=== PATIENT | male | born 1980 | race Caucasian/White ===

== ENCOUNTER 2017-11-15 19:35 | Emergency (ER) | END 2017-11-15 21:59 | disposition home or self-care (01) ==

== ENCOUNTER 2018-01-23 22:26 | Emergency (ER) | END 2018-01-24 04:08 | disposition home or self-care (01) ==

== ENCOUNTER 2018-03-25 21:45 | Emergency (ER) | END 2018-03-25 23:22 | disposition home or self-care (01) ==

== ENCOUNTER 2018-07-13 08:41 | Emergency (ER) | END 2018-07-13 16:09 ==

== ENCOUNTER 2018-10-24 18:15 | Emergency (ER) | payer OTHER ==
[~2018-10-24] VITALS: Ht 167.6 cm; Wt 70.9 kg
[~2018-10-24 18:15] MED LIST: CITA40TA6 PO; CLON-412 PO; FER325 PO; GABA400C14 PO; OMEP20CA16 PO; QUET100T32 PO
[2018-10-24 18:18] VITALS: Ht 167.6 cm; Wt 70.9 kg
[2018-10-24] MEDS ORDERED: IBUPROFEN 600 MG TAB PO ONE (20:00)
[2018-10-24] MEDS ORDERED: HYDROCODONE/APAP (5/325) TAB PO ONE (20:00)
[2018-10-24] MEDS ORDERED: AZIT500T3 PO (20:23)
[2018-10-24] MEDS ORDERED: BISM262O23 PO (20:23)
[2018-10-24] MEDS ORDERED: HYDR-4011 PO (20:23)
[2018-10-24] MEDS ORDERED: IBUP-1542 PO (20:24)
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
[2018-10-24 21:29] VITALS: BP 129/72; PULSE 101; RESP 20
== END 2018-10-24 21:31 | disposition home or self-care (01) ==
LOC: FTE 18:15
DX: S42.102A Fracture of unspecified part of scapula, left shoulder, initial encounter for closed fracture (principal); F17.210 Nicotine dependence, cigarettes, uncomplicated; Y09 Assault by unspecified means
CPT/HCPCS: Z7502; Z7610; 99283

== ENCOUNTER 2018-11-11 22:36 | Inpatient (IN) | payer OTHER ==
[~2018-11-11] VITALS: Ht 182.9 cm; Wt 78.0 kg
[~2018-11-11 22:36] MED LIST changes: +AZIT500T3 PO; +BISM262O23 PO; +HYDR-4011 PO; +IBUP-1542 PO
[2018-11-11 22:38] VITALS: Ht 182.9 cm; Wt 78.0 kg
[2018-11-11] MEDS ORDERED: ONDANSETRON 4 MG INJ IV STA (23:23)
[2018-11-11] MEDS ORDERED: morphine 4 MG/ML VIAL IV STA (23:23)
[2018-11-11] MEDS ORDERED: SOD CHLORIDE 0.9% 1,000 ML IV STA (23:23)
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
[2018-11-12] MEDS ORDERED: DICYCLOMINE 20 MG INJ IM ONE
[2018-11-12] MEDS ORDERED: IOHEXOL 300MG/ML 150 ML BTL ONE (00:30)
[2018-11-12] MEDS ORDERED: SOD CHLORIDE 0.9% 100 ML ONE (00:30)
[2018-11-12] MEDS ORDERED: ONDANSETRON 4 MG INJ IV PRN ×2 (02:00→02:30)
[2018-11-12] MEDS ORDERED: OLANZAPINE (ODT) 5 MG TAB ODT ONE (02:00)
[2018-11-12] MEDS ORDERED: morphine 4 MG/ML VIAL IV STA (02:14)
[2018-11-12] MEDS ORDERED: NACL 0.9% 3 ML SYG IV SCH (02:30)
[2018-11-12] MEDS ORDERED: morphine 2 MG INJ IV PRN (02:30)
--- NOTE | 2018-11-12 02:41 | HP ---
Date/Time of Note Date/Time of Note DATE: 11/12/18 TIME: 02:40 Assessment/Plan VTE Prophylaxis SCD applied (from Nsg): Yes Pharmacological prophylaxis: NA/contraindicated Pharm contraindication: low risk/ambulating Lines/Catheters IV Catheter Type (from Nrsg): Saline Lock Assessment/Plan Hospital Course This is a 38-year-old male being admitted to the [facility] floor for: #1 Small bowel obstruction: CT scan also shows possible inflammatory process. Patient at the current time refusing NG tube. We will keep the patient n.p.o. except meds, normal saline hydration. Pain management. General surgery has been consulted by the ER, Dr. De León. #2 rectal bleed: Patient does report that he has noticed bleeding at times over the last month. Hemoglobin at the current time is 8. Will check CBC every 6 hours. Will consult GI . #3 acute on chronic microcytic anemia: Patient has a hemoglobin of 8 with a MCV of 66. Will check stool occult blood, check iron stores. Consult GI. #4 Behavioral disorder: Patient has a history of bipolar and anxiety, will resume home medications #5 DVT GI prophylaxis: SCDs, Protonix IV Further treatment strategy will be implemented as per the clinical course. Result Diagram: 11/11/18 2335 11/11/18 2335 Results 24hrs Laboratory Tests Test 11/11/18 23:35 11/12/18 01:36 White Blood Count 10.5 # Red Blood Count 3.98 L Hemoglobin 8.0 L Hematocrit 26.4 L Mean Corpuscular Volume 66.3 L Mean Corpuscular Hemoglobin 20.1 L Mean Corpuscular Hemoglobin Concent 30.3 L Red Cell Distribution Width 17.0 H Platelet Count 604 H Mean Platelet Volume 8.8 Immature Granulocytes % 0.300 Neutrophils % 70.3 Lymphocytes % 17.7 Monocytes % 9.0 Eosinophils % 2.3 Basophils % 0.4 Nucleated Red Blood Cells % 0.0 Immature Granulocytes # 0.030 Neutrophils # 7.4 Lymphocytes # 1.9 Monocytes # 1.0 H Eosinophils # 0.2 Basophils # 0.0 Nucleated Red Blood Cells # 0.0 Sodium Level 140 Potassium Level 3.8 Chloride Level 103 Carbon Dioxide Level 21 Anion Gap 16 H Blood Urea Nitrogen 11 Creatinine 0.93 Est Glomerular Filtrat Rate mL/min > 60 Glucose Level 102 Calcium Level 9.7 Total Bilirubin 0.2 Direct Bilirubin 0.00 Indirect Bilirubin 0.2 Aspartate Amino Transf (AST/SGOT) 24 Alanine Aminotransferase (ALT/SGPT) 25 Alkaline Phosphatase 105 Total Protein 7.4 Albumin 4.3 Globulin 3.10 Albumin/Globulin Ratio 1.38 Lipase 28 Urine Color STRAW Urine Clarity CLEAR Urine pH 8.0 Urine Specific [place] 1.013 Urine Ketones NEGATIVE Urine Nitrite NEGATIVE Urine Bilirubin NEGATIVE Urine Urobilinogen NEGATIVE Urine Leukocyte Esterase NEGATIVE Urine Hemoglobin NEGATIVE Urine Glucose NEGATIVE Urine Total Protein NEGATIVE HPI/ROS Admit Date/Time Admit Date/Time Hx of Present Illness Chief complaint: Abdominal pain This is a 38-year-old male with a past medical history of IV drug use as well as alcohol use who presented to the ED via ambulance complaining of abdominal pain. He reports that his abdominal pain has been going on and off for the past 1 month. He describes it as being intermittent and it is waxing and waning. He reports that he was drinking and he started developing epigastric pain and right-sided abdominal pain. He has noticed some blood in the stools over the last month as well. He denies any constipation or diarrhea. Denies any fevers. He does report a history of meth as well as heroin with the most recent meth use being yesterday. He is currently homeless Allergies: NKDA Medications: Lexapro, Klonopin, gabapentin, Seroquel ROS Const: As per HPI Eyes : No pain discharge or redness or change in visual acuity ENT: No pain, sore throat, congestion, congestion, dysphagia or discharge Respiratory: No shortness of breath, cough, sputum, wheezing, or pleuritic pain Cardiovascular: No chest pain, palpitation, PND, or edema GI : As per HPI Genitourinary: No dysuria, hematuria, flank pain , discharge or CVA tenderness Musculoskeletal: No joint pain, back pain, neck pain, restricted range of motion in neck or joints Skin: No rash, bruising or hives Neuro: No headache, dizziness, syncope, seizure, focal weakness Endocrine: No polyuria, polydipsia, temperature intolerance Psych: No hallucination, depression, anxiety or suicidal ideation PMH/Family/Social Past Medical History Anemia, bipolar disorder, anxiety Medications Current Medications Ondansetron HCl (Zofran Inj) 4 mg BRIDGE ORDER PRN IV NAUSEA/VOMITING; Start 11/12/18 at 02:00; Stop 11/13/18 at 01:59 Acetaminophen (Tylenol Tab) 650 mg ER BRIDGE PRN PO .MILD PAIN 1-3 OR TEMP; Start 11/12/18 at 02:00; Stop 11/13/18 at 01:59 Sodium Chloride 1,000 ml @ 100 mls/hr Q10H IV ; Start 11/12/18 at 02:17 IV Flush (NS 3 ml) 3 ml PER PROTOCOL IV ; Start 11/12/18 at 02:30 Ondansetron HCl (Zofran Inj) 4 mg Q6H PRN IV NAUSEA/VOMITING; Start 11/12/18 at 02:30 Acetaminophen (Tylenol Tab) 650 mg Q6H PRN PO .PAIN 1-3 OR TEMP; Start 11/12/18 at 02:30 Morphine Sulfate (morphine) 2 mg Q4H PRN IV .SEVERE PAIN 7-10; Start 11/12/18 at 02:30 Coded Allergies: No Known Allergy (Unverified , 10/24/18) Past Surgical History Past Surgical Hx: no surgical history Social History Alcohol Use: occasionally Smoking Status: Current every day smoker Drug Use: heroin, other (Methamphetamine) Exam/Review of Systems Vital Signs Vitals Vital Signs Date Temp Pulse Resp B/P (MAP) Pulse Ox O2 O2 Flow FiO2 Time Delivery Rate 11/12/18 98.0 75 16 137/62 100 Room Air 00:40 (87) Exam Exam General: Patient is currently lying in bed sleeping when he was aroused he does report mild abdominal pain, he is disheveled appearing HEENT: Atraumatic, normocephalic. The pupils are equal, round and reactive. E xtraocular motor are intact Neck: Supple with full range of motion. No rigidity or meningismus Chest: Nontender Lungs: Clear to auscultation bilaterally no crackles rales or wheezing Heart: Normal S1-S2, Regular rhythm and rate. Abdomen: Tenderness palpation diffusely across the abdomen, hypoactive bowel sounds, guarding but no rebound. No CVA tenderness palpation bilaterally Extremities: Normal to inspection, no edema no cyanosis Neurologic: Normal mental status, speech normal, cranial nerves II through XII are intact, motor and sensory are intact Additional Comments PROCEDURE: One view chest radiograph. CLINICAL INDICATION: Chest pain. TECHNIQUE: An AP view of the chest was obtained. COMPARISON: None. FINDINGS: Mediastinum: Unremarkable. Heart size: Normal. Pulmonary vasculature: No visible engorgement. Lungs: Clear. Costophrenic sulci: Clear. Bony structures: Grossly unremarkable for age. IMPRESSION: 1. Unremarkable single view chest. RPTAT:AAJJ Physician Flaco Date Time Electronically viewed and signed by Physician Flaco on 11/12/2018 00:29 GW/ CC: WILMER FELIX MD [id number] PROCEDURE: CT Abdomen and Pelvis with IV contrast. CLINICAL INDICATION: Pain. TECHNIQUE: CT scan of the abdomen and pelvis was performed on a multidetector slice CT scanner. 100 cc of Omnipaque 300 intravenous contrast material was utilized. Sagittal and coronal reformatted images were obtained from the axial source images. Images were reviewed on a high-resolution PACS workstation. Exam CTDlvol = 8 mGy and DLP = 505 Gy-cm. One of the following 3 dose reduction techniques were used: Automated exposure control; adjustment of the mA and/or kV according to patient size; or use of iterative reconstruction technique. DICOM images are available. COMPARISON: 10/19/2018. FINDINGS: There is increased distension of multiple loops of small bowel in the abdomen with air-fluid levels. There is redemonstrated right colon wall thickening. There is abundant stool throughout the right and transverse colon. The left and sigmoid colon are normal caliber with moderate stool. There is a small amount of free fluid. The appendix is not distinctly visualized.. There is no evidence for diverticulitis. The liver is enlarged measuring 20 cm length.. Liver is mildly hypodense/fatty infiltration. No intrahepatic lesions are identified. The gallbladder is normal in appearance. There is no definite biliary ductal dilation. Pancreas is normal in appearance. The spleen is unremarkable.. There are no adrenal masses. The aorta is normal caliber. Kidneys are normal in appearance without hydronephrosis, mass or calculus. There is no perinephric collection. Ureters are of normal caliber and without evidence for an obstructing calculus The urinary bladder well distended with mild diffuse wall thickening.. Prostate gland is unremarkable. Limited evaluation lung bases is unremarkable. The bones are unremarkable. IMPRESSION: 1. Dilated small bowel with air-fluid levels. Abundant stool within the cecum. Right colon wall thickening. Findings are compatible with a bowel obstruction, possibly related to the right colon inflammatory process, decreased as compared to prior study. 2. Mild free fluid. 3. Appendix not distinctly visualized. 4. Enlarged fatty liver. 5. Redemonstrated distended urinary bladder with diffuse wall thickening. RPTAT: HMVK .Leo Staton MD, MD Date Time Electronically viewed and signed by .Leo Staton MD, on 11/12/2018 01:13 .K/ CC: WILMER FELIX MD [id number] MARIA GUADALUPE MA Nov 12, 2018 02:41
[2018-11-12] MEDS: HYDROmorphONE 0.5 MG/0.5 ML SYG IV PRN ×3 (04:21→17:57)
[2018-11-12] MEDS: SOD CHLORIDE 0.9% 1,000 ML IV SCH ×3 (04:57→22:17)
[2018-11-12] MEDS ORDERED: PANTOPRAZOLE 40 MG INJ IV ONE (05:00)
[2018-11-12] MEDS: PANTOPRAZOLE (EC) 40 MG TAB PO SCH (06:36)
[2018-11-12] MEDS ORDERED: NON-FORMULARY/PATIENT OWN MED (Omeprazole* 20 MG) PO SCH (07:00)
[2018-11-12] MEDS: ACETAMINOPHEN 325 MG TAB PO PRN ×3 (07:10→09:01)
[2018-11-12 08:15] VITALS: BP 124/71; PULSE 84; RESP 16
[2018-11-12] MEDS: CITALOPRAM 20 MG TAB PO SCH (09:38)
[2018-11-12] MEDS: GABAPENTIN 400 MG CAP PO SCH ×3 (09:38→21:08)
[2018-11-12 12:49] VITALS: BP 141/87; PULSE 68; RESP 16
[2018-11-12] MEDS ORDERED: SOD FERRIC GLUC COMPLX 125 MG in SOD CHLORIDE 0.9% 100 ML IVPB SCH (13:00)
--- NOTE | 2018-11-12 14:41 | QN ---
Documentation Comment 38-year-old homeless male with heroine abuse/meth abuse/admitted with small bowel obstruction. Surgery consult has been called. Patient also had reported rectal bleed for which a GI consultation has been also called. Labs reviewed and patient with severe iron deficiency for which recommend IV Ferrlecit x3 doses. Patient to be seen by health care social worker for his drug abuse history. CT reviewed and will treat constipation as well. Case d/w JOYCE Villarreal V. MAMMAL CONTROL AGENT Nov 12, 2018 14:41
[2018-11-12] MEDS ORDERED: BISACODYL 10 MG SUPP PR ONE (15:00)
--- NOTE | 2018-11-12 15:06 | CONS ---
Assessment/Plan Assessment/Plan Assessment/Plan (Daily) Clinically this patient does not have a small bowel obstruction, however because of the CT reading I have ordered a small bowel follow-through. Further recommendations will be forthcoming based on the patient's further workup and clinical course. Consultation Date/Type/Reason Admit Date/Time Date of Consultation: Nov 12, 2018 Type of Consult General surgery Reason for Consultation Possible small bowel obstruction Date/Time of Note DATE: 11/12/18 TIME: 15:03 Hx of Present Illness The patient is a 38-year-old male with no previous abdominal surgeries. He is homeless. Yesterday after drinking he developed abdominal pain. A CT scan suggested possible small bowel obstruction. He is admitted and surgical consultation is requested in that regard. Constitutional: no complaints Eyes: no complaints ENT: no complaints Respiratory: no complaints Cardiovascular: no complaints Gastrointestinal: pain Genitourinary: no complaints Musculoskeletal: no complaints Skin: no complaints Neurologic: no complaints Endocrine: no complaints Lymphatic: no complaints Past Medical History Home Meds Active Scripts Ibuprofen* (Motrin*) 600 Mg Tab, 600 MG PO Q6, #15 TAB Prov:CHIQUIS MAN MD 10/24/18 Hydrocodone/Acetaminophen ([place] 5-325 Tablet) 1 Each Tablet, 1 TAB PO Q6H PRN for PAIN, #10 TAB Prov:CHIQUIS MAN MD 10/24/18 Bismuth Subsalicylate* (Pepto-Bismol*) 262 Mg/15 Ml Oral.susp, 15 ML PO Q3H PRN for DIARRHEA for 5 Days, ML Prov:CHIQUIS MAN MD 10/24/18 Reported Medications Clonazepam* (Klonopin*) 1 Mg Tablet, 1 MG PO BID PRN for ANXIETY, TAB 09/24/18 Citalopram Hydrobromide* (Citalopram Hydrobromide*) 40 Mg Tablet, 40 MG PO DAILY, #30 TAB 08/10/18 Quetiapine Fumarate* (Quetiapine Fumarate*) 100 Mg Tablet, 100 MG PO HS, TAB 08/10/18 Ferrous Sulfate* (Ferrous Sulfate*) 325 Mg Tabec, 325 MG PO DAILY, TAB 08/10/18 Omeprazole* (Omeprazole*) 20 Mg Capsule.dr, 20 MG PO AC BREAKFAST, #30 CAP 08/10/18 Gabapentin* (Gabapentin*) 400 Mg Capsule, 400 MG PO TID, #90 CAP 08/10/18 Discontinued Scripts Azithromycin* (Zithromax*) 500 Mg Tablet, 500 MG PO DAILY for 3 Days, TAB Prov:CHIQUIS MAN MD 10/24/18 Medications Current Medications Ondansetron HCl (Zofran Inj) 4 mg BRIDGE ORDER PRN IV NAUSEA/VOMITING; Start 11/12/18 at 02:00; Stop 11/13/18 at 01:59 Acetaminophen (Tylenol Tab) 650 mg ER BRIDGE PRN PO .MILD PAIN 1-3 OR TEMP Last administered on 11/12/18at 09:01; Admin Dose 650 MG; Start 11/12/18 at 02:00; Stop 11/13/18 at 01:59 Sodium Chloride 1,000 ml @ 100 mls/hr Q10H IV Last administered on 11/12/18at 04:57; Admin Dose 100 MLS/HR; Start 11/12/18 at 02:17 IV Flush (NS 3 ml) 3 ml PER PROTOCOL IV ; Start 11/12/18 at 02:30 Ondansetron HCl (Zofran Inj) 4 mg Q6H PRN IV NAUSEA/VOMITING; Start 11/12/18 at 02:30 Acetaminophen (Tylenol Tab) 650 mg Q6H PRN PO .PAIN 1-3 OR TEMP; Start 11/12/18 at 02:30 Hydromorphone HCl (Dilaudid) 0.5 mg Q4H PRN IV SEVERE PAIN Last administered on 11/12/18at 09:44; Admin Dose 0.5 MG; Start 11/12/18 at 04:00 Lorazepam (Ativan) 1 mg Q4H PRN IV AGITATION/ANXIETY; Start 11/12/18 at 04:30 Citalopram Hydrobromide (Celexa) 40 mg DAILY PO Last administered on 11/12/18at 09:38; Admin Dose 40 MG; Start 11/12/18 at 09:00 Clonazepam (Klonopin) 1 mg BID PRN PO ANXIETY; Start 11/12/18 at 05:00 Gabapentin (Neurontin) 400 mg TID PO Last administered on 11/12/18at 09:38; Admin Dose 400 MG; Start 11/12/18 at 09:00 Quetiapine Fumarate (Seroquel) 100 mg HS PO ; Start 11/12/18 at 21:00 Pantoprazole (Protonix Tab) 40 mg AC BREAKFAST PO ; Start 11/12/18 at 07:00 Ferric Sodium Gluconate Complex 125 mg/Sodium Chloride 100 ml @ 100 mls/hr DAILY@1300 IVPB ; Start 11/12/18 at 15:30; Stop 11/14/18 at 13:59 Allergies: Coded Allergies: No Known Allergy (Unverified , 10/24/18) Past Surgical History Past Surgical Hx: no surgical history Family History Significant Family History: no pertinent family hx Social History Alcohol Use: occasionally Smoking Status: Current every day smoker Drug Use: heroin, other Exam/Review of Systems Exam Vitals Vital Signs Date Temp Pulse Resp B/P (MAP) Pulse Ox O2 O2 Flow FiO2 Time Delivery Rate 11/12/18 97.6 68 16 141/87 99 Room Air 12:49 (105) Intake and Output 11/11/18 11/11/18 11/12/18 1414:59 22:59 06:59 IntakeIntake Total 1000 ml BalanceBalance 1000 ml Constitutional: alert, oriented Psych: no complaints Head: normocephalic Eyes: nl conjunctiva Neck: supple Respiratory: clear to auscultation Cardiovascular: regular rate and rhythm Gastrointestinal: soft Musculoskeletal: nl extremities to inspection Extremities: normal pulses 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: DENTAL [employer]ORATORY SUPERVISOR II-XII intact Results Result Diagram: 11/12/18 1121 11/11/18 2335 Results 24hrs Laboratory Tests Test 11/11/18 23:35 11/12/18 00:30 11/12/18 01:36 11/12/18 02:53 White Blood Count 10.5 # Red Blood Count 3.98 L Hemoglobin 8.0 L Hematocrit 26.4 L Mean Corpuscular 66.3 L Volume Mean Corpuscular 20.1 L Hemoglobin Mean Corpuscular 30.3 L Hemoglobin Concent Red Cell 17.0 H Distribution Width Platelet Count 604 H Mean Platelet Volume 8.8 Immature 0.300 Granulocytes % Neutrophils % 70.3 Lymphocytes % 17.7 Monocytes % 9.0 Eosinophils % 2.3 Basophils % 0.4 Nucleated Red Blood 0.0 Cells % Immature 0.030 Granulocytes # Neutrophils # 7.4 Lymphocytes # 1.9 Monocytes # 1.0 H Eosinophils # 0.2 Basophils # 0.0 Nucleated Red Blood 0.0 Cells # Sodium Level 140 Potassium Level 3.8 Chloride Level 103 Carbon Dioxide Level 21 Anion Gap 16 H Blood Urea Nitrogen 11 Creatinine 0.93 Est Glomerular > 60 Filtrat Rate mL/min Glucose Level 102 Calcium Level 9.7 Iron Level 17 L Total Iron Binding 535 H Capacity Percent Iron 3 L Saturation Ferritin 4.8 L Total Bilirubin 0.2 Direct Bilirubin 0.00 Indirect Bilirubin 0.2 Aspartate Amino 24 Transf (AST/SGOT) Alanine 25 Aminotransferase (AL T/SGPT) Alkaline Phosphatase 105 Total Protein 7.4 Albumin 4.3 Globulin 3.10 Albumin/Globulin 1.38 Ratio Lipase 28 Ethyl Alcohol Level < 10.0 H Urine Opiates Screen Positive Urine Barbiturates Negative Urine Amphetamines POSITIVE Screen Urine Negative Benzodiazepines Screen Urine Cocaine Screen Negative Urine Cannabinoids Negative Urine Color STRAW Urine Clarity CLEAR Urine pH 8.0 Urine Specific 1.013 [place] Urine Ketones NEGATIVE Urine Nitrite NEGATIVE Urine Bilirubin NEGATIVE Urine Urobilinogen NEGATIVE Urine Leukocyte NEGATIVE Esterase Urine Hemoglobin NEGATIVE Urine Glucose NEGATIVE Urine Total Protein NEGATIVE Erythrocyte 16 H Sedimentation Rate Test 11/12/18 11:21 White Blood Count 9.4 Red Blood Count 4.16 L Hemoglobin 8.4 L Hematocrit 28.5 L Mean Corpuscular 68.5 L Volume Mean Corpuscular 20.2 L Hemoglobin Mean Corpuscular 29.5 L Hemoglobin Concent Red Cell 17.2 H Distribution Width Platelet Count 579 H Mean Platelet Volume 9.0 Immature 0.400 Granulocytes % Neutrophils % 77.3 H Lymphocytes % 12.2 L Monocytes % 7.0 Eosinophils % 2.8 Basophils % 0.3 Nucleated Red Blood 0.0 Cells % Immature 0.040 H Granulocytes # Neutrophils # 7.3 Lymphocytes # 1.2 Monocytes # 0.7 Eosinophils # 0.3 Basophils # 0.0 Nucleated Red Blood 0.0 Cells # Medications Medication Current Medications Ondansetron HCl (Zofran Inj) 4 mg BRIDGE ORDER PRN IV NAUSEA/VOMITING; Start 11/12/18 at 02:00; Stop 11/13/18 at 01:59 Acetaminophen (Tylenol Tab) 650 mg ER BRIDGE PRN PO .MILD PAIN 1-3 OR TEMP Last administered on 11/12/18at 09:01; Admin Dose 650 MG; Start 11/12/18 at 02:00; Stop 11/13/18 at 01:59 Sodium Chloride 1,000 ml @ 100 mls/hr Q10H IV Last administered on 11/12/18at 04:57; Admin Dose 100 MLS/HR; Start 11/12/18 at 02:17 IV Flush (NS 3 ml) 3 ml PER PROTOCOL IV ; Start 11/12/18 at 02:30 Ondansetron HCl (Zofran Inj) 4 mg Q6H PRN IV NAUSEA/VOMITING; Start 11/12/18 at 02:30 Acetaminophen (Tylenol Tab) 650 mg Q6H PRN PO .PAIN 1-3 OR TEMP; Start 11/12/18 at 02:30 Hydromorphone HCl (Dilaudid) 0.5 mg Q4H PRN IV SEVERE PAIN Last administered on 11/12/18at 09:44; Admin Dose 0.5 MG; Start 11/12/18 at 04:00 Lorazepam (Ativan) 1 mg Q4H PRN IV AGITATION/ANXIETY; Start 11/12/18 at 04:30 Citalopram Hydrobromide (Celexa) 40 mg DAILY PO Last administered on 11/12/18at 09:38; Admin Dose 40 MG; Start 11/12/18 at 09:00 Clonazepam (Klonopin) 1 mg BID PRN PO ANXIETY; Start 11/12/18 at 05:00 Gabapentin (Neurontin) 400 mg TID PO Last administered on 11/12/18at 09:38; Admin Dose 400 MG; Start 11/12/18 at 09:00 Quetiapine Fumarate (Seroquel) 100 mg HS PO ; Start 11/12/18 at 21:00 Pantoprazole (Protonix Tab) 40 mg AC BREAKFAST PO ; Start 11/12/18 at 07:00 Ferric Sodium Gluconate Complex 125 mg/Sodium Chloride 100 ml @ 100 mls/hr DAILY@1300 IVPB ; Start 11/12/18 at 15:30; Stop 11/14/18 at 13:59 ADAM CARDOZA MD Nov 12, 2018 15:06
--- NOTE | 2018-11-12 15:38 | NUR ---
Pt off floor to radiology for small bowel follow through via wheelchair.
[2018-11-12] MEDS ORDERED: DIATR MEGLU/DIATRIZOATE SODIUM 120 ML BTL ONE (15:40)
--- NOTE | 2018-11-12 16:00 | NUR ---
Pt has hx of bipolar and depression. Spoke to Starla SPRUE KNOCKER regarding psych consult with Saloni MEYER. Per Starla, pt currently does not show any signs of behavioral issues, pt resting calmly in bed, no signs of hallucinations, pt also on appropriate med regimen. Will hold off on psych consult. However, inform Starla SPRUE KNOCKER if pt behavior changes.
--- NOTE | 2018-11-12 16:53 | QN ---
Documentation Comment Patient is off the floor for an X-ray. Will see tomorrow for consultation. MIC MEDINA NP Nov 12, 2018 16:53
[2018-11-12] MEDS: SOD FERRIC GLUC COMPLX 125 MG in SOD CHLORIDE 0.9% 100 ML IVPB SCH (17:58)
--- NOTE | 2018-11-12 18:19 | NUR ---
END OF SHIFT NOTES: PT STABLE, ALERT & ORIENTED X4. S/P SMALL BOWEL XR. PT MOSTLY SLEEPING IN BED, FOLLOWS COMMANDS, NO BEHAVIOR ISSUES, PAIN MED ADMINISTERED PER ORDER, PT REFUSED NGT, MD AWARE. NO DISTRESS NOTED. INSTRUCTED PT TO CALL FOR ASSISTANCE. VS WNL.HOURLY ROUNDING. CALL LIGHT WITHIN REACH.ALL NEEDS MET. NO NEW COMPLAINTS.
[2018-11-12 20:15] VITALS: BP 124/71; PULSE 84; RESP 16
[2018-11-12] MEDS: LORAZEPAM 2 MG INJ IV PRN (20:57)
[2018-11-12] MEDS: QUETIAPINE 100 MG TAB PO SCH ×2 (21:00→23:43)
[2018-11-13 02:08] VITALS: BP 139/84; PULSE 74; RESP 18
[2018-11-13] MEDS: SOD CHLORIDE 0.9% 1,000 ML IV SCH ×2 (04:32→17:35)
[2018-11-13] MEDS: PANTOPRAZOLE (EC) 40 MG TAB PO SCH ×2 (05:53→09:39)
--- NOTE | 2018-11-13 06:17 | NUR ---
PATIENT HAD AN EPISODE OF INCONTINENCE, BOTH BLADDER AND BOWEL. NO RECTAL BLEED NOTED. REMAINED NPO EXCEPT FOR MEDS. NOTED REDNESS TO PERIAREA, PROVIDED CALAZIME. REINFORCEMENT AND REORIENTATION PROVIDED NEEDED. NO PAIN AT THIS TIME. CONTINUE POC.
--- NOTE | 2018-11-13 06:32 | QN ---
Documentation Comment Abdominal examination is benign Small bowel follow-through does not show obstruction Plan: Start clear liquids and advance diet as tolerated ADAM CARDOZA MD Nov 13, 2018 06:32
[2018-11-13 07:36] VITALS: BP 124/75; PULSE 88; RESP 18
[2018-11-13] MEDS: CITALOPRAM 20 MG TAB PO SCH (09:38)
[2018-11-13] MEDS: LORAZEPAM 2 MG INJ IV PRN (09:39)
[2018-11-13] MEDS: GABAPENTIN 400 MG CAP PO SCH ×3 (09:39→20:33)
--- NOTE | 2018-11-13 09:43 | PSY ---
Date/Time of Note Date/Time of Note DATE: 11/13/18 TIME: 09:42 Psychiatric Subjective Eval Consent Pt consented to telemedicine: No Subjective Evaluation Patient location: inpatient Chief Complaint: BIBA 89 for AP all day, marcell tazter drinking alcohol History of present illness Patient is a 38 year old male with underlying medical history of IV drug use, Alcohol abuse, who presented to the hospital complaining of abdominal pain. He reports that he has a history of heroin and methamphetamine dependence. He also has a history of schizoaffective disorder associated with feelings of helplessness, hopelessness, and auditory hallucination, with active suicidal thoughts with no specific plan. Past psychiatric history Long history of mental illness with several hospitalization Hospitalization: Suicidal Attempt(s) Family History Unknown Medical history Problems Medical Problems: (1) Abdominal pain Status: Acute (2) Abdominal pain Status: Acute (3) Acute bronchitis Status: Acute (4) Anemia Status: Acute (5) Bronchitis Status: Acute (6) Colitis Status: Acute (7) Dehydration Status: Acute (8) Diarrhea Status: Acute (9) Fracture, scapula closed Status: Acute (10) Methamphetamine abuse Status: Acute (11) Olfactory hallucination Status: Acute (12) Paranoid behavior Status: Acute (13) Psychological disorder Status: Acute (14) Shoulder pain Status: Acute (15) Small bowel obstruction Status: Acute (16) Substance abuse Status: Acute (17) Suicidal ideation Status: Acute (18) Suicidal ideation Status: Acute (19) Suicidal ideation Status: Acute (20) Tachycardia Status: Acute (21) Thrombocytosis Status: Acute Allergies: Coded Allergies: No Known Allergy (Unverified , 10/24/18) Substance Abuse Substance abuse history: Yes Prior substance abuse treatmen: Yes Social History Marital status: single DPA/Conservatorship: No Psychiatric Objective Eval Review of Systems: Review of Systems: Not Applicable Physical Examination: Physical Examination: Not Applicable Appetite: Decreased Energy: Decreased Interest: Decreased Mental Status Examination: Appearance: Poor Hygiene Eye Contact: Good Psychomotor Activity: Slow Behavior: Cooperative Speech: Clear AFFECT: Flat Mood: Depressed Though Process: Linear Thought Content: Hallucinations Suicidal: Yes Orientation: x4 Insight: Intact Judgement: Intact Attention Span: Distractible Laboratory Results Laboratory Tests Test 11/11/18 23:35 11/12/18 00:30 11/12/18 01:36 11/12/18 02:53 White Blood 10.5 10^3/ul Count Red Blood Count 3.98 10^6/ul Hemoglobin 8.0 g/dl Hematocrit 26.4 % Mean 66.3 fl Corpuscular Volume Mean 20.1 pg Corpuscular Hemoglobin Mean 30.3 g/dl Corpuscular Hemoglobin Conc ent Red Cell 17.0 % Distribution Width Platelet Count 604 10^3/UL Mean Platelet 8.8 fl Volume Immature 0.300 % Granulocytes % Neutrophils % 70.3 % Lymphocytes % 17.7 % Monocytes % 9.0 % Eosinophils % 2.3 % Basophils % 0.4 % Nucleated Red 0.0 /100WBC Blood Cells % Immature 0.030 10^3/ul Granulocytes # Neutrophils # 7.4 10^3/ul Lymphocytes # 1.9 10^3/ul Monocytes # 1.0 10^3/ul Eosinophils # 0.2 10^3/ul Basophils # 0.0 10^3/ul Nucleated Red 0.0 10^3/ul Blood Cells # Sodium Level 140 mmol/L Potassium Level 3.8 mmol/L Chloride Level 103 mmol/L Carbon Dioxide 21 mmol/L Level Anion Gap 16 Blood Urea 11 mg/dl Nitrogen Creatinine 0.93 mg/dl Est Glomerular > 60 mL/min Filtrat Rate mL/min Glucose Level 102 mg/dl Calcium Level 9.7 mg/dl Iron Level 17 ug/dl Total Iron 535 ug/dl Binding Capacity Percent Iron 3 % SAT Saturation Ferritin 4.8 ng/ml Total Bilirubin 0.2 mg/dl Direct 0.00 mg/dl Bilirubin Indirect 0.2 mg/dl Bilirubin Aspartate Amino 24 IU/L Transf (AST/SGO T) Alanine 25 IU/L Aminotransferas e (ALT/SGPT) Alkaline 105 IU/L Phosphatase Total Protein 7.4 g/dl Albumin 4.3 g/dl Globulin 3.10 g/dl Albumin/Globuli 1.38 n Ratio Lipase 28 U/L Ethyl Alcohol < 10.0 mg/dl Level Urine Opiates Positive Screen Urine Negative Barbiturates Urine POSITIVE Amphetamines Screen Urine Negative Benzodiazepines Screen Urine Cocaine Negative Screen Urine Negative Cannabinoids Urine Color STRAW Urine Clarity CLEAR Urine pH 8.0 Urine Specific 1.013 [place] Urine Ketones NEGATIVE mg/dL Urine Nitrite NEGATIVE mg/dL Urine Bilirubin NEGATIVE mg/dL Urine NEGATIVE mg/dL Urobilinogen Urine Leukocyte NEGATIVE Kalina/ul Esterase Urine NEGATIVE mg/dL Hemoglobin Urine Glucose NEGATIVE mg/dL Urine Total NEGATIVE mg/dl Protein Erythrocyte 16 mm/Hr Sedimentation Rate Test 11/12/18 11:21 11/12/18 17:52 11/12/18 22:47 11/13/18 05:01 White Blood 9.4 10^3/ul 8.1 10^3/ul 8.4 10^3/ul 6.1 10^3/ul Count Red Blood Count 4.16 10^6/ul 4.43 10^6/ul 4.16 10^6/ul 3.77 10^6/ul Hemoglobin 8.4 g/dl 9.0 g/dl 8.4 g/dl 7.5 g/dl Hematocrit 28.5 % 30.2 % 28.7 % 25.4 % Mean 68.5 fl 68.2 fl 69.0 fl 67.4 fl Corpuscular Volume Mean 20.2 pg 20.3 pg 20.2 pg 19.9 pg Corpuscular Hemoglobin Mean 29.5 g/dl 29.8 g/dl 29.3 g/dl 29.5 g/dl Corpuscular Hemoglobin Conc ent Red Cell 17.2 % 17.4 % 17.5 % 17.3 % Distribution Width Platelet Count 579 10^3/UL 615 10^3/UL 552 10^3/UL 489 10^3/UL Mean Platelet 9.0 fl 8.9 fl 8.8 fl 9.3 fl Volume Immature 0.400 % 0.500 % 0.400 % 0.300 % Granulocytes % Neutrophils % 77.3 % 75.2 % 78.1 % 62.8 % Lymphocytes % 12.2 % 14.0 % 12.2 % 24.1 % Monocytes % 7.0 % 7.6 % 7.2 % 9.1 % Eosinophils % 2.8 % 2.6 % 1.9 % 3.4 % Basophils % 0.3 % 0.1 % 0.2 % 0.3 % Nucleated Red 0.0 /100WBC 0.0 /100WBC 0.0 /100WBC 0.0 /100WBC Blood Cells % Immature 0.040 10^3/ul 0.040 10^3/ul 0.030 10^3/ul 0.020 10^3/ul Granulocytes # Neutrophils # 7.3 10^3/ul 6.1 10^3/ul 6.5 10^3/ul 3.8 10^3/ul Lymphocytes # 1.2 10^3/ul 1.1 10^3/ul 1.0 10^3/ul 1.5 10^3/ul Monocytes # 0.7 10^3/ul 0.6 10^3/ul 0.6 10^3/ul 0.6 10^3/ul Eosinophils # 0.3 10^3/ul 0.2 10^3/ul 0.2 10^3/ul 0.2 10^3/ul Basophils # 0.0 10^3/ul 0.0 10^3/ul 0.0 10^3/ul 0.0 10^3/ul Nucleated Red 0.0 10^3/ul 0.0 10^3/ul 0.0 10^3/ul 0.0 10^3/ul Blood Cells # Sodium Level 140 mmol/L Potassium Level 3.8 mmol/L Chloride Level 104 mmol/L Carbon Dioxide 22 mmol/L Level Anion Gap 14 Blood Urea 9 mg/dl Nitrogen Creatinine 0.74 mg/dl Est Glomerular > 60 mL/min Filtrat Rate mL/min Glucose Level 77 mg/dl Hemoglobin A1c 5.8 % Calcium Level 8.4 mg/dl Magnesium Level 1.9 mg/dl Total Bilirubin 0.1 mg/dl Direct 0.00 mg/dl Bilirubin Indirect 0.1 mg/dl Bilirubin Aspartate Amino 27 IU/L Transf (AST/SGO T) Alanine 22 IU/L Aminotransferas e (ALT/SGPT) Alkaline 82 IU/L Phosphatase Total Protein 5.9 g/dl Albumin 3.2 g/dl Globulin 2.70 g/dl Albumin/Globuli 1.18 n Ratio Thyroid 1.240 MIU/L Stimulating Hormone (TSH) Assessment and Plan Assessment/Diagnosis Diagnosis Schizoaffective disorder bipolar type Recommendation/Plan Medication Management Seroquel 200 mg at bedtime, Lexapro 10 mg daily, gabapentin 300 mg 3 times a day and Klonopin 0.5 mg 3 times daily Psychotherapy Supportive therapy Discharge Disposition: Other Legal Status: Voluntary (Patient is willing to go to acute psych facility voluntarily he does not need 5150 hold . Will benefit from inpatient psychiatric treatment) SAMANTHA AGUSTIN NP Nov 13, 2018 09:43
--- NOTE | 2018-11-13 10:47 | NUR ---
Suicidal 1:1 sitter: After being seen by Saloni SCIENTIFIC ASSOCIATE, Saloni informed nursing staff about patient being suicidal. Plan discussed, 1:1 sitter placed, environmental check done on room. Phone removed and call light cord kept away from patient. Mehreen ANGELES was assigned as 1:1 sitter and report to her given about reason for sitter. Patient was sleeping at the time of rounding. Nursing dimension warehouse supervisor Jen and community arts officer Adrien made aware of situation and plan.
--- NOTE | 2018-11-13 10:57 | NUR ---
During assessment patient denied any suicidal thoughts , still c/o depression . Patient been seen by BETSY Guallpa , who is seeing patient on outpatient basis.Saloni stated that patient has Hx of schizoaffective disorder associated with feelings of helplessness, hopelessness, and auditory hallucination, with active suicidal thoughts with no specific plan.Patient will be placed on 1: 1 with sitter. Will continue to monitor.
[2018-11-13] MEDS ORDERED: SOD CHLORIDE 0.9% 250 ML IV* ONE (11:47)
--- NOTE | 2018-11-13 12:04 | PN ---
Date/Time of Note Date/Time of Note DATE: 11/13/18 TIME: 12:02 Assessment/Plan VTE Prophylaxis Risk score (from Ns)>0 risk: 1 SCD applied (from Nsg): Yes Pharmacological prophylaxis: NA/contraindicated Pharm contraindication: low risk/ambulating Lines/Catheters IV [facility]from [facility] Peripheral IV Assessment/Plan Hospital Course SUBJECTIVE: Currently sedated. With sitter. Patient has been hallucinating with feeling of helplessness/suicidal thoughts with no plans. OBJECTIVE: Vital signs-see below PHYSICAL EXAM: Constitutional: Well-developed, adequately built, lying in bed comfortably. Psych: Depressed/hopeless head: atraumatic, normocephalic Eyes: nl conjunctiva, nl sclera ENMT: mucosa pink and moist, nl external ears & nose Neck: non-tender, supple Respiratory: clear to auscultation, normal air movement Cardiovascular: nl pulses, regular rate and rhythm Gastrointestinal: non-tender, soft, bowel sounds active in all 4 quadrants. Musculoskeletal/extremities: nl extremities to inspection, motor strength equal bilaterally, no focal deficit. Normal pulses,no cyanosis, no edema. 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: Alert oriented 3,nl speech, nl strength Skin: nl turgor ASSESSMENT/PLAN:38-year-old homeless male with heroine abuse/meth abuse/admitted with abdominal pain concerning for SBO. 1. Abdominal pain, with possible SBO -Surgery following and started on clear diet. -Follow-up surgery recommendations. 2. Reported rectal bleed -Pending stool OB. H&H dropped to 7.5/25.4 today. -Empiric Protonix -GI consult 3. Iron deficient anemia -Cont. Iron Supplementation. Today H&H dropped and patient with reported history of rectal bleed, I recommend transfusing 1 unit of PRBC. 4. Schizoaffective disorder/bipolar type -Appreciate psych eval and recommended Seroquel/Lexapro/gabapentin/Klonopin -Supportive care -Patient is willing to go to acute psych facility voluntarily once he is medically cleared. DVT prophylaxis: Not indicated PUD prophylaxis: Protonix Disposition: Continue current medical management. Follow-up surgery and GI recommendations. Transfer patient to inpatient psych unit with eventual plan for sending patient to acute psych facility voluntarily. Patient was seen in collaboration with Result Diagram: 11/13/18 0501 11/13/18 0501 Results 24hrs Laboratory Tests Test 11/12/18 17:52 11/12/18 22:47 11/13/18 05:01 White Blood Count 8.1 8.4 6.1 # Red Blood Count 4.43 L 4.16 L 3.77 L Hemoglobin 9.0 L 8.4 L 7.5 L Hematocrit 30.2 L 28.7 L 25.4 L Mean Corpuscular Volume 68.2 L 69.0 L 67.4 L Mean Corpuscular Hemoglobin 20.3 L 20.2 L 19.9 L Mean Corpuscular Hemoglobin Concent 29.8 L 29.3 L 29.5 L Red Cell Distribution Width 17.4 H 17.5 H 17.3 H Platelet Count 615 H 552 H 489 H Mean Platelet Volume 8.9 8.8 9.3 Immature Granulocytes % 0.500 H 0.400 0.300 Neutrophils % 75.2 78.1 H 62.8 Lymphocytes % 14.0 L 12.2 L 24.1 Monocytes % 7.6 7.2 9.1 Eosinophils % 2.6 1.9 3.4 Basophils % 0.1 0.2 0.3 Nucleated Red Blood Cells % 0.0 0.0 0.0 Immature Granulocytes # 0.040 H 0.030 0.020 Neutrophils # 6.1 6.5 3.8 Lymphocytes # 1.1 1.0 1.5 Monocytes # 0.6 0.6 0.6 Eosinophils # 0.2 0.2 0.2 Basophils # 0.0 0.0 0.0 Nucleated Red Blood Cells # 0.0 0.0 0.0 Sodium Level 140 Potassium Level 3.8 Chloride Level 104 Carbon Dioxide Level 22 Anion Gap 14 H Blood Urea Nitrogen 9 Creatinine 0.74 Est Glomerular Filtrat Rate mL/min > 60 Glucose Level 77 Hemoglobin A1c 5.8 Calcium Level 8.4 Magnesium Level 1.9 Total Bilirubin 0.1 L Direct Bilirubin 0.00 Indirect Bilirubin 0.1 Aspartate Amino Transf (AST/SGOT) 27 Alanine Aminotransferase (ALT/SGPT) 22 Alkaline Phosphatase 82 Total Protein 5.9 #L Albumin 3.2 #L Globulin 2.70 Albumin/Globulin Ratio 1.18 Thyroid Stimulating Hormone (TSH) 1.240 Exam/Review of Systems Exam Vitals Vital Signs Date Temp Pulse Resp B/P (MAP) Pulse Ox O2 O2 Flow FiO2 Time Delivery Rate 11/13/18 97.9 88 18 124/75 97 Room Air 07:36 (91) Intake and Output 11/12/18 11/12/18 11/13/18 1515:00 23:00 07:00 IntakeIntake Total 100 ml 1050 ml BalanceBalance 100 ml 1050 ml Results Results 24hrs Laboratory Tests Test 11/12/18 17:52 11/12/18 22:47 11/13/18 05:01 White Blood Count 8.1 8.4 6.1 # Red Blood Count 4.43 L 4.16 L 3.77 L Hemoglobin 9.0 L 8.4 L 7.5 L Hematocrit 30.2 L 28.7 L 25.4 L Mean Corpuscular Volume 68.2 L 69.0 L 67.4 L Mean Corpuscular Hemoglobin 20.3 L 20.2 L 19.9 L Mean Corpuscular Hemoglobin Concent 29.8 L 29.3 L 29.5 L Red Cell Distribution Width 17.4 H 17.5 H 17.3 H Platelet Count 615 H 552 H 489 H Mean Platelet Volume 8.9 8.8 9.3 Immature Granulocytes % 0.500 H 0.400 0.300 Neutrophils % 75.2 78.1 H 62.8 Lymphocytes % 14.0 L 12.2 L 24.1 Monocytes % 7.6 7.2 9.1 Eosinophils % 2.6 1.9 3.4 Basophils % 0.1 0.2 0.3 Nucleated Red Blood Cells % 0.0 0.0 0.0 Immature Granulocytes # 0.040 H 0.030 0.020 Neutrophils # 6.1 6.5 3.8 Lymphocytes # 1.1 1.0 1.5 Monocytes # 0.6 0.6 0.6 Eosinophils # 0.2 0.2 0.2 Basophils # 0.0 0.0 0.0 Nucleated Red Blood Cells # 0.0 0.0 0.0 Sodium Level 140 Potassium Level 3.8 Chloride Level 104 Carbon Dioxide Level 22 Anion Gap 14 H Blood Urea Nitrogen 9 Creatinine 0.74 Est Glomerular Filtrat Rate mL/min > 60 Glucose Level 77 Hemoglobin A1c 5.8 Calcium Level 8.4 Magnesium Level 1.9 Total Bilirubin 0.1 L Direct Bilirubin 0.00 Indirect Bilirubin 0.1 Aspartate Amino Transf (AST/SGOT) 27 Alanine Aminotransferase (ALT/SGPT) 22 Alkaline Phosphatase 82 Total Protein 5.9 #L Albumin 3.2 #L Globulin 2.70 Albumin/Globulin Ratio 1.18 Thyroid Stimulating Hormone (TSH) 1.240 Medications Medication Current Medications Sodium Chloride 1,000 ml @ 100 mls/hr Q10H IV Last administered on 11/13/18 04:32; Admin Dose 100 MLS/HR; Start 11/12/18 at 02:17 IV Flush (NS 3 ml) 3 ml PER PROTOCOL IV ; Start 11/12/18 at 02:30 Ondansetron HCl (Zofran Inj) 4 mg Q6H PRN IV NAUSEA/VOMITING; Start 11/12/18 at 02:30 Acetaminophen (Tylenol Tab) 650 mg Q6H PRN PO .PAIN 1-3 OR TEMP; Start 11/12/18 at 02:30 Hydromorphone HCl (Dilaudid) 0.5 mg Q4H PRN IV SEVERE PAIN Last administered on 11/12/18at 17:57; Admin Dose 0.5 MG; Start 11/12/18 at 04:00 Lorazepam (Ativan) 1 mg Q4H PRN IV AGITATION/ANXIETY Last administered on 11/13/18at 09:39; Admin Dose 1 MG; Start 11/12/18 at 04:30 Citalopram Hydrobromide (Celexa) 40 mg DAILY PO Last administered on 11/13/18at 09:38; Admin Dose 40 MG; Start 11/12/18 at 09:00 Clonazepam (Klonopin) 1 mg BID PRN PO ANXIETY; Start 11/12/18 at 05:00 Gabapentin (Neurontin) 400 mg TID PO Last administered on 11/13/18at 09:39; Admin Dose 400 MG; Start 11/12/18 at 09:00 Pantoprazole (Protonix Tab) 40 mg AC BREAKFAST PO Last administered on 11/13/18at 09:39; Admin Dose 40 MG; Start 11/12/18 at 07:00 Ferric Sodium Gluconate Complex 125 mg/Sodium Chloride 100 ml @ 100 mls/hr DAILY@1300 IVPB Last administered on 11/12/18at 17:58; Admin Dose 100 MLS/HR; Start 11/12/18 at 15:30; Stop 11/14/18 at 13:59 Quetiapine Fumarate (Seroquel) 200 mg HS PO ; Start 11/13/18 at 21:00 JOYCE PARKS NP Nov 13, 2018 12:04
[2018-11-13] MEDS: SOD FERRIC GLUC COMPLX 125 MG in SOD CHLORIDE 0.9% 100 ML IVPB SCH (12:49)
[2018-11-13] MEDS: ACETAMINOPHEN 325 MG TAB PO PRN (12:50)
--- NOTE | 2018-11-13 12:50 | NUR ---
SS Note: Consult Pt is a 38YO male admitted to [facility] on 11/12/18 for abdominal pain. Pt has medical hx of small bowel obstruction, rectal bleed, anemia, bipolar, anxiety, DVT. Pt is currently homeless. MOLECULAR BIOLOGY PROFESSOR consulted today to address homeless concerns as well as IV drug abuse, meth use concerns. Today, pt is A&O x 4, calm and cooperative. Pt appears lethargic with slowed/slurred speech but able to participate fully in interview. Pt describes being from [place], having moved to 20 years ago. Pt states he has a sister in the [facility] but she wants "nothing to do with him." Pt can not provide any other contact or support person. Pt states he has been homeless and living on the streets for the past year after being kicked out of his sober living facility for smoking meth. Pt endorses strong desire to find permanent housing. Pt states he is a longtime drug user, primarily smokes meth but also does IV heroine, drinks alcohol; his longest period of sobriety was when he was 13YO for 3 months. Pt states he has had a very "shitty" life and describes hx of depression, anxiety and bipolar disorder. Pt currently takes Lexipro, klonopin and gabapentin mostly prescribed from frequent hospitalizations. Pt states he always has suicidal thoughts, most recent attempt was approximately a year ago. Pt does have auditory hallucinations, but they are not command. Pt has been hospitalized at [facility] for psychiatric purposes in the past. Pt does not currently endorse any plan to hurt himself, pt does not have access to any firearms. Pt receives only [employer] and [employer] as income. MOLECULAR BIOLOGY PROFESSOR reviewed medical record, met with pt at bedside, introduced self, role, limits to confidentiality. MOLECULAR BIOLOGY PROFESSOR completed PSA, provided emotional support, discussed [facility] and [facility] programs - pt states he was at [facility] and got kicked out. Pt was evaluated by diploma pharmacy technician Saloni, who does not recommend an involuntary 5150 hold at this time. Sitter remains at bedside. MOLECULAR BIOLOGY PROFESSOR provided pt with [facility] info, winter correction, outpatient counseling and psychiatric treatment programs. MOLECULAR BIOLOGY PROFESSOR encouraged pt to call [facility] number to begin assessment. Pt in agreement. MOLECULAR BIOLOGY PROFESSOR to endorse to weekday SW for f/u homeless discharge planning when medically cleared.
[2018-11-13] MEDS: clonAZEPAM 0.5 MG TAB PO PRN ×2 (13:03→20:33)
--- NOTE | 2018-11-13 14:54 | CONS ---
Assessment/Plan Assessment/Plan Assessment/Plan (Daily) Assessment: Partial small bowel obstruction Anemia Hematochezia Right colon wall thickening on CT Fatty liver Polysubstance abuse Suicidal ideation Plan: EGD/colonoscopy on Thursday -if able to consent the patient Continue Protonix Hepatitis serology Monitor H&H Transfuse for hemoglobin less than 7.5 She is seen in collaboration with Consultation Date/Type/Reason Admit Date/Time Date of Consultation: Nov 13, 2018 Type of Consult GI Reason for Consultation Hematochezia/Anemia Date/Time of Note DATE: 11/13/18 TIME: 14:36 Hx of Present Illness This is a 38-year-old male who was admitted for abdominal pain after drinking alcohol. Patient states his pain started with epigastric and right-sided abdominal pain radiating to the back with nausea. Patient had several episodes of hematochezia with low hemoglobin requiring blood transfusion. Patient reports having blood in the stool for the past 6 months on and off. Patient has some psych history with polysubstance abuse and suicidal ideations. Small bowel follow-through showed partial obstruction. Currently there is no symptoms of nausea, vomiting, abdominal pain, diarrhea or constipation. The plan is to do an EGD/colonoscopy if the patient consents. Patient is not cooperating at this time. Will reassess tomorrow. Gastrointestinal: no complaints (See HPI) Past Medical History Polysubstance abuse Home Meds Active Scripts Ibuprofen* (Motrin*) 600 Mg Tab, 600 MG PO Q6, #15 TAB Prov:CHIQUIS MAN MD 10/24/18 Hydrocodone/Acetaminophen ([place] 5-325 Tablet) 1 Each Tablet, 1 TAB PO Q6H PRN for PAIN, #10 TAB Prov:CHIQUIS MAN MD 10/24/18 Bismuth Subsalicylate* (Pepto-Bismol*) 262 Mg/15 Ml Oral.susp, 15 ML PO Q3H PRN for DIARRHEA for 5 Days, ML Prov:CHIQUIS MAN MD 10/24/18 Reported Medications Clonazepam* (Klonopin*) 1 Mg Tablet, 1 MG PO BID PRN for ANXIETY, TAB 09/24/18 Citalopram Hydrobromide* (Citalopram Hydrobromide*) 40 Mg Tablet, 40 MG PO DAILY, #30 TAB 08/10/18 Quetiapine Fumarate* (Quetiapine Fumarate*) 100 Mg Tablet, 100 MG PO HS, TAB 08/10/18 Ferrous Sulfate* (Ferrous Sulfate*) 325 Mg Tabec, 325 MG PO DAILY, TAB 08/10/18 Omeprazole* (Omeprazole*) 20 Mg Capsule.dr, 20 MG PO AC BREAKFAST, #30 CAP 08/10/18 Gabapentin* (Gabapentin*) 400 Mg Capsule, 400 MG PO TID, #90 CAP 08/10/18 Discontinued Scripts Azithromycin* (Zithromax*) 500 Mg Tablet, 500 MG PO DAILY for 3 Days, TAB Prov:CHIQUIS MAN MD 10/24/18 Medications Current Medications Sodium Chloride 1,000 ml @ 100 mls/hr Q10H IV Last administered on 11/13/18at 04:32; Admin Dose 100 MLS/HR; Start 11/12/18 at 02:17 IV Flush (NS 3 ml) 3 ml PER PROTOCOL IV ; Start 11/12/18 at 02:30 Ondansetron HCl (Zofran Inj) 4 mg Q6H PRN IV NAUSEA/VOMITING; Start 11/12/18 at 02:30 Acetaminophen (Tylenol Tab) 650 mg Q6H PRN PO .PAIN 1-3 OR TEMP Last administered on 11/13/18at 12:50; Admin Dose 650 MG; Start 11/12/18 at 02:30 Lorazepam (Ativan) 1 mg Q4H PRN IV AGITATION/ANXIETY Last administered on at 09:39; Admin Dose 1 MG; Start 11/12/18 at 04:30 Citalopram Hydrobromide (Celexa) 40 mg DAILY PO Last administered on 11/13/18at 09:38; Admin Dose 40 MG; Start 11/12/18 at 09:00 Clonazepam (Klonopin) 1 mg BID PRN PO ANXIETY Last administered on 11/13/18at 13:03; Admin Dose 1 MG; Start 11/12/18 at 05:00 Gabapentin (Neurontin) 400 mg TID PO Last administered on 11/13/18at 12:50; Admin Dose 400 MG; Start 11/12/18 at 09:00 Ferric Sodium Gluconate Complex 125 mg/Sodium Chloride 100 ml @ 100 mls/hr DAILY@1300 IVPB Last administered on 11/13/18at 12:49; Admin Dose 100 MLS/HR; Start 11/12/18 at 15:30; Stop 11/14/18 at 13:59 Quetiapine Fumarate (Seroquel) 200 mg HS PO ; Start 11/13/18 at 21:00 Pantoprazole (Protonix Iv) 40 mg BID@06,18 IV ; Start 11/13/18 at 18:00 Allergies: Coded Allergies: No Known Allergy (Unverified , 10/24/18) Past Surgical History Past Surgical Hx: no surgical history Social History Alcohol Use: occasionally Smoking Status: Smoker,current status unk Drug Use: heroin, other Exam/Review of Systems Exam Vitals Vital Signs Date Temp Pulse Resp B/P (MAP) Pulse Ox O2 O2 Flow FiO2 Time Delivery Rate 11/13/18 97.9 88 18 124/75 97 Room Air 07:36 (91) Intake and Output 11/12/18 11/12/18 11/13/18 1515:00 23:00 07:00 IntakeIntake Total 100 ml 1050 ml BalanceBalance 100 ml 1050 ml Exam PHYSICAL EXAMINATION: GENERAL: Well developed, well nourished, sedated, lethargic, in no acute distress SKIN: No lesions, no stigmata chronic liver disease, no evidence of bleeding diathesis LYMPHATIC: No palpable lymphadenopathy. HEAD: Normocephalic, atraumatic, no tenderness. EYES: Pupils equal reactive to light and accommodation, full extraocular movements, sclera clear, non-icteric, no discharge. EARS/NOSE AND THROAT: Ears normal, nose normal, oropharynx normal, oral membranes well hydrated without lesions. NECK: Supple, no masses, thyroid normal, JVP within normal limits, carotids normal without bruits. CHEST: Inspection within normal limits. CARDIOVASCULAR: Heart: Regular rate and rhythm, no murmurs, gallops or rubs. Peripheral pulses present within normal limits, no cyanosis, clubbing or edemas. No pulsatile abdominal mass RESPIRATORY: Lungs clear to auscultation and percussion, no wheezing, no rubs GASTROINTESTINAL AND LIVER: Abdomen: Soft, non tenderness, non-distended, no hernias, no masses, no organomegaly, no ascites, no guarding, no rebound tenderness, normoactive bowel sounds. Rectal: Deferred. GENITOURINARY: Male genitalia within normal limits. EXTREMITIES: No cyanosis, clubbing or edema. Results Result Diagram: 11/13/18 0501 11/13/18 0501 Results 24hrs Laboratory Tests Test 11/12/18 17:52 11/12/18 22:47 11/13/18 05:01 White Blood Count 8.1 8.4 6.1 # Red Blood Count 4.43 L 4.16 L 3.77 L Hemoglobin 9.0 L 8.4 L 7.5 L Hematocrit 30.2 L 28.7 L 25.4 L Mean Corpuscular Volume 68.2 L 69.0 L 67.4 L Mean Corpuscular Hemoglobin 20.3 L 20.2 L 19.9 L Mean Corpuscular Hemoglobin Concent 29.8 L 29.3 L 29.5 L Red Cell Distribution Width 17.4 H 17.5 H 17.3 H Platelet Count 615 H 552 H 489 H Mean Platelet Volume 8.9 8.8 9.3 Immature Granulocytes % 0.500 H 0.400 0.300 Neutrophils % 75.2 78.1 H 62.8 Lymphocytes % 14.0 L 12.2 L 24.1 Monocytes % 7.6 7.2 9.1 Eosinophils % 2.6 1.9 3.4 Basophils % 0.1 0.2 0.3 Nucleated Red Blood Cells % 0.0 0.0 0.0 Immature Granulocytes # 0.040 H 0.030 0.020 Neutrophils # 6.1 6.5 3.8 Lymphocytes # 1.1 1.0 1.5 Monocytes # 0.6 0.6 0.6 Eosinophils # 0.2 0.2 0.2 Basophils # 0.0 0.0 0.0 Nucleated Red Blood Cells # 0.0 0.0 0.0 Sodium Level 140 Potassium Level 3.8 Chloride Level 104 Carbon Dioxide Level 22 Anion Gap 14 H Blood Urea Nitrogen 9 Creatinine 0.74 Est Glomerular Filtrat Rate mL/min > 60 Glucose Level 77 Hemoglobin A1c 5.8 Calcium Level 8.4 Magnesium Level 1.9 Total Bilirubin 0.1 L Direct Bilirubin 0.00 Indirect Bilirubin 0.1 Aspartate Amino Transf (AST/SGOT) 27 Alanine Aminotransferase (ALT/SGPT) 22 Alkaline Phosphatase 82 Total Protein 5.9 #L Albumin 3.2 #L Globulin 2.70 Albumin/Globulin Ratio 1.18 Thyroid Stimulating Hormone (TSH) 1.240 Medications Medication Current Medications Sodium Chloride 1,000 ml @ 100 mls/hr Q10H IV Last administered on 11/13/18 04:32; Admin Dose 100 MLS/HR; Start 11/12/18 at 02:17 IV Flush (NS 3 ml) 3 ml PER PROTOCOL IV ; Start 11/12/18 at 02:30 Ondansetron HCl (Zofran Inj) 4 mg Q6H PRN IV NAUSEA/VOMITING; Start 11/12/18 at 02:30 Acetaminophen (Tylenol Tab) 650 mg Q6H PRN PO .PAIN 1-3 OR TEMP Last administered on 11/13/18 12:50; Admin Dose 650 MG; Start 11/12/18 at 02:30 Lorazepam (Ativan) 1 mg Q4H PRN IV AGITATION/ANXIETY Last administered on 11/13/18 09:39; Admin Dose 1 MG; Start 11/12/18 at 04:30 Citalopram Hydrobromide (Celexa) 40 mg DAILY PO Last administered on 11/13/18 09:38; Admin Dose 40 MG; Start 11/12/18 at 09:00 Clonazepam (Klonopin) 1 mg BID PRN PO ANXIETY Last administered on 11/13/18 13:03; Admin Dose 1 MG; Start 11/12/18 at 05:00 Gabapentin (Neurontin) 400 mg TID PO Last administered on 11/13/18 12:50; Admin Dose 400 MG; Start 11/12/18 at 09:00 Ferric Sodium Gluconate Complex 125 mg/Sodium Chloride 100 ml @ 100 mls/hr DAILY@1300 IVPB Last administered on 11/13/18at 12:49; Admin Dose 100 MLS/HR; Start 11/12/18 at 15:30; Stop 11/14/18 at 13:59 Quetiapine Fumarate (Seroquel) 200 mg HS PO ; Start 11/13/18 at 21:00 Pantoprazole (Protonix Iv) 40 mg BID@06,18 IV ; Start 11/13/18 at 18:00 MIC MEDINA NP Nov 13, 2018 14:47
--- NOTE | 2018-11-13 15:58 | NUR ---
VS within normal range. Patient was cooperative during the day. Ferrlicet given. Type and cross done, ! unit of PRBS is ready st blood bank. Report given to PAULO Nevarez. Patient will be transferred to room 5539 by the bed.
--- NOTE | 2018-11-13 16:00 | NUR ---
Rec'd pt from [facility]NE, VSS, pt admits to Frequent S/I with plans, did not won't to discuss, states feels "safe" at hospital, sitter at bedside, pt appears tired, resting with eyes closed, started first unit PRBC's.
[2018-11-13 16:15] VITALS: BP 128/80; PULSE 78; RESP 16
[2018-11-13 16:53] VITALS: BP 120/72; PULSE 79; RESP 16
[2018-11-13] MEDS: PANTOPRAZOLE 40 MG INJ IV SCH (17:29)
[2018-11-13 20:00] VITALS: BP 121/72; PULSE 84; RESP 18
[2018-11-13] MEDS: QUETIAPINE 100 MG TAB PO SCH (20:33)
--- NOTE | 2018-11-13 21:30 | NUR ---
SECOND UNIT OF BLOOD FOR TRANSFUSION STARTED.NO S/S BLOOD TRANSFUSION REACTION NOTED.
[2018-11-14] MEDS: SOD CHLORIDE 0.9% 1,000 ML IV SCH ×3 (00:12→14:17)
--- NOTE | 2018-11-14 01:00 | NUR ---
SECOND UNIT OF BLOOD TRANSFUSED,NO TRANSFUSION REACTION NOTED.PATIENT TOLERATED WELL.
[2018-11-14 02:00] VITALS: BP 114/65; PULSE 93; RESP 18
--- NOTE | 2018-11-14 05:28 | NUR ---
SHIFT NOTES: PATIENT REMAINS WITH 1TO1 SITTER.RECEIVED 2 UNITS OF BLOOD.MEDICATED FOR ANXIETY WITH KLONOPIN. V/S STABLE. NO OTHER COMPLAINTS DURING THE NIGHT.
[2018-11-14] MEDS: PANTOPRAZOLE 40 MG INJ IV SCH ×2 (05:57→17:26)
--- NOTE | 2018-11-14 07:38 | QN ---
Documentation Comment Transfused 2 units of packed cells Has full p.o. tolerance No evidence of obstruction As there are no further surgical recommendations, will sign off and see again prn your request ADAM CARDOZA MD Nov 14, 2018 07:38
[2018-11-14 08:00] VITALS: BP 131/67; PULSE 74; RESP 16
[2018-11-14] MEDS: CITALOPRAM 20 MG TAB PO SCH (08:16)
[2018-11-14] MEDS: GABAPENTIN 400 MG CAP PO SCH ×3 (08:17→21:06)
[2018-11-14] MEDS: clonAZEPAM 0.5 MG TAB PO PRN ×2 (08:22→18:30)
--- NOTE | 2018-11-14 11:00 | NUR ---
Pt status: Patient is refusing to take any medication at the moment due to not having narcotics available for his pain, offered Tylenol as that is the only medication available, he stated " leave me alone just want to watch T.V.". Will inform the physician and reassess his pain at a later time, sitter is in the room with the patient. Will continue to monitor.
--- NOTE | 2018-11-14 11:29 | PN ---
Date/Time of Note Date/Time of Note DATE: 11/14/18 TIME: 11: Assessment/Plan VTE Prophylaxis Risk score (from Ns)>0 risk: 1 SCD applied (from Nsg): Yes Pharmacological prophylaxis: NA/contraindicated Pharm contraindication: low risk/ambulating Lines/Catheters IV Catheter Type (from Nrs): Saline Lock Urinary Cath still in place: No Assessment/Plan Hospital Course SUBJECTIVE: No acute overnight episodes OBJECTIVE: Vital signs-see below PHYSICAL EXAM: Constitutional: Well-developed, adequately built, lying in bed comfortably. Psych: Depressed/hopeless head: atraumatic, normocephalic Eyes: nl conjunctiva, nl sclera ENMT: mucosa pink and moist, nl external ears & nose Neck: non-tender, supple Respiratory: clear to auscultation, normal air movement Cardiovascular: nl pulses, regular rate and rhythm Gastrointestinal: non-tender, soft, bowel sounds active in all 4 quadrants. Musculoskeletal/extremities: nl extremities to inspection, motor strength equal bilaterally, no focal deficit. Normal pulses,no cyanosis, no edema. 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: Alert oriented 3,nl speech, nl strength Skin: nl turgor ASSESSMENT/PLAN:38-year-old homeless male with heroine abuse/meth abuse/admitted with abdominal pain concerning for SBO. 1. Abdominal pain, with possible SBO -Resolved 2. Reported rectal bleed -Pending stool OB. -Plan is EGD in a.m. -Empiric Protonix -Follow-up GI recommendations 3. Iron deficient anemia requiring multiple blood transfusion. -Stable H&H now -Cont. Iron Supplementation. 4. Schizoaffective disorder/bipolar type -Appreciate psych eval and recommended Seroquel/Lexapro/gabapentin/Klonopin -Supportive care -Patient is willing to go to acute psych facility voluntarily once he is medically cleared. 5.Meth abuse/IV drug abuse -Start methadone low dose for opiate withdrawal symptoms which patient now in. -pain management consult -sw DVT prophylaxis: Not indicated PUD prophylaxis: Protonix Disposition: Plan is EGD in a.m.. Eventual plan for sending patient to acute psych facility voluntarily. Patient was seen in collaboration with Result Diagram: 11/14/18 0624 11/14/18 0624 Results 24hrs Laboratory Tests Test 11/14/18 01:53 11/14/18 06:19 11/14/18 06:24 Hemoglobin 9.1 #L 9.0 L Hematocrit 29.5 L 29.2 L Lab Scanned Report BLOOD TRANSFUSION White Blood Count 6.8 Red Blood Count 4.09 L Mean Corpuscular Volume 71.4 L Mean Corpuscular Hemoglobin 22.0 L Mean Corpuscular 30.8 L Hemoglobin Concent Red Cell Distribution Width 19.9 H Platelet Count 454 H Mean Platelet Volume 9.1 Immature Granulocytes % 0.600 H Neutrophils % 65.1 Lymphocytes % 19.9 Monocytes % 10.4 Eosinophils % 3.7 Basophils % 0.3 Nucleated Red Blood Cells % 0.0 Immature Granulocytes # 0.040 H Neutrophils # 4.4 Lymphocytes # 1.4 Monocytes # 0.7 Eosinophils # 0.3 Basophils # 0.0 Nucleated Red Blood Cells # 0.0 Sodium Level 143 Potassium Level 4.2 Chloride Level 104 Carbon Dioxide Level 29 Anion Gap 10 Blood Urea Nitrogen 3 L Creatinine 0.80 Est Glomerular Filtrat > 60 Rate mL/min Glucose Level 90 Calcium Level 8.6 Hepatitis B Surface Antigen NEGATIVE Hepatitis C Antibody NEGATIVE Exam/Review of Systems Exam Vitals Vital Signs Date Temp Pulse Resp B/P (MAP) Pulse Ox O2 O2 Flow FiO2 Time Delivery Rate 11/14/18 98.0 93 18 114/65 98 02:00 (81) 11/13/18 Room Air 16:53 Intake and Output 11/13/18 11/13/18 11/14/18 1515:00 23:00 07:00 IntakeIntake Total 3280 ml 2150 ml 1050 ml BalanceBalance 3280 ml 2150 ml 1050 ml Results Results 24hrs Laboratory Tests Test 11/14/18 01:53 11/14/18 06:19 11/14/18 06:24 Hemoglobin 9.1 #L 9.0 L Hematocrit 29.5 L 29.2 L Lab Scanned Report BLOOD TRANSFUSION White Blood Count 6.8 Red Blood Count 4.09 L Mean Corpuscular Volume 71.4 L Mean Corpuscular Hemoglobin 22.0 L Mean Corpuscular 30.8 L Hemoglobin Concent Red Cell Distribution Width 19.9 H Platelet Count 454 H Mean Platelet Volume 9.1 Immature Granulocytes % 0.600 H Neutrophils % 65.1 Lymphocytes % 19.9 Monocytes % 10.4 Eosinophils % 3.7 Basophils % 0.3 Nucleated Red Blood Cells % 0.0 Immature Granulocytes # 0.040 H Neutrophils # 4.4 Lymphocytes # 1.4 Monocytes # 0.7 Eosinophils # 0.3 Basophils # 0.0 Nucleated Red Blood Cells # 0.0 Sodium Level 143 Potassium Level 4.2 Chloride Level 104 Carbon Dioxide Level 29 Anion Gap 10 Blood Urea Nitrogen 3 L Creatinine 0.80 Est Glomerular Filtrat > 60 Rate mL/min Glucose Level 90 Calcium Level 8.6 Hepatitis B Surface Antigen NEGATIVE Hepatitis C Antibody NEGATIVE Medications Medication Current Medications Sodium Chloride 1,000 ml @ 100 mls/hr Q10H IV Last administered on 11/14/18at 00:12; Admin Dose 100 MLS/HR; Start 11/12/18 at 02:17 IV Flush (NS 3 ml) 3 ml PER PROTOCOL IV ; Start 11/12/18 at 02:30 Ondansetron HCl (Zofran Inj) 4 mg Q6H PRN IV NAUSEA/VOMITING; Start 11/12/18 at 02:30 Acetaminophen (Tylenol Tab) 650 mg Q6H PRN PO .PAIN 1-3 OR TEMP Last administered on 11/13/18at 12:50; Admin Dose 650 MG; Start 11/12/18 at 02:30 Lorazepam (Ativan) 1 mg Q4H PRN IV AGITATION/ANXIETY Last administered on 11/13/18 09:39; Admin Dose 1 MG; Start 11/12/18 at 04:30 Citalopram Hydrobromide (Celexa) 40 mg DAILY PO Last administered on 11/14/18 08:16; Admin Dose 40 MG; Start 11/12/18 at 09:00 Clonazepam (Klonopin) 1 mg BID PRN PO ANXIETY Last administered on 11/14/18 08 :22; Admin Dose 1 MG; Start 11/12/18 at 05:00 Gabapentin (Neurontin) 400 mg TID PO Last administered on 11/14/18 08:17; Admin Dose 400 MG; Start 11/12/18 at 09:00 Ferric Sodium Gluconate Complex 125 mg/Sodium Chloride 100 ml @ 100 mls/hr DAILY@1300 IVPB Last administered on 11/13/18 12:49; Admin Dose 100 MLS/HR; Start 11/12/18 at 15:30; Stop 11/14/18 at 13:59 Quetiapine Fumarate (Seroquel) 200 mg HS PO Last administered on 11/13/18at 20:33; Admin Dose 200 MG; Start 11/13/18 at 21:00 Pantoprazole (Protonix Iv) 40 mg BID@06,18 IV Last administered on 11/14/18at 05:57; Admin Dose 40 MG; Start 11/13/18 at 18:00 JOYCE PARKS NP Nov 14, 2018 11:28
--- NOTE | 2018-11-14 11:46 | PN ---
Date/Time of Note Date/Time of Note DATE: 11/14/18 TIME: 11:35 Assessment/Plan VTE Prophylaxis Risk score (from Ns)>0 risk: 1 SCD applied (from Ns): Yes Pharmacological prophylaxis: NA/contraindicated Pharm contraindication: bleeding Lines/Catheters IV Catheter Type (from Nrs): Saline Lock Urinary Cath still in place: No Assessment/Plan Assessment/Plan Assessment: Partial small bowel obstruction - resolved Anemia Hematochezia Right colon wall thickening on CT Fatty liver Polysubstance abuse Suicidal ideation Plan: EGD/colonoscopy on Thursday Continue Protonix Hepatitis serology - negative Monitor H&H Transfuse for hemoglobin less than 7.5 She is seen in collaboration with Subjective: Patient is awake and alert. Complaining of right lower quadrant pain and hematochezia. Discussed results of CT and labs with recommendations for EGD and colonoscopy. Risks and benefits of the procedure have been discussed. Patient is agreeable to the procedure. We will start clear liquid diet and bowel prep today. Continue monitoring PHYSICAL EXAMINATION: GENERAL: Well developed, well nourished, alert & oriented x 3, in no acute distress SKIN: No lesions, no stigmata chronic liver disease, no evidence of bleeding diathesis LYMPHATIC: No palpable lymphadenopathy. HEAD: Normocephalic, atraumatic, no tenderness. EYES: Pupils equal reactive to light and accommodation, full extraocular movements, sclera clear, non-icteric, no discharge. EARS/NOSE AND THROAT: Ears normal, nose normal, oropharynx normal, oral membranes well hydrated without lesions. NECK: Supple, no masses, thyroid normal, JVP within normal limits, carotids normal without bruits. CHEST: Inspection within normal limits. CARDIOVASCULAR: Heart: Regular rate and rhythm, no murmurs, gallops or rubs. Peripheral pulses present within normal limits, no cyanosis, clubbing or edemas. No pulsatile abdominal mass RESPIRATORY: Lungs clear to auscultation and percussion, no wheezing, no rubs GASTROINTESTINAL AND LIVER: Abdomen: Soft, right lower quadrant tenderness, non- distended, no hernias, no masses, no organomegaly, no ascites, no guarding, no rebound tenderness, normoactive bowel sounds. Rectal: Deferred. GENITOURINARY: Male genitalia within normal limits. EXTREMITIES: No cyanosis, clubbing or edema. Result Diagram: 11/14/18 0624 11/14/18 0624 Results 24hrs Laboratory Tests Test 11/14/18 01:53 11/14/18 06:19 11/14/18 06:24 Hemoglobin 9.1 #L 9.0 L Hematocrit 29.5 L 29.2 L Lab Scanned Report BLOOD TRANSFUSION White Blood Count 6.8 Red Blood Count 4.09 L Mean Corpuscular Volume 71.4 L Mean Corpuscular Hemoglobin 22.0 L Mean Corpuscular 30.8 L Hemoglobin Concent Red Cell Distribution Width 19.9 H Platelet Count 454 H Mean Platelet Volume 9.1 Immature Granulocytes % 0.600 H Neutrophils % 65.1 Lymphocytes % 19.9 Monocytes % 10.4 Eosinophils % 3.7 Basophils % 0.3 Nucleated Red Blood Cells % 0.0 Immature Granulocytes # 0.040 H Neutrophils # 4.4 Lymphocytes # 1.4 Monocytes # 0.7 Eosinophils # 0.3 Basophils # 0.0 Nucleated Red Blood Cells # 0.0 Sodium Level 143 Potassium Level 4.2 Chloride Level 104 Carbon Dioxide Level 29 Anion Gap 10 Blood Urea Nitrogen 3 L Creatinine 0.80 Est Glomerular Filtrat > 60 Rate mL/min Glucose Level 90 Calcium Level 8.6 Hepatitis B Surface Antigen NEGATIVE Hepatitis C Antibody NEGATIVE CC: LATA TREVINO MD ; Exam/Review of Systems Exam Vitals Vital Signs Date Temp Pulse Resp B/P (MAP) Pulse Ox O2 O2 Flow FiO2 Time Delivery Rate 11/14/18 98.0 93 18 114/65 98 02:00 (81) 11/13/18 Room Air 16:53 Intake and Output 11/13/18 11/13/18 11/14/18 1414:59 22:59 06:59 IntakeIntake Total 3280 ml 2150 ml 1050 ml BalanceBalance 3280 ml 2150 ml 1050 ml Results Results 24hrs Laboratory Tests Test 11/14/18 01:53 11/14/18 06:19 11/14/18 06:24 Hemoglobin 9.1 #L 9.0 L Hematocrit 29.5 L 29.2 L Lab Scanned Report BLOOD TRANSFUSION White Blood Count 6.8 Red Blood Count 4.09 L Mean Corpuscular Volume 71.4 L Mean Corpuscular Hemoglobin 22.0 L Mean Corpuscular 30.8 L Hemoglobin Concent Red Cell Distribution Width 19.9 H Platelet Count 454 H Mean Platelet Volume 9.1 Immature Granulocytes % 0.600 H Neutrophils % 65.1 Lymphocytes % 19.9 Monocytes % 10.4 Eosinophils % 3.7 Basophils % 0.3 Nucleated Red Blood Cells % 0.0 Immature Granulocytes # 0.040 H Neutrophils # 4.4 Lymphocytes # 1.4 Monocytes # 0.7 Eosinophils # 0.3 Basophils # 0.0 Nucleated Red Blood Cells # 0.0 Sodium Level 143 Potassium Level 4.2 Chloride Level 104 Carbon Dioxide Level 29 Anion Gap 10 Blood Urea Nitrogen 3 L Creatinine 0.80 Est Glomerular Filtrat > 60 Rate mL/min Glucose Level 90 Calcium Level 8.6 Hepatitis B Surface Antigen NEGATIVE Hepatitis C Antibody NEGATIVE Medications Medication Current Medications Sodium Chloride 1,000 ml @ 100 mls/hr Q10H IV Last administered on 11/14/18 00:12; Admin Dose 100 MLS/HR; Start 11/12/18 at 02:17 IV Flush (NS 3 ml) 3 ml PER PROTOCOL IV ; Start 11/12/18 at 02:30 Ondansetron HCl (Zofran Inj) 4 mg Q6H PRN IV NAUSEA/VOMITING; Start 11/12/18 at 02:30 Acetaminophen (Tylenol Tab) 650 mg Q6H PRN PO .PAIN 1-3 OR TEMP Last administered on 11/13/18 12:50; Admin Dose 650 MG; Start 11/12/18 at 02:30 Lorazepam (Ativan) 1 mg Q4H PRN IV AGITATION/ANXIETY Last administered on 11/13/18 09:39; Admin Dose 1 MG; Start 11/12/18 at 04:30 Citalopram Hydrobromide (Celexa) 40 mg DAILY PO Last administered on 11/14/18 08:16; Admin Dose 40 MG; Start 11/12/18 at 09:00 Clonazepam (Klonopin) 1 mg BID PRN PO ANXIETY Last administered on 11/14/18 08:22; Admin Dose 1 MG; Start 11/12/18 at 05:00 Gabapentin (Neurontin) 400 mg TID PO Last administered on 11/14/18 08:17; Admin Dose 400 MG; Start 11/12/18 at 09:00 Ferric Sodium Gluconate Complex 125 mg/Sodium Chloride 100 ml @ 100 mls/hr DAILY@1300 IVPB Last administered on 1/26/19at 12:49; Admin Dose 100 MLS/HR; Start 11/12/18 at 15:30; Stop 11/14/18 at 13:59 Quetiapine Fumarate (Seroquel) 200 mg HS PO Last administered on 11/13/18at 20:33; Admin Dose 200 MG; Start 11/13/18 at 21:00 Pantoprazole (Protonix Iv) 40 mg BID@06,18 IV Last administered on 11/14/18at 05:57; Admin Dose 40 MG; Start 11/13/18 at 18:00 MIC MEDINA NP Nov 14, 2018 11:45
[2018-11-14] MEDS ORDERED: MAGNESIUM CITRATE 300 ML BTL PO ONE (12:00)
[2018-11-14] MEDS ORDERED: BISACODYL (EC) 5 MG TAB PO ONE ×2 (12:00→18:00)
[2018-11-14] MEDS: METHADONE 10 MG TAB PO SCH ×2 (13:09→21:06)
[2018-11-14] MEDS: SOD FERRIC GLUC COMPLX 125 MG in SOD CHLORIDE 0.9% 100 ML IVPB SCH (13:20)
[2018-11-14 14:00] VITALS: BP 122/78; PULSE 87; RESP 18
[2018-11-14] MEDS ORDERED: POLYETHYLENE GLYCOL 3350 119 GM POWDER PO ONE ×2 (14:00→18:00)
--- NOTE | 2018-11-14 15:00 | NUR ---
Pt status: Patient is being noncompliant with taking his medication for the preparation of the colonoscopy scheduled for tomorrow. Explained to the patient the importance of getting the bowels clear for the procedure and he stated "I don't care", I asked him if he his refusing the procedure or he longer wants to get it done, and stated " I didn't say that". Again explain the need for the preparation and the need to take the laxatives, he only took Dulcolax P.O. for the moment.
[2018-11-14] MEDS: HYOSCYAMINE 0.125 MG SUBL TAB SL SCH ×2 (16:30→21:06)
--- NOTE | 2018-11-14 18:32 | NUR ---
Eoss: Patient is resting in bed, with 1:1 sitter. Pt had a shower and clear liquid diet for dinner, tolerated well. New IV inserted to left FA #22. PT has IVF going, c/o anxiety, Klonopin given. Call light within reach, side rails up x2. Patient took all of the laxatives. Patient consented to EGD/colonoscopy. Will endorse to next shift.
[2018-11-14 19:18] VITALS: BP 138/82; PULSE 88; RESP 20
[2018-11-14] MEDS: QUETIAPINE 100 MG TAB PO SCH (21:06)
[2018-11-15] VITALS (11 sets, daily range): BP systolic 110–148; BP diastolic 52–82; PULSE 69–87; RESP 10–20
[2018-11-15] MEDS: SOD CHLORIDE 0.9% 1,000 ML IV SCH ×3 (00:56→20:17)
--- NOTE | 2018-11-15 05:04 | NUR ---
SHIFT NOTES: PT CALM AND COOPERATIVE OF THIS TIME OF REPORT. DUE MEDS GIVEN AND TOLERATED WELL. NO COMPLAINTS OF PAIN. NO SIGN OF DISTRESS. SEEN SLEEPING DURING ROUNDS. 1:1 SITTER MAINTAINED. NEEDS ATTENDED. CALL LIGHT PLACED WITHIN REACH. WILL CONTINUE TO MONITOR.
[2018-11-15] MEDS: HYOSCYAMINE 0.125 MG SUBL TAB SL SCH ×3 (06:13→21:21)
[2018-11-15] MEDS: METHADONE 10 MG TAB PO SCH ×3 (06:13→21:21)
[2018-11-15] MEDS: PANTOPRAZOLE 40 MG INJ IV SCH ×2 (06:13→18:06)
[2018-11-15] MEDS: GABAPENTIN 400 MG CAP PO SCH ×3 (08:01→21:21)
[2018-11-15] MEDS: CITALOPRAM 20 MG TAB PO SCH (08:01)
[2018-11-15] MEDS: clonAZEPAM 0.5 MG TAB PO PRN (08:09)
--- NOTE | 2018-11-15 12:45 | PN ---
Date/Time of Note Date/Time of Note DATE: 11/15/18 TIME: 12:43 Assessment/Plan VTE Prophylaxis Risk score (from Nsg)>0 risk: 1 SCD applied (from Nsg): Yes Pharmacological prophylaxis: NA/contraindicated Pharm contraindication: low risk/ambulating Lines/Catheters IV Catheter Type (from Nrsg): Peripheral IV Urinary Cath still in place: No Assessment/Plan Hospital Course SUBJECTIVE: No acute overnight episodes. For EGD today . OBJECTIVE: Vital signs-see below PHYSICAL EXAM: Constitutional: Well-developed, adequately built, lying in bed comfortably. Psych: Depressed/hopeless head: atraumatic, normocephalic Eyes: nl conjunctiva, nl sclera ENMT: mucosa pink and moist, nl external ears & nose Neck: non-tender, supple Respiratory: clear to auscultation, normal air movement Cardiovascular: nl pulses, regular rate and rhythm Gastrointestinal: non-tender, soft, bowel sounds active in all 4 quadrants. Musculoskeletal/extremities: nl extremities to inspection, motor strength equal bilaterally, no focal deficit. Normal pulses,no cyanosis, no edema. 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: Alert oriented 3,nl speech, nl strength Skin: nl turgor ASSESSMENT/PLAN:38-year-old homeless male with heroine abuse/meth abuse/admitted with abdominal pain concerning for SBO. 1. Abdominal pain, with possible SBO -Resolved 2. Reported rectal bleed -Pending stool OB. -Plan is EGD today. -Empiric Protonix -Follow-up GI recommendations 3. Iron deficient anemia requiring multiple blood transfusion. -Stable H&H now -Cont. Iron Supplementationx2 more bags,then transition to oral. 4. Schizoaffective disorder/bipolar type -Appreciate psych eval and recommended Seroquel/Lexapro/gabapentin/Klonopin -Supportive care -Patient is willing to go to acute psych facility voluntarily once he is medically cleared. 5.Meth abuse/IV drug abuse -Stable on current dose of methadone. -sw DVT prophylaxis: Not indicated PUD prophylaxis: Protonix Disposition: Follow-up EGD findings. Most likely DC planning in a.m to acute psych facility voluntarily. Patient was seen in collaboration with Result Diagram: 11/15/18 0600 11/14/18 0624 Results 24hrs Laboratory Tests Test 11/14/18 19:13 11/15/18 06:00 Hemoglobin 9.4 L 8.9 L Hematocrit 30.8 L 29.3 L Prothrombin Time 13.0 Prothrombin Time Ratio 1.0 INR International Normalized Ratio 0.97 Exam/Review of Systems Exam Vitals Vital Signs Date Temp Pulse Resp B/P (MAP) Pulse Ox O2 O2 Flow FiO2 Time Delivery Rate 11/15/18 98.3 77 18 116/73 96 08:05 (87) 11/13/18 Room Air 16:53 Intake and Output 11/14/18 11/14/18 11/15/18 1515:00 23:00 07:00 IntakeIntake Total 1380 ml 3910 ml 800 ml OutputOutput Total 1 ml BalanceBalance 1379 ml 3910 ml 800 ml Results Results 24hrs Laboratory Tests Test 11/14/18 19:13 11/15/18 06:00 Hemoglobin 9.4 L 8.9 L Hematocrit 30.8 L 29.3 L Prothrombin Time 13.0 Prothrombin Time Ratio 1.0 INR International Normalized Ratio 0.97 Medications Medication Current Medications Sodium Chloride 1,000 ml @ 100 mls/hr Q10H IV Last administered on 11/15/18at 10:05; Admin Dose 100 MLS/HR; Start 11/12/18 at 02:17 IV Flush (NS 3 ml) 3 ml PER PROTOCOL IV ; Start 11/12/18 at 02:30 Ondansetron HCl (Zofran Inj) 4 mg Q6H PRN IV NAUSEA/VOMITING; Start 11/12/18 at 02:30 Acetaminophen (Tylenol Tab) 650 mg Q6H PRN PO .PAIN 1-3 OR TEMP Last administered on 11/13/18at 12:50; Admin Dose 650 MG; Start 11/12/18 at 02:30 Lorazepam (Ativan) 1 mg Q4H PRN IV AGITATION/ANXIETY Last administered on 11/13/18at 09:39; Admin Dose 1 MG; Start 11/12/18 at 04:30 Citalopram Hydrobromide (Celexa) 40 mg DAILY PO Last administered on 11/15/18at 08:01; Admin Dose 40 MG; Start 11/12/18 at 09:00 Clonazepam (Klonopin) 1 mg BID PRN PO ANXIETY Last administered on 11/15/18at 08:09; Admin Dose 1 MG; Start 11/12/18 at 05:00 Gabapentin (Neurontin) 400 mg TID PO Last administered on 11/15/18 08:01; Admin Dose 400 MG; Start 11/12/18 at 09:00 Quetiapine Fumarate (Seroquel) 200 mg HS PO Last administered on 11/14/18 21:06; Admin Dose 200 MG; Start 11/13/18 at 21:00 Pantoprazole (Protonix Iv) 40 mg BID@,18 IV Last administered on 11/15/18 06:13; Admin Dose 40 MG; Start 11/13/18 at 18:00 Methadone HCl (Methadone) 10 mg Q8 PO Last administered on 11/15/18 06:13; Admin Dose 10 MG; Start 11/14/18 at 12:52 Hyoscyamine (Levsin (Sl)) 0.125 mg Q8 SL Last administered on 11/15/18 06:13; Admin Dose 0.125 MG; Start 11/14/18 at 16:30 JOYCE PARKS NP Nov 15, 2018 12:45
[2018-11-15] MEDS: SOD FERRIC GLUC COMPLX 125 MG in SOD CHLORIDE 0.9% 100 ML IVPB SCH ×2 (14:30→18:06)
--- NOTE | 2018-11-15 16:03 | PREAC ---
Date/Time of Note Date/Time of Note DATE: 11/15/18 TIME: 16:01 Anesthesia Eval and Record Evaluation Time Pre-Procedure Interview DATE: 11/15/18 TIME: 16:01 Age 38 Sex male NPO: 8 hrs Preoperative diagnosis ANEMIA, HEMATOCHEZIA Planned procedure EGD AND COLON Past Medical History Past Medical History: Includes Heme: Anemia Psych: Bipolar Recreational drugs: Other (ETOH) Surgery & Anesthesia Issues No known issue Meds Anticoagulation: No Beta Mayur within 24 hr: No Reason Beta Mayur not given: Pt. not on B-Mayur Active Scripts Ibuprofen* (Motrin*) 600 Mg Tab, 600 MG PO Q6, #15 TAB Prov:CHIQUIS MAN MD 10/24/18 Hydrocodone/Acetaminophen ([place] 5-325 Tablet) 1 Each Tablet, 1 TAB PO Q6H PRN for PAIN, #10 TAB Prov:CHIQUIS MAN MD 10/24/18 Bismuth Subsalicylate* (Pepto-Bismol*) 262 Mg/15 Ml Oral.susp, 15 ML PO Q3H PRN for DIARRHEA for 5 Days, ML Prov:CHIQUIS MAN MD 10/24/18 Reported Medications Clonazepam* (Klonopin*) 1 Mg Tablet, 1 MG PO BID PRN for ANXIETY, TAB 09/24/18 Citalopram Hydrobromide* (Citalopram Hydrobromide*) 40 Mg Tablet, 40 MG PO DAILY, #30 TAB 08/10/18 Quetiapine Fumarate* (Quetiapine Fumarate*) 100 Mg Tablet, 100 MG PO HS, TAB 08/10/18 Ferrous Sulfate* (Ferrous Sulfate*) 325 Mg Tabec, 325 MG PO DAILY, TAB 08/10/18 Omeprazole* (Omeprazole*) 20 Mg Capsule.dr, 20 MG PO AC BREAKFAST, #30 CAP 08/10/18 Gabapentin* (Gabapentin*) 400 Mg Capsule, 400 MG PO TID, #90 CAP 08/10/18 Discontinued Scripts Azithromycin* (Zithromax*) 500 Mg Tablet, 500 MG PO DAILY for 3 Days, TAB Prov:CHIQUIS MAN MD 10/24/18 Current Medications Sodium Chloride 1,000 ml @ 100 mls/hr Q10H IV Last administered on 11/15/18at 10:05; Admin Dose 100 MLS/HR; Start 11/12/18 at 02:17 IV Flush (NS 3 ml) 3 ml PER PROTOCOL IV ; Start 11/12/18 at 02:30 Ondansetron HCl (Zofran Inj) 4 mg Q6H PRN IV NAUSEA/VOMITING; Start 11/12/18 at 02:30 Acetaminophen (Tylenol Tab) 650 mg Q6H PRN PO .PAIN 1-3 OR TEMP Last administered on 11/13/18at 12:50; Admin Dose 650 MG; Start 11/12/18 at 02:30 Citalopram Hydrobromide (Celexa) 40 mg DAILY PO Last administered on 11/15/18 08:01; Admin Dose 40 MG; Start 11/12/18 at 09:00 Clonazepam (Klonopin) 1 mg BID PRN PO ANXIETY Last administered on 11/15/18 08:09; Admin Dose 1 MG; Start 11/12/18 at 05:00 Gabapentin (Neurontin) 400 mg TID PO Last administered on 11/15/18 08:01; Admin Dose 400 MG; Start 11/12/18 at 09:00 Quetiapine Fumarate (Seroquel) 200 mg HS PO Last administered on 11/14/18 21:06; Admin Dose 200 MG; Start 11/13/18 at 21:00 Pantoprazole (Protonix Iv) 40 mg BID@06,18 IV Last administered on 11/15/18 06:13; Admin Dose 40 MG; Start 11/13/18 at 18:00 Methadone HCl (Methadone) 10 mg Q8 PO Last administered on 11/15/18 06:13; Admin Dose 10 MG; Start 11/14/18 at 12:52 Hyoscyamine (Levsin (Sl)) 0.125 mg Q8 SL Last administered on 11/15/18 06:13; Admin Dose 0.125 MG; Start 11/14/18 at 16:30 Ferric Sodium Gluconate Complex 125 mg/Sodium Chloride 100 ml @ 100 mls/hr DAILY@1300 IVPB ; Start 11/15/18 at 14:30; Stop 11/16/18 at 13:59 Meds reviewed: Yes Allergies Coded Allergies: No Known Allergy (Unverified , 10/24/18) Allergies Reviewed: Yes Labs/Studies Labs Reviewed: Reviewed by anesthesiologist Result Diagram: 11/15/18 0600 11/14/18 0624 Laboratory Tests 11/15/18 06:00 test: N/A Pre-procedure Exam Last vitals Vital Signs Date Temp Pulse Resp B/P (MAP) Pulse Ox O2 O2 Flow FiO2 Time Delivery Rate 11/15/18 98.3 77 18 116/73 96 08:05 (87) 11/13/18 Room Air 16:53 Airway: Adequate mouth opening, Adequate thyromental dist Mallampati: Mallampati I Teeth: Normal Lung: Normal Heart: Normal ASA Physical Status ASA physical status: 3 Emergency: None Planned Anesthetic General/MAC: MAC Planned Pain Management Parenteral pain med Pre-operative Attestations Prior to commencing anesthesia and surgery, the patient was re-evaluated, there was verification of: *The patient's identity *The results of appropriate recent lab work and preoperative vital signs *The above evaluation not changing prior to induction *Anesthetic plan, risk benefits, alternative and complications discussed with patient/family; questions answered; patient/family understands, accepts and wishes to proceed. LISA ARREDONDO Nov 15, 2018 16:02
--- NOTE | 2018-11-15 16:11 | NUR ---
Patient out off unit for GI procedure . Accompanying by 1:1 sitter for safety.
[2018-11-15] MEDS ORDERED: LABETALOL HCL 20MG INJ IV PRN (16:30)
[2018-11-15] MEDS ORDERED: FENTAnyl 50 MCG/ML VIAL IV PRN ×2 (16:30)
[2018-11-15] MEDS ORDERED: EPHEDrine SULFATE 50 MG/5 ML SYG IV PRN (16:30)
[2018-11-15] MEDS ORDERED: ONDANSETRON 4 MG INJ IV PRN (16:30)
[2018-11-15] MEDS ORDERED: hydrALAzine 20 MG INJ IV PRN (16:30)
--- NOTE | 2018-11-15 16:38 | HPN ---
Date/Time of Note Date/Time of Note DATE: 11/15/18 TIME: 16:38 Interval H&P Admission Note Pt. seen H&P reviewed: No system changes GILES MALONE Nov 15, 2018 16:38
[2018-11-15] MEDS ORDERED: PROPOFOL 40 ML ONE (16:39)
[2018-11-15] MEDS ORDERED: LIDOCAINE 2% (SDV) 5 ML INJ ONE (16:40)
--- NOTE | 2018-11-15 17:47 | NUR ---
PACU NOTES: PATIENT ANXIOUS AWAKE AND ALERT. S/P EGD W/ BIOPSY AND COLONOSCOPY, W/ NORMAL FINDING NO BLEEDING, WILL WAIT FOR BIOPSY RESULT. COLONOSCOPY FINDINGS RECTAL BLEEDING DUE TO HEMORRHOIDS PLAN ADVANCED DIET TOLERATED. TOLERATED P.O FLUIDS WATER IN PACU, ASSISTED TO THE BATHROOM W/ 1:1 SITTER TO THE BATHROOM. REFUSED TO USE URINAL AND BEDPAN. PATIENT VERY ANXIOUS AND VERBALLY INAPPROPRIATE. REPORT GIVEN TO PAULO ENGLE. BRIDGETTE WRIGHT W/ THE PATIENT. Addendum: 11/15/18 at 1905 by TYESHA SMILEY RN ANESTHESIA IN: [id number] ANESTHESIA OUT: 171 PACU IN: 171 PACU OUT: [id number]
--- NOTE | 2018-11-15 17:55 | PAC ---
Date/Time of Note Date/Time of Note DATE: 11/15/18 TIME: 17:54 Post-Anesthesia Notes Post-Anesthesia Note Last documented vital signs Vital Signs Date Temp Pulse Resp B/P (MAP) Pulse Ox O2 O2 Flow FiO2 Time Delivery Rate 11/15/18 97.5 72 17 132/75 98 Room Air 1754 (94) Activity: WNL Respiratory function: WNL Cardiovascular function: WNL Mental status: Baseline Pain reasonably controlled: Yes Hydration appropriate: Yes Nausea/Vomiting absent: Yes LISA ARREDONDO Nov 15, 2018 17:55
--- NOTE | 2018-11-15 18:18 | NUR ---
End of shift summary: Patient s/p EGD and colonoscopy. Patient in stable coition .V.S within normal limits . Patient alert/oriented x 4. No s/s of any acute distress .Patient on advance diet ,tolerating clear liquid well .Will be started on Soft diet for breakfast . 1;1 sitter at patient's bedside for suicidal precautions .Full report will be given to next shift RN.
[2018-11-15] MEDS: QUETIAPINE 100 MG TAB PO SCH (21:21)
[2018-11-15] MEDS: ACETAMINOPHEN 325 MG TAB PO PRN (23:57)
[2018-11-16 03:07] VITALS: BP 125/65; PULSE 79; RESP 18
--- NOTE | 2018-11-16 06:01 | NUR ---
Dr Mcginnis called for pain medicine. pt is requesting something for pain in right arm where he had an IV in the past.
[2018-11-16] MEDS: PANTOPRAZOLE 40 MG INJ IV SCH ×2 (06:09→18:11)
[2018-11-16] MEDS: METHADONE 10 MG TAB PO SCH ×3 (06:10→21:42)
[2018-11-16] MEDS: HYOSCYAMINE 0.125 MG SUBL TAB SL SCH ×3 (06:10→21:43)
[2018-11-16] MEDS: SOD CHLORIDE 0.9% 1,000 ML IV SCH ×3 (06:12→20:53)
--- NOTE | 2018-11-16 06:28 | NUR ---
requesting pain medication but promptly falls asleep.
[2018-11-16] MEDS ORDERED: ACETAMINOPHEN 325 MG TAB PO ONE (06:30)
--- NOTE | 2018-11-16 06:30 | NUR ---
refuses to IVF on.
[2018-11-16 08:00] VITALS: BP 122/56; PULSE 62; RESP 18
[2018-11-16] MEDS: CITALOPRAM 20 MG TAB PO SCH (09:41)
[2018-11-16] MEDS: GABAPENTIN 400 MG CAP PO SCH ×3 (09:41→20:48)
--- NOTE | 2018-11-16 11:09 | PDOCDIS ---
Discharge Instructions CONDITION [id number] Patient Condition: [id number] Stable HOME CARE INSTRUCTIONS: [id number] Diet Instructions: [id number] Regular FOLLOW UP/APPOINTMENTS Follow-up Plan Transfer to inpatient psych center JOYCE PARKS NP Nov 16, 2018 11:09
[2018-11-16] MEDS ORDERED: FER325 PO (11:12)
[2018-11-16] MEDS ORDERED: PANT40TA3 PO (11:12)
[2018-11-16] MEDS ORDERED: QUET100T32 PO (11:12)
--- NOTE | 2018-11-16 11:18 | DS ---
Date/Time of Note Date/Time of Note DATE: 11/16/18 TIME: 11:16 Discharge Summary Admission/Discharge Info Admit Date/Time Nov 12, 2018 at 01:55 Discharge Date/Time Discharge Diagnosis Abdominal pain, with possible SBO. Resolved Iron deficient anemia requiring multiple blood transfusion. Schizoaffective disorder/bipolar type Meth abuse/IV drug abuse Patient Condition: Stable Consults Dr. Maza, surgery , gastroenterology Saloni, psychiatric nurse practitioner Procedures 11/11/2018. CT abdomen and pelvis. IMPRESSION: 1. Dilated small bowel with air-fluid levels. Abundant stool within the cecum. Right colon wall thickening. Findings are compatible with a bowel obstruction, possibly related to the right colon inflammatory process, decreased as compared to prior study. 2. Mild free fluid. 3. Appendix not distinctly visualized. 4. Enlarged fatty liver. 5. Redemonstrated distended urinary bladder with diffuse wall thickening. 11/15/2089. EGD/colonoscopy. Hospital Course 38-year-old homeless male with heroine abuse/meth abuse/admitted with abdominal pain concerning for SBO. Patient was kept on bowel rest. He had surgery evaluation. Repeat imaging did not show any evidence of small bowel obstruction. Patient has been started on a diet which he was able to tolerate. Patient had regular bowel movement and he was able to pass flatus. Patient was also noted with iron deficient anemia requiring multiple blood transfusion. He was continued on IV iron. Hemoglobin remained stable thereafter. Patient also reported rectal bleed for which he u nderwent EGD and colonoscopy exam which did not reveal any GI bleeding source. Patient was continued on Protonix per GI recommendations. Patient also had psych evaluation and was noted with schizoaffective disorders bipolar type for which he was continued on Seroquel/Lexapro/gabapentin and Klonopin. Patient was also willing to go to inpatient psych center voluntarily. As such, transfer arrangement will be made through our clinical social work therapist and psych nurse practitioner. She is also homeless. During the course of hospitalization, I repeatedly counseled the patient regarding cessation of substance abuse/IV drug abuse. Approximately 60 m spent in coordinating the discharge on this patient. Patient was seen in collaboration with [place] Meds Active Scripts Ibuprofen* (Motrin*) 600 Mg Tab, 600 MG PO Q6, #15 TAB Prov:CHIQUIS MAN MD 10/24/18 Hydrocodone/Acetaminophen ([place] 5-325 Tablet) 1 Each Tablet, 1 TAB PO Q6H PRN for PAIN, #10 TAB Prov:CHIQUIS MAN MD 10/24/18 Bismuth Subsalicylate* (Pepto-Bismol*) 262 Mg/15 Ml Oral.susp, 15 ML PO Q3H PRN for DIARRHEA for 5 Days, ML Prov:CHIQUIS MAN MD 10/24/18 Reported Medications Clonazepam* (Klonopin*) 1 Mg Tablet, 1 MG PO BID PRN for ANXIETY, TAB 09/24/18 Citalopram Hydrobromide* (Citalopram Hydrobromide*) 40 Mg Tablet, 40 MG PO DAILY, #30 TAB 08/10/18 Quetiapine Fumarate* (Quetiapine Fumarate*) 100 Mg Tablet, 100 MG PO HS, TAB 08/10/18 Ferrous Sulfate* (Ferrous Sulfate*) 325 Mg Tabec, 325 MG PO DAILY, TAB 08/10/18 Omeprazole* (Omeprazole*) 20 Mg Capsule.dr, 20 MG PO AC BREAKFAST, #30 CAP 08/10/18 Gabapentin* (Gabapentin*) 400 Mg Capsule, 400 MG PO TID, #90 CAP 08/10/18 Discontinued Scripts Azithromycin* (Zithromax*) 500 Mg Tablet, 500 MG PO DAILY for 3 Days, TAB Prov:CHIQUIS MAN MD 10/24/18 Follow-up Plan Transfer to inpatient psych center Primary Care Provider Not On Staff Doctor Pending Labs Laboratory Tests Test 11/16/18 06:54 White Blood Count 14.1 10^3/ul (4.8-10.8) Red Blood Count 4.08 10^6/ul (4.70-6.10) Hemoglobin 8.9 g/dl (14.0-18.0) Hematocrit 29.8 % (42.0-52.0) Mean Corpuscular Volume 73.0 fl (82.0-101.0) Mean Corpuscular Hemoglobin 21.8 pg (29.0-33.0) Mean Corpuscular Hemoglobin Concent 29.9 g/dl (32.0-37.0) Red Cell Distribution Width 22.2 % (11.5-14.5) Platelet Count 386 10^3/UL (140-415) Mean Platelet Volume 9.3 fl (7.4-10.4) Immature Granulocytes % 0.400 % (0.001-0.429) Neutrophils % 83.0 % (39.0-77.0) Lymphocytes % 8.2 % (15.0-51.0) Monocytes % 5.8 % (0.0-11.0) Eosinophils % 2.4 % (0.0-7.0) Basophils % 0.2 % (0.0-2.0) Nucleated Red Blood Cells % 0.0 /100WBC (0.0-0.0) Immature Granulocytes # 0.060 10^3/ul (0.0-0.031) Neutrophils # 11.7 10^3/ul (1.6-7.5) Lymphocytes # 1.2 10^3/ul (0.8-2.9) Monocytes # 0.8 10^3/ul (0.3-0.9) Eosinophils # 0.3 10^3/ul (0.0-0.5) Basophils # 0.0 10^3/ul (0.0-0.1) Nucleated Red Blood Cells # 0.0 10^3/ul (0.0-0.0) Sodium Level 139 mmol/L (135-144) Potassium Level 3.8 mmol/L (3.5-5.1) Chloride Level 94 mmol/L (97-110) Carbon Dioxide Level 30 mmol/L (21-31) Anion Gap 15 (5-13) Blood Urea Nitrogen 8 mg/dl (7-20) Creatinine 0.84 mg/dl (0.61-1.24) Est Glomerular Filtrat Rate mL/min > 60 mL/min (>60) Glucose Level 92 mg/dl (70-220) Calcium Level 8.5 mg/dl (8.4-10.2) JOYCE PARKS NP Nov 16, 2018 11:18
[2018-11-16 14:00] VITALS: BP 128/62; PULSE 70; RESP 18
[2018-11-16] MEDS: SOD FERRIC GLUC COMPLX 125 MG in SOD CHLORIDE 0.9% 100 ML IVPB SCH (16:00)
--- NOTE | 2018-11-16 16:01 | NUR ---
SS NOTE: F/U SW FACILITATED REQUIRED PT PACKET TO [facility] FOR INPATIENT VOLUNTARY ADMISSION. SW FAXED OVER ALL NEEDED DOCUMENTS TO [employer] ([phone]) (F: [phone]). [facility] AND CONSUMER EDUCATION TEACHER [employer] INFORMED THIS FLOOR WORKER WELL SERVICE THAT PT HAS ACCEPTING PHYSICIAN DR SHAFFER. SW UPDATED CHAIRMAN ROSIE AND PT'S RN TO PROVIDE REPORT TO [facility] INTAKE. 5EC CHAIRMAN ROSIE TO FACILITATE TRANSPORT TO [place] WHEN PT IS READY FOR D/C. SW REMAINS AVAILABLE FOR F/U NEEDED.
[2018-11-16] MEDS ORDERED: KETOROLAC 15 MG INJ IM STA (16:49)
--- NOTE | 2018-11-16 18:38 | NUR ---
REPORT GIVEN TO STEFANY FROM [facility]. PATIENT IN GOOD DISPOSITION WITH NO COMPLAINS OF PAIN. PATIENT WILL BE PICKED UP 8PM. HEALTH SUMMARY AND MEDICAL RECONCILIATION DONE. WILL ENDORSE TO NIGHT NURSE.
[2018-11-16 19:30] VITALS: BP 132/63; PULSE 82; RESP 18
[2018-11-16] MEDS: QUETIAPINE 100 MG TAB PO SCH (20:49)
--- NOTE | 2018-11-16 21:08 | NUR ---
[facility] called will be here in a few minutes.
[2018-11-16 21:51] VITALS: BP 138/80; PULSE 82; RESP 18
[2018-11-16] MEDS: clonAZEPAM 0.5 MG TAB PO PRN (21:53)
--- NOTE | 2018-11-16 22:01 | NUR ---
re: pt transferred pt taken by ambulance staff to be transferred to [facility]. vss. iv removed. took all belongings. report given to ambulance staff.
== END 2018-11-16 22:00 | DRG 389 ==
LOC: E/R 22:36 → 2NE 11-12 01:55 → 5EC 11-13 16:15
PROVIDERS: ADMIT Family Medicine; ATTEND Family Medicine
PROC: 30233N1 Transfusion of Nonautologous Red Blood Cells into Peripheral Vein, Percutaneous Approach (ICD-10-PCS; 2018-11-13)
PROC: 0DB68ZX Excision of Stomach, Via Natural or Artificial Opening Endoscopic, Diagnostic (ICD-10-PCS; 2018-11-15)
PROC: 0DJD8ZZ Inspection of Lower Intestinal Tract, Via Natural or Artificial Opening Endoscopic (ICD-10-PCS; principal; 2018-11-15 15:30)
PROC: 0DB98ZX Excision of Duodenum, Via Natural or Artificial Opening Endoscopic, Diagnostic (ICD-10-PCS; 2018-11-15 15:30)
DX: K56.600 Partial intestinal obstruction, unspecified as to cause (principal); K62.5 Hemorrhage of anus and rectum; R44.3 Hallucinations, unspecified; R45.851 Suicidal ideations; D50.9 Iron deficiency anemia, unspecified; F15.10 Other stimulant abuse, uncomplicated; F41.9 Anxiety disorder, unspecified; F11.10 Opioid abuse, uncomplicated; F10.10 Alcohol abuse, uncomplicated; F17.200 Nicotine dependence, unspecified, uncomplicated; F25.0 Schizoaffective disorder, bipolar type; K70.0 Alcoholic fatty liver; R10.13 Epigastric pain; Z59.0 Homelessness
CPT/HCPCS: 36415; 36430; 71045; 74177; 74250; 80048; 80053; 80307; 81003; 82728; 83036; 83540; 83690; 83735; 84443; 85014; 85018; 85025; 85610; 85651; 86021; 86803; 86850; 86900; 86901; 86920; 87340; 88305; 88312; 96361; 96372; 96374; 96375; C9113; J0500; J1170; J1885; J2060; J2270; J2405; J2916; J7030; J7040; P9016; Q9967

== ENCOUNTER 2018-12-21 08:26 | Inpatient (IN) | payer OTHER ==
[~2018-12-21] VITALS: Ht 185.4 cm; Wt 69.5 kg
[~2018-12-21 08:26] MED LIST changes: -AZIT500T3 PO; -BISM262O23 PO; -HYDR-4011 PO; -IBUP-1542 PO; -OMEP20CA16 PO; +PANT40TA3 PO
[2018-12-21] MEDS ORDERED: ONDANSETRON 4 MG INJ IV STA (08:37)
[2018-12-21] MEDS ORDERED: KETOROLAC 30 MG INJ IV STA (08:37)
[2018-12-21] MEDS ORDERED: SOD CHLORIDE 0.9% 1,000 ML IV STA (08:37)
--- NOTE | 2018-12-21 10:38 | ERD ---
ER Documentation Chief Complaint Chief Complaint for 2 days abd pain with nausea an vomiting. no diarrhea. HPI Patient is a 38-year-old male with a history of bowel obstruction and anemia who presents with abdominal pain. The patient was brought in by ambulance. He went to [place] yesterday and was told that he was blocked up and needed to take laxatives. He took magnesium citrate last night with no effect. He said that he did have a bowel movement yesterday however. Upon review of old medical records the patient has had multiple visits to the ER. Review of the emergency department information exchange system shows 30 visits to a different emergency departments. He does not currently have a primary doctor. ROS All systems reviewed and are negative except as per history of present illness. Medications Home Meds Active Scripts Pantoprazole* (Protonix*) 40 Mg Tablet.dr, 40 MG PO BID, #60 TAB Prov:JOYCE PARKS V. BROTHEL KEEPER 11/16/18 Quetiapine Fumarate* (Quetiapine Fumarate*) 100 Mg Tablet, 200 MG PO HS, #30 TAB Prov:PARKSJOYCE MCCLENDON V. BROTHEL KEEPER 11/16/18 Ferrous Sulfate* (Ferrous Sulfate*) 325 Mg Tabec, 325 MG PO TIDM A, #90 TAB Prov:PARKSMICHAELA V. BROTHEL KEEPER 11/16/18 Reported Medications Clonazepam* (Klonopin*) 1 Mg Tablet, 1 MG PO BID PRN for ANXIETY, TAB 09/24/18 Citalopram Hydrobromide* (Citalopram Hydrobromide*) 40 Mg Tablet, 40 MG PO DAILY, #30 TAB 08/10/18 Gabapentin* (Gabapentin*) 400 Mg Capsule, 400 MG PO TID, #90 CAP 08/10/18 Allergies Allergies: Coded Allergies: No Known Allergy (Unverified , 10/24/18) PMhx/Soc History of Surgery: No Anesthesia Reaction: No Hx 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 Disorder: No Hx Respiratory Disorders: No Hx Cardiac Disorders: No Hx Psychiatric Problems: Yes (BIPOLAR, DEPRESSION , anxiety, ) Hx Miscellaneous Medical Probl: Yes (anemia) Hx Alcohol Use: Yes (occasional) Hx Substance Use: Yes (crystalmeth x 2 days ago ) Hx Tobacco Use: Yes Smoking Status: Current every day smoker FmHx Family History: No diabetes Physical Exam Vitals Vital Signs Date Temp Pulse Resp B/P (MAP) Pulse Ox O2 O2 Flow FiO2 Time Delivery Rate 12/21/18 69 17 144/83 97 Room Air 10:34 (103) 12/21/18 82 21 126/66 97 Room Air 08:54 (86) 12/21/18 98.2 85 20 145/88 97 08:32 (107) Physical Exam Const: No acute distress Head: Atraumatic Eyes: Normal Conjunctiva ENT: Normal External Ears, Nose and Mouth. Neck: Full range of motion. No meningismus. Resp: Clear to auscultation bilaterally Cardio: Regular rate and rhythm, no murmurs Abd: Diffuse tenderness to palpation without rebound or guarding Skin: No petechiae or rashes Back: No midline or flank tenderness Ext: No cyanosis, or edema Neur: Awake and alert Psych: Normal Mood and Affect Result Diagram: 12/21/18 0845 12/21/18 0845 Results 24 hrs Laboratory Tests Test 12/21/18 08:45 White Blood Count 16.0 10^3/ul Red Blood Count 5.07 10^6/ul Hemoglobin 12.4 g/dl Hematocrit 38.6 % Mean Corpuscular Volume 76.1 fl Mean Corpuscular Hemoglobin 24.5 pg Mean Corpuscular Hemoglobin Concent 32.1 g/dl Red Cell Distribution Width 25.5 % Platelet Count 454 10^3/UL Mean Platelet Volume 9.5 fl Immature Granulocytes % 0.300 % Neutrophils % 88.0 % Lymphocytes % 7.3 % Monocytes % 3.9 % Eosinophils % 0.3 % Basophils % 0.2 % Nucleated Red Blood Cells % 0.0 /100WBC Immature Granulocytes # 0.050 10^3/ul Neutrophils # 14.1 10^3/ul Lymphocytes # 1.2 10^3/ul Monocytes # 0.6 10^3/ul Eosinophils # 0.1 10^3/ul Basophils # 0.0 10^3/ul Nucleated Red Blood Cells # 0.0 10^3/ul Sodium Level 139 mmol/L Potassium Level 3.9 mmol/L Chloride Level 105 mmol/L Carbon Dioxide Level 21 mmol/L Anion Gap 13 Blood Urea Nitrogen 9 mg/dl Creatinine 0.80 mg/dl Est Glomerular Filtrat Rate mL/min > 60 mL/min Glucose Level 146 mg/dl Calcium Level 10.2 mg/dl Total Bilirubin 0.5 mg/dl Direct Bilirubin 0.00 mg/dl Indirect Bilirubin 0.5 mg/dl Aspartate Amino Transf (AST/SGOT) 29 IU/L Alanine Aminotransferase (ALT/SGPT) 21 IU/L Alkaline Phosphatase 114 IU/L Total Protein 7.8 g/dl Albumin 4.6 g/dl Globulin 3.20 g/dl Albumin/Globulin Ratio 1.43 Lipase 28 U/L Current Medications Medications Dose Sig/Jamaal Start Time Status Last (Trade) Ordered Route PRN Stop Time Admin Dose Reason Admin Sodium 1,000 ml @ Q1H STAT 12/21/18 DC 12/21/18 Chloride 1,000 mls/hr IV 08:37 12/21/18 08:52 09:36 Ondansetron 4 mg ONCE STAT 12/21/18 DC 12/21/18 HCl (Zofran IV 08:37 12/21/18 08:52 Inj) 08:38 Ketorolac 30 mg ONCE STAT 12/21/18 DC 12/21/18 Tromethamine IV 08:37 12/21/18 08:52 (Toradol) 08:38 Procedures/MDM CT abdomen pelvis shows bowel obstruction with colonic mass per radiology. Smoking Cessation Therapy: Pt. was lectured for greater than 3 minutes on the health risks of continued smoking and the benefits of cessation. Patient is a 38-year-old male who presents with bowel obstruction and colonic mass. The patient will need admission to Dr. Vo as the patient has preferred [employer] insurance. I spoke with Dr. Winter the surgeon recreational vehicle resort manager who will see the p atient in consultation. He may require bowel resection to remove this mass which is likely cancer. Departure Diagnosis: Primary Impression: Abdominal pain Abdominal location: generalized Qualified Codes: R10.84 - Generalized abdominal pain Additional Impressions: Colonic mass Anemia Anemia type: unspecified type Qualified Codes: D64.9 - Anemia, unspecified Condition: AZAEL Enriquez MD Dec 21, 2018 10:38
[2018-12-21] MEDS ORDERED: ACETAMINOPHEN 325 MG TAB PO PRN ×2 (11:00→12:00)
[2018-12-21] MEDS ORDERED: ONDANSETRON 4 MG INJ IV PRN (11:00)
[2018-12-21 11:30] VITALS: Ht 185.4 cm; Wt 69.5 kg
[2018-12-21 11:59] VITALS: BP 142/79; PULSE 56; RESP 16
[2018-12-21] MEDS ORDERED: NACL 0.9% 3 ML SYG IV SCH (12:00)
[2018-12-21] MEDS ORDERED: ACETAMINOPHEN 650 MG SUPP PR PRN (12:00)
[2018-12-21] MEDS: SOD CHLORIDE 0.9% 1,000 ML IV SCH (12:35)
--- NOTE | 2018-12-21 14:41 | HP ---
Date/Time of Note Date/Time of Note DATE: 12/21/18 TIME: 14:35 Assessment/Plan VTE Prophylaxis SCD applied (from Nsg): Yes Pharmacological prophylaxis: NA/contraindicated Pharm contraindication: low risk/ambulating Lines/Catheters IV Catheter Type (from Nrsg): Peripheral IV Assessment/Plan Hospital Course SUBJECTIVE: Lying in bed, asking for diet. No acute distress. OBJECTIVE: Vital signs-see below PHYSICAL EXAM: Constitutional: Well-developed, adequately built, lying in bed comfortably. Psych: nl mood/affect, no complaints Head: atraumatic, normocephalic Eyes: nl conjunctiva, nl sclera ENMT: mucosa pink and moist, nl external ears & nose Neck: non-tender, supple Respiratory: clear to auscultation, normal air movement Cardiovascular: nl pulses, regular rate and rhythm Gastrointestinal: _+TENDER all quadrants..no rebound.. soft, bowel sounds active in all 4 quadrants. Musculoskeletal/extremities: nl extremities to inspection, motor strength equal bilaterally, no focal deficit. Normal pulses,no cyanosis, no edema. 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: Alert oriented 3,nl speech, nl strength Skin: nl turgor ASSESSMENT/PLAN: 38-year-old homeless male with a history of substance abuse, SBO, anemia, here with abdominal pain, found to have bowel obstruction 1. Bowel obstruction -Ct shows questionable colonic mass-this is a non contrast ct..We will repeat CT with contrast study. -Surgery consult with Dr. Winter has been called. -Obtain CEA level and stool OB. -N.p.o., IV fluids, as needed pain control. 2. Substance abuse/meth abuse -[employer] worker evaluation -Cessation advised 3. Schizoaffective disorder/bipolar type -Patient was seen by psych and recommended to be on Lexapro/Seroquel/gabapentin and Klonopin which we will resume. 4. Leukocytosis, likely reactive -Currently no fevers, no evidence of infection but it continue to monitor 5. Homelessness -SW to see pt DVT prophylaxis: SCDs PUD prophylaxis: Pepcid CODE STATUS: Full code Diet: N.p.o. Rest of the management depend on hospital course and input from income tax consultant. Approximately 60 minutes spent on this history and physical. Patient was seen in collaboration with Dr. Godoy. Result Diagram: 12/21/18 0845 12/21/18 0845 Results 24hrs Laboratory Tests Test 12/21/18 08:45 White Blood Count 16.0 #H Red Blood Count 5.07 Hemoglobin 12.4 #L Hematocrit 38.6 L Mean Corpuscular Volume 76.1 L Mean Corpuscular Hemoglobin 24.5 L Mean Corpuscular Hemoglobin Concent 32.1 Red Cell Distribution Width 25.5 H Platelet Count 454 H Mean Platelet Volume 9.5 Immature Granulocytes % 0.300 Neutrophils % 88.0 H Lymphocytes % 7.3 L Monocytes % 3.9 Eosinophils % 0.3 Basophils % 0.2 Nucleated Red Blood Cells % 0.0 Immature Granulocytes # 0.050 H Neutrophils # 14.1 H Lymphocytes # 1.2 Monocytes # 0.6 Eosinophils # 0.1 Basophils # 0.0 Nucleated Red Blood Cells # 0.0 Sodium Level 139 Potassium Level 3.9 Chloride Level 105 Carbon Dioxide Level 21 Anion Gap 13 Blood Urea Nitrogen 9 Creatinine 0.80 Est Glomerular Filtrat Rate mL/min > 60 Glucose Level 146 Calcium Level 10.2 Total Bilirubin 0.5 Direct Bilirubin 0.00 Indirect Bilirubin 0.5 Aspartate Amino Transf (AST/SGOT) 29 Alanine Aminotransferase (ALT/SGPT) 21 Alkaline Phosphatase 114 Total Protein 7.8 Albumin 4.6 Globulin 3.20 Albumin/Globulin Ratio 1.43 Lipase 28 HPI/ROS Admit Date/Time Admit Date/Time Dec 21, 2018 at 10:35 Hx of Present Illness This is a 38-year-old homeless male with substance/meth abuse/IVDU, history of small bowel obstruction, schizoaffective disorders, anemia, history of blood transfusions, came into the emergency room with 2-day duration of severe abdominal pain. Patient also reports blackish stool which has been going on for years. No nausea or vomiting. No diarrhea or constipation. No fevers or chills. No chest pain, palpitation, shortness of breath, numbness, tingling, speech difficulties or other acute constitutional symptoms. Apparently, patient was discharged from our facility in October 2018 where he was treated for small bowel obstruction and anemia. At that time, patient was transferred to inpatient [facility] center for voluntary admission. In the emergency room, imaging showed worsened dilated loops of fluid-filled small bowel and distention of the cecum, irregular soft tissue mass within the proximal right colon/cecum, highly concerning for colonic malignancy. There was also subsequent large bowel obstruction and collapse of the distal large bowel loop with mesenteric stranding and several lymph nodes. Labs showed white count 16,000, hemoglobin 12.4, hematocrit 38.6, platelet 454. Stable vital signs. Surgery consultation with Dr. Winter was called from the emergency room and patient was admitted. He was given Toradol in the emergency room. ROS A 12 point review of system was also signed is negative other than what is mentioned in the HPI. PMH/Family/Social Past Medical History See HPI Medications Current Medications Sodium Chloride 1,000 ml @ 75 mls/hr [id number] IV Last administered on 12/21/18at 12:35; Admin Dose 75 MLS/HR; Start 12/21/18 at 11:45 IV Flush (NS 3 ml) 3 ml PER PROTOCOL IV ; Start 12/21/18 at 12:00 Ondansetron HCl (Zofran Inj) 4 mg Q6H PRN IV NAUSEA/VOMITING; Start 12/21/18 at 12:00 Acetaminophen (Tylenol Tab) 650 mg Q6H PRN PO .PAIN 1-3 OR TEMP; Start 12/21/18 at 12:00 Acetaminophen (Tylenol Supp) 650 mg Q6H PRN [place] .PAIN 1-3 OR TEMP; Start 12/21/18 at 12:00 Morphine Sulfate (morphine) 2 mg Q4H PRN IV .SEVERE PAIN 7-10; Start 12/21/18 at 12:00 Famotidine (Pepcid Iv) 20 mg Q12 IV ; Start 12/21/18 at 21:00 Coded Allergies: No Known Allergy (Unverified , 12/21/18) Past Surgical History None Past Surgical Hx: no surgical history Family History Significant Family History: no pertinent family hx Social History Positive for meth abuse/alcohol use/marijuana use. Patient also has a history of IV drug abuse. Smoking Status: Current every day smoker Exam/Review of Systems Vital Signs Vitals Vital Signs Date Temp Pulse Resp B/P (MAP) Pulse Ox O2 O2 Flow FiO2 Time Delivery Rate 12/21/18 69 17 144/83 97 Room Air 10:34 (103) 12/21/18 98.2 08:32 JOYCE PARKS NP Dec 21, 2018 14:41
[2018-12-21] MEDS ORDERED: CITALOPRAM 20 MG TAB PO SCH (15:30)
[2018-12-21] MEDS: morphine 2 MG INJ IV PRN ×2 (16:54→21:06)
[2018-12-21] MEDS: ONDANSETRON 4 MG INJ IV PRN (16:54)
--- NOTE | 2018-12-21 17:56 | CONS ---
Date/Time of Note Date/Time of Note DATE: 12/21/18 TIME: 17:54 Consult Date/Type/Reason Admit Date Dec 21, 2018 at 10:35 Type of Consult Psych Subjective Patient reports feeling sad, states"I'm a hot mess." Objective Patient Appearance: Disheveled Mood and Affect Description: Depressed Mood or Affect: Cooperative Speech Pattern: Clear Thought Process: Intact Hallucination Type: None Delusion Description: Not Present Assessment/Plan Recommendations Continue current medications, transfer to [facility] bed is available SAMANTHA AGUSTIN NP Dec 21, 2018 17:56
[2018-12-21 19:19] VITALS: BP 134/74; PULSE 66; RESP 18
[2018-12-21] MEDS: FAMOTIDINE 20 MG INJ IV SCH (20:16)
[2018-12-21] MEDS: GABAPENTIN 400 MG CAP PO SCH (20:16)
[2018-12-21] MEDS: QUETIAPINE 100 MG TAB PO SCH (21:07)
[2018-12-22 01:53] VITALS: BP 136/75; PULSE 66; RESP 18
[2018-12-22] MEDS: SOD CHLORIDE 0.9% 1,000 ML IV SCH ×2 (01:57→07:31)
--- NOTE | 2018-12-22 02:29 | CONS ---
Assessment/Plan Assessment/Plan Assessment/Plan (Daily) Abdominal pain question of GI bleed. Noted possible mass in the cecum consistent with the colon carcinoma with proximal dilated small bowel with air- fluid levels and some dilated colon as well. Unclear why the distal colon to the mesh should be dilated but there is distal decompressed colon as well. Recommendations at this time although the patient does show signs and symptoms of a partial SBO he is showing no symptoms of nausea and therefore we will hold off from nasogastric tube. We will obtain abdominal film tomorrow. In the event that his bowel obstruction does resolve then possible elective or urgent colonoscopy. Pending findings and the progress of the acute setting will determine whether he can undergo elective repair or urgent exploration. Consultation Date/Type/Reason Admit Date/Time Dec 21, 2018 at 10:35 Date of Consultation: Dec 22, 2018 Type of Consult General surgery consult Reason for Consultation Abdominal pain partial small bowel obstruction question of mass in ascending colon versus cecum Requesting Provider: JOYCE PARKS NP Date/Time of Note DATE: 12/22/18 TIME: 02:28 Hx of Present Illness Patient presented emergency room with abdominal pain noted to have anemia and elevated white blood cell count 16,000. Patient apparently has had multiple visits to emergency room's for abdominal pain. Denies prior admissions. Patient is homeless and detailed history is somewhat difficult. On CAT scan obtained while patient was being evaluated in the emergency room multiple loops of dilated fluid-filled loops of small bowel with some nondilated large bowel with decompressed distal bowel of large intestine and question of mass in the ascending colon versus the cecum. Patient denies any past surgical history Past Medical History Home Meds Discontinued Reported Medications Clonazepam* (Klonopin*) 1 Mg Tablet, 1 MG PO BID PRN for ANXIETY, TAB 09/24/18 Citalopram Hydrobromide* (Citalopram Hydrobromide*) 40 Mg Tablet, 40 MG PO DAILY, #30 TAB 08/10/18 Gabapentin* (Gabapentin*) 400 Mg Capsule, 400 MG PO TID, #90 CAP 08/10/18 Discontinued Scripts Pantoprazole* (Protonix*) 40 Mg Tablet.dr, 40 MG PO BID, #60 TAB Prov:JOYCE PARKS NP 11/16/18 Quetiapine Fumarate* (Quetiapine Fumarate*) 100 Mg Tablet, 200 MG PO HS, #30 TAB Prov:JOYCE PARKS VDesiree PEST CONTROL PILOT 11/16/18 Ferrous Sulfate* (Ferrous Sulfate*) 325 Mg Tabec, 325 MG PO TIDM A, #90 TAB Prov:JOYCE PARKS V. [employer] PILOT 11/16/18 Medications Current Medications Sodium Chloride 1,000 ml @ 75 mls/hr [id number] IV Last administered on 12/22/18at 01:57; Admin Dose 75 MLS/HR; Start 12/21/18 at 11:45 IV Flush (NS 3 ml) 3 ml PER PROTOCOL IV ; Start 12/21/18 at 12:00 Ondansetron HCl (Zofran Inj) 4 mg Q6H PRN IV NAUSEA/VOMITING Last administered on 12/21/18at 16:54; Admin Dose 4 MG; Start 12/21/18 at 12:00 Acetaminophen (Tylenol Tab) 650 mg Q6H PRN PO .PAIN 1-3 OR TEMP; Start 12/21/18 at 12:00 Acetaminophen (Tylenol Supp) 650 mg Q6H PRN [place] .PAIN 1-3 OR TEMP; Start 12/21/18 at 12:00 Morphine Sulfate (morphine) 2 mg Q4H PRN IV .SEVERE PAIN 7-10 Last administered on 12/21/18at 21:06; Admin Dose 2 MG; Start 12/21/18 at 12:00 Famotidine (Pepcid Iv) 20 mg Q12 IV Last administered on 12/21/18at 20:16; Admin Dose 20 MG; Start 12/21/18 at 21:00 Quetiapine Fumarate (Seroquel) 200 mg HS PO Last administered on 12/21/18at 21:07; Admin Dose 200 MG; Start 12/21/18 at 21:00 Gabapentin (Neurontin) 400 mg TID PO Last administered on 12/21/18at 20:16; Admin Dose 400 MG; Start 12/21/18 at 21:00 Clonazepam (Klonopin) 1 mg BID PRN PO ANXIETY; Start 12/21/18 at 15:00 Citalopram Hydrobromide (Celexa) 20 mg DAILY PO ; Start 12/22/18 at 09:00 Allergies: Coded Allergies: No Known Allergy (Unverified , 12/21/18) Past Surgical History Past Surgical Hx: no surgical history Social History Smoking Status: Current every day smoker Exam/Review of Systems Exam Vitals Vital Signs Date Temp Pulse Resp B/P (MAP) Pulse Ox O2 O2 Flow FiO2 Time Delivery Rate 12/22/18 98.4 66 18 136/75 99 01:53 (95) 12/21/18 Room Air 10:34 Intake and Output 12/21/18 12/21/18 12/22/18 1515:00 23:00 07:00 IntakeIntake Total 800 ml 350 ml 650 ml BalanceBalance 800 ml 350 ml 650 ml Exam Somewhat lethargic this patient was sleeping. He denies any acute abdominal pain denies any nausea or vomiting. HEENT pupils are equal to light sclerae anicteric. Lungs clear to auscultation. Heart regular rate and rhythm with normal S1-S2 without gallops murmurs or rubs. Abdomen is soft nondistended with minimal tenderness Results Result Diagram: 12/21/18 0845 12/21/18 0845 Results 24hrs Laboratory Tests Test 12/21/18 08:45 White Blood Count 16.0 #H Red Blood Count 5.07 Hemoglobin 12.4 #L Hematocrit 38.6 L Mean Corpuscular Volume 76.1 L Mean Corpuscular Hemoglobin 24.5 L Mean Corpuscular Hemoglobin Concent 32.1 Red Cell Distribution Width 25.5 H Platelet Count 454 H Mean Platelet Volume 9.5 Immature Granulocytes % 0.300 Neutrophils % 88.0 H Lymphocytes % 7.3 L Monocytes % 3.9 Eosinophils % 0.3 Basophils % 0.2 Nucleated Red Blood Cells % 0.0 Immature Granulocytes # 0.050 H Neutrophils # 14.1 H Lymphocytes # 1.2 Monocytes # 0.6 Eosinophils # 0.1 Basophils # 0.0 Nucleated Red Blood Cells # 0.0 Sodium Level 139 Potassium Level 3.9 Chloride Level 105 Carbon Dioxide Level 21 Anion Gap 13 Blood Urea Nitrogen 9 Creatinine 0.80 Est Glomerular Filtrat Rate mL/min > 60 Glucose Level 146 Calcium Level 10.2 Total Bilirubin 0.5 Direct Bilirubin 0.00 Indirect Bilirubin 0.5 Aspartate Amino Transf (AST/SGOT) 29 Alanine Aminotransferase (ALT/SGPT) 21 Alkaline Phosphatase 114 Total Protein 7.8 Albumin 4.6 Globulin 3.20 Albumin/Globulin Ratio 1.43 Lipase 28 Carcinoembryonic Antigen 2.4 Medications Medication Current Medications Sodium Chloride 1,000 ml @ 75 mls/hr [id number] IV Last administered on 12/22/18 01:57; Admin Dose 75 MLS/HR; Start 12/21/18 at 11:45 IV Flush (NS 3 ml) 3 ml PER PROTOCOL IV ; Start 12/21/18 at 12:00 Ondansetron HCl (Zofran Inj) 4 mg Q6H PRN IV NAUSEA/VOMITING Last administered on 12/21/18 16:54; Admin Dose 4 MG; Start 12/21/18 at 12:00 Acetaminophen (Tylenol Tab) 650 mg Q6H PRN PO .PAIN 1-3 OR TEMP; Start 12/21/18 at 12:00 Acetaminophen (Tylenol Supp) 650 mg Q6H PRN [place] .PAIN 1-3 OR TEMP; Start 12/21/18 at 12:00 Morphine Sulfate (morphine) 2 mg Q4H PRN IV .SEVERE PAIN 7-10 Last administered on 12/21/18 21:06; Admin Dose 2 MG; Start 12/21/18 at 12:00 Famotidine (Pepcid Iv) 20 mg Q12 IV Last administered on 12/21/18 20:16; Admin Dose 20 MG; Start 12/21/18 at 21:00 Quetiapine Fumarate (Seroquel) 200 mg HS PO Last administered on 12/21/18 21:07; Admin Dose 200 MG; Start 12/21/18 at 21:00 Gabapentin (Neurontin) 400 mg TID PO Last administered on 12/21/18 20:16; Admin Dose 400 MG; Start 12/21/18 at 21:00 Clonazepam (Klonopin) 1 mg BID PRN PO ANXIETY; Start 12/21/18 at 15:00 Citalopram Hydrobromide (Celexa) 20 mg DAILY PO ; Start 12/22/18 at 09:00 BETH BERGMAN MD Dec 22, 2018 02:29
[2018-12-22 06:46] VITALS: BP 127/83; PULSE 88; RESP 20
[2018-12-22 07:54] VITALS: BP 110/61; PULSE 75; RESP 16
[2018-12-22] MEDS ORDERED: ESCITALOPRAM 10 MG TAB PO SCH (09:00)
--- NOTE | 2018-12-22 09:56 | CONS ---
Assessment/Plan Assessment/Plan Hospital Course (Demo Recall) Summary Assessment and Plan: Assessment: Bowel obstruction Cecal mass, concerning for malignancy on imaging Normocytic anemia Leukocytosis on admission, now showing leukopenia Substance abuse/meth abuse/Heroin Schizoaffective disorder/bipolar type Plan: SBFT with Gastrografin- if no obstruction noted will prep for colonoscopy in near future If positive for obstruction- will consider tap water enemas to clear colon for colonoscopy Endoscopy - risks/benefits/alternatives/indications of procedure and sedation/anesthesia discussed with patient who states understanding and gives informed consent to proceed. With hx of IV drug abuse will order Hepatitis panel and HIV Patient seen in collaboration with Dr. Sanchez CC: LATA SANCHEZ MD ; Consultation Date/Type/Reason Admit Date/Time Dec 21, 2018 at 10:35 Date of Consultation: Dec 22, 2018 Type of Consult GI Reason for Consultation Abdominal pain/Abnormal imaging- mass to proximal right colon/cecum, concerning for malignancy Date/Time of Note DATE: 12/22/18 TIME: 09:28 Hx of Present Illness This is a 38-year-old male with past medical history substance abuse, schizop hrenia, bipolar disorder, history of small bowel obstruction who presented to the hospital with complaints of abdominal pain times 2-3 days. Patient also notes rectal bleeding described as red on and off for the past few months. Imaging was obtained a CT abdomen/pelvis without contrast shows multiple dilated loops of fluid-filled small bowel and tension to the cecum. There is concern for cecal mass, highly concerning for colonic malignancy there is a subsequent large bowel obstruction and collapse of distal large bowel loops. There is adjacent mild mesenteric stranding and several lymph nodes. Really patient denies nausea/vomiting he does complain of abdominal pain, patient states his l ast bowel movement was about 2 days ago. He does admit to passing flatus. We will plan for small bowel follow-through to assess ability to prep for colonoscopy. Of note CEA level is 2.4. Review of Systems: A 12 system, review was conducted and is negative except as noted in the HPI or here. Past Medical History Home Meds Discontinued Reported Medications Clonazepam* (Klonopin*) 1 Mg Tablet, 1 MG PO BID PRN for ANXIETY, TAB 09/24/18 Citalopram Hydrobromide* (Citalopram Hydrobromide*) 40 Mg Tablet, 40 MG PO DAILY, #30 TAB 08/10/18 Gabapentin* (Gabapentin*) 400 Mg Capsule, 400 MG PO TID, #90 CAP 08/10/18 Discontinued Scripts Pantoprazole* (Protonix*) 40 Mg Tablet.dr, 40 MG PO BID, #60 TAB Prov:PARKS,JOYCE V. PHOTO SPECIALIST 11/16/18 Quetiapine Fumarate* (Quetiapine Fumarate*) 100 Mg Tablet, 200 MG PO HS, #30 TAB Prov:PARKS,JOYCE V. PHOTO SPECIALIST 11/16/18 Ferrous Sulfate* (Ferrous Sulfate*) 325 Mg Tabec, 325 MG PO TIDM A, #90 TAB Prov:PARKS,JOYCE V. PHOTO SPECIALIST 11/16/18 Medications Current Medications Sodium Chloride 1,000 ml @ 75 mls/hr [id number] IV Last administered on 12/22/18at 07:31; Admin Dose 75 MLS/HR; Start 12/21/18 at 11:45 IV Flush (NS 3 ml) 3 ml PER PROTOCOL IV ; Start 12/21/18 at 12:00 Ondansetron HCl (Zofran Inj) 4 mg Q6H PRN IV NAUSEA/VOMITING Last administered on 12/21/18at 16:54; Admin Dose 4 MG; Start 12/21/18 at 12:00 Acetaminophen (Tylenol Tab) 650 mg Q6H PRN PO .PAIN 1-3 OR TEMP; Start 12/21/18 at 12:00 Acetaminophen (Tylenol Supp) 650 mg Q6H PRN [place] .PAIN 1-3 OR TEMP; Start 12/21/18 at 12:00 Morphine Sulfate (morphine) 2 mg Q4H PRN IV .SEVERE PAIN 7-10 Last administered on 12/21/18at 21:06; Admin Dose 2 MG; Start 12/21/18 at 12:00 Famotidine (Pepcid Iv) 20 mg Q12 IV Last administered on 12/21/18at 20:16; Admin Dose 20 MG; Start 12/21/18 at 21:00 Quetiapine Fumarate (Seroquel) 200 mg HS PO Last administered on 12/21/18 21:07; Admin Dose 200 MG; Start 12/21/18 at 21:00 Gabapentin (Neurontin) 400 mg TID PO Last administered on 12/21/18at 20:16; Admin Dose 400 MG; Start 12/21/18 at 21:00 Clonazepam (Klonopin) 1 mg BID PRN PO ANXIETY; Start 12/21/18 at 15:00 Citalopram Hydrobromide (Celexa) 20 mg DAILY PO ; Start 12/22/18 at 09:00 Allergies: Coded Allergies: No Known Allergy (Unverified , 12/21/18) Past Surgical History Past Surgical Hx: no surgical history Social History Smoking Status: Current every day smoker Exam/Review of Systems Exam Vitals Vital Signs Date Temp Pulse Resp B/P (MAP) Pulse Ox O2 O2 Flow FiO2 Time Delivery Rate 12/22/18 99.0 75 16 110/61 100 Room Air 07:54 (77) Intake and Output 12/21/18 12/21/18 12/22/18 1515:00 23:00 07:00 IntakeIntake Total 800 ml 350 ml 970 ml BalanceBalance 800 ml 350 ml 970 ml Exam PHYSICAL EXAMINATION: GENERAL: Well developed, well nourished, alert & oriented x 3 SKIN: No lesions EYES: Pupils equal reactive to light, no discharge. EARS/NOSE AND THROAT: Ears normal, nose normal NECK: Supple CHEST: Inspection within normal limits. CARDIOVASCULAR: Heart: Regular rate and rhythm RESPIRATORY: Lungs clear to auscultation GASTROINTESTINAL AND LIVER: Abdomen: Soft, non tenderness, non-distended, no hernias, no masses, no organomegaly, no ascites, no guarding, no rebound tenderness, normoactive bowel sounds. Rectal: Deferred. Results Result Diagram: 12/22/18 0820 12/21/18 0845 Results 24hrs Laboratory Tests Test 12/22/18 05:20 12/22/18 08:20 Urine Color STRAW Urine Clarity CLEAR Urine pH 7.0 Urine Specific [place] 1.006 Urine Ketones NEGATIVE Urine Nitrite NEGATIVE Urine Bilirubin NEGATIVE Urine Urobilinogen NEGATIVE Urine Leukocyte Esterase NEGATIVE Urine Hemoglobin NEGATIVE Urine Glucose NEGATIVE Urine Total Protein NEGATIVE White Blood Count 2.9 #L Red Blood Count 4.59 L Hemoglobin 11.1 L Hematocrit 36.2 L Mean Corpuscular Volume 78.9 L Mean Corpuscular Hemoglobin 24.2 L Mean Corpuscular Hemoglobin Concent 30.7 L Red Cell Distribution Width Platelet Count 329 # Mean Platelet Volume 9.9 Immature Granulocytes % 0.300 Neutrophils % Lymphocytes % Monocytes % Eosinophils % Basophils % Nucleated Red Blood Cells % 0.0 Immature Granulocytes # 0.010 Neutrophils # Lymphocytes # Monocytes # Eosinophils # Basophils # Nucleated Red Blood Cells # Medications Medication Current Medications Sodium Chloride 1,000 ml @ 75 mls/hr [id number] IV Last administered on 12/22/18 07:31; Admin Dose 75 MLS/HR; Start 12/21/18 at 11:45 IV Flush (NS 3 ml) 3 ml PER PROTOCOL IV ; Start 12/21/18 at 12:00 Ondansetron HCl (Zofran Inj) 4 mg Q6H PRN IV NAUSEA/VOMITING Last administered on 12/21/18 16:54; Admin Dose 4 MG; Start 12/21/18 at 12:00 Acetaminophen (Tylenol Tab) 650 mg Q6H PRN PO .PAIN 1-3 OR TEMP; Start 12/21/18 at 12:00 Acetaminophen (Tylenol Supp) 650 mg Q6H PRN [place] .PAIN 1-3 OR TEMP; Start 12/21/18 at 12:00 Morphine Sulfate (morphine) 2 mg Q4H PRN IV .SEVERE PAIN 7-10 Last administered on 12/21/18 21:06; Admin Dose 2 MG; Start 12/21/18 at 12:00 Famotidine (Pepcid Iv) 20 mg Q12 IV Last administered on 12/21/18 20:16; Admin Dose 20 MG; Start 12/21/18 at 21:00 Quetiapine Fumarate (Seroquel) 200 mg HS PO Last administered on 12/21/18 21:07; Admin Dose 200 MG; Start 12/21/18 at 21:00 Gabapentin (Neurontin) 400 mg TID PO Last administered on 12/21/18 20:16; Admin Dose 400 MG; Start 12/21/18 at 21:00 Clonazepam (Klonopin) 1 mg BID PRN PO ANXIETY; Start 12/21/18 at 15:00 Citalopram Hydrobromide (Celexa) 20 mg DAILY PO ; Start 12/22/18 at 09:00 BRITTANIE SHOEMAKER Dec 22, 2018 09:38
[2018-12-22] MEDS: morphine 2 MG INJ IV PRN ×3 (10:00→17:07)
[2018-12-22] MEDS: FAMOTIDINE 20 MG INJ IV SCH ×2 (10:00→20:13)
[2018-12-22] MEDS: GABAPENTIN 400 MG CAP PO SCH ×3 (10:17→20:13)
[2018-12-22] MEDS: CITALOPRAM 20 MG TAB PO SCH (10:19)
--- NOTE | 2018-12-22 14:15 | PN ---
Date/Time of Note Date/Time of Note DATE: 12/22/18 TIME: 14:13 Assessment/Plan VTE Prophylaxis Risk score (from Ns)>0 risk: 1 SCD applied (from Ns): Yes Pharmacological prophylaxis: NA/contraindicated Pharm contraindication: low risk/ambulating Lines/Catheters IV [facility]ter Type (from [facility]): Peripheral IV Urinary Cath still in place: No Assessment/Plan Hospital Course SUBJECTIVE: No acute overnight episodes. OBJECTIVE: Vital signs-see below PHYSICAL EXAM: Constitutional: Well-developed, adequately built, lying in bed comfortably. Psych: nl mood/affect, no complaints Head: atraumatic, normocephalic Eyes: nl conjunctiva, nl sclera ENMT: mucosa pink and moist, nl external ears & nose Neck: non-tender, supple Respiratory: clear to auscultation, normal air movement Cardiovascular: nl pulses, regular rate and rhythm Gastrointestinal: _+TENDER all quadrants..no rebound.. soft, bowel sounds active in all 4 quadrants. Musculoskeletal/extremities: nl extremities to inspection, motor strength equal bilaterally, no focal deficit. Normal pulses,no cyanosis, no edema. 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: Alert oriented 3,nl speech, nl strength Skin: nl turgor ASSESSMENT/PLAN: 38-year-old homeless male with a history of substance abuse, SBO, anemia, here with abdominal pain, found to have bowel obstruction... 1. Bowel obstruction -Non contrast Ct w/ questionable colonic/cecal mass?? Repeat contrast CT PENDING... -Surgery and GI on board. -Pain control, bowel rest. 2. Substance abuse/meth abuse -social worker clinical evaluation -Cessation advised 3. Schizoaffective disorder/bipolar type -Continue psych meds 4. Homelessness -social worker clinical to see patient and provide resources DVT prophylaxis: SCDs PUD prophylaxis: Pepcid CODE STATUS: Full code Diet: N.p.o. Disposition: Follow-up surgery and GI recommendations. Patient was seen in collaboration with Dr. Godoy. Result Diagram: 12/22/18 0820 12/22/18 0820 Results 24hrs Laboratory Tests Test 12/22/18 05:20 12/22/18 08:19 12/22/18 08:20 Urine Color STRAW Urine Clarity CLEAR Urine pH 7.0 Urine Specific [place] 1.006 Urine Ketones NEGATIVE Urine Nitrite NEGATIVE Urine Bilirubin NEGATIVE Urine Urobilinogen NEGATIVE Urine Leukocyte Esterase NEGATIVE Urine Hemoglobin NEGATIVE Urine Glucose NEGATIVE Urine Total Protein NEGATIVE Urine Opiates Screen Positive Urine Barbiturates Negative Urine Amphetamines Screen POSITIVE Urine Benzodiazepines Screen Negative Urine Cocaine Screen Negative Urine Cannabinoids Negative Hepatitis B Surface Antigen NEGATIVE Hepatitis B Core Total Antibody NEGATIVE Hepatitis C Antibody NEGATIVE HIV (1&2) Antibody NEGATIVE White Blood Count 2.9 #L Red Blood Count 4.59 L Hemoglobin 11.1 L Hematocrit 36.2 L Mean Corpuscular Volume 78.9 L Mean Corpuscular Hemoglobin 24.2 L Mean Corpuscular Hemoglobin Concent 30.7 L Red Cell Distribution Width Platelet Count 329 # Mean Platelet Volume 9.9 Immature Granulocytes % 0.300 Neutrophils % Segmented Neutrophils % (Manual) 30 L Band Neutrophils % (Manual) 14 H Lymphocytes % Lymphocytes % (Manual) 26 Monocytes % Monocytes % (Manual) 24 H Eosinophils % Eosinophils % (Manual) 4 Basophils % Basophils % (Manual) 1 Myelocytes % (Manual) 1 H Nucleated Red Blood Cells % 0.0 Immature Granulocytes # 0.010 Neutrophils # Neutrophils # (Manual) 0.9 L Band Neutrophils # 0.4 Lymphocytes (Manual) 0.7 L Lymphocytes # Monocytes # Monocytes # (Manual) 0.6 Eosinophils # Basophils # Basophils # (Manual) 0.0 Myelocytes # 0.0 Nucleated Red Blood Cells # Platelet Estimate NORMAL Giant Platelets 8 H Hypochromasia 1+ Poikilocytosis 1+ Anisocytosis 2+ Microcytosis 1+ Ovalocytes 1+ Sodium Level 140 Potassium Level 4.1 Chloride Level 108 Carbon Dioxide Level 24 Anion Gap 8 Blood Urea Nitrogen 10 Creatinine 0.77 Est Glomerular Filtrat Rate mL/min > 60 Glucose Level 97 # Hemoglobin A1c 4.9 Calcium Level 8.8 Phosphorus Level 3.5 Magnesium Level 2.0 Total Bilirubin 0.4 Direct Bilirubin 0.00 Indirect Bilirubin 0.4 Aspartate Amino Transf (AST/SGOT) 17 Alanine Aminotransferase (ALT/SGPT) 21 Alkaline Phosphatase 83 Total Protein 5.8 #L Albumin 3.3 # Globulin 2.50 Albumin/Globulin Ratio 1.32 Triglycerides Level 94 Cholesterol Level 125 LDL Cholesterol, Calculated 54 HDL Cholesterol 52 Cholesterol/HDL Ratio 2.4 Exam/Review of Systems Exam Vitals Vital Signs Date Temp Pulse Resp B/P (MAP) Pulse Ox O2 O2 Flow FiO2 Time Delivery Rate 12/22/18 99.0 75 16 110/61 100 Room Air 07:54 (77) Intake and Output 3/5/19 3/5/19 3/6/19 1515:00 23:00 07:00 IntakeIntake Total 800 ml 350 ml 970 ml BalanceBalance 800 ml 350 ml 970 ml Results Results 24hrs Laboratory Tests Test 12/22/18 05:20 12/22/18 08:19 12/22/18 08:20 Urine Color STRAW Urine Clarity CLEAR Urine pH 7.0 Urine Specific [place] 1.006 Urine Ketones NEGATIVE Urine Nitrite NEGATIVE Urine Bilirubin NEGATIVE Urine Urobilinogen NEGATIVE Urine Leukocyte Esterase NEGATIVE Urine Hemoglobin NEGATIVE Urine Glucose NEGATIVE Urine Total Protein NEGATIVE Urine Opiates Screen Positive Urine Barbiturates Negative Urine Amphetamines Screen POSITIVE Urine Benzodiazepines Screen Negative Urine Cocaine Screen Negative Urine Cannabinoids Negative Hepatitis B Surface Antigen NEGATIVE Hepatitis B Core Total Antibody NEGATIVE Hepatitis C Antibody NEGATIVE HIV (1&2) Antibody NEGATIVE White Blood Count 2.9 #L Red Blood Count 4.59 L Hemoglobin 11.1 L Hematocrit 36.2 L Mean Corpuscular Volume 78.9 L Mean Corpuscular Hemoglobin 24.2 L Mean Corpuscular Hemoglobin Concent 30.7 L Red Cell Distribution Width Platelet Count 329 # Mean Platelet Volume 9.9 Immature Granulocytes % 0.300 Neutrophils % Segmented Neutrophils % (Manual) 30 L Band Neutrophils % (Manual) 14 H Lymphocytes % Lymphocytes % (Manual) 26 Monocytes % Monocytes % (Manual) 24 H Eosinophils % Eosinophils % (Manual) 4 Basophils % Basophils % (Manual) 1 Myelocytes % (Manual) 1 H Nucleated Red Blood Cells % 0.0 Immature Granulocytes # 0.010 Neutrophils # Neutrophils # (Manual) 0.9 L Band Neutrophils # 0.4 Lymphocytes (Manual) 0.7 L Lymphocytes # Monocytes # Monocytes # (Manual) 0.6 Eosinophils # Basophils # Basophils # (Manual) 0.0 Myelocytes # 0.0 Nucleated Red Blood Cells # Platelet Estimate NORMAL Giant Platelets 8 H Hypochromasia 1+ Poikilocytosis 1+ Anisocytosis 2+ Microcytosis 1+ Ovalocytes 1+ Sodium Level 140 Potassium Level 4.1 Chloride Level 108 Carbon Dioxide Level 24 Anion Gap 8 Blood Urea Nitrogen 10 Creatinine 0.77 Est Glomerular Filtrat Rate mL/min > 60 Glucose Level 97 # Hemoglobin A1c 4.9 Calcium Level 8.8 Phosphorus Level 3.5 Magnesium Level 2.0 Total Bilirubin 0.4 Direct Bilirubin 0.00 Indirect Bilirubin 0.4 Aspartate Amino Transf (AST/SGOT) 17 Alanine Aminotransferase (ALT/SGPT) 21 Alkaline Phosphatase 83 Total Protein 5.8 #L Albumin 3.3 # Globulin 2.50 Albumin/Globulin Ratio 1.32 Triglycerides Level 94 Cholesterol Level 125 LDL Cholesterol, Calculated 54 HDL Cholesterol 52 Cholesterol/HDL Ratio 2.4 Medications Medication Current Medications Sodium Chloride 1,000 ml @ 75 mls/hr [id number] IV Last administered on 12/22/18 07:31; Admin Dose 75 MLS/HR; Start 12/21/18 at 11:45 IV Flush (NS 3 ml) 3 ml PER PROTOCOL IV ; Start 12/21/18 at 12:00 Ondansetron HCl (Zofran Inj) 4 mg Q6H PRN IV NAUSEA/VOMITING Last administered on 12/21/18at 16:54; Admin Dose 4 MG; Start 12/21/18 at 12:00 Acetaminophen (Tylenol Tab) 650 mg Q6H PRN PO .PAIN 1-3 OR TEMP; Start 12/21/18 at 12:00 Acetaminophen (Tylenol Supp) 650 mg Q6H PRN [place] .PAIN 1-3 OR TEMP; Start 12/21/18 at 12:00 Morphine Sulfate (morphine) 2 mg Q4H PRN IV .SEVERE PAIN 7-10 Last administered on 12/22/18at 14:05; Admin Dose 2 MG; Start 12/21/18 at 12:00 Famotidine (Pepcid Iv) 20 mg Q12 IV Last administered on 12/22/18at 10:00; Admin Dose 20 MG; Start 12/21/18 at 21:00 Quetiapine Fumarate (Seroquel) 200 mg HS PO Last administered on 12/21/18at 21:07; Admin Dose 200 MG; Start 12/21/18 at 21:00 Gabapentin (Neurontin) 400 mg TID PO Last administered on 12/22/18at 13:28; Admin Dose 400 MG; Start 12/21/18 at 21:00 Clonazepam (Klonopin) 1 mg BID PRN PO ANXIETY; Start 12/21/18 at 15:00 Citalopram Hydrobromide (Celexa) 20 mg DAILY PO Last administered on 12/22/18at 10:19; Admin Dose 20 MG; Start 12/22/18 at 09:00 JOYCE PARKS NP Dec 22, 2018 14:15
[2018-12-22] MEDS ORDERED: IOHEXOL 300MG/ML 150 ML BTL ONE (14:39)
[2018-12-22] MEDS ORDERED: SOD CHLORIDE 0.9% 100 ML ONE (14:39)
[2018-12-22] MEDS ORDERED: DIATR MEGLU/DIATRIZOATE SODIUM 120 ML BTL ONE (15:02)
[2018-12-22] MEDS ORDERED: HYDROmorphONE 0.5 MG/0.5 ML SYG IV STA (15:25)
[2018-12-22] MEDS: ONDANSETRON 4 MG INJ IV PRN (16:26)
[2018-12-22] MEDS: clonAZEPAM 0.5 MG TAB PO PRN (16:28)
[2018-12-22 20:00] VITALS: BP 136/74; PULSE 71; RESP 17
[2018-12-22] MEDS: QUETIAPINE 100 MG TAB PO SCH (20:13)
[2018-12-23] MEDS: SOD CHLORIDE 0.9% 1,000 ML IV SCH ×2 (01:36→17:05)
[2018-12-23] MEDS: morphine 2 MG INJ IV PRN (07:47)
[2018-12-23 08:01] VITALS: BP 122/71; PULSE 74; RESP 18
[2018-12-23] MEDS: CITALOPRAM 20 MG TAB PO SCH (09:25)
[2018-12-23] MEDS: GABAPENTIN 400 MG CAP PO SCH ×3 (09:25→20:58)
[2018-12-23] MEDS: FAMOTIDINE 20 MG INJ IV SCH ×2 (09:25→20:58)
--- NOTE | 2018-12-23 11:22 | PN ---
Date/Time of Note Date/Time of Note DATE: 12/23/18 TIME: 11:18 Assessment/Plan VTE Prophylaxis Risk score (from Ns)>0 risk: 2 SCD applied (from Ns): Yes Pharmacological prophylaxis: other Pharm contraindication: low risk/ambulating Lines/Catheters IV Catheter Type (from Nrs): Peripheral IV Urinary Cath still in place: No Assessment/Plan Assessment/Plan 1. Partial distal small bowel obstruction, r/o IBD, colonoscopy per GI 2. Substance abuse/meth abuse, psychiatric social worker supervisor evaluation, cessation advised 3. Schizoaffective disorder/bipolar type, Continue psych meds 4. Homelessness, [place] worker to see patient and provide resources 5. Microcytic anemia, chronic, Endoscopy per GI 6. DVT prophylaxis: SCDs Result Diagram: 12/23/18 0609 12/23/18 0609 Results 24hrs Laboratory Tests Test 12/22/18 18:22 12/23/18 06:09 Stool Occult Blood POSITIVE White Blood Count 3.0 L Red Blood Count 4.16 L Hemoglobin 10.1 L Hematocrit 33.0 L Mean Corpuscular Volume 79.3 L Mean Corpuscular Hemoglobin 24.3 L Mean Corpuscular Hemoglobin Concent 30.6 L Red Cell Distribution Width 25.0 H Platelet Count 327 Mean Platelet Volume 9.6 Immature Granulocytes % 0.300 Neutrophils % 42.5 Lymphocytes % 32.6 Monocytes % 18.3 H Eosinophils % 6.0 Basophils % 0.3 Nucleated Red Blood Cells % 0.0 Immature Granulocytes # 0.010 Neutrophils # 1.3 L Lymphocytes # 1.0 Monocytes # 0.6 Eosinophils # 0.2 Basophils # 0.0 Nucleated Red Blood Cells # 0.0 Sodium Level 137 Potassium Level 3.7 Chloride Level 105 Carbon Dioxide Level 23 Anion Gap 9 Blood Urea Nitrogen 9 Creatinine 0.83 Est Glomerular Filtrat Rate mL/min > 60 Glucose Level 81 Calcium Level 8.9 Subjective 24 Hr Interval Summary Free Text/Dictation abdominal pain but no nausea or vomiting Exam/Review of Systems Exam Vitals Vital Signs Date Temp Pulse Resp B/P (MAP) Pulse Ox O2 O2 Flow FiO2 Time Delivery Rate 12/23/18 98.1 74 18 122/71 99 Room Air 08:01 (88) Intake and Output 12/22/18 12/22/18 12/23/18 1515:00 23:00 07:00 IntakeIntake Total 825 ml 512.5 ml OutputOutput Total 300 ml BalanceBalance 525 ml 512.5 ml Constitutional: alert, oriented, well developed Psych: no complaints, nl mood/affect Head: normocephalic, atraumatic Eyes: nl conjunctiva, EOMI, nl lids ENMT: nl external ears & nose, nl lips & teeth, nl nasal mucosa & septum Neck: supple, non-tender Respiratory: clear to auscultation, normal air movement; No congested cough, No crackles/rales, No diminished breath sounds, No intercostal retraction, No labored breathing, No respirations, No tactile fremitus, No wheezing, No other Cardiovascular: regular rate and rhythm, nl pulses Gastrointestinal: soft, nl liver, spleen, tender (diffuse mild tenderness) Musculoskeletal: nl extremities to inspection Extremities: normal pulses; No calf tenderness, No cyanosis, No clubbing, No edema, No pitting pedal edema, No palpable cord, No tenderness, No other 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: [employer] II-XII intact, nl mental status, nl speech, nl strength Skin: nl turgor Lymph: nl lymph nodes Results Results 24hrs Laboratory Tests Test 12/22/18 18:22 12/23/18 06:09 Stool Occult Blood POSITIVE White Blood Count 3.0 L Red Blood Count 4.16 L Hemoglobin 10.1 L Hematocrit 33.0 L Mean Corpuscular Volume 79.3 L Mean Corpuscular Hemoglobin 24.3 L Mean Corpuscular Hemoglobin Concent 30.6 L Red Cell Distribution Width 25.0 H Platelet Count 327 Mean Platelet Volume 9.6 Immature Granulocytes % 0.300 Neutrophils % 42.5 Lymphocytes % 32.6 Monocytes % 18.3 H Eosinophils % 6.0 Basophils % 0.3 Nucleated Red Blood Cells % 0.0 Immature Granulocytes # 0.010 Neutrophils # 1.3 L Lymphocytes # 1.0 Monocytes # 0.6 Eosinophils # 0.2 Basophils # 0.0 Nucleated Red Blood Cells # 0.0 Sodium Level 137 Potassium Level 3.7 Chloride Level 105 Carbon Dioxide Level 23 Anion Gap 9 Blood Urea Nitrogen 9 Creatinine 0.83 Est Glomerular Filtrat Rate mL/min > 60 Glucose Level 81 Calcium Level 8.9 Medications Medication Current Medications Sodium Chloride 1,000 ml @ 75 mls/hr [id number] IV Last administered on 12/23/18at 01:36; Admin Dose 75 MLS/HR; Start 12/21/18 at 11:45 IV Flush (NS 3 ml) 3 ml PER PROTOCOL IV ; Start 12/21/18 at 12:00 Ondansetron HCl (Zofran Inj) 4 mg Q6H PRN IV NAUSEA/VOMITING Last administered on 12/22/18 16:26; Admin Dose 4 MG; Start 12/21/18 at 12:00 Acetaminophen (Tylenol Tab) 650 mg Q6H PRN PO .PAIN 1-3 OR TEMP; Start 12/21/18 at 12:00 Acetaminophen (Tylenol Supp) 650 mg Q6H PRN [place] .PAIN 1-3 OR TEMP; Start 12/21/18 at 12:00 Morphine Sulfate (morphine) 2 mg Q4H PRN IV .SEVERE PAIN 7-10 Last administered on 12/23/18 07:47; Admin Dose 2 MG; Start 12/21/18 at 12:00 Famotidine (Pepcid Iv) 20 mg Q12 IV Last administered on 12/23/18 09:25; Admin Dose 20 MG; Start 12/21/18 at 21:00 Quetiapine Fumarate (Seroquel) 200 mg HS PO Last administered on 12/22/18 20:13; Admin Dose 200 MG; Start 12/21/18 at 21:00 Gabapentin (Neurontin) 400 mg TID PO Last administered on 12/23/18 09:25; Admin Dose 400 MG; Start 12/21/18 at 21:00 Clonazepam (Klonopin) 1 mg BID PRN PO ANXIETY Last administered on 12/22/18 16:28; Admin Dose 1 MG; Start 12/21/18 at 15:00 Citalopram Hydrobromide (Celexa) 20 mg DAILY PO Last administered on 12/23/18 09:25; Admin Dose 20 MG; Start 12/22/18 at 09:00 JACQUE JORDAN MD Dec 23, 2018 11:22
[2018-12-23] MEDS: HYDROmorphONE 0.5 MG/0.5 ML SYG IV PRN ×4 (11:45→20:58)
[2018-12-23 14:00] VITALS: BP 116/68; PULSE 83; RESP 18
[2018-12-23] MEDS ORDERED: BISACODYL (EC) 5 MG TAB PO ONE (14:00)
[2018-12-23] MEDS ORDERED: MAGNESIUM CITRATE 300 ML BTL PO ONE (17:30)
--- NOTE | 2018-12-23 17:32 | PREAC ---
Date/Time of Note Date/Time of Note DATE: 12/23/18 TIME: 17:31 Anesthesia Eval and Record Evaluation Time Pre-Procedure Interview DATE: 12/23/18 TIME: 17:31 Age 38 Sex male NPO: 8 hrs Preoperative diagnosis Abdominal pain/ Planned procedure COLONOSCOPY Past Medical History Past Medical History: Includes Psych: Anxiety, Bipolar Recreational drugs: Other (meth) Surgery & Anesthesia Issues No known issue Meds Anticoagulation: No Beta Mayur within 24 hr: No Reason Beta Mayur not given: Pt. not on B-Mayur Discontinued Reported Medications Clonazepam* (Klonopin*) 1 Mg Tablet, 1 MG PO BID PRN for ANXIETY, TAB 09/24/18 Citalopram Hydrobromide* (Citalopram Hydrobromide*) 40 Mg Tablet, 40 MG PO DAILY, #30 TAB 08/10/18 Gabapentin* (Gabapentin*) 400 Mg Capsule, 400 MG PO TID, #90 CAP 08/10/18 Discontinued Scripts Pantoprazole* (Protonix*) 40 Mg Tablet.dr, 40 MG PO BID, #60 TAB Prov:JOYCE PARKS V. STORE SPECIALIST 11/16/18 Quetiapine Fumarate* (Quetiapine Fumarate*) 100 Mg Tablet, 200 MG PO HS, #30 TAB Prov:PARKSJOYCE V. STORE SPECIALIST 11/16/18 Ferrous Sulfate* (Ferrous Sulfate*) 325 Mg Tabec, 325 MG PO TIDM A, #90 TAB Prov:PARKSMICHAELA V. STORE SPECIALIST 11/16/18 Current Medications Sodium Chloride 1,000 ml @ 75 mls/hr [id number] IV Last administered on 12/23/18at 17:05; Admin Dose 75 MLS/HR; Start 12/21/18 at 11:45 IV Flush (NS 3 ml) 3 ml PER PROTOCOL IV ; Start 12/21/18 at 12:00 Ondansetron HCl (Zofran Inj) 4 mg Q6H PRN IV NAUSEA/VOMITING Last administered on 12/22/18at 16:26; Admin Dose 4 MG; Start 12/21/18 at 12:00 Acetaminophen (Tylenol Tab) 650 mg Q6H PRN PO .PAIN 1-3 OR TEMP; Start 12/21/18 at 12:00 Acetaminophen (Tylenol Supp) 650 mg Q6H PRN [place] .PAIN 1-3 OR TEMP; Start 12/21/18 at 12:00 Morphine Sulfate (morphine) 2 mg Q4H PRN IV .SEVERE PAIN 7-10 Last administered on 12/23/18 07:47; Admin Dose 2 MG; Start 12/21/18 at 12:00 Famotidine (Pepcid Iv) 20 mg Q12 IV Last administered on 12/23/18 09:25; Admin Dose 20 MG; Start 12/21/18 at 21:00 Quetiapine Fumarate (Seroquel) 200 mg HS PO Last administered on 12/22/18 20:13; Admin Dose 200 MG; Start 12/21/18 at 21:00 Gabapentin (Neurontin) 400 mg TID PO Last administered on 12/23/18 13:14; Admin Dose 400 MG; Start 12/21/18 at 21:00 Clonazepam (Klonopin) 1 mg BID PRN PO ANXIETY Last administered on 12/22/18 16:28; Admin Dose 1 MG; Start 12/21/18 at 15:00 Citalopram Hydrobromide (Celexa) 20 mg DAILY PO Last administered on 12/23/18 09:25; Admin Dose 20 MG; Start 12/22/18 at 09:00 Hydromorphone HCl (Dilaudid) 0.5 mg Q3H PRN IV SEVERE PAIN LEVEL 7-10 Last administered on 12/23/18 14:48; Admin Dose 0.5 MG; Start 12/23/18 at 12:00 Magnesium Citrate (Citroma) 300 ml ONCE ONCE PO Last administered on 12/23/18 17:06; Admin Dose 300 ML; Start 12/23/18 at 17:30; Stop 12/23/18 at 17:31 Polyethylene Glycol (Miralax) 119 gm ONCE ONCE PO ; Start 12/23/18 at 18:30; Stop 12/23/18 at 18:31 Polyethylene Glycol (Miralax) 119 gm 2ND DOSE (GI PREP) ONCE PO ; Start 12/24/18 at 06:00; Stop 12/24/18 at 06:01 Bisacodyl (Dulcolax) 10 mg 2ND DOSE (GI PREP) ONCE PO ; Start 12/24/18 at 08:00; Stop 12/24/18 at 08:01 Meds reviewed: Yes Allergies Coded Allergies: No Known Allergy (Unverified , 12/21/18) Allergies Reviewed: Yes Labs/Studies Labs Reviewed: Reviewed by anesthesiologist Result Diagram: 12/23/18 0609 12/23/18 0609 Laboratory Tests 12/23/18 06:09 test: N/A Pre-procedure Exam Last vitals Vital Signs Date Temp Pulse Resp B/P (MAP) Pulse Ox O2 O2 Flow FiO2 Time Delivery Rate 12/23/18 98.5 83 18 116/68 98 Room Air 14:00 (84) Airway: Adequate mouth opening Mallampati: Mallampati II Teeth: Normal Lung: Normal Heart: Normal ASA Physical Status ASA physical status: 2 Emergency: None Planned Anesthetic General/MAC: MAC Pre-operative Attestations Prior to commencing anesthesia and surgery, the patient was re-evaluated, there was verification of: *The patient's identity *The results of appropriate recent lab work and preoperative vital signs *The above evaluation not changing prior to induction *Anesthetic plan, risk benefits, alternative and complications discussed with patient/family; questions answered; patient/family understands, accepts and wishes to proceed. KALYANI LESTER Dec 23, 2018 17:32
[2018-12-23] MEDS: clonAZEPAM 0.5 MG TAB PO PRN (17:49)
[2018-12-23] MEDS ORDERED: POLYETHYLENE GLYCOL 3350 119 GM POWDER PO ONE (18:30)
[2018-12-23 20:00] VITALS: BP 133/74; PULSE 89; RESP 18
--- NOTE | 2018-12-23 20:30 | PN ---
Date/Time of Note Date/Time of Note DATE: 12/23/18 TIME: 20:23 Assessment/Plan VTE Prophylaxis Risk score (from [facility] [place])>0 risk: 2 SCD applied (from Ns): Yes Pharmacological prophylaxis: other (scds) Lines/Catheters IV Catheter Type (from [facility]): Peripheral IV Urinary Cath still in place: No Assessment/Plan Hospital Course Summary Assessment and Plan: Assessment: Bowel obstruction -SBFT- Partial distal small bowel obstruction Cecal mass, concerning for malignancy on imaging -Repeat CT shows concern for IBD vs infectious process- Cecal mass not mentioned Normocytic anemia Leukocytosis on admission, now showing leukopenia Substance abuse/meth/Heroin Schizoaffective disorder/bipolar type Plan: Will attempt to prep for colonoscopy tomorrow Clear liquid diet today NPO after 0800 for colonoscopy 12/24/18 Hepatitis serology and HIV- negative Patient seen in collaboration with Dr. Sanchez/Rafael Subjective: Pt feeling better, discussed results of imaging and discussed plan for colonoscopy tomorrow. I reviewed risks/benefits of both sedation and procedure Patient verbalized understanding and is agreeable to procedure PHYSICAL EXAMINATION: GENERAL: Well developed, well nourished, alert & oriented x 3 SKIN: No lesions EYES: Pupils equal reactive to light, no discharge. EARS/NOSE AND THROAT: Ears normal, nose normal NECK: Supple CHEST: Inspection within normal limits. CARDIOVASCULAR: Heart: Regular rate and rhythm RESPIRATORY: Lungs clear to auscultation GASTROINTESTINAL AND LIVER: Abdomen: Soft, lower abd tenderness, non-distended, no hernias, no masses, no organomegaly, no ascites, normoactive bowel sounds. Rectal: Deferred. Result Diagram: 12/23/18 0609 12/23/18 0609 Results 24hrs Laboratory Tests Test 12/23/18 06:09 White Blood Count 3.0 L Red Blood Count 4.16 L Hemoglobin 10.1 L Hematocrit 33.0 L Mean Corpuscular Volume 79.3 L Mean Corpuscular Hemoglobin 24.3 L Mean Corpuscular Hemoglobin Concent 30.6 L Red Cell Distribution Width 25.0 H Platelet Count 327 Mean Platelet Volume 9.6 Immature Granulocytes % 0.300 Neutrophils % 42.5 Lymphocytes % 32.6 Monocytes % 18.3 H Eosinophils % 6.0 Basophils % 0.3 Nucleated Red Blood Cells % 0.0 Immature Granulocytes # 0.010 Neutrophils # 1.3 L Lymphocytes # 1.0 Monocytes # 0.6 Eosinophils # 0.2 Basophils # 0.0 Nucleated Red Blood Cells # 0.0 Sodium Level 137 Potassium Level 3.7 Chloride Level 105 Carbon Dioxide Level 23 Anion Gap 9 Blood Urea Nitrogen 9 Creatinine 0.83 Est Glomerular Filtrat Rate mL/min > 60 Glucose Level 81 Calcium Level 8.9 Exam/Review of Systems Exam Vitals Vital Signs Date Temp Pulse Resp B/P (MAP) Pulse Ox O2 O2 Flow FiO2 Time Delivery Rate 12/23/18 98.5 83 18 116/68 98 Room Air 14:00 (84) Intake and Output 12/22/18 12/22/18 12/23/18 1414:59 22:59 06:59 IntakeIntake Total 825 ml 512.5 ml OutputOutput Total 300 ml BalanceBalance 525 ml 512.5 ml Results Results 24hrs Laboratory Tests Test 12/23/18 06:09 White Blood Count 3.0 L Red Blood Count 4.16 L Hemoglobin 10.1 L Hematocrit 33.0 L Mean Corpuscular Volume 79.3 L Mean Corpuscular Hemoglobin 24.3 L Mean Corpuscular Hemoglobin Concent 30.6 L Red Cell Distribution Width 25.0 H Platelet Count 327 Mean Platelet Volume 9.6 Immature Granulocytes % 0.300 Neutrophils % 42.5 Lymphocytes % 32.6 Monocytes % 18.3 H Eosinophils % 6.0 Basophils % 0.3 Nucleated Red Blood Cells % 0.0 Immature Granulocytes # 0.010 Neutrophils # 1.3 L Lymphocytes # 1.0 Monocytes # 0.6 Eosinophils # 0.2 Basophils # 0.0 Nucleated Red Blood Cells # 0.0 Sodium Level 137 Potassium Level 3.7 Chloride Level 105 Carbon Dioxide Level 23 Anion Gap 9 Blood Urea Nitrogen 9 Creatinine 0.83 Est Glomerular Filtrat Rate mL/min > 60 Glucose Level 81 Calcium Level 8.9 Medications Medication Current Medications Sodium Chloride 1,000 ml @ 75 mls/hr [id number] IV Last administered on 12/23/18at 17:05; Admin Dose 75 MLS/HR; Start 12/21/18 at 11:45 IV Flush (NS 3 ml) 3 ml PER PROTOCOL IV ; Start 12/21/18 at 12:00 Ondansetron HCl (Zofran Inj) 4 mg Q6H PRN IV NAUSEA/VOMITING Last administered on 12/22/18at 16:26; Admin Dose 4 MG; Start 12/21/18 at 12:00 Acetaminophen (Tylenol Tab) 650 mg Q6H PRN PO .PAIN 1-3 OR TEMP; Start 12/21/18 at 12:00 Acetaminophen (Tylenol Supp) 650 mg Q6H PRN [place] .PAIN 1-3 OR TEMP; Start 12/21/18 at 12:00 Morphine Sulfate (morphine) 2 mg Q4H PRN IV .SEVERE PAIN 7-10 Last administered on 12/23/18 07:47; Admin Dose 2 MG; Start 12/21/18 at 12:00 Famotidine (Pepcid Iv) 20 mg Q12 IV Last administered on 12/23/18 09:25; Admin Dose 20 MG; Start 12/21/18 at 21:00 Quetiapine Fumarate (Seroquel) 200 mg HS PO Last administered on 12/22/18 20:13; Admin Dose 200 MG; Start 12/21/18 at 21:00 Gabapentin (Neurontin) 400 mg TID PO Last administered on 12/23/18 13:14; Admin Dose 400 MG; Start 12/21/18 at 21:00 Clonazepam (Klonopin) 1 mg BID PRN PO ANXIETY Last administered on 12/23/18 17:49; Admin Dose 1 MG; Start 12/21/18 at 15:00 Citalopram Hydrobromide (Celexa) 20 mg DAILY PO Last administered on 12/23/18 09:25; Admin Dose 20 MG; Start 12/22/18 at 09:00 Hydromorphone HCl (Dilaudid) 0.5 mg Q3H PRN IV SEVERE PAIN LEVEL 7-10 Last administered on 12/23/18 17:57; Admin Dose 0.5 MG; Start 12/23/18 at 12:00 Polyethylene Glycol (Miralax) 119 gm 2ND DOSE (GI PREP) ONCE PO ; Start 12/24/18 at 06:00; Stop 12/24/18 at 06:01 Bisacodyl (Dulcolax) 10 mg 2ND DOSE (GI PREP) ONCE PO ; Start 12/24/18 at 08:00; Stop 12/24/18 at 08:01 BRITTANIE SHOEMAKER Dec 23, 2018 20:30
[2018-12-23] MEDS: QUETIAPINE 100 MG TAB PO SCH (20:58)
[2018-12-24 02:00] VITALS: BP 105/58; PULSE 69; RESP 19
[2018-12-24] MEDS: HYDROmorphONE 0.5 MG/0.5 ML SYG IV PRN ×5 (05:14→20:20)
[2018-12-24] MEDS: SOD CHLORIDE 0.9% 1,000 ML IV SCH ×2 (05:22→19:45)
[2018-12-24] MEDS ORDERED: POLYETHYLENE GLYCOL 3350 119 GM POWDER PO ONE (06:00)
[2018-12-24 07:42] VITALS: BP 113/58; PULSE 75; RESP 17
[2018-12-24] MEDS ORDERED: BISACODYL (EC) 5 MG TAB PO ONE (08:00)
[2018-12-24] MEDS: CITALOPRAM 20 MG TAB PO SCH (08:28)
[2018-12-24] MEDS: FAMOTIDINE 20 MG INJ IV SCH ×2 (08:28→20:19)
[2018-12-24] MEDS: GABAPENTIN 400 MG CAP PO SCH ×3 (08:28→20:19)
[2018-12-24] MEDS: clonAZEPAM 0.5 MG TAB PO PRN (08:38)
[2018-12-24] MEDS ORDERED: LORAZEPAM 2 MG INJ IV ONE (10:30)
--- NOTE | 2018-12-24 12:01 | PN ---
Date/Time of Note Date/Time of Note DATE: 12/24/18 TIME: 11:58 Assessment/Plan VTE Prophylaxis Risk score (from Nsg)>0 risk: 1 SCD applied (from Nsg): Yes SCD contraindicated: other Pharmacological prophylaxis: other Pharm contraindication: low risk/ambulating Lines/C[facility] IV Urinary Cath still in place: No Assessment/Plan Assessment/Plan 1. Partial distal small bowel obstruction, r/o IBD, colonoscopy today 2. Substance abuse/meth abuse, psychiatric social worker evaluation, cessation advised 3. Schizoaffective disorder/bipolar type, Continue psych meds 4. Homelessness, fruit or nut farm worker to see patient and provide resources 5. Microcytic anemia, chronic, Endoscopy per GI 6. DVT prophylaxis: SCDs Result Diagram: 12/23/18 0609 12/23/18 0609 Subjective 24 Hr Interval Summary Free Text/Dictation same pain on abdomen, no nausea or vomiting Exam/Review of Systems Exam Vitals Vital Signs Date Temp Pulse Resp B/P (MAP) Pulse Ox O2 O2 Flow FiO2 Time Delivery Rate 12/24/18 97.8 75 17 113/58 100 07:42 (76) 12/23/18 Room Air 14:00 Intake and Output 12/23/18 12/23/18 12/24/18 1515:00 23:00 07:00 IntakeIntake Total 1342.5 ml 1720 ml BalanceBalance 1342.5 ml 1720 ml Constitutional: alert, oriented, well developed Psych: no complaints, nl mood/affect Head: normocephalic, atraumatic Eyes: nl conjunctiva, EOMI, nl lids, PERRL ENMT: nl external ears & nose, nl lips & teeth, nl nasal mucosa & septum Neck: supple, non-tender Respiratory: clear to auscultation, normal air movement; No congested cough, No crackles/rales, No diminished breath sounds, No intercostal retraction, No labored breathing, No respirations, No tactile fremitus, No wheezing, No other Cardiovascular: regular rate and rhythm, nl pulses; No bruits, No diastolic murmur, No edema, No gallop, No irregular rhythm, No jugular venous distention (JVD), No murmurs/extra sounds, No rub, No systolic murmur, No S3, No S4, No other Gastrointestinal: nl liver, spleen, tender (diffuse) Musculoskeletal: nl extremities to inspection Extremities: normal pulses; No calf tenderness, No cyanosis, No clubbing, No edema, No pitting pedal edema, No palpable cord, No tenderness, No other 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: 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, nl mental status, nl speech, nl strength Medications Medication Current Medications Sodium Chloride 1,000 ml @ 75 mls/hr [id number] IV Last administered on 12/24/18 05:22; Admin Dose 75 MLS/HR; Start 12/21/18 at 11:45 IV Flush (NS 3 ml) 3 ml PER PROTOCOL IV ; Start 12/21/18 at 12:00 Ondansetron HCl (Zofran Inj) 4 mg Q6H PRN IV NAUSEA/VOMITING Last administered on 12/22/18 16:26; Admin Dose 4 MG; Start 12/21/18 at 12:00 Acetaminophen (Tylenol Tab) 650 mg Q6H PRN PO .PAIN 1-3 OR TEMP; Start 12/21/18 at 12:00 Acetaminophen (Tylenol Supp) 650 mg Q6H PRN [place] .PAIN 1-3 OR TEMP; Start 12/21/18 at 12:00 Morphine Sulfate (morphine) 2 mg Q4H PRN IV .SEVERE PAIN 7-10 Last administered on 12/23/18 07:47; Admin Dose 2 MG; Start 12/21/18 at 12:00 Famotidine (Pepcid Iv) 20 mg Q12 IV Last administered on 12/24/18 08:28; Admin Dose 20 MG; Start 12/21/18 at 21:00 Quetiapine Fumarate (Seroquel) 200 mg HS PO Last administered on 12/23/18 20:58; Admin Dose 200 MG; Start 12/21/18 at 21:00 Gabapentin (Neurontin) 400 mg TID PO Last administered on 12/24/18 08:28; Admin Dose 400 MG; Start 12/21/18 at 21:00 Clonazepam (Klonopin) 1 mg BID PRN PO ANXIETY Last administered on 12/24/18 08:38; Admin Dose 1 MG; Start 12/21/18 at 15:00 Citalopram Hydrobromide (Celexa) 20 mg DAILY PO Last administered on 12/24/18 08:28; Admin Dose 20 MG; Start 12/22/18 at 09:00 Hydromorphone HCl (Dilaudid) 0.5 mg Q3H PRN IV SEVERE PAIN LEVEL 7-10 Last administered on 12/24/18 08:27; Admin Dose 0.5 MG; Start 12/23/18 at 12:00 JACQUE JORDAN MD Dec 24, 2018 12:01
[2018-12-24 14:06] VITALS: BP 110/57; PULSE 69; RESP 18
--- NOTE | 2018-12-24 14:53 | PN ---
Date/Time of Note Date/Time of Note DATE: 12/24/18 TIME: 14:44 Assessment/Plan VTE Prophylaxis Risk score (from [facility]0 risk: 1 SCD applied (from [facility]): Yes Pharmacological prophylaxis: NA/contraindicated Pharm contraindication: other (Prior to procedure) Lines/Catheters [facility] ([facility] Peripheral IV Urinary Cath still in place: No Assessment/Plan Assessment/Plan Assessment: Bowel obstruction -SBFT- Partial distal small bowel obstruction Cecal mass, concerning for malignancy on imaging -Repeat CT shows concern for IBD vs infectious process- Cecal mass not mentioned Normocytic anemia Leukocytosis on admission, now showing leukopenia Substance abuse/meth/Heroin Schizoaffective disorder/bipolar type Plan: Patient ate donuts after completing the prep Colonoscopy cancelled Start regular diet Patient is asking for inpatient colonoscopy on Thursday Hepatitis serology and HIV- negative Patient seen in collaboration with Dr. Sanchez/Rafael Subjective: Patient completed the prep and was NPO when he ate the donuts from break room. Explained that procedure has to be cancelled at this point. The patient still desires to have colonoscopy done inpatient. Forwarded the information to Dr. Arce. PHYSICAL EXAMINATION: GENERAL: Well developed, well nourished, alert & oriented x 3 SKIN: No lesions EYES: Pupils equal reactive to light, no discharge. EARS/NOSE AND THROAT: Ears normal, nose normal NECK: Supple CHEST: Inspection within normal limits. CARDIOVASCULAR: Heart: Regular rate and rhythm RESPIRATORY: Lungs clear to auscultation GASTROINTESTINAL AND LIVER: Abdomen: Soft, periumbilical abd tenderness, non- distended, no hernias, no masses, no organomegaly, no ascites, normoactive bowel sounds. Rectal: Deferred. Result Diagram: 12/23/1860812/23/18608 CC: LATA SANCHEZ MD ; Exam/Review of Systems Exam Vitals Vital Signs Date Temp Pulse Resp B/P (MAP) Pulse Ox O2 O2 Flow FiO2 Time Delivery Rate 12/24/18 97.7 69 18 110/57 100 14:06 (74) 12/23/18 Room Air 14:00 Intake and Output 12/23/18 12/23/18 12/24/18 1414:59 22:59 06:59 IntakeIntake Total 1342.5 ml 1720 ml BalanceBalance 1342.5 ml 1720 ml Medications Medication Current Medications Sodium Chloride 1,000 ml @ 75 mls/hr [id number] IV Last administered on 12/24/18 05:22; Admin Dose 75 MLS/HR; Start 12/21/18 at 11:45 IV Flush (NS 3 ml) 3 ml PER PROTOCOL IV ; Start 12/21/18 at 12:00 Ondansetron HCl (Zofran Inj) 4 mg Q6H PRN IV NAUSEA/VOMITING Last administered on 12/22/18 16:26; Admin Dose 4 MG; Start 12/21/18 at 12:00 Acetaminophen (Tylenol Tab) 650 mg Q6H PRN PO .PAIN 1-3 OR TEMP; Start 12/21/18 at 12:00 Acetaminophen (Tylenol Supp) 650 mg Q6H PRN [place] .PAIN 1-3 OR TEMP; Start 12/21/18 at 12:00 Morphine Sulfate (morphine) 2 mg Q4H PRN IV .SEVERE PAIN 7-10 Last administered on 12/23/18 07:47; Admin Dose 2 MG; Start 12/21/18 at 12:00 Famotidine (Pepcid Iv) 20 mg Q12 IV Last administered on 12/24/18 08:28; Admin Dose 20 MG; Start 12/21/18 at 21:00 Quetiapine Fumarate (Seroquel) 200 mg HS PO Last administered on 12/23/18 20:58; Admin Dose 200 MG; Start 12/21/18 at 21:00 Gabapentin (Neurontin) 400 mg TID PO Last administered on 12/24/18 12:40; Admin Dose 400 MG; Start 12/21/18 at 21:00 Clonazepam (Klonopin) 1 mg BID PRN PO ANXIETY Last administered on 12/24/18 08:38; Admin Dose 1 MG; Start 12/21/18 at 15:00 Citalopram Hydrobromide (Celexa) 20 mg DAILY PO Last administered on 12/24/18 08:28; Admin Dose 20 MG; Start 12/22/18 at 09:00 Hydromorphone HCl (Dilaudid) 0.5 mg Q3H PRN IV SEVERE PAIN LEVEL 7-10 Last administered on 12/24/18 12:42; Admin Dose 0.5 MG; Start 12/23/18 at 12:00 MIC MEDINA NP Dec 24, 2018 14:53
[2018-12-24] MEDS: QUETIAPINE 100 MG TAB PO SCH (20:19)
[2018-12-24 20:30] VITALS: BP 128/73; PULSE 88; RESP 18
[2018-12-25] MEDS: SOD CHLORIDE 0.9% 1,000 ML IV SCH ×2 (00:50→14:33)
[2018-12-25 02:00] VITALS: BP 118/62; RESP 18
[2018-12-25 02:39] VITALS: BP 115/63; PULSE 76; RESP 18
[2018-12-25 07:42] VITALS: BP 119/64; PULSE 80; RESP 16
[2018-12-25] MEDS: FAMOTIDINE 20 MG INJ IV SCH ×2 (08:26→20:06)
[2018-12-25] MEDS: CITALOPRAM 20 MG TAB PO SCH (08:26)
[2018-12-25] MEDS: GABAPENTIN 400 MG CAP PO SCH ×3 (08:26→20:06)
[2018-12-25] MEDS: HYDROmorphONE 0.5 MG/0.5 ML SYG IV PRN ×4 (09:12→20:06)
[2018-12-25] MEDS: clonAZEPAM 0.5 MG TAB PO PRN (12:07)
[2018-12-25 14:30] VITALS: BP 116/58; PULSE 75; RESP 18
--- NOTE | 2018-12-25 15:39 | PN ---
Date/Time of Note Date/Time of Note DATE: 12/25/18 TIME: 15:36 Assessment/Plan VTE Prophylaxis Risk score (from Ns)>0 risk: 0 SCD applied (from Ns): Yes Pharmacological prophylaxis: NA/contraindicated Pharm contraindication: low risk/ambulating, bleeding (GI bleeding) Lines/Catheters IV [facility]ter Type (from [facility]): Peripheral IV Urinary Cath still in place: No Assessment/Plan Problems: (1) Partial small bowel obstruction Status: Acute Comment: This appears to be clearing up nicely. When after work on why he had this which will require the colonoscopy. (2) Colonic mass Status: Acute Comment: Colonoscopy yesterday was canceled because the patient ate after he completed the prep. He apologizes for this. Colonoscopy when GI reports that he is prepared (3) Schizoaffective disorder, chronic condition Status: Chronic Comment: As listed in his diagnoses although not 100% certain about the accuracy of this diagnosis (4) Methamphetamine abuse, episodic Status: Chronic Comment: Noted. He is clean and sober here in the hospital (5) Anemia Status: Acute Comment: He needs iron supplementation Qualifiers: Anemia type: unspecified type Qualified Codes: D64.9 - Anemia, unspecified Result Diagram: 12/25/18 1401 12/25/18 1401 Results 24hrs Laboratory Tests Test 12/24/18 16:34 12/25/18 14:01 White Blood Count 3.3 L 4.5 #L Red Blood Count 3.78 L 3.66 L Hemoglobin 9.2 L 9.0 L Hematocrit 30.6 L 29.2 L Mean Corpuscular Volume 81.0 L 79.8 L Mean Corpuscular Hemoglobin 24.3 L 24.6 L Mean Corpuscular Hemoglobin Concent 30.1 L 30.8 L Red Cell Distribution Width 24.8 H Platelet Count 326 343 Mean Platelet Volume 9.5 9.6 Immature Granulocytes % 0.300 0.200 Neutrophils % 47.3 55.6 Lymphocytes % 34.1 31.6 Monocytes % 11.3 H 8.2 Eosinophils % 6.7 4.0 Basophils % 0.3 0.4 Nucleated Red Blood Cells % 0.0 0.0 Immature Granulocytes # 0.010 0.010 Neutrophils # 1.6 2.5 Lymphocytes # 1.1 1.4 Monocytes # 0.4 0.4 Eosinophils # 0.2 0.2 Basophils # 0.0 0.0 Nucleated Red Blood Cells # 0.0 0.0 Erythrocyte Sedimentation Rate 10 Sodium Level 141 143 Potassium Level 3.8 3.7 Chloride Level 104 107 Carbon Dioxide Level 29 26 Anion Gap 8 10 Blood Urea Nitrogen 5 L 8 Creatinine 0.80 0.77 Est Glomerular Filtrat Rate mL/min > 60 > 60 Glucose Level 72 105 Calcium Level 8.6 8.6 C-Reactive Protein 1.0 H Subjective 24 Hr Interval Summary Free Text/Dictation he reports he is hungry and is eating well and trying to interview Respiratory: no complaints Cardiovascular: no complaints Gastrointestinal: no complaints Exam/Review of Systems Exam Vitals Vital Signs Date Temp Pulse Resp B/P (MAP) Pulse Ox O2 O2 Flow FiO2 Time Delivery Rate 12/25/18 98.0 75 18 116/58 97 Room Air 14:30 (77) Intake and Output 12/24/18 12/24/18 12/25/18 1515:00 23:00 07:00 IntakeIntake Total 1475 ml 625 ml BalanceBalance 1475 ml 625 ml Constitutional: alert, oriented Respiratory: clear to auscultation, normal air movement Cardiovascular: regular rate and rhythm, nl pulses Gastrointestinal: soft, nl liver, spleen Results Results 24hrs Laboratory Tests Test 12/24/18 16:34 12/25/18 14:01 White Blood Count 3.3 L 4.5 #L Red Blood Count 3.78 L 3.66 L Hemoglobin 9.2 L 9.0 L Hematocrit 30.6 L 29.2 L Mean Corpuscular Volume 81.0 L 79.8 L Mean Corpuscular Hemoglobin 24.3 L 24.6 L Mean Corpuscular Hemoglobin Concent 30.1 L 30.8 L Red Cell Distribution Width 24.8 H Platelet Count 326 343 Mean Platelet Volume 9.5 9.6 Immature Granulocytes % 0.300 0.200 Neutrophils % 47.3 55.6 Lymphocytes % 34.1 31.6 Monocytes % 11.3 H 8.2 Eosinophils % 6.7 4.0 Basophils % 0.3 0.4 Nucleated Red Blood Cells % 0.0 0.0 Immature Granulocytes # 0.010 0.010 Neutrophils # 1.6 2.5 Lymphocytes # 1.1 1.4 Monocytes # 0.4 0.4 Eosinophils # 0.2 0.2 Basophils # 0.0 0.0 Nucleated Red Blood Cells # 0.0 0.0 Erythrocyte Sedimentation Rate 10 Sodium Level 141 143 Potassium Level 3.8 3.7 Chloride Level 104 107 Carbon Dioxide Level 29 26 Anion Gap 8 10 Blood Urea Nitrogen 5 L 8 Creatinine 0.80 0.77 Est Glomerular Filtrat Rate mL/min > 60 > 60 Glucose Level 72 105 Calcium Level 8.6 8.6 C-Reactive Protein 1.0 H Medications Medication Current Medications Sodium Chloride 1,000 ml @ 75 mls/hr [id number] IV Last administered on 12/25/18 14:33; Admin Dose 75 MLS/HR; Start 12/21/18 at 11:45 IV Flush (NS 3 ml) 3 ml PER PROTOCOL IV ; Start 12/21/18 at 12:00 Ondansetron HCl (Zofran Inj) 4 mg Q6H PRN IV NAUSEA/VOMITING Last administered on 12/22/18 16:26; Admin Dose 4 MG; Start 12/21/18 at 12:00 Acetaminophen (Tylenol Tab) 650 mg Q6H PRN PO .PAIN 1-3 OR TEMP; Start 12/21/18 at 12:00 Acetaminophen (Tylenol Supp) 650 mg Q6H PRN [place] .PAIN 1-3 OR TEMP; Start 12/21/18 at 12:00 Morphine Sulfate (morphine) 2 mg Q4H PRN IV .SEVERE PAIN 7-10 Last administered on 12/23/18 07:47; Admin Dose 2 MG; Start 12/21/18 at 12:00 Famotidine (Pepcid Iv) 20 mg Q12 IV Last administered on 12/25/18 08:26; Admin Dose 20 MG; Start 12/21/18 at 21:00 Quetiapine Fumarate (Seroquel) 200 mg HS PO Last administered on 12/24/18 20:19; Admin Dose 200 MG; Start 12/21/18 at 21:00 Gabapentin (Neurontin) 400 mg TID PO Last administered on 12/25/18 12:07; Admin Dose 400 MG; Start 12/21/18 at 21:00 Clonazepam (Klonopin) 1 mg BID PRN PO ANXIETY Last administered on 12/25/18 12:07; Admin Dose 1 MG; Start 12/21/18 at 15:00 Citalopram Hydrobromide (Celexa) 20 mg DAILY PO Last administered on 12/25/18at 08:26; Admin Dose 20 MG; Start 12/22/18 at 09:00 Hydromorphone HCl (Dilaudid) 0.5 mg Q3H PRN IV SEVERE PAIN LEVEL 7-10 Last administered on 12/25/18at 12:08; Admin Dose 0.5 MG; Start 12/23/18 at 12:00 URSZULA AHUJA MD Dec 25, 2018 15:39
--- NOTE | 2018-12-25 16:49 | PN ---
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 Patient seen in collaboration with Dr. Sanchez Subjective: Colonoscopy delayed to Thursday as patient completed the prep and was NPO when he ate the donuts from break room. The patient still desires to have colonoscopy done inpatient.Will plan for Thursday. He still reports moderate lower abdominal pain though improving and has watery stools. He is eating PHYSICAL EXAMINATION: GENERAL: Well developed, well nourished, alert & oriented x 3 SKIN: No lesions EYES: Pupils equal reactive to light, no discharge. EARS/NOSE AND THROAT: Ears normal, nose normal NECK: Supple CHEST: Inspection within normal limits. CARDIOVASCULAR: Heart: Regular rate and rhythm RESPIRATORY: Lungs clear to auscultation GASTROINTESTINAL AND LIVER: Abdomen: Soft, lower abdomen moderate tenderness, non-distended, no hernias, no masses, no organomegaly, no ascites, normoactive bowel sounds. Rectal: Deferred. Result Diagram: 12/25/18 1401 12/25/18 1401 Results 24hrs Laboratory Tests Test 12/25/18 14:01 White Blood Count 4.5 #L Red Blood Count 3.66 L Hemoglobin 9.0 L Hematocrit 29.2 L Mean Corpuscular Volume 79.8 L Mean Corpuscular Hemoglobin 24.6 L Mean Corpuscular Hemoglobin Concent 30.8 L Red Cell Distribution Width Platelet Count 343 Mean Platelet Volume 9.6 Immature Granulocytes % 0.200 Neutrophils % 55.6 Lymphocytes % 31.6 Monocytes % 8.2 Eosinophils % 4.0 Basophils % 0.4 Nucleated Red Blood Cells % 0.0 Immature Granulocytes # 0.010 Neutrophils # 2.5 Lymphocytes # 1.4 Monocytes # 0.4 Eosinophils # 0.2 Basophils # 0.0 Nucleated Red Blood Cells # 0.0 Sodium Level 143 Potassium Level 3.7 Chloride Level 107 Carbon Dioxide Level 26 Anion Gap 10 Blood Urea Nitrogen 8 Creatinine 0.77 Est Glomerular Filtrat Rate mL/min > 60 Glucose Level 105 Calcium Level 8.6 Iron Level 12 L Total Iron Binding Capacity 264 Percent Iron Saturation 5 L CC: LATA SANCHEZ MD ; Exam/Review of Systems Exam Vitals Vital Signs Date Temp Pulse Resp B/P (MAP) Pulse Ox O2 O2 Flow FiO2 Time Delivery Rate 12/25/18 98.0 75 18 116/58 97 Room Air 14:30 (77) Intake and Output 12/24/18 12/24/18 12/25/18 1515:00 23:00 07:00 IntakeIntake Total 1475 ml 625 ml BalanceBalance 1475 ml 625 ml Results Results 24hrs Laboratory Tests Test 12/25/18 14:01 White Blood Count 4.5 #L Red Blood Count 3.66 L Hemoglobin 9.0 L Hematocrit 29.2 L Mean Corpuscular Volume 79.8 L Mean Corpuscular Hemoglobin 24.6 L Mean Corpuscular Hemoglobin Concent 30.8 L Red Cell Distribution Width Platelet Count 343 Mean Platelet Volume 9.6 Immature Granulocytes % 0.200 Neutrophils % 55.6 Lymphocytes % 31.6 Monocytes % 8.2 Eosinophils % 4.0 Basophils % 0.4 Nucleated Red Blood Cells % 0.0 Immature Granulocytes # 0.010 Neutrophils # 2.5 Lymphocytes # 1.4 Monocytes # 0.4 Eosinophils # 0.2 Basophils # 0.0 Nucleated Red Blood Cells # 0.0 Sodium Level 143 Potassium Level 3.7 Chloride Level 107 Carbon Dioxide Level 26 Anion Gap 10 Blood Urea Nitrogen 8 Creatinine 0.77 Est Glomerular Filtrat Rate mL/min > 60 Glucose Level 105 Calcium Level 8.6 Iron Level 12 L Total Iron Binding Capacity 264 Percent Iron Saturation 5 L Medications Medication Current Medications Sodium Chloride 1,000 ml @ 75 mls/hr [id number] IV Last administered on 12/25/18at 14:33; Admin Dose 75 MLS/HR; Start 12/21/18 at 11:45 IV Flush (NS 3 ml) 3 ml PER PROTOCOL IV ; Start 12/21/18 at 12:00 Ondansetron HCl (Zofran Inj) 4 mg Q6H PRN IV NAUSEA/VOMITING Last administered on 12/22/18 16:26; Admin Dose 4 MG; Start 12/21/18 at 12:00 Acetaminophen (Tylenol Tab) 650 mg Q6H PRN PO .PAIN 1-3 OR TEMP; Start 12/21/18 at 12:00 Acetaminophen (Tylenol Supp) 650 mg Q6H PRN [place] .PAIN 1-3 OR TEMP; Start 12/21/18 at 12:00 Morphine Sulfate (morphine) 2 mg Q4H PRN IV .SEVERE PAIN 7-10 Last administered on 12/23/18 07:47; Admin Dose 2 MG; Start 12/21/18 at 12:00 Famotidine (Pepcid Iv) 20 mg Q12 IV Last administered on 12/25/18 08:26; Admin Dose 20 MG; Start 12/21/18 at 21:00 Quetiapine Fumarate (Seroquel) 200 mg HS PO Last administered on 12/24/18 20:19; Admin Dose 200 MG; Start 12/21/18 at 21:00 Gabapentin (Neurontin) 400 mg TID PO Last administered on 12/25/18 12:07; Admin Dose 400 MG; Start 12/21/18 at 21:00 Clonazepam (Klonopin) 1 mg BID PRN PO ANXIETY Last administered on 12/25/18 12:07; Admin Dose 1 MG; Start 12/21/18 at 15:00 Citalopram Hydrobromide (Celexa) 20 mg DAILY PO Last administered on 12/25/18 08:26; Admin Dose 20 MG; Start 12/22/18 at 09:00 Hydromorphone HCl (Dilaudid) 0.5 mg Q3H PRN IV SEVERE PAIN LEVEL 7-10 Last administered on 12/25/18 12:08; Admin Dose 0.5 MG; Start 12/23/18 at 12:00 Ferric Sodium Gluconate Complex 125 mg/Sodium Chloride 100 ml @ 100 mls/hr DAILY@1300 IVPB ; Start 12/26/18 at 13:00; Stop 12/28/18 at 13:59 KYLAH PHAM NP Dec 25, 2018 16:49
[2018-12-25 19:32] VITALS: BP 129/76; PULSE 108; RESP 18
[2018-12-25] MEDS: QUETIAPINE 100 MG TAB PO SCH (20:06)
[2018-12-25] MEDS: HYDROmorphONE 1 MG/ML SYG IV PRN (21:42)
[2018-12-26 01:18] VITALS: BP 139/82; PULSE 73; RESP 18
[2018-12-26] MEDS: HYDROmorphONE 1 MG/ML SYG IV PRN ×6 (05:30→21:03)
[2018-12-26] MEDS: SOD CHLORIDE 0.9% 1,000 ML IV SCH ×2 (05:30→19:27)
[2018-12-26 08:00] VITALS: BP 123/67; PULSE 60; RESP 18
[2018-12-26] MEDS: GABAPENTIN 400 MG CAP PO SCH ×3 (08:19→21:02)
[2018-12-26] MEDS: FAMOTIDINE 20 MG INJ IV SCH ×2 (08:19→21:02)
[2018-12-26] MEDS: CITALOPRAM 20 MG TAB PO SCH (08:19)
[2018-12-26] MEDS: morphine 2 MG INJ IV PRN ×4 (08:19→22:14)
[2018-12-26] MEDS: SOD FERRIC GLUC COMPLX 125 MG in SOD CHLORIDE 0.9% 100 ML IVPB SCH (12:20)
[2018-12-26] MEDS: ONDANSETRON 4 MG INJ IV PRN ×2 (13:18→21:03)
--- NOTE | 2018-12-26 13:20 | PN ---
Date/Time of Note Date/Time of Note DATE: 12/26/18 TIME: 13:18 Assessment/Plan VTE Prophylaxis Risk score (from [facility] [place])>0 risk: 0 SCD applied (from [facility] [place]): No SCD contraindicated: low risk/ambulating Pharmacological prophylaxis: NA/contraindicated Pharm contraindication: bleeding Lines/Catheters IV Catheter Type (from [facility]): Peripheral IV Urinary Cath still in place: No Assessment/Plan Problems: (1) Partial small bowel obstruction Status: Acute Comment: He is eating a regular diet. If he is going to be having a colonoscopy tomorrow we will need to confirm that with a GI make sure to adjust his diet and give him a prep. (2) Colonic mass Status: Acute Comment: Needs diagnostic evaluation and probable surgical resection. From medical standpoint he is actually in pretty good condition for surgery. 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) Result Diagram: 12/25/18 1401 12/25/18 1401 Results 24hrs Laboratory Tests Test 12/25/18 14:01 12/26/18 05:52 12/26/18 12:10 White Blood Count 4.5 #L Red Blood Count 3.66 L Hemoglobin 9.0 L Hematocrit 29.2 L Mean Corpuscular Volume 79.8 L Mean Corpuscular Hemoglobin 24.6 L Mean Corpuscular 30.8 L Hemoglobin Concent Red Cell Distribution Width Platelet Count 343 Mean Platelet Volume 9.6 Immature Granulocytes % 0.200 Neutrophils % 55.6 Lymphocytes % 31.6 Monocytes % 8.2 Eosinophils % 4.0 Basophils % 0.4 Nucleated Red Blood Cells % 0.0 Immature Granulocytes # 0.010 Neutrophils # 2.5 Lymphocytes # 1.4 Monocytes # 0.4 Eosinophils # 0.2 Basophils # 0.0 Nucleated Red Blood Cells # 0.0 Sodium Level 143 Potassium Level 3.7 Chloride Level 107 Carbon Dioxide Level 26 Anion Gap 10 Blood Urea Nitrogen 8 Creatinine 0.77 Est Glomerular Filtrat Rate mL/min > 60 Glucose Level 105 Calcium Level 8.6 Iron Level 12 L Total Iron Binding Capacity 264 Percent Iron Saturation 5 L Prothrombin Time 12.0 Prothrombin Time Ratio 0.9 INR International Normalized Ratio 0.88 Lab Scanned Report REFERENCE LAB Subjective 24 Hr Interval Summary Free Text/Dictation Vision is sitting in bed eating rather robust lunch notes some abdominal pain Constitutional: no complaints Respiratory: no complaints Cardiovascular: no complaints Gastrointestinal: pain Genitourinary: no complaints Exam/Review of Systems Exam Vitals Vital Signs Date Temp Pulse Resp B/P (MAP) Pulse Ox O2 O2 Flow FiO2 Time Delivery Rate 12/26/18 98.0 60 18 123/67 98 08:00 (85) 12/25/18 Room Air 14:30 Intake and Output 12/25/18 12/25/18 12/26/18 1515:00 23:00 07:00 IntakeIntake Total 1410 ml 965 ml 775 ml BalanceBalance 1410 ml 965 ml 775 ml Constitutional: alert, oriented Neck: supple, non-tender Respiratory: clear to auscultation, normal air movement Cardiovascular: regular rate and rhythm, nl pulses Results Results 24hrs Laboratory Tests Test 12/25/18 14:01 12/26/18 05:52 12/26/18 12:10 White Blood Count 4.5 #L Red Blood Count 3.66 L Hemoglobin 9.0 L Hematocrit 29.2 L Mean Corpuscular Volume 79.8 L Mean Corpuscular Hemoglobin 24.6 L Mean Corpuscular 30.8 L Hemoglobin Concent Red Cell Distribution Width Platelet Count 343 Mean Platelet Volume 9.6 Immature Granulocytes % 0.200 Neutrophils % 55.6 Lymphocytes % 31.6 Monocytes % 8.2 Eosinophils % 4.0 Basophils % 0.4 Nucleated Red Blood Cells % 0.0 Immature Granulocytes # 0.010 Neutrophils # 2.5 Lymphocytes # 1.4 Monocytes # 0.4 Eosinophils # 0.2 Basophils # 0.0 Nucleated Red Blood Cells # 0.0 Sodium Level 143 Potassium Level 3.7 Chloride Level 107 Carbon Dioxide Level 26 Anion Gap 10 Blood Urea Nitrogen 8 Creatinine 0.77 Est Glomerular Filtrat Rate mL/min > 60 Glucose Level 105 Calcium Level 8.6 Iron Level 12 L Total Iron Binding Capacity 264 Percent Iron Saturation 5 L Prothrombin Time 12.0 Prothrombin Time Ratio 0.9 INR International Normalized Ratio 0.88 Lab Scanned Report REFERENCE LAB Medications Medication Current Medications Sodium Chloride 1,000 ml @ 75 mls/hr [id number] IV Last administered on 12/26/18at 05:30; Admin Dose 75 MLS/HR; Start 12/21/18 at 11:45 IV Flush (NS 3 ml) 3 ml PER PROTOCOL IV ; Start 12/21/18 at 12:00 Ondansetron HCl (Zofran Inj) 4 mg Q6H PRN IV NAUSEA/VOMITING Last administered on 12/22/18at 16:26; Admin Dose 4 MG; Start 12/21/18 at 12:00 Acetaminophen (Tylenol Tab) 650 mg Q6H PRN PO .PAIN 1-3 OR TEMP; Start 12/21/18 at 12:00 Acetaminophen (Tylenol Supp) 650 mg Q6H PRN [place] .PAIN 1-3 OR TEMP; Start 12/21/18 at 12:00 Morphine Sulfate (morphine) 2 mg Q4H PRN IV .SEVERE PAIN 7-10 Last administered on 12/26/18at 13:05; Admin Dose 2 MG; Start 12/21/18 at 12:00 Famotidine (Pepcid Iv) 20 mg Q12 IV Last administered on 12/26/18 08:19; Admin Dose 20 MG; Start 12/21/18 at 21:00 Quetiapine Fumarate (Seroquel) 200 mg HS PO Last administered on 12/25/18 20:06; Admin Dose 200 MG; Start 12/21/18 at 21:00 Gabapentin (Neurontin) 400 mg TID PO Last administered on 12/26/18 12:19; Admin Dose 400 MG; Start 12/21/18 at 21:00 Clonazepam (Klonopin) 1 mg BID PRN PO ANXIETY Last administered on 12/25/18 12:07; Admin Dose 1 MG; Start 12/21/18 at 15:00 Citalopram Hydrobromide (Celexa) 20 mg DAILY PO Last administered on 12/26/18 08:19; Admin Dose 20 MG; Start 12/22/18 at 09:00 Ferric Sodium Gluconate Complex 125 mg/Sodium Chloride 100 ml @ 100 mls/hr DAILY@1300 IVPB Last administered on 12/26/18 12:20; Admin Dose 100 MLS/HR; Start 12/26/18 at 13:00; Stop 12/28/18 at 13:59 Hydromorphone HCl (Dilaudid) 1 mg Q3H PRN IV SEVERE PAIN LEVEL 7-10 Last administered on 12/26/18at 12:21; Admin Dose 1 MG; Start 12/25/18 at 22:00 URSZULA AHUJA MD Dec 26, 2018 13:20
[2018-12-26 14:00] VITALS: BP 135/87; PULSE 75; RESP 18
[2018-12-26] MEDS ORDERED: BISACODYL (EC) 5 MG TAB PO ONE ×2 (14:00→20:00)
--- NOTE | 2018-12-26 14:07 | PN ---
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 Patient is asking for inpatient colonoscopy on Thursday Hepatitis serology and HIV- negative Monitor CBC, stable no evidence of bleeding. Patient seen in collaboration with Dr. Sanchez Subjective: Colonoscopy tomorrow 12/27. He still reports moderate lower abdominal pain, worse last night.Reports small bowel movements yesterday but none today. He is eating a regular diet but has occasional nausea, no vomiting. Encouraged to do bowel prep as tolerated. PHYSICAL EXAMINATION: GENERAL: Well developed, well nourished, alert & oriented x 3 SKIN: No lesions EYES: Pupils equal reactive to light, no discharge. EARS/NOSE AND THROAT: Ears normal, nose normal NECK: Supple CHEST: Inspection within normal limits. CARDIOVASCULAR: Heart: Regular rate and rhythm RESPIRATORY: Lungs clear to auscultation GASTROINTESTINAL AND LIVER: Abdomen: Soft, lower abdomen moderate tenderness, mildly distended, no hernias, no masses, no organomegaly, no ascites, normoa ctive bowel sounds. Rectal: Deferred. Result Diagram: 12/25/18 1401 12/25/18 1401 Results 24hrs Laboratory Tests Test 12/26/18 05:52 12/26/18 12:10 Prothrombin Time 12.0 Prothrombin Time Ratio 0.9 INR International Normalized Ratio 0.88 Lab Scanned Report REFERENCE LAB CC: LATA SANCHEZ MD ; Exam/Review of Systems Exam Vitals Vital Signs Date Temp Pulse Resp B/P (MAP) Pulse Ox O2 O2 Flow FiO2 Time Delivery Rate 12/26/18 98.0 60 18 123/67 98 08:00 (85) 12/25/18 Room Air 14:30 Intake and Output 12/25/18 12/25/18 12/26/18 1414:59 22:59 06:59 IntakeIntake Total 1410 ml 965 ml 775 ml BalanceBalance 1410 ml 965 ml 775 ml Results Results 24hrs Laboratory Tests Test 12/26/18 05:52 12/26/18 12:10 Prothrombin Time 12.0 Prothrombin Time Ratio 0.9 INR International Normalized Ratio 0.88 Lab Scanned Report REFERENCE LAB Medications Medication Current Medications Sodium Chloride 1,000 ml @ 75 mls/hr [id number] IV Last administered on 12/26/18 05:30; Admin Dose 75 MLS/HR; Start 12/21/18 at 11:45 IV Flush (NS 3 ml) 3 ml PER PROTOCOL IV ; Start 12/21/18 at 12:00 Ondansetron HCl (Zofran Inj) 4 mg Q6H PRN IV NAUSEA/VOMITING Last administered on 12/26/18 13:18; Admin Dose 4 MG; Start 12/21/18 at 12:00 Acetaminophen (Tylenol Tab) 650 mg Q6H PRN PO .PAIN 1-3 OR TEMP; Start 12/21/18 at 12:00 Acetaminophen (Tylenol Supp) 650 mg Q6H PRN [place] .PAIN 1-3 OR TEMP; Start 12/21/18 at 12:00 Morphine Sulfate (morphine) 2 mg Q4H PRN IV .SEVERE PAIN 7-10 Last administered on 12/26/18 13:05; Admin Dose 2 MG; Start 12/21/18 at 12:00 Famotidine (Pepcid Iv) 20 mg Q12 IV Last administered on 12/26/18 08:19; Admin Dose 20 MG; Start 12/21/18 at 21:00 Quetiapine Fumarate (Seroquel) 200 mg HS PO Last administered on 12/25/18 20:06; Admin Dose 200 MG; Start 12/21/18 at 21:00 Gabapentin (Neurontin) 400 mg TID PO Last administered on 12/26/18 12:19; Admin Dose 400 MG; Start 12/21/18 at 21:00 Clonazepam (Klonopin) 1 mg BID PRN PO ANXIETY Last administered on 12/25/18 12:07; Admin Dose 1 MG; Start 12/21/18 at 15:00 Citalopram Hydrobromide (Celexa) 20 mg DAILY PO Last administered on 12/26/18 08:19; Admin Dose 20 MG; Start 12/22/18 at 09:00 Ferric Sodium Gluconate Complex 125 mg/Sodium Chloride 100 ml @ 100 mls/hr DAILY@1300 IVPB Last administered on 12/26/18 12:20; Admin Dose 100 MLS/HR; Start 12/26/18 at 13:00; Stop 12/28/18 at 13:59 Hydromorphone HCl (Dilaudid) 1 mg Q3H PRN IV SEVERE PAIN LEVEL 7-10 Last administered on 12/26/18 12:21; Admin Dose 1 MG; Start 12/25/18 at 22:00 KYLAH PHAM NP Dec 26, 2018 14:07
[2018-12-26] MEDS ORDERED: MAGNESIUM CITRATE 300 ML BTL PO ONE (15:00)
[2018-12-26] MEDS ORDERED: POLYETHYLENE GLYCOL 3350 119 GM POWDER PO ONE ×2 (16:00→17:00)
[2018-12-26 19:31] VITALS: BP 155/94; PULSE 81; RESP 18
[2018-12-26] MEDS: QUETIAPINE 100 MG TAB PO SCH (21:02)
[2018-12-27] VITALS (8 sets, daily range): BP systolic 100–131; BP diastolic 57–74; PULSE 60–85; RESP 12–26
[2018-12-27] MEDS: HYDROmorphONE 1 MG/ML SYG IV PRN ×4 (00:18→11:40)
[2018-12-27] MEDS: morphine 2 MG INJ IV PRN ×3 (02:22→10:53)
[2018-12-27] MEDS ORDERED: PROPOFOL 200 MG INJ ONE (07:00)
[2018-12-27] MEDS: clonAZEPAM 0.5 MG TAB PO PRN (09:19)
[2018-12-27] MEDS: GABAPENTIN 400 MG CAP PO SCH ×2 (09:19→14:02)
[2018-12-27] MEDS: CITALOPRAM 20 MG TAB PO SCH (09:19)
[2018-12-27] MEDS: FAMOTIDINE 20 MG INJ IV SCH (09:20)
[2018-12-27] MEDS: SOD CHLORIDE 0.9% 1,000 ML IV SCH ×2 (10:53→14:25)
--- NOTE | 2018-12-27 13:15 | PN ---
Date/Time of Note Date/Time of Note DATE: 12/27/18 TIME: 13:08 Assessment/Plan VTE Prophylaxis Risk score (from Ns)>0 risk: 0 SCD applied (from [facility]s): No SCD contraindicated: low risk/ambulating Pharmacological prophylaxis: NA/contraindicated Pharm contraindication: low risk/ambulating Lines/Catheters IV [facility] Type (from [facility]): Peripheral IV Urinary Cath still in place: No Assessment/Plan Hospital Course SUBJECTIVE: Ambulating in hallway, scheduled for colonoscopy. No acute distress. OBJECTIVE: Vital signs-see below PHYSICAL EXAM: Constitutional: Well-developed, adequately built, lying in bed comfortably. Psych: nl mood/affect, no complaints Head: atraumatic, normocephalic Eyes: nl conjunctiva, nl sclera ENMT: mucosa pink and moist, nl external ears & nose Neck: non-tender, supple Respiratory: clear to auscultation, normal air movement Cardiovascular: nl pulses, regular rate and rhythm Gastrointestinal: _+TENDER all quadrants..no rebound.. soft, bowel sounds active in all 4 quadrants. Musculoskeletal/extremities: nl extremities to inspection, motor strength equal bilaterally, no focal deficit. Normal pulses,no cyanosis, no edema. 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: Alert oriented 3,nl speech, nl strength Skin: nl turgor ASSESSMENT/PLAN: 38-year-old homeless male with a history of substance abuse, SBO, anemia, here with abdominal pain, found to have bowel obstruction 1. Partial Bowel obstruction r/o Mass vs IBD -Clinically stable. -Surgery/GI on board. Nevertheless, patient is getting a colonoscopy and will follow up on it. 2. Substance abuse/meth abuse -knockdown worker evaluation -Cessation advised 3. Schizoaffective disorder/bipolar type -cont.pych meds 4. Homelessness -SW to see pt DVT prophylaxis: SCDs PUD prophylaxis: Pepcid CODE STATUS: Full code Diet: N.p.o. Discussion: Follow-up colonoscopy findings. Likely DC planning in a.m. Patient was seen in collaboration with Dr. oGdoy. Result Diagram: 12/25/18 1401 12/25/18 1401 Exam/Review of Systems Exam Vitals Vital Signs Date Temp Pulse Resp B/P (MAP) Pulse Ox O2 O2 Flow FiO2 Time Delivery Rate 12/27/18 98.7 85 18 131/74 98 08:21 (93) 12/25/18 Room Air 14:30 Intake and Output 12/26/18 12/26/18 12/27/18 1515:00 23:00 07:00 IntakeIntake Total 940 ml 1700 ml 675 ml BalanceBalance 940 ml 1700 ml 675 ml Medications Medication Current Medications Sodium Chloride 1,000 ml @ 75 mls/hr [id number] IV Last administered on 12/27/18 10:53; Admin Dose 75 MLS/HR; Start 12/21/18 at 11:45 IV Flush (NS 3 ml) 3 ml PER PROTOCOL IV ; Start 12/21/18 at 12:00 Ondansetron HCl (Zofran Inj) 4 mg Q6H PRN IV NAUSEA/VOMITING Last administered on 12/26/18 21:03; Admin Dose 4 MG; Start 12/21/18 at 12:00 Acetaminophen (Tylenol Tab) 650 mg Q6H PRN PO .PAIN 1-3 OR TEMP Last administered on 12/27/18 09:19; Admin Dose 650 MG; Start 12/21/18 at 12:00 Acetaminophen (Tylenol Supp) 650 mg Q6H PRN [place] .PAIN 1-3 OR TEMP; Start 12/21/18 at 12:00 Morphine Sulfate (morphine) 2 mg Q4H PRN IV .SEVERE PAIN 7-10 Last administered on 12/27/18 10:53; Admin Dose 2 MG; Start 12/21/18 at 12:00 Famotidine (Pepcid Iv) 20 mg Q12 IV Last administered on 12/27/18 09:20; Admin Dose 20 MG; Start 12/21/18 at 21:00 Quetiapine Fumarate (Seroquel) 200 mg HS PO Last administered on 12/26/18 21:02; Admin Dose 200 MG; Start 12/21/18 at 21:00 Gabapentin (Neurontin) 400 mg TID PO Last administered on 12/27/18 09:19; Adm in Dose 400 MG; Start 12/21/18 at 21:00 Clonazepam (Klonopin) 1 mg BID PRN PO ANXIETY Last administered on 12/27/18 09:19; Admin Dose 1 MG; Start 12/21/18 at 15:00 Citalopram Hydrobromide (Celexa) 20 mg DAILY PO Last administered on 12/27/18at 09:19; Admin Dose 20 MG; Start 12/22/18 at 09:00 Ferric Sodium Gluconate Complex 125 mg/Sodium Chloride 100 ml @ 100 mls/hr DAILY@1300 IVPB Last administered on 12/26/18at 12:20; Admin Dose 100 MLS/HR; Start 12/26/18 at 13:00; Stop 12/28/18 at 13:59 Hydromorphone HCl (Dilaudid) 1.5 mg Q3H PRN IV SEVERE PAIN LEVEL 7-10 Last administered on 12/27/18at 11:40; Admin Dose 1.5 MG; Start 12/26/18 at 19:00 JOYCE PARKS NP Dec 27, 2018 13:15
[2018-12-27] MEDS: SOD FERRIC GLUC COMPLX 125 MG in SOD CHLORIDE 0.9% 100 ML IVPB SCH (14:02)
[2018-12-27] MEDS ORDERED: LIDOCAINE 2% (SDV) 5 ML INJ ONE (15:48)
[2018-12-27] MEDS ORDERED: PROPOFOL 60 ML ONE (15:48)
--- NOTE | 2018-12-27 15:52 | PREAC ---
Date/Time of Note Date/Time of Note DATE: 12/27/18 TIME: 15:50 Anesthesia Eval and Record Evaluation Time Pre-Procedure Interview DATE: 12/27/18 TIME: 15:50 Age 38 Sex male NPO: 8 hrs Preoperative diagnosis abdominal pain Planned procedure colonoscopy Past Medical History Past Medical History: None Surgery & Anesthesia Issues No known issue Meds Anticoagulation: No Beta Mayur within 24 hr: No Reason Beta Mayur not given: Pt. not on B-Mayur Discontinued Reported Medications Clonazepam* (Klonopin*) 1 Mg Tablet, 1 MG PO BID PRN for ANXIETY, TAB 09/24/18 Citalopram Hydrobromide* (Citalopram Hydrobromide*) 40 Mg Tablet, 40 MG PO DAILY, #30 TAB 08/10/18 Gabapentin* (Gabapentin*) 400 Mg Capsule, 400 MG PO TID, #90 CAP 08/10/18 Discontinued Scripts Pantoprazole* (Protonix*) 40 Mg Tablet.dr, 40 MG PO BID, #60 TAB Prov:JOYCE PARKS V. TASTE TESTER 11/16/18 Quetiapine Fumarate* (Quetiapine Fumarate*) 100 Mg Tablet, 200 MG PO HS, #30 TAB Prov:PARKSMICHAELA V. TASTE TESTER 11/16/18 Ferrous Sulfate* (Ferrous Sulfate*) 325 Mg Tabec, 325 MG PO TIDM A, #90 TAB Prov:JOYCE PARKS V. TASTE TESTER 11/16/18 Current Medications Sodium Chloride 1,000 ml @ 75 mls/hr [id number] IV Last administered on 12/27/18at 10:53; Admin Dose 75 MLS/HR; Start 12/21/18 at 11:45 IV Flush (NS 3 ml) 3 ml PER PROTOCOL IV ; Start 12/21/18 at 12:00 Ondansetron HCl (Zofran Inj) 4 mg Q6H PRN IV NAUSEA/VOMITING Last administered on 12/26/18at 21:03; Admin Dose 4 MG; Start 12/21/18 at 12:00 Acetaminophen (Tylenol Tab) 650 mg Q6H PRN PO .PAIN 1-3 OR TEMP Last administered on 12/27/18at 09:19; Admin Dose 650 MG; Start 12/21/18 at 12:00 Acetaminophen (Tylenol Supp) 650 mg Q6H PRN [place] .PAIN 1-3 OR TEMP; Start 12/21/18 at 12:00 Morphine Sulfate (morphine) 2 mg Q4H PRN IV .SEVERE PAIN 7-10 Last administered on 12/27/18at 10:53; Admin Dose 2 MG; Start 12/21/18 at 12:00 Quetiapine Fumarate (Seroquel) 200 mg HS PO Last administered on 12/26/18at 21:02; Admin Dose 200 MG; Start 12/21/18 at 21:00 Gabapentin (Neurontin) 400 mg TID PO Last administered on 12/27/18at 14:02; Admin Dose 400 MG; Start 12/21/18 at 21:00 Clonazepam (Klonopin) 1 mg BID PRN PO ANXIETY Last administered on 12/27/18 09:19; Admin Dose 1 MG; Start 12/21/18 at 15:00 Citalopram Hydrobromide (Celexa) 20 mg DAILY PO Last administered on 12/27/18at 09:19; Admin Dose 20 MG; Start 12/22/18 at 09:00 Ferric Sodium Gluconate Complex 125 mg/Sodium Chloride 100 ml @ 100 mls/hr DAILY@1300 IVPB Last administered on 12/27/18 14:02; Admin Dose 100 MLS/HR; Start 12/26/18 at 13:00; Stop 12/28/18 at 13:59 Hydromorphone HCl (Dilaudid) 1.5 mg Q3H PRN IV SEVERE PAIN LEVEL 7-10 Last administered on 12/27/18at 11:40; Admin Dose 1.5 MG; Start 12/26/18 at 19:00 Ferrous Sulfate (Ferrous Sulfate (Ec)) 325 mg BID PO ; Start 12/27/18 at 21:00 Famotidine (Pepcid) 20 mg BID PO ; Start 12/27/18 at 21:00 Meds reviewed: Yes Allergies Coded Allergies: No Known Allergy (Unverified , 12/21/18) Allergies Reviewed: Yes Labs/Studies Labs Reviewed: Reviewed by anesthesiologist Result Diagram: 12/25/18 1401 12/25/18 1401 test: N/A Studies: ECG Pre-procedure Exam Last vitals Vital Signs Date Temp Pulse Resp B/P (MAP) Pulse Ox O2 O2 Flow FiO2 Time Delivery Rate 12/27/18 20 119/73 98 14:55 (88) 12/27/18 98.7 85 08:21 12/25/18 Room Air 14:30 Airway: Adequate mouth opening, Adequate thyromental dist Mallampati: Mallampati II Teeth: Normal Lung: Normal Heart: Normal ASA Physical Status ASA physical status: 2 Emergency: None Planned Anesthetic General/MAC: MAC Planned Pain Management Parenteral pain med Pre-operative Attestations Prior to commencing anesthesia and surgery, the patient was re-evaluated, there was verification of: *The patient's identity *The results of appropriate recent lab work and preoperative vital signs *The above evaluation not changing prior to induction *Anesthetic plan, risk benefits, alternative and complications discussed with patient/family; questions answered; patient/family understands, accepts and wis hes to proceed. DAVID SALAZAR MD Dec 27, 2018 15:52
--- NOTE | 2018-12-27 16:09 | PAC ---
Date/Time of Note Date/Time of Note DATE: 12/27/18 TIME: 16:08 Post-Anesthesia Notes Post-Anesthesia Note Last documented vital signs Vital Signs Date Temp Pulse Resp B/P (MAP) Pulse Ox O2 O2 Flow FiO2 Time Delivery Rate 12/27/18 20 119/73 98 14:55 (88) 12/27/18 98.7 85 08:21 12/25/18 Room Air 14:30 Activity: WNL Respiratory function: WNL Cardiovascular function: WNL Mental status: Baseline Pain reasonably controlled: Yes Hydration appropriate: Yes Nausea/Vomiting absent: Yes Comments BP:112/54, P:78, Spo2:100%, T:98.8 DAVID SALAZAR MD Dec 27, 2018 16:09
--- NOTE | 2018-12-27 16:11 | HPN ---
Date/Time of Note Date/Time of Note DATE: 12/27/18 TIME: 16:11 Interval H&P Admission Note Pt. seen H&P reviewed: No system changes GILES MALONE Dec 27, 2018 16:11
[2018-12-27] MEDS ORDERED: BISACODYL (EC) 5 MG TAB PO ONE ×3 (16:30)
[2018-12-27] MEDS ORDERED: POLYETHYLENE GLYCOL 3350 119 GM POWDER PO ONE ×3 (16:30→18:30)
[2018-12-27] MEDS ORDERED: ONDANSETRON 4 MG INJ IV PRN (16:30)
[2018-12-27] MEDS ORDERED: FENTAnyl 50 MCG/ML VIAL IV PRN (16:30)
[2018-12-27] MEDS ORDERED: MAGNESIUM CITRATE 300 ML BTL PO ONE (17:30)
[2018-12-27] MEDS ORDERED: FAMOTIDINE 20 MG TAB PO SCH (21:00)
[2018-12-27] MEDS ORDERED: FERROUS SULFATE (EC) 325 MG TAB PO SCH (21:00)
[2018-12-28] MEDS ORDERED: POLYETHYLENE GLYCOL 3350 119 GM POWDER PO ONE (06:00)
--- NOTE | 2018-12-28 08:42 | DS ---
Date/Time of Note Date/Time of Note DATE: 12/28/18 TIME: 08:37 Discharge Summary Admission/Discharge Info Admit Date/Time Dec 21, 2018 at 10:35 Discharge Date/Time Dec 27, 2018 at 17:25 (AGAINST MEDICAL ADVICE) Discharge Diagnosis 1. Partial Bowel obstruction, r/o IBD vs Colonic/cecal mass 2. Substance abuse/meth abuse 3. Schizoaffective disorder/bipolar type 4. Homelessness Patient Condition: Stable Consults ,GI Procedures 12/21/2018. CT abdomen and pelvis without contrast. IMPRESSION: 1. MULTIPLE DILATED LOOPS OF FLUID-FILLED SMALL BOWEL AND DISTENSION OF THE CECUM, SLIGHTLY WORSENED SINCE PRIOR STUDY. THERE IS A IRREGULAR SOFT TISSUE MASS WITHIN THE PROXIMAL RIGHT COLON/CECUM, HIGHLY CONCERNING FOR COLONIC MALIGNANCY. THERE IS SUBSEQUENT LARGE BOWEL OBSTRUCTION AND COLLAPSE OF DISTAL LARGE BOWEL LOOPS. THERE IS ADJACENT MILD MESENTERIC STRANDING AND SEVERAL LYMPH NODES. 12/23/2018. CT abdomen and pelvis with contrast. IMPRESSION: 1. Distal small bowel obstruction at the level of the terminal ileum likely due to an inflammatory stricture. There is inflammatory thickening of the wall of the distal ileum greatest in the terminal ileum with interloop fluid that may be due to inflammatory bowel disease or infection. Recommend GI consultation. Suggest further evaluation with endoscopy. 2. Stomach and proximal small bowel are decompressed likely due to vomiting. 3. Small volume free intraperitoneal fluid. 4. Subacute healing fracture of the right posterior 12th rib. 12/23/2018. X-ray small bowel follow-through IMPRESSION: Partial distal small bowel obstruction. There is delayed small bowel transit with upstream dilatation of the small bowel. Please see CT abdomen and pelvis reported separately. Hx of Present Illness This is a 38-year-old homeless male with substance/meth abuse/IVDU, history of small bowel obstruction, schizoaffective disorders, anemia, history of blood transfusions, came into the emergency room with 2-day duration of severe abdominal pain. Patient also reports blackish stool which has been going on for years. No nausea or vomiting. No diarrhea or constipation. No fevers or chills. No chest pain, palpitation, shortness of breath, numbness, tingling, speech difficulties or other acute constitutional symptoms. Apparently, patient was discharged from our facility in October 2018 where he was treated for small bowel obstruction and anemia. At that time, patient was transferred to inpatient [facility] for voluntary admission. In the emergency room, imaging showed worsened dilated loops of fluid-filled small bowel and distention of the cecum, irregular soft tissue mass within the proximal right colon/cecum, highly concerning for colonic malignancy. There was also subsequent large bowel obstruction and collapse of the distal large bowel loop with mesenteric stranding and several lymph nodes. Labs showed white count 16,000, hemoglobin 12.4, hematocrit 38.6, platelet 454. Stable vital signs. Surgery consultation with Dr. Winter was called from the emergency room and patient was admitted. He was given Toradol in the emergency room. Hospital Course 38-year-old homeless male with a history of substance abuse, SBO, anemia, here with abdominal pain, found to have bowel obstruction. Patient's initial noncontrast CT also showed a questionable cecal/colonic mass. A repeat CT with contrast did not detect that mass. There was concern for IBD. Patient was being followed by surgery and GI. A colonoscopy was attempted on 12/27/2018, however was unsuccessful secondary to inadequate bowel prep. As the plan was to continue bowel prep and reschedule for tomorrow, patient decided to leave AGAINST MEDICAL ADVICE. Despite our efforts, patient had decided to leave AGAINST MEDICAL ADVICE. Patient has normal mental status and full decisional capacity. Patient under stood her condition and the risk of leaving AMA, including but not limited to permanent disability, etc., and had an opportunity to ask questions about own medical condition. The patient has been informed that the paient may return for care anytime and has been referred to primary care provider for follow-up as soon as possible. During the course of hospitalization, patient seemed to have opiate seeking behaviors. He is also homeless and had social service coordinator follow-up. Patient was continued on his home medication for underlying schizoaffective disorders. He was counseled on abstinence from his substance abuse. Case discussed with Dr. Godoy. Home Meds Discontinued Reported Medications Clonazepam* (Klonopin*) 1 Mg Tablet, 1 MG PO BID PRN for ANXIETY, TAB 09/24/18 Citalopram Hydrobromide* (Citalopram Hydrobromide*) 40 Mg Tablet, 40 MG PO DAILY, #30 TAB 08/10/18 Gabapentin* (Gabapentin*) 400 Mg Capsule, 400 MG PO TID, #90 CAP 08/10/18 Discontinued Scripts Pantoprazole* (Protonix*) 40 Mg Tablet.dr 40 MG PO BID, #60 TAB Prov:JOYCE PARKS NP 11/16/18 Quetiapine Fumarate* (Quetiapine Fumarate*) 100 Mg Tablet, 200 MG PO HS, #30 TAB Prov:JOYCE PARKS V. AUTO GARAGE ATTENDANT 11/16/18 Ferrous Sulfate* (Ferrous Sulfate*) 325 Mg Tabec, 325 MG PO TIDM A, #90 TAB Prov:JOYCE PARKS NP 11/16/18 Primary Care Provider Not On Staff Doctor JOYCE PARKS NP Dec 28, 2018 08:42
== END 2018-12-27 17:25 | disposition left against medical advice (07) | DRG 389 ==
LOC: E/R 08:26 → 2NE 10:35 → 5EC 12-22 06:32
PROVIDERS: ADMIT Internal Medicine; ATTEND Internal Medicine
PROC: 0DJD8ZZ Inspection of Lower Intestinal Tract, Via Natural or Artificial Opening Endoscopic (ICD-10-PCS; principal; 2018-12-27 16:00)
DX: K56.690 Other partial intestinal obstruction (principal); K62.5 Hemorrhage of anus and rectum; F25.9 Schizoaffective disorder, unspecified; Z59.0 Homelessness; F41.9 Anxiety disorder, unspecified; F25.0 Schizoaffective disorder, bipolar type; F15.10 Other stimulant abuse, uncomplicated; Z72.0 Tobacco use; K63.9 Disease of intestine, unspecified; D72.819 Decreased white blood cell count, unspecified; D50.0 Iron deficiency anemia secondary to blood loss (chronic); K58.9 Irritable bowel syndrome, unspecified
CPT/HCPCS: 36415; 74176; 74177; 74250; 80048; 80053; 80061; 80307; 81003; 82270; 82378; 83036; 83540; 83690; 83735; 84100; 85025; 85610; 85651; 86140; 86703; 86704; 86803; 87340; 96374; 96375; J1170; J1885; J2060; J2270; J2405; J2916; J7030; Q9967

== ENCOUNTER 2019-02-21 03:38 | Inpatient (IN) | payer OTHER ==
[~2019-02-21] VITALS: Ht 185.4 cm; Wt 71.0 kg
[2019-02-21 04:09] VITALS: Ht 185.4 cm; Wt 71.0 kg
[2019-02-21] MEDS ORDERED: ALBUTEROL/IPRATROPIUM (NEB) 3 ML AMP HHN PRN (04:30)
[2019-02-21] MEDS ORDERED: NACL 0.9% 3 ML SYG IV SCH (04:30)
[2019-02-21] MEDS ORDERED: ONDANSETRON 4 MG INJ IV PRN (04:30)
[2019-02-21] MEDS ORDERED: DEXAMETHASONE 10 MG/ML 1 ML INJ IV ONE (04:30)
--- NOTE | 2019-02-21 08:23 | HP ---
Date/Time of Note Date/Time of Note DATE: 02/21/19 TIME: 08:15 Assessment/Plan VTE Prophylaxis SCD contraindicated: low risk/ambulating Pharmacological prophylaxis: NA/contraindicated Pharm contraindication: bleeding Assessment/Plan Assessment/Plan 1. Lower GI bleed and colitis: Likely secondary to IBD -Patient had a colonoscopy here 2 months ago, unfortunately however was a poor prep -Will reconsult GI -Keep n.p.o. for now with IV fluids 2. Substance abuse: Last use of methamphetamine was yesterday and last time he smoked heroin was 2 days ago -Monitor for withdrawal symptom 3. History of bipolar and schizophrenia: Patient appears calm 4. Homelessness: Social work consult Result Diagram: 02/21/19 0435 02/21/19 0435 Results 24hrs Laboratory Tests Test 02/21/19 04:35 White Blood Count 5.9 # Red Blood Count 3.36 L Hemoglobin 8.3 L Hematocrit 26.3 L Mean Corpuscular Volume 78.3 L Mean Corpuscular Hemoglobin 24.7 L Mean Corpuscular Hemoglobin Concent 31.6 L Red Cell Distribution Width 18.1 #H Platelet Count 477 #H Mean Platelet Volume 9.4 Immature Granulocytes % 1.200 H Neutrophils % 51.0 Lymphocytes % 33.8 Monocytes % 10.0 Eosinophils % 3.7 Basophils % 0.3 Nucleated Red Blood Cells % 0.0 Immature Granulocytes # 0.070 H Neutrophils # 3.0 Lymphocytes # 2.0 Monocytes # 0.6 Eosinophils # 0.2 Basophils # 0.0 Nucleated Red Blood Cells # 0.0 Sodium Level 140 Potassium Level 3.3 L Chloride Level 110 Carbon Dioxide Level 24 Anion Gap 6 Blood Urea Nitrogen 10 Creatinine 0.66 Est Glomerular Filtrat Rate mL/min > 60 Glucose Level 87 Calcium Level 8.6 Phosphorus Level 3.7 Magnesium Level 2.0 Total Bilirubin 0.1 L Direct Bilirubin 0.00 Indirect Bilirubin 0.1 Aspartate Amino Transf (AST/SGOT) 24 Alanine Aminotransferase (ALT/SGPT) 36 Alkaline Phosphatase 80 Total Protein 5.8 L Albumin 3.0 L Globulin 2.80 Albumin/Globulin Ratio 1.07 HPI/ROS Admit Date/Time Admit Date/Time February 21, 2019 at 03:38 Hx of Present Illness This is a 38-year-old homeless male with a history of bipolar/schizophrenia, substance abuse (including methamphetamine and smoking heroin), SBO and lower GI bleed and colitis who initially presented on outside hospital complaining of bloody diarrhea and abdominal pain. Guaiac was positive. CT was a finding of colitis. He was transferred to [facility] for insurance reason. Patient was admitted here about 2 months ago. At that time, initial CT shows SBO and irregular right colon/cecal mass. Repeat CT the next day showed Distal small bowel obstruction at the level of the terminal ileum likely due to an inflammatory stricture. Patient underwent colonoscopy, unfortunately however it was poor prep. Patient then left AMA while work-up was ongoing. Currently patient is still complaining of abdominal pain, but he actually looks comfortable. Last use of meth was yesterday time he smoked heroin was 2 days ago PMH/Family/Social Past Medical History Medical History: other (See HPI) Medications Current Medications Dextrose/Sodium Chloride 1,000 ml @ 125 mls/hr Q8H IV ; Start 02/21/19 at 04:27 IV Flush (NS 3 ml) 3 ml PER PROTOCOL IV ; Start 02/21/19 at 04:30 Ondansetron HCl (Zofran Inj) 4 mg Q6H PRN IV NAUSEA/VOMITING; Start 02/21/19 at 04:30 Morphine Sulfate (morphine) 2 mg Q4H PRN IV .SEVERE PAIN 7-10; Start 02/21/19 at 04:30 Pantoprazole (Protonix Iv) 40 mg DAILY@06 IV ; Start 02/21/19 at 06:00 Albuterol/ Ipratropium (Duoneb) 3 ml Q2H RESP THERAPY PRN HHN SHORTNESS OF BREATH; Start 02/21/19 at 04:30 Coded Allergies: No Known Allergy (Unverified , 12/21/18) Past Surgical History Past Surgical Hx: other (See HPI) Family History Significant Family History: no pertinent family hx Social History Smoking Status: Current some day smoker Drug Use: other (Methamphetamine and smoking heroin) Exam/Review of Systems Exam Constitutional: other (Sleepy, but arousable. Answering questions appropriatel y.) Psych: no complaints, nl mood/affect Head: normocephalic, atraumatic Eyes: EOMI, PERRL Respiratory: clear to auscultation, normal air movement Cardiovascular: regular rate and rhythm, nl pulses Gastrointestinal: soft, other (Diffuse abdominal pain, mainly in the p eriumbilical area) Extremities: normal pulses BETH CONCEPCION MD February 21, 2019 08:23
[2019-02-21 08:40] VITALS: BP 107/54; PULSE 66; RESP 18
[2019-02-21] MEDS: PANTOPRAZOLE 40 MG INJ IV SCH (09:11)
[2019-02-21] MEDS: DEXTROSE 5%-0.45% NACL 1,000 ML IV SCH ×3 (09:11→19:56)
--- NOTE | 2019-02-21 11:44 | QN ---
Documentation Comment 38-year-old male with IVDU, meth abuse, tobacco abuse, bipolar disorders, noncompliance, admitted with bloody diarrhea/abdominal pain x2-day duration. Apparently patient is known to me from multiple hospitalization. Last time he was recommended to have a colonoscopy for which initial prep was inadequate and was recommended to prep again, patient left AGAINST MEDICAL ADVICE. Here he is back again with a similar complaints with bloody diarrhea. After lengthy discussion with patient, he agrees to treatment plan, as such I will reconsult printed products assembler. Most likely, patient will need 2-day prep per GI, as such we will start him on a clear liquid diet. Hopefully, we can schedule him for colonoscopy in 48 hours. Continue monitoring H&H closely and transfuse as needed. Again, counseled on cessation of substances. embroidery worker to review the case. Patient was seen in collaboration with JOYCE Romero NP February 21, 2019 11:44
--- NOTE | 2019-02-21 13:59 | CONS ---
Assessment/Plan Assessment/Plan Hospital Course (Demo Recall) Summary Assessment and Plan: Assessment: Bloody diarrhea Remote history of distal small bowel obstruction at the level of the terminal ileum likely due to an inflammatory stricture. There is inflammatory thickening of the wall of the distal ileum Substance abuse/meth abuse/Heroin Schizoaffective disorder/bipolar type Plan: Given results of last CT in december and c/on/v we will repeat CT abdominal/pelvis with contrast- pending results we will plan for a 2-day prep to for tentative colonoscopy in the next 48 hours. Endoscopy - risks/benefits/alternatives/indications of procedure and sedation/anesthesia discussed with patient who states understanding and gives informed consent to proceed. Monitor labs Maintain clear liquid diet- to assist with colonoscopy prep Patient seen in collaboration with Dr. Sanchez CC: LATA SANCHEZ MD ; Consultation Date/Type/Reason Admit Date/Time February 21, 2019 at 03:38 Date of Consultation: February 21, 2019 Type of Consult GI Reason for Consultation Bloody diarrhea Date/Time of Note DATE: 02/21/19 TIME: 13:53 Hx of Present Illness This is a 38-year-old male with past medical history of substance abuse, schizophrenia, bipolar disorder,history of small bowel obstruction who presented to the hospital with complaints of bloody diarrhea. Patient was previously hospitalized in December of this year for similar symptoms he underwent a colonoscopy 12/27/2018 showing extremely poor preparation, solid and liquid stool throughout no mucosal abnormalities seen after multiple washings unable to adequately visualize the majority of the colon. We recommended to repeat preparation and repeat colonoscopy following day however patient left AGAINST MEDICAL ADVICE. At time of evaluation patient complains of nausea/vomiting as well as abdominal pain and bloody diarrhea. States he has been recently using heroin and meth feels a little shaky at this time. Receiving IV fluids and on a clear liquid diet discussed plan for repeat CT abdomen pelvis and tentative for colonoscopy in 48 hours after 2-day preparation patient verbalized understanding and is agreeable. I additionally discussed red/benefits of both procedure and sedation patient again verbalized understanding is agreeable to colonoscopy. Review of Systems: A 12 system, review was conducted and is negative except as noted in the HPI or here. Past Medical History Medical History: other (See HPI) Home Meds Unable to Obtain Active Prescriptions or Reported Meds Medications Current Medications Dextrose/Sodium Chloride 1,000 ml @ 125 mls/hr Q8H IV Last administered on 5/6/19at 09:11; Admin Dose 125 MLS/HR; Start 02/21/19 at 04:27 IV Flush (NS 3 ml) 3 ml PER PROTOCOL IV ; Start 02/21/19 at 04:30 Ondansetron HCl (Zofran Inj) 4 mg Q6H PRN IV NAUSEA/VOMITING; Start 02/21/19 at 04:30 Morphine Sulfate (morphine) 2 mg Q4H PRN IV .SEVERE PAIN 7-10; Start 02/21/19 at 04:30 Pantoprazole (Protonix Iv) 40 mg DAILY@06 IV Last administered on 02/21/19at 09:11; Admin Dose 40 MG; Start 02/21/19 at 06:00 Albuterol/ Ipratropium (Duoneb) 3 ml Q2H RESP THERAPY PRN HHN SHORTNESS OF BREATH; Start 02/21/19 at 04:30 Allergies: Coded Allergies: No Known Allergy (Unverified , 12/21/18) Past Surgical History Past Surgical Hx: other (See HPI) Social History Smoking Status: Current some day smoker Drug Use: other (Methamphetamine and smoking heroin) Exam/Review of Systems Exam Vitals Vital Signs Date Temp Pulse Resp B/P (MAP) Pulse Ox O2 O2 Flow FiO2 Time Delivery Rate 02/21/19 98.3 66 18 107/54 99 Room Air 08:40 (71) Exam PHYSICAL EXAMINATION: GENERAL: Alert & oriented x 3, in no acute distress SKIN: No lesions EYES: Pupils equal reactive to light and accommodation, no discharge. EARS/NOSE AND THROAT: Ears normal, nose normal. NECK: Supple, no masses. CHEST: Inspection within normal limits. CARDIOVASCULAR: Heart: Regular rate and rhythm. RESPIRATORY: Lungs clear to auscultation GASTROINTESTINAL AND LIVER: Abdomen: Soft, non tenderness, non-distended, no hernias, no masses, no organomegaly, no ascites, no guarding, no rebound tenderness, normoactive bowel sounds. Rectal: Deferred. Results Result Diagram: 02/21/19 0435 02/21/19 0435 Results 24hrs Laboratory Tests Test 02/21/19 04:35 White Blood Count 5.9 # Red Blood Count 3.36 L Hemoglobin 8.3 L Hematocrit 26.3 L Mean Corpuscular Volume 78.3 L Mean Corpuscular Hemoglobin 24.7 L Mean Corpuscular Hemoglobin Concent 31.6 L Red Cell Distribution Width 18.1 #H Platelet Count 477 #H Mean Platelet Volume 9.4 Immature Granulocytes % 1.200 H Neutrophils % 51.0 Lymphocytes % 33.8 Monocytes % 10.0 Eosinophils % 3.7 Basophils % 0.3 Nucleated Red Blood Cells % 0.0 Immature Granulocytes # 0.070 H Neutrophils # 3.0 Lymphocytes # 2.0 Monocytes # 0.6 Eosinophils # 0.2 Basophils # 0.0 Nucleated Red Blood Cells # 0.0 Sodium Level 140 Potassium Level 3.3 L Chloride Level 110 Carbon Dioxide Level 24 Anion Gap 6 Blood Urea Nitrogen 10 Creatinine 0.66 Est Glomerular Filtrat Rate mL/min > 60 Glucose Level 87 Calcium Level 8.6 Phosphorus Level 3.7 Magnesium Level 2.0 Total Bilirubin 0.1 L Direct Bilirubin 0.00 Indirect Bilirubin 0.1 Aspartate Amino Transf (AST/SGOT) 24 Alanine Aminotransferase (ALT/SGPT) 36 Alkaline Phosphatase 80 Total Protein 5.8 L Albumin 3.0 L Globulin 2.80 Albumin/Globulin Ratio 1.07 Medications Medication Current Medications Dextrose/Sodium Chloride 1,000 ml @ 125 mls/hr Q8H IV Last administered on 02/21/19at 09:11; Admin Dose 125 MLS/HR; Start 02/21/19 at 04:27 IV Flush (NS 3 ml) 3 ml PER PROTOCOL IV ; Start 02/21/19 at 04:30 Ondansetron HCl (Zofran Inj) 4 mg Q6H PRN IV NAUSEA/VOMITING; Start 02/21/19 at 04:30 Morphine Sulfate (morphine) 2 mg Q4H PRN IV .SEVERE PAIN 7-10; Start 02/21/19 at 04:30 Pantoprazole (Protonix Iv) 40 mg DAILY@06 IV Last administered on 02/21/19at 09:11; Admin Dose 40 MG; Start 02/21/19 at 06:00 Albuterol/ Ipratropium (Duoneb) 3 ml Q2H RESP THERAPY PRN HHN SHORTNESS OF BREATH; Start 02/21/19 at 04:30 BRITTANIE SHOEMAKER February 21, 2019 13:59
[2019-02-21 14:45] VITALS: BP 123/67; PULSE 73; RESP 18
[2019-02-21] MEDS ORDERED: IOHEXOL 14.3 MG(I)/ML (ADULT) BTL PO ONE (15:30)
[2019-02-21] MEDS ORDERED: BARIUM SULF 2% 450 ML BTL (BERRY SMOOTHIE) PO ONE (15:30)
[2019-02-21] MEDS: CHLORDIAZEPOXIDE 25 MG CAP PO SCH ×2 (17:56→19:54)
[2019-02-21 19:42] VITALS: BP 116/67; PULSE 78; RESP 18
[2019-02-21] MEDS: LORAZEPAM 2 MG INJ IV PRN (19:54)
[2019-02-21] MEDS ORDERED: SOD CHLORIDE 0.9% 100 ML ONE (20:31)
[2019-02-21] MEDS ORDERED: IOHEXOL 300MG/ML 150 ML BTL ONE (20:31)
[2019-02-21] MEDS ORDERED: CHLORDIAZEPOXIDE 25 MG CAP PO SCH (21:00)
[2019-02-22 02:23] VITALS: BP 117/69; PULSE 73; RESP 18
[2019-02-22] MEDS: DEXTROSE 5%-0.45% NACL 1,000 ML IV SCH (04:27)
[2019-02-22] MEDS: PANTOPRAZOLE 40 MG INJ IV SCH (06:00)
[2019-02-22] MEDS ORDERED: POTASSIUM CHLORIDE (SR) 20 MEQ TAB PO STA (06:09)
[2019-02-22] MEDS: CHLORDIAZEPOXIDE 25 MG CAP PO SCH ×3 (08:32→20:13)
[2019-02-22] MEDS: morphine 2 MG INJ IV PRN ×3 (09:46→18:06)
--- NOTE | 2019-02-22 09:59 | PN ---
Date/Time of Note Date/Time of Note DATE: 02/22/19 TIME: 09:54 Assessment/Plan VTE Prophylaxis Risk score (from Ns)>0 risk: 1 SCD applied (from Ns): Yes Pharmacological prophylaxis: other (scds) Lines/Catheters IV [facility] Peripheral IV Assessment/Plan Hospital Course Summary Assessment and Plan: Assessment: Bloody diarrhea Remote history of distal small bowel obstruction at the level of the terminal ileum likely due to an inflammatory stricture. There is inflammatory thickening of the wall of the distal ileum Substance abuse/meth abuse/Heroin Schizoaffective disorder/bipolar type Plan: Ct results reviewed- will start prep today- will tentative plan for colonoscopy 02/23 or 02/24 pending on out come of prep Maintain clear liquid diet- to assist with colonoscopy prep Patient seen in collaboration with Dr. Sanchez Subjective: Course reviewed with nursing staff Patient interviewed and examined All labs, imaging and other results reviewed The patient resting in bed, continues to have some abd pain, but no further episodes of bloody diarrhea. CT results reviewed. HGB stable. No c/o nausea or vomiting PHYSICAL EXAMINATION: GENERAL: Alert & oriented x 3, in no acute distress SKIN: No lesions EYES: Pupils equal reactive to light and accommodation, no discharge. EARS/NOSE AND THROAT: Ears normal, nose normal. NECK: Supple, no masses. CHEST: Inspection within normal limits. CARDIOVASCULAR: Heart: Regular rate and rhythm. RESPIRATORY: Lungs clear to auscultation GASTROINTESTINAL AND LIVER: Abdomen: Soft, gen abd tenderness- worse to left side, non-distended, no hernias, no masses, no organomegaly, no ascites, no guarding, no rebound tenderness, normoactive bowel sounds. Rectal: Deferred. Result Diagram: 02/22/19 0425 02/22/19 0425 Results 24hrs Laboratory Tests Test 02/21/19 16:42 02/22/19 04:25 Hemoglobin 9.1 L 8.8 L Hematocrit 28.7 L 28.4 L White Blood Count 7.6 # Red Blood Count 3.58 L Mean Corpuscular Volume 79.3 L Mean Corpuscular Hemoglobin 24.6 L Mean Corpuscular Hemoglobin Concent 31.0 L Red Cell Distribution Width 18.1 H Platelet Count 508 H Mean Platelet Volume 9.4 Immature Granulocytes % 0.500 H Neutrophils % 68.0 Lymphocytes % 23.5 Monocytes % 6.3 Eosinophils % 1.4 Basophils % 0.3 Nucleated Red Blood Cells % 0.0 Immature Granulocytes # 0.040 H Neutrophils # 5.2 Lymphocytes # 1.8 Monocytes # 0.5 Eosinophils # 0.1 Basophils # 0.0 Nucleated Red Blood Cells # 0.0 Sodium Level 139 Potassium Level 2.8 *L Chloride Level 107 Carbon Dioxide Level 24 Anion Gap 8 Blood Urea Nitrogen 5 L Creatinine 0.63 Est Glomerular Filtrat Rate mL/min > 60 Glucose Level 162 Calcium Level 8.8 Phosphorus Level 3.0 Magnesium Level 1.9 Exam/Review of Systems Exam Vitals Vital Signs Date Temp Pulse Resp B/P (MAP) Pulse Ox O2 O2 Flow FiO2 Time Delivery Rate 02/22/19 98.2 73 18 117/69 98 Room Air 02:23 (85) Intake and Output 02/21/19 02/21/19 02/22/19 1414:59 22:59 06:59 IntakeIntake Total 400 ml 900 ml BalanceBalance 400 ml 900 ml Results Results 24hrs Laboratory Tests Test 02/21/19 16:42 02/22/19 04:25 Hemoglobin 9.1 L 8.8 L Hematocrit 28.7 L 28.4 L White Blood Count 7.6 # Red Blood Count 3.58 L Mean Corpuscular Volume 79.3 L Mean Corpuscular Hemoglobin 24.6 L Mean Corpuscular Hemoglobin Concent 31.0 L Red Cell Distribution Width 18.1 H Platelet Count 508 H Mean Platelet Volume 9.4 Immature Granulocytes % 0.500 H Neutrophils % 68.0 Lymphocytes % 23.5 Monocytes % 6.3 Eosinophils % 1.4 Basophils % 0.3 Nucleated Red Blood Cells % 0.0 Immature Granulocytes # 0.040 H Neutrophils # 5.2 Lymphocytes # 1.8 Monocytes # 0.5 Eosinophils # 0.1 Basophils # 0.0 Nucleated Red Blood Cells # 0.0 Sodium Level 139 Potassium Level 2.8 *L Chloride Level 107 Carbon Dioxide Level 24 Anion Gap 8 Blood Urea Nitrogen 5 L Creatinine 0.63 Est Glomerular Filtrat Rate mL/min > 60 Glucose Level 162 Calcium Level 8.8 Phosphorus Level 3.0 Magnesium Level 1.9 Medications Medication Current Medications IV Flush (NS 3 ml) 3 ml PER PROTOCOL IV ; Start 02/21/19 at 04:30 Ondansetron HCl (Zofran Inj) 4 mg Q6H PRN IV NAUSEA/VOMITING; Start 02/21/19 at 04:30 Morphine Sulfate (morphine) 2 mg Q4H PRN IV .SEVERE PAIN 7-10 Last administered on 02/22/19at 09:46; Admin Dose 2 MG; Start 02/21/19 at 04:30 Pantoprazole (Protonix Iv) 40 mg DAILY@06 IV Last administered on 02/21/19at 09:11; Admin Dose 40 MG; Start 02/21/19 at 06:00 Albuterol/ Ipratropium (Duoneb) 3 ml Q2H RESP THERAPY PRN HHN SHORTNESS OF BREATH; Start 02/21/19 at 04:30 Chlordiazepoxide (Librium) 25 mg TID PO Last administered on 02/22/19at 08:32; Admin Dose 25 MG; Start 02/21/19 at 16:00 Lorazepam (Ativan) 1 mg Q6H PRN IV ANXIETY Last administered on 02/21/19at 19:54; Admin Dose 1 MG; Start 02/21/19 at 19:00 Potassium Chloride 20 meq/ Dextrose/Sodium Chloride 1,010 ml @ 80 mls/hr [id number] IV ; Start 02/22/19 at 11:30 Potassium Chloride 100 ml @ 50 mls/hr ONCE ONCE IVPB ; Start 02/22/19 at 10:30; Stop 02/22/19 at 12:29 BRITTANIE SHOEMAKER February 22, 2019 09:59
[2019-02-22] MEDS ORDERED: BISACODYL (EC) 5 MG TAB PO ONE (10:00)
[2019-02-22] MEDS ORDERED: POTASSIUM CHLORIDE 100 ML IVPB ONE (10:30)
[2019-02-22] MEDS: LORAZEPAM 2 MG INJ IV PRN ×2 (11:13→20:14)
[2019-02-22 11:14] VITALS: BP 104/57
[2019-02-22] MEDS ORDERED: POTASSIUM CHLORIDE 20 MEQ in DEXTROSE 5%-0.45% NACL 1,000 ML IV SCH (11:30)
[2019-02-22] MEDS: D5W-0.45 NACL + KCL 20 MEQ 1,000 ML IV SCH (11:43)
--- NOTE | 2019-02-22 12:42 | PN ---
Date/Time of Note Date/Time of Note DATE: 02/22/19 TIME: 12:36 Assessment/Plan VTE Prophylaxis Risk score (from Ns)>0 risk: 1 SCD applied (from [facility] [place]): Yes Pharmacological prophylaxis: NA/contraindicated Pharm contraindication: bleeding Lines/Catheters IV Catheter Type (from [facility]): Peripheral IV Assessment/Plan Hospital Course SUBJECTIVE: No further bloody diarrhea reported.. Continues to have generalized abdominal pain only relieved with IV morphine OBJECTIVE: Vital signs-see below PHYSICAL EXAM: Constitutional: Thin built, lying in bed comfortably. Psych: nl mood/affect, no complaints Head: atraumatic, normocephalic Eyes: nl conjunctiva, nl sclera ENMT: mucosa pink and moist, nl external ears & nose Neck: non-tender, supple Respiratory: clear to auscultation, normal air movement Cardiovascular: nl pulses, regular rate and rhythm Gastrointestinal: +TENDER all quadrants..no rebound.. soft, bowel sounds active in all 4 quadrants. Musculoskeletal/extremities: nl extremities to inspection, motor strength equal bilaterally, no focal deficit. Normal pulses,no cyanosis, no edema. 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: Alert oriented 3,nl speech, nl strength Skin: nl turgor ASSESSMENT/PLAN: 38-year-old male with IVDU, meth abuse, tobacco abuse,SBO, bipolar disorders, noncompliance, admitted with bloody diarrhea/abdominal pain x2-day duration. 1. Hematochezia -GI on board plan is colonoscopy tomorrow -PPI prophylaxis 2. Acute on chronic blood loss anemia -Stable H&H, no need for transfusion. We will give IV iron x3 doses 3. Substance abuse/meth abuse -preparation room worker evaluation -Cessation advised 4. Schizoaffective disorder/bipolar type -cont.pych meds (Seroquel 50 in a.m., 100 at p.m., Lexapro 10 daily) when stable for oral intake 5. Homelessness -SW to see pt 6. Hyperkalemia likely loss from diarrhea -Replete DVT prophylaxis: SCDs PUD prophylaxis: PPI Discussion: Follow-up colonoscopy findings. Nursing staff advised to move patient to behavioral unit on 5 E. Patient was seen in collaboration with Dr. Godoy. Result Diagram: 02/22/19 0425 02/22/19 0425 Results 24hrs Laboratory Tests Test 02/21/19 16:42 02/22/19 04:25 Hemoglobin 9.1 L 8.8 L Hematocrit 28.7 L 28.4 L White Blood Count 7.6 # Red Blood Count 3.58 L Mean Corpuscular Volume 79.3 L Mean Corpuscular Hemoglobin 24.6 L Mean Corpuscular Hemoglobin Concent 31.0 L Red Cell Distribution Width 18.1 H Platelet Count 508 H Mean Platelet Volume 9.4 Immature Granulocytes % 0.500 H Neutrophils % 68.0 Lymphocytes % 23.5 Monocytes % 6.3 Eosinophils % 1.4 Basophils % 0.3 Nucleated Red Blood Cells % 0.0 Immature Granulocytes # 0.040 H Neutrophils # 5.2 Lymphocytes # 1.8 Monocytes # 0.5 Eosinophils # 0.1 Basophils # 0.0 Nucleated Red Blood Cells # 0.0 Sodium Level 139 Potassium Level 2.8 *L Chloride Level 107 Carbon Dioxide Level 24 Anion Gap 8 Blood Urea Nitrogen 5 L Creatinine 0.63 Est Glomerular Filtrat Rate mL/min > 60 Glucose Level 162 Calcium Level 8.8 Phosphorus Level 3.0 Magnesium Level 1.9 Exam/Review of Systems Exam Vitals Vital Signs Date Temp Pulse Resp B/P (MAP) Pulse Ox O2 O2 Flow FiO2 Time Delivery Rate 02/22/19 98.1 104/57 11:14 (73) 02/22/19 73 18 98 Room Air 02:23 Intake and Output 02/21/19 02/21/19 02/22/19 1515:00 23:00 07:00 IntakeIntake Total 400 ml 900 ml BalanceBalance 400 ml 900 ml Results Results 24hrs Laboratory Tests Test 02/21/19 16:42 02/22/19 04:25 Hemoglobin 9.1 L 8.8 L Hematocrit 28.7 L 28.4 L White Blood Count 7.6 # Red Blood Count 3.58 L Mean Corpuscular Volume 79.3 L Mean Corpuscular Hemoglobin 24.6 L Mean Corpuscular Hemoglobin Concent 31.0 L Red Cell Distribution Width 18.1 H Platelet Count 508 H Mean Platelet Volume 9.4 Immature Granulocytes % 0.500 H Neutrophils % 68.0 Lymphocytes % 23.5 Monocytes % 6.3 Eosinophils % 1.4 Basophils % 0.3 Nucleated Red Blood Cells % 0.0 Immature Granulocytes # 0.040 H Neutrophils # 5.2 Lymphocytes # 1.8 Monocytes # 0.5 Eosinophils # 0.1 Basophils # 0.0 Nucleated Red Blood Cells # 0.0 Sodium Level 139 Potassium Level 2.8 *L Chloride Level 107 Carbon Dioxide Level 24 Anion Gap 8 Blood Urea Nitrogen 5 L Creatinine 0.63 Est Glomerular Filtrat Rate mL/min > 60 Glucose Level 162 Calcium Level 8.8 Phosphorus Level 3.0 Magnesium Level 1.9 Medications Medication Current Medications IV Flush (NS 3 ml) 3 ml PER PROTOCOL IV ; Start 02/21/19 at 04:30 Ondansetron HCl (Zofran Inj) 4 mg Q6H PRN IV NAUSEA/VOMITING; Start 02/21/19 at 04:30 Morphine Sulfate (morphine) 2 mg Q4H PRN IV .SEVERE PAIN 7-10 Last administered on 02/22/19at 09:46; Admin Dose 2 MG; Start 02/21/19 at 04:30 Pantoprazole (Protonix Iv) 40 mg DAILY@06 IV Last administered on 02/21/19at 09:11; Admin Dose 40 MG; Start 02/21/19 at 06:00 Albuterol/ Ipratropium (Duoneb) 3 ml Q2H RESP THERAPY PRN HHN SHORTNESS OF BREATH; Start 02/21/19 at 04:30 Chlordiazepoxide (Librium) 25 mg TID PO Last administered on 02/22/19at 12:30; Admin Dose 25 MG; Start 02/21/19 at 16:00 Lorazepam (Ativan) 1 mg Q6H PRN IV ANXIETY Last administered on 02/22/19at 11:13; Admin Dose 1 MG; Start 02/21/19 at 19:00 Magnesium Citrate (Citroma) 300 ml ONCE ONCE PO ; Start 02/22/19 at 17:30; Stop 02/22/19 at 17:31 Polyethylene Glycol (Miralax) 119 gm ONCE ONCE PO ; Start 02/22/19 at 18:30; Stop 02/22/19 at 18:31 Polyethylene Glycol (Miralax) 119 gm 2ND DOSE (GI PREP) ONCE PO ; Start 02/23/19 at 06:00; Stop 02/23/19 at 06:01 Bisacodyl (Dulcolax) 10 mg 2ND DOSE (GI PREP) ONCE PO ; Start 02/23/19 at 08:00; Stop 02/23/19 at 08:01 Potassium Chloride/Dextrose/ Sod Cl 1,000 ml @ 80 mls/hr [id number] IV Last administered on 02/22/19at 11:43; Admin Dose 80 MLS/HR; Start 02/22/19 at 12:00 Potassium Chloride (Klor-Con 20) 40 meq ONCE ONCE PO Last administered on 02/22/19at 12:31; Admin Dose 40 MEQ; Start 02/22/19 at 13:00; Stop 02/22/19 at 13:01 Ferric Sodium Gluconate Complex 125 mg/Sodium Chloride 100 ml @ 100 mls/hr DAILY@1300 IVPB ; Start 02/22/19 at 13:00; Stop 02/24/19 at 13:59; Status UNV JOYCE PARKS V. DATA ENTRY February 22, 2019 12:42
[2019-02-22] MEDS ORDERED: POTASSIUM CHLORIDE (SR) 20 MEQ TAB PO ONE (13:00)
[2019-02-22] MEDS: SOD FERRIC GLUC COMPLX 125 MG in SOD CHLORIDE 0.9% 100 ML IVPB SCH (14:40)
[2019-02-22 15:45] VITALS: BP 129/71; PULSE 76; RESP 18
--- NOTE | 2019-02-22 17:09 | PSY ---
Date/Time of Note Date/Time of Note DATE: 02/22/19 TIME: 16:59 Psychiatric Subjective Eval Consent Pt consented to telemedicine: No Subjective Evaluation Patient location: inpatient History of present illness Patient is a 38 year old Male who is currently in the medical floor .Patient reports auditory hallucination telling him he is no good and to , he reports decreased appetite, depressed mood, anhedonia, feeling of hopelessness, helplessness, but denies suicidal ideation and contracted for safety. Patient expressed interest that he would like to go to a psych unit voluntarily for observation and stabilization. Explained risk and benefits of various medications Seroquel Lexapro gabapentin and Klonopin and he verbalized understanding. Past psychiatric history Long history of mental illness and substance abuse Hospitalization: other Medical history Problems Medical Problems: (1) Abdominal pain Status: Acute (2) Abdominal pain Status: Acute (3) Abdominal pain Status: Acute (4) Abdominal pain Status: Acute (5) Acute bronchitis Status: Acute (6) Anemia Status: Acute (7) Anemia Status: Acute (8) Bronchitis Status: Acute (9) Colitis Status: Acute (10) Colonic mass Status: Acute (11) Dehydration Status: Acute (12) Diarrhea Status: Acute (13) Fracture, scapula closed Status: Acute (14) Methamphetamine abuse Status: Acute (15) Methamphetamine abuse, episodic Status: Chronic (16) Olfactory hallucination Status: Acute (17) Paranoid behavior Status: Acute (18) Partial small bowel obstruction Status: Acute (19) Psychological disorder Status: Acute (20) Psychosis Status: Acute (21) Schizoaffective disorder, chronic condition Status: Chronic (22) Shoulder pain Status: Acute (23) Small bowel obstruction Status: Acute (24) Substance abuse Status: Acute (25) Suicidal ideation Status: Acute (26) Suicidal ideation Status: Acute (27) Suicidal ideation Status: Acute (28) Tachycardia Status: Acute (29) Thrombocytosis Status: Acute Allergies: Coded Allergies: No Known Allergy (Unverified , 12/21/18) Substance Abuse Substance abuse history: Yes Prior substance abuse treatmen: Yes Social History Marital status: single DPA/Conservatorship: No Psychiatric Objective Eval Review of Systems: Review of Systems: Not Applicable Physical Examination: Physical Examination: Not Applicable Appetite: Decreased Energy: Decreased Mental Status Examination: Appearance: Poor Hygiene Eye Contact: Fair Psychomotor Activity: Slow Behavior: Cooperative Speech: Soft AFFECT: Flat Mood: Depressed Though Process: Linear Thought Content: Delusions, Hallucinations Orientation: x4 Cognition: Alert Insight: Impared Judgement: Impared Attention Span: Distractible Laboratory Results Laboratory Tests Test 02/21/19 04:35 02/21/19 16:42 02/22/19 04:25 White Blood Count 5.9 10^3/ul 7.6 10^3/ul Red Blood Count 3.36 10^6/ul 3.58 10^6/ul Hemoglobin 8.3 g/dl 9.1 g/dl 8.8 g/dl Hematocrit 26.3 % 28.7 % 28.4 % Mean Corpuscular Volume 78.3 fl 79.3 fl Mean Corpuscular Hemoglobin 24.7 pg 24.6 pg Mean Corpuscular 31.6 g/dl 31.0 g/dl Hemoglobin Concent Red Cell Distribution Width 18.1 % 18.1 % Platelet Count 477 10^3/UL 508 10^3/UL Mean Platelet Volume 9.4 fl 9.4 fl Immature Granulocytes % 1.200 % 0.500 % Neutrophils % 51.0 % 68.0 % Lymphocytes % 33.8 % 23.5 % Monocytes % 10.0 % 6.3 % Eosinophils % 3.7 % 1.4 % Basophils % 0.3 % 0.3 % Nucleated Red Blood Cells % 0.0 /100WBC 0.0 /100WBC Immature Granulocytes # 0.070 10^3/ul 0.040 10^3/ul Neutrophils # 3.0 10^3/ul 5.2 10^3/ul Lymphocytes # 2.0 10^3/ul 1.8 10^3/ul Monocytes # 0.6 10^3/ul 0.5 10^3/ul Eosinophils # 0.2 10^3/ul 0.1 10^3/ul Basophils # 0.0 10^3/ul 0.0 10^3/ul Nucleated Red Blood Cells # 0.0 10^3/ul 0.0 10^3/ul Sodium Level 140 mmol/L 139 mmol/L Potassium Level 3.3 mmol/L 2.8 mmol/L Chloride Level 110 mmol/L 107 mmol/L Carbon Dioxide Level 24 mmol/L 24 mmol/L Anion Gap 6 8 Blood Urea Nitrogen 10 mg/dl 5 mg/dl Creatinine 0.66 mg/dl 0.63 mg/dl Est Glomerular Filtrat Rate mL/min > 60 mL/min > 60 mL/min Glucose Level 87 mg/dl 162 mg/dl Calcium Level 8.6 mg/dl 8.8 mg/dl Phosphorus Level 3.7 mg/dl 3.0 mg/dl Magnesium Level 2.0 mg/dl 1.9 mg/dl Total Bilirubin 0.1 mg/dl Direct Bilirubin 0.00 mg/dl Indirect Bilirubin 0.1 mg/dl Aspartate Amino Transf (AST/SGOT) 24 IU/L Alanine 36 IU/L Aminotransferase (ALT/SGPT) Alkaline Phosphatase 80 IU/L Total Protein 5.8 g/dl Albumin 3.0 g/dl Globulin 2.80 g/dl Albumin/Globulin Ratio 1.07 Assessment and Plan Assessment/Diagnosis Diagnosis Schizoaffective disorder depressed type Recommendation/Plan Medication Management Seroquel 100 mg at bedtime, Seroquel 50 mg daily, gabapentin 400 mg twice a day, Lexapro 10 mg daily, will start patient on Klonopin when the Librium is discontinued Multiple antipsychotics: No Psychotherapy Provide supportive therapy Discharge Disposition: Other Legal Status: Voluntary SAMANTHA AGUSTIN NP February 22, 2019 17:09
[2019-02-22] MEDS ORDERED: MAGNESIUM CITRATE 300 ML BTL PO ONE (17:30)
[2019-02-22] MEDS ORDERED: POLYETHYLENE GLYCOL 3350 119 GM POWDER PO ONE (18:30)
[2019-02-22] MEDS: GABAPENTIN 400 MG CAP PO SCH (20:13)
[2019-02-22] MEDS: QUETIAPINE 25 MG TAB PO SCH (20:14)
[2019-02-22 20:35] VITALS: BP 113/67; PULSE 74; RESP 18
[2019-02-23] VITALS (16 sets, daily range): BP systolic 98–115; BP diastolic 55–74; PULSE 50–82; RESP 11–18
[2019-02-23] MEDS: D5W-0.45 NACL + KCL 20 MEQ 1,000 ML IV SCH ×3 (00:30→16:24)
[2019-02-23] MEDS: morphine 2 MG INJ IV PRN ×4 (05:20→21:23)
[2019-02-23] MEDS ORDERED: POLYETHYLENE GLYCOL 3350 119 GM POWDER PO ONE (06:00)
[2019-02-23] MEDS: PANTOPRAZOLE 40 MG INJ IV SCH (06:00)
[2019-02-23] MEDS ORDERED: PROPOFOL 200 MG INJ ONE (07:00)
[2019-02-23] MEDS ORDERED: BISACODYL (EC) 5 MG TAB PO ONE (08:00)
[2019-02-23] MEDS ORDERED: ESCITALOPRAM 10 MG TAB NGT SCH (09:00)
[2019-02-23] MEDS: QUETIAPINE 25 MG TAB PO SCH ×2 (09:21→21:22)
[2019-02-23] MEDS: GABAPENTIN 400 MG CAP PO SCH ×2 (09:21→21:22)
[2019-02-23] MEDS: ESCITALOPRAM 10 MG TAB PO SCH (09:21)
[2019-02-23] MEDS: CHLORDIAZEPOXIDE 25 MG CAP PO SCH (09:24)
--- NOTE | 2019-02-23 11:21 | PN ---
Date/Time of Note Date/Time of Note DATE: 02/23/19 TIME: 11:19 Assessment/Plan VTE Prophylaxis Risk score (from Ns)>0 risk: 1 SCD applied (from Ns): Yes Pharmacological prophylaxis: NA/contraindicated Pharm contraindication: bleeding Lines/Catheters IV [facility] (from [facility]): Peripheral IV Assessment/Plan Hospital Course SUBJECTIVE: no futher bleeding reported.for C-scope today OBJECTIVE: Vital signs-see below PHYSICAL EXAM: Constitutional: Thin built, lying in bed comfortably. Psych: nl mood/affect, no complaints Head: atraumatic, normocephalic Eyes: nl conjunctiva, nl sclera ENMT: mucosa pink and moist, nl external ears & nose Neck: non-tender, supple Respiratory: clear to auscultation, normal air movement Cardiovascular: nl pulses, regular rate and rhythm Gastrointestinal: +TENDER all quadrants..no rebound.. soft, bowel sounds active in all 4 quadrants. Musculoskeletal/extremities: nl extremities to inspection, motor strength equal bilaterally, no focal deficit. Normal pulses,no cyanosis, no edema. 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: Alert oriented 3,nl speech, nl strength Skin: nl turgor ASSESSMENT/PLAN: 38-year-old male with IVDU, meth abuse, tobacco abuse,SBO, bipo lar disorders, noncompliance, admitted with bloody diarrhea/abdominal pain x2- day duration. 1. Hematochezia -scheduled for C-scope today -PPI prophylaxis -follow gi recs 2. Acute on chronic blood loss anemia -Stable H&H, no need for transfusion. cont. IV iron x3 doses 3. Substance abuse/meth abuse -willow worker evaluation -Cessation advised 4. Schizoaffective disorder/bipolar type -cont.pych meds -appreciate psychological operations officer f/u and recs. -voluntary psych admission after dc 5. Homelessness -SW to see pt 6. Hyperkalemia likely loss from diarrhea -stable DVT prophylaxis: SCDs PUD prophylaxis: PPI Discussion: Follow-up colonoscopy findings. Nursing staff advised to move patient to behavioral unit on 5 E. Patient was seen in collaboration with Dr. Gdooy. Result Diagram: 02/23/19 1030 02/22/19 2201 Results 24hrs Laboratory Tests Test 02/22/19 22:01 02/23/19 10:30 Hemoglobin 9.1 L 9.5 L Hematocrit 29.4 L 30.4 L Potassium Level 3.8 White Blood Count 6.7 Red Blood Count 3.87 L Mean Corpuscular Volume 78.6 L Mean Corpuscular Hemoglobin 24.5 L Mean Corpuscular Hemoglobin Concent 31.3 L Red Cell Distribution Width 18.2 H Platelet Count 517 H Mean Platelet Volume 9.1 Immature Granulocytes % 0.800 H Neutrophils % 68.0 Lymphocytes % 20.5 Monocytes % 7.2 Eosinophils % 3.2 Basophils % 0.3 Nucleated Red Blood Cells % 0.0 Immature Granulocytes # 0.050 H Neutrophils # 4.5 Lymphocytes # 1.4 Monocytes # 0.5 Eosinophils # 0.2 Basophils # 0.0 Nucleated Red Blood Cells # 0.0 Exam/Review of Systems Exam Vitals Vital Signs Date Temp Pulse Resp B/P (MAP) Pulse Ox O2 O2 Flow FiO2 Time Delivery Rate 02/23/19 97.7 82 18 115/59 94 07:53 (77) 02/22/19 Room Air 02:23 Intake and Output 02/22/19 02/22/19 02/23/19 1515:00 23:00 07:00 IntakeIntake Total 485 ml 1860 ml 480 ml OutputOutput Total 1 ml BalanceBalance 484 ml 1860 ml 480 ml Results Results 24hrs Laboratory Tests Test 02/22/19 22:01 02/23/19 10:30 Hemoglobin 9.1 L 9.5 L Hematocrit 29.4 L 30.4 L Potassium Level 3.8 White Blood Count 6.7 Red Blood Count 3.87 L Mean Corpuscular Volume 78.6 L Mean Corpuscular Hemoglobin 24.5 L Mean Corpuscular Hemoglobin Concent 31.3 L Red Cell Distribution Width 18.2 H Platelet Count 517 H Mean Platelet Volume 9.1 Immature Granulocytes % 0.800 H Neutrophils % 68.0 Lymphocytes % 20.5 Monocytes % 7.2 Eosinophils % 3.2 Basophils % 0.3 Nucleated Red Blood Cells % 0.0 Immature Granulocytes # 0.050 H Neutrophils # 4.5 Lymphocytes # 1.4 Monocytes # 0.5 Eosinophils # 0.2 Basophils # 0.0 Nucleated Red Blood Cells # 0.0 Medications Medication Current Medications IV Flush (NS 3 ml) 3 ml PER PROTOCOL IV ; Start 02/21/19 at 04:30 Ondansetron HCl (Zofran Inj) 4 mg Q6H PRN IV NAUSEA/VOMITING; Start 02/21/19 at 04:30 Morphine Sulfate (morphine) 2 mg Q4H PRN IV .SEVERE PAIN 7-10 Last administered on 02/23/19 09:29; Admin Dose 2 MG; Start 02/21/19 at 04:30 Pantoprazole (Protonix Iv) 40 mg DAILY@06 IV Last administered on 02/21/19 09:11; Admin Dose 40 MG; Start 02/21/19 at 06:00 Albuterol/ Ipratropium (Duoneb) 3 ml Q2H RESP THERAPY PRN HHN SHORTNESS OF BREATH; Start 02/21/19 at 04:30 Chlordiazepoxide (Librium) 25 mg TID PO Last administered on 02/23/19 09:24; Admin Dose 25 MG; Start 02/21/19 at 16:00 Lorazepam (Ativan) 1 mg Q6H PRN IV ANXIETY Last administered on 02/22/19 20:14; Admin Dose 1 MG; Start 02/21/19 at 19:00 Potassium Chloride/Dextrose/ Sod Cl 1,000 ml @ 80 mls/hr [id number] IV Last administered on 02/22/19 11:43; Admin Dose 80 MLS/HR; Start 02/22/19 at 12:00 Ferric Sodium Gluconate Complex 125 mg/Sodium Chloride 100 ml @ 100 mls/hr DAILY@1300 IVPB Last administered on 02/22/19 14:40; Admin Dose 100 MLS/HR; Start 02/22/19 at 15:00; Stop 02/24/19 at 13:59 Quetiapine Fumarate (Seroquel) 50 mg AM PO Last administered on 02/23/19 09:21; Admin Dose 50 MG; Start 02/23/19 at 09:00 Quetiapine Fumarate (Seroquel) 100 mg HS PO Last administered on 02/22/19 20:14; Admin Dose 100 MG; Start 02/22/19 at 21:00 Escitalopram Oxalate (Lexapro) 10 mg DAILY PO Last administered on 02/23/19 09:21; Admin Dose 10 MG; Start 02/23/19 at 09:00 Gabapentin (Neurontin) 400 mg BID PO Last administered on 02/23/19 09:21; Admin Dose 400 MG; Start 02/22/19 at 21:00 JOYCE PARKS NP February 23, 2019 11:21
--- NOTE | 2019-02-23 12:20 | PREAC ---
Date/Time of Note Date/Time of Note DATE: 02/23/19 TIME: : Anesthesia Eval and Record Evaluation Time Pre-Procedure Interview DATE: 02/23/19 TIME: : Age 38 Sex male NPO: 8 hrs Preoperative diagnosis Lower GI bleed Planned procedure colonoscopy Past Medical History Past Medical History: Includes Psych: Bipolar Recreational drugs: Heroin (02/20/19), Other (methamphetamine 02/19/19) Surgery & Anesthesia Issues No known issue Meds Anticoagulation: No Beta Mayur within 24 hr: No Reason Beta Mayur not given: Pt. not on B-Mayur Unable to Obtain Active Prescriptions or Reported Meds Current Medications IV Flush (NS 3 ml) 3 ml PER PROTOCOL IV ; Start 02/21/19 at 04:30 Ondansetron HCl (Zofran Inj) 4 mg Q6H PRN IV NAUSEA/VOMITING; Start 02/21/19 at 04:30 Morphine Sulfate (morphine) 2 mg Q4H PRN IV .SEVERE PAIN 7-10 Last administered on 02/23/19at 09:29; Admin Dose 2 MG; Start 02/21/19 at 04:30 Pantoprazole (Protonix Iv) 40 mg DAILY@06 IV Last administered on 02/21/19at 09:11; Admin Dose 40 MG; Start 02/21/19 at 06:00 Albuterol/ Ipratropium (Duoneb) 3 ml Q2H RESP THERAPY PRN HHN SHORTNESS OF BREATH; Start 02/21/19 at 04:30 Lorazepam (Ativan) 1 mg Q6H PRN IV ANXIETY Last administered on 02/22/19at 20:14; Admin Dose 1 MG; Start 02/21/19 at 19:00 Potassium Chloride/Dextrose/ Sod Cl 1,000 ml @ 80 mls/hr [id number] IV Last administered on 02/22/19at 11:43; Admin Dose 80 MLS/HR; Start 02/22/19 at 12:00 Ferric Sodium Gluconate Complex 125 mg/Sodium Chloride 100 ml @ 100 mls/hr DAILY@1300 IVPB Last administered on 02/22/19at 14:40; Admin Dose 100 MLS/HR; Start 02/22/19 at 15:00; Stop 02/24/19 at 13:59 Quetiapine Fumarate (Seroquel) 50 mg AM PO Last administered on 02/23/19at 09:21; Admin Dose 50 MG; Start 02/23/19 at 09:00 Quetiapine Fumarate (Seroquel) 100 mg HS PO Last administered on 02/22/19at 20:14; Admin Dose 100 MG; Start 02/22/19 at 21:00 Escitalopram Oxalate (Lexapro) 10 mg DAILY PO Last administered on 02/23/19at 09:21; Admin Dose 10 MG; Start 02/23/19 at 09:00 Gabapentin (Neurontin) 400 mg BID PO Last administered on 02/23/19at 09:21; Admin Dose 400 MG; Start 02/22/19 at 21:00 Meds reviewed: Yes Allergies Coded Allergies: No Known Allergy (Unverified , 12/21/18) Allergies Reviewed: Yes Labs/Studies Labs Reviewed: Reviewed by anesthesiologist Result Diagram: 02/23/19 1030 02/23/19 1030 Laboratory Tests 02/23/19 10:30 test: N/A Pre-procedure Exam Last vitals Vital Signs Date Temp Pulse Resp B/P (MAP) Pulse Ox O2 O2 Flow FiO2 Time Delivery Rate 02/23/19 97.7 82 18 115/59 94 07:53 (77) 02/22/19 Room Air 02:23 Airway: Adequate mouth opening Mallampati: Mallampati II Teeth: Normal Lung: Normal Heart: Normal ASA Physical Status ASA physical status: 2 Emergency: None Planned Anesthetic General/MAC: MAC Pre-operative Attestations Prior to commencing anesthesia and surgery, the patient was re-evaluated, there was verification of: *The patient's identity *The results of appropriate recent lab work and preoperative vital signs *The above evaluation not changing prior to induction *Anesthetic plan, risk benefits, alternative and complications discussed with patient/family; questions answered; patient/family understands, accepts and wishes to proceed. KALYANI LESTER February 23, 2019 12:20
[2019-02-23] MEDS: SOD FERRIC GLUC COMPLX 125 MG in SOD CHLORIDE 0.9% 100 ML IVPB SCH (13:00)
[2019-02-23] MEDS ORDERED: LIDOCAINE 100 MG SYRINGE ONE (14:45)
[2019-02-23] MEDS ORDERED: PROPOFOL 20 ML ONE (14:45)
[2019-02-23] MEDS ORDERED: ALBUTEROL 0.083% (NEB) 2.5 MG/3 ML AMP HHN PRN (15:00)
[2019-02-23] MEDS ORDERED: MIDAZOLAM 1 MG/ML 2 ML INJ IV PRN (15:00)
[2019-02-23] MEDS ORDERED: ONDANSETRON 4 MG INJ IV PRN (15:00)
[2019-02-23] MEDS ORDERED: LABETALOL HCL 20MG INJ IV PRN (15:00)
[2019-02-23] MEDS ORDERED: hydrALAzine 20 MG INJ IV PRN (15:00)
[2019-02-23] MEDS ORDERED: OXYCODONE/ACETAMINOPHEN (5/325) TAB PO PRN ×2 (15:00)
[2019-02-23] MEDS ORDERED: HYDROmorphONE 1 MG/5 ML IV SYRINGE IV PRN ×3 (15:00)
[2019-02-23] MEDS ORDERED: MEPERIDINE 25 MG INJ IV PRN (15:00)
[2019-02-23] MEDS ORDERED: IPRATROPIUM (NEB) 0.5 MG/2.5 ML AMP HHN PRN (15:00)
[2019-02-23] MEDS ORDERED: DIPHENHYDRAMINE 50 MG INJ IV PRN (15:00)
[2019-02-23] MEDS ORDERED: FENTAnyl 50 MCG/ML VIAL IV PRN ×3 (15:00)
[2019-02-23] MEDS ORDERED: TRIMETHOBENZAMIDE 100 MG/ML VIAL IM PRN (15:00)
[2019-02-23] MEDS ORDERED: EPHEDrine SULFATE 50 MG/5 ML SYG IV PRN (15:00)
--- NOTE | 2019-02-23 15:19 | PAC ---
Date/Time of Note Date/Time of Note DATE: 02/23/19 TIME: 15:19 Post-Anesthesia Notes Post-Anesthesia Note Last documented vital signs Vital Signs Date Temp Pulse Resp B/P (MAP) Pulse Ox O2 O2 Flow FiO2 Time Delivery Rate 02/23/19 97.4 71 18 107/65 100 Room Air 14:30 (79) Activity: WNL Respiratory function: WNL Cardiovascular function: WNL Mental status: Baseline Pain reasonably controlled: Yes Hydration appropriate: Yes Nausea/Vomiting absent: Yes Wyatt Miranda M.D. February 23, 2019 15:19
[2019-02-24 02:04] VITALS: BP 111/62; PULSE 72; RESP 18
[2019-02-24] MEDS: PANTOPRAZOLE 40 MG INJ IV SCH (06:00)
[2019-02-24 07:42] VITALS: BP 120/61; PULSE 85; RESP 18
[2019-02-24] MEDS: ESCITALOPRAM 10 MG TAB PO SCH (08:45)
[2019-02-24] MEDS: GABAPENTIN 400 MG CAP PO SCH ×2 (08:45→20:09)
[2019-02-24] MEDS: QUETIAPINE 25 MG TAB PO SCH ×2 (08:46→20:12)
[2019-02-24] MEDS: morphine 2 MG INJ IV PRN ×4 (09:09→22:14)
[2019-02-24 11:44] VITALS: BP 108/57; PULSE 79; RESP 18
--- NOTE | 2019-02-24 11:45 | PN ---
Date/Time of Note Date/Time of Note DATE: 02/24/19 TIME: 11:43 Assessment/Plan VTE Prophylaxis Risk score (from Ns)>0 risk: 1 SCD applied (from Ns): No SCD contraindicated: other (scds) Pharmacological prophylaxis: other (scds) Lines/Catheters [facility] Saline Lock Assessment/Plan Hospital Course Summary Assessment and Plan: Assessment: Bloody diarrhea Colonoscopy 02/23/2019 Large obstructing clearly malignant mass proximal ascending colon. Biopsies obtained. Localization tattoo applied 6 mm sessile polyp sigmoid colon. Post saline assisted polypectomy and localization tattoo. Prominent fold versus early polyp sigmoid colon, biopsied Moderate-sized internal hemorrhoids Otherwise normal colonoscopy Remote history of distal small bowel obstruction at the level of the terminal ileum likely due to an inflammatory stricture. There is inflammatory thickening of the wall of the distal ileum Substance abuse/meth abuse/Heroin Schizoaffective disorder/bipolar type Plan: Clear liquid diet- given colonoscopy findings of large obstructing mass Await pathology results Surgical/Onc consult Pain management Patient seen in collaboration with Dr. Sanchez Subjective: Course reviewed with nursing staff Patient interviewed and examined All labs, imaging and other results reviewed Pt resting in bed transferred to [facility] Discussed results of colonoscopy, pathology pending, pt verbalized understanding. Discussed with nursing staff to monitor closely. Given findings of colonoscopy and past mental history. No c/o n/v, pt continues to c/o abd pain- pain meds as needed PHYSICAL EXAMINATION: GENERAL: Alert & oriented x 3, in no acute distress SKIN: No lesions EYES: Pupils equal reactive to light and accommodation, no discharge. EARS/NOSE AND THROAT: Ears normal, nose normal. NECK: Supple, no masses. CHEST: Inspection within normal limits. CARDIOVASCULAR: Heart: Regular rate and rhythm. RESPIRATORY: Lungs clear to auscultation GASTROINTESTINAL AND LIVER: Abdomen: Soft, gen abd tenderness- worse to left side, non-distended, no hernias, no masses, no organomegaly, no ascites, no guarding, no rebound tenderness, normoactive bowel sounds. Rectal: Deferred. Result Diagram: 02/23/19 0874 02/23/19 1030 Results 24hrs Laboratory Tests Test 02/23/19 17:34 Hemoglobin 9.6 L Hematocrit 31.4 L Exam/Review of Systems Exam Vitals Vital Signs Date Temp Pulse Resp B/P (MAP) Pulse Ox O2 O2 Flow FiO2 Time Delivery Rate 02/24/19 97.9 85 18 120/61 97 07:42 (80) 02/24/19 Room Air 02:04 02/23/19 8.0 15:44 Intake and Output 02/23/19 02/23/19 02/24/19 1515:00 23:00 07:00 IntakeIntake Total 1120 ml 990 ml BalanceBalance 1120 ml 990 ml Results Results 24hrs Laboratory Tests Test 02/23/19 17:34 Hemoglobin 9.6 L Hematocrit 31.4 L Medications Medication Current Medications IV Flush (NS 3 ml) 3 ml PER PROTOCOL IV ; Start 02/21/19 at 04:30 Ondansetron HCl (Zofran Inj) 4 mg Q6H PRN IV NAUSEA/VOMITING; Start 02/21/19 at 04:30 Morphine Sulfate (morphine) 2 mg Q4H PRN IV .SEVERE PAIN 7-10 Last administered on 02/24/19at 09:09; Admin Dose 2 MG; Start 02/21/19 at 04:30 Pantoprazole (Protonix Iv) 40 mg DAILY@06 IV Last administered on 02/21/19at 09:11; Admin Dose 40 MG; Start 02/21/19 at 06:00 Albuterol/ Ipratropium (Duoneb) 3 ml Q2H RESP THERAPY PRN HHN SHORTNESS OF BREATH; Start 02/21/19 at 04:30 Lorazepam (Ativan) 1 mg Q6H PRN IV ANXIETY Last administered on 02/22/19at 20:14; Admin Dose 1 MG; Start 02/21/19 at 19:00 Potassium Chloride/Dextrose/ Sod Cl 1,000 ml @ 80 mls/hr [id number] IV Last administered on 02/23/19 16:24; Admin Dose 80 MLS/HR; Start 02/22/19 at 12:00 Ferric Sodium Gluconate Complex 125 mg/Sodium Chloride 100 ml @ 100 mls/hr DAILY@1300 IVPB Last administered on 02/22/19at 14:40; Admin Dose 100 MLS/HR; Start 02/22/19 at 15:00; Stop 02/24/19 at 13:59 Quetiapine Fumarate (Seroquel) 50 mg AM PO Last administered on 5/9/19at 08:46; Admin Dose 50 MG; Start 02/23/19 at 09:00 Quetiapine Fumarate (Seroquel) 100 mg HS PO Last administered on 02/23/19 21:22; Admin Dose 100 MG; Start 02/22/19 at 21:00 Escitalopram Oxalate (Lexapro) 10 mg DAILY PO Last administered on 02/24/19 08:45; Admin Dose 10 MG; Start 02/23/19 at 09:00 Gabapentin (Neurontin) 400 mg BID PO Last administered on 02/24/19 08:45; Admin Dose 400 MG; Start 02/22/19 at 21:00 BRITTANIE SHOEMAKER February 24, 2019 11:45
[2019-02-24] MEDS: LORAZEPAM 2 MG INJ IV PRN ×2 (11:59→19:40)
--- NOTE | 2019-02-24 12:09 | PN ---
Date/Time of Note Date/Time of Note DATE: 02/24/19 TIME: 11:57 Assessment/Plan VTE Prophylaxis Risk score (from Ns)>0 risk: 1 SCD applied (from Ns): No SCD contraindicated: other Pharmacological prophylaxis: NA/contraindicated Pharm contraindication: low risk/ambulating Lines/Catheters [facility]from [facility] Saline Lock Assessment/Plan Hospital Course SUBJECTIVE: no further bleeding reported.for C-scope today OBJECTIVE: Vital signs-see below PHYSICAL EXAM: Constitutional: Thin built, lying in bed comfortably. Psych: nl mood/affect, no complaints Head: atraumatic, normocephalic Eyes: nl conjunctiva, nl sclera ENMT: mucosa pink and moist, nl external ears & nose Neck: non-tender, supple Respiratory: clear to auscultation, normal air movement Cardiovascular: nl pulses, regular rate and rhythm Gastrointestinal: +TENDER all quadrants..no rebound.. soft, bowel sounds active in all 4 quadrants. Musculoskeletal/extremities: nl extremities to inspection, motor strength equal bilaterally, no focal deficit. Normal pulses,no cyanosis, no edema. 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: Alert oriented 3,nl speech, nl strength Skin: nl turgor ASSESSMENT/PLAN: 38-year-old homeless male with IVDU, meth abuse, tobacco abuse,SBO, bipolar disorders, noncompliance, admitted with abdominal pain/rectal bleed, found to have large colon mass, concerning for malignancy... Large colon mass,highly suspicious for malignancy -Surprisingly this was not noted in contrast CT -s/p colonoscopy 02/23/[id number] biopsy -Oncology/surgery consultation Rectal bleed secondary to above -No further bleed. Stable H&H Acute on chronic blood loss anemia -Stable H&H, no need for transfusion. -On iron replacement. Substance abuse/meth abuse -optical worker evaluation -Cessation advised Schizoaffective disorder/bipolar type -cont.pych meds -appreciate experimental psychologist f/u and recs. -voluntary psych admission after dc Homelessness -SW to see pt DVT prophylaxis: SCDs PUD prophylaxis: PPI Discussion: Patient with a large colon mass, highly sending for malignancy. He needs surgery/oncology evaluation in house. Patient was seen in collaboration with Dr. Godoy. Result Diagram: 02/23/19 1734 02/23/19 1030 Results 24hrs Laboratory Tests Test 02/23/19 17:34 Hemoglobin 9.6 L Hematocrit 31.4 L Exam/Review of Systems Exam Vitals Vital Signs Date Temp Pulse Resp B/P (MAP) Pulse Ox O2 O2 Flow FiO2 Time Delivery Rate 02/24/19 97.9 85 18 120/61 97 07:42 (80) 02/24/19 Room Air 02:04 02/23/19 8.0 15:44 Intake and Output 02/23/19 02/23/19 02/24/19 1515:00 23:00 07:00 IntakeIntake Total 1120 ml 990 ml BalanceBalance 1120 ml 990 ml Results Results 24hrs Laboratory Tests Test 02/23/19 17:34 Hemoglobin 9.6 L Hematocrit 31.4 L Medications Medication Current Medications IV Flush (NS 3 ml) 3 ml PER PROTOCOL IV ; Start 02/21/19 at 04:30 Ondansetron HCl (Zofran Inj) 4 mg Q6H PRN IV NAUSEA/VOMITING; Start 02/21/19 at 04:30 Morphine Sulfate (morphine) 2 mg Q4H PRN IV .SEVERE PAIN 7-10 Last administered on 02/24/19at 09:09; Admin Dose 2 MG; Start 02/21/19 at 04:30 Pantoprazole (Protonix Iv) 40 mg DAILY@06 IV Last administered on 02/21/19 09:11; Admin Dose 40 MG; Start 02/21/19 at 06:00 Albuterol/ Ipratropium (Duoneb) 3 ml Q2H RESP THERAPY PRN HHN SHORTNESS OF BREATH; Start 02/21/19 at 04:30 Lorazepam (Ativan) 1 mg Q6H PRN IV ANXIETY Last administered on 02/22/19 20:14; Admin Dose 1 MG; Start 02/21/19 at 19:00 Potassium Chloride/Dextrose/ Sod Cl 1,000 ml @ 80 mls/hr [id number] IV Last administered on 02/23/19 16:24; Admin Dose 80 MLS/HR; Start 02/22/19 at 12:00 Ferric Sodium Gluconate Complex 125 mg/Sodium Chloride 100 ml @ 100 mls/hr DAILY@1300 IVPB Last administered on 02/22/19 14:40; Admin Dose 100 MLS/HR; Start 02/22/19 at 15:00; Stop 02/24/19 at 13:59 Quetiapine Fumarate (Seroquel) 50 mg AM PO Last administered on 02/24/19 08:46; Admin Dose 50 MG; Start 02/23/19 at 09:00 Quetiapine Fumarate (Seroquel) 100 mg HS PO Last administered on 02/23/19at 21:22; Admin Dose 100 MG; Start 02/22/19 at 21:00 Escitalopram Oxalate (Lexapro) 10 mg DAILY PO Last administered on 02/24/19at 08:45; Admin Dose 10 MG; Start 02/23/19 at 09:00 Gabapentin (Neurontin) 400 mg BID PO Last administered on 02/24/19 08:45; Admin Dose 400 MG; Start 02/22/19 at 21:00 JOYCE PARKS NP February 24, 2019 12:08
[2019-02-24] MEDS: SOD FERRIC GLUC COMPLX 125 MG in SOD CHLORIDE 0.9% 100 ML IVPB SCH (15:18)
[2019-02-24] MEDS: D5W-0.45 NACL + KCL 20 MEQ 1,000 ML IV SCH (15:18)
[2019-02-24] MEDS: HYDROCODONE/APAP (10/325) TAB PO PRN ×2 (15:28→19:40)
--- NOTE | 2019-02-24 15:40 | CONS ---
Assessment/Plan Assessment/Plan Hospital Course (Demo Recall) 1. Obstructing ascending colon mass: + bowel function: had lengthy conversation with pt regarding surgical options, as well as risks of not having surgery. At this time, patient would like to think about surgery. -surgical resection -follow path -tumor markers -recommend liquid diet for now 2. Abdominal pain: likely 2/2 #1 -pain mgt - as above 3. Bloody diarrhea: -monitor hh -as above 4. Hypoalbuminemia: multifactorial -optimize nutrition -as above 5. Hypochromic microcytic anemia -as above -monitor and tx as needed Thank you. Patient seen and examined in collaboration with Dr. Genaro Bhatia. Consultation Date/Type/Reason Admit Date/Time February 21, 2019 at 03:38 Date of Consultation: February 24, 2019 Type of Consult surgical Reason for Consultation colon mass Requesting Provider: JOYCE PARKS NP Date/Time of Note DATE: 02/24/19 TIME: 14:28 Hx of Present Illness Fernando Child is a 38 yo man with past medical history of substance abuse, schizophrenia, bipolar disorder,history of small bowel obstruction who presented to the hospital with complaints of bloody diarrhea. Associated symptoms include complains of nausea/vomiting as well as abdominal pain, bloody diarrhea and 30 pound weight loss in 6 months. No recent fevers, chills, congested cough, rash, neuro symptoms. He underwent colonoscopy and was noted to have an obstructing mass. Notably, he has + bowel function. General surgery was asked to evaluate. 12 ros was performed and is negative except as stated in hpi Past Medical History as above Medical History: other (See HPI) Home Meds Unable to Obtain Active Prescriptions or Reported Meds Medications Current Medications IV Flush (NS 3 ml) 3 ml PER PROTOCOL IV ; Start 02/21/19 at 04:30 Ondansetron HCl (Zofran Inj) 4 mg Q6H PRN IV NAUSEA/VOMITING; Start 02/21/19 at 04:30 Morphine Sulfate (morphine) 2 mg Q4H PRN IV .SEVERE PAIN 7-10 Last administered on 02/24/19at 12:46; Admin Dose 2 MG; Start 02/21/19 at 04:30 Pantoprazole (Protonix Iv) 40 mg DAILY@06 IV Last administered on 02/21/19at 09:11; Admin Dose 40 MG; Start 02/21/19 at 06:00 Albuterol/ Ipratropium (Duoneb) 3 ml Q2H RESP THERAPY PRN HHN SHORTNESS OF BREATH; Start 02/21/19 at 04:30 Lorazepam (Ativan) 1 mg Q6H PRN IV ANXIETY Last administered on 02/24/19 11:59; Admin Dose 1 MG; Start 02/21/19 at 19:00 Potassium Chloride/Dextrose/ Sod Cl 1,000 ml @ 80 mls/hr [id number] IV Last administered on 02/23/19 16:24; Admin Dose 80 MLS/HR; Start 02/22/19 at 12:00 Quetiapine Fumarate (Seroquel) 50 mg AM PO Last administered on 02/24/19 08:46; Admin Dose 50 MG; Start 02/23/19 at 09:00 Quetiapine Fumarate (Seroquel) 100 mg HS PO Last administered on 02/23/19 21:22; Admin Dose 100 MG; Start 02/22/19 at 21:00 Escitalopram Oxalate (Lexapro) 10 mg DAILY PO Last administered on 02/24/19 08:45; Admin Dose 10 MG; Start 02/23/19 at 09:00 Gabapentin (Neurontin) 400 mg BID PO Last administered on 02/24/19 08:45; Admin Dose 400 MG; Start 02/22/19 at 21:00 Allergies: Coded Allergies: No Known Allergy (Unverified , 12/21/18) Past Surgical History Past Surgical Hx: no surgical history, other (See HPI) Family History Significant Family History: no pertinent family hx Social History Alcohol Use: occasionally Smoking Status: Current some day smoker Drug Use: other (Methamphetamine and heroin IV and smoking) Exam/Review of Systems Exam Vitals Vital Signs Date Temp Pulse Resp B/P (MAP) Pulse Ox O2 O2 Flow FiO2 Time Delivery Rate 02/24/19 97.7 79 18 108/57 97 Room Air 11:44 (74) 02/23/19 8.0 15:44 Intake and Output 02/23/19 02/23/19 02/24/19 1515:00 23:00 07:00 IntakeIntake Total 1120 ml 990 ml BalanceBalance 1120 ml 990 ml Constitutional: alert, oriented, well developed Psych: anxiety Head: normocephalic, atraumatic Eyes: nl conjunctiva, EOMI, nl lids, nl sclera ENMT: nl external ears & nose, nl lips & teeth, nl nasal mucosa & septum, mucosa pink and moist Neck: supple, non-tender; No jvd Respiratory: normal air movement; No congested cough Cardiovascular: regular rate and rhythm, nl pulses Gastrointestinal: soft, tender (min RU/RL QUADS) Genitourinary - Male: nl penis, nl scrotum Musculoskeletal: nl extremities to inspection, nl gait and stance; No joint tenderness Extremities: normal pulses 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: nl mental status, nl speech, nl strength Skin: No rash or lesions Lymph: enlarged (Bilat groin) Results Result Diagram: 02/23/19 1734 02/23/19 1030 Results 24hrs Laboratory Tests Test 02/23/19 17:34 Hemoglobin 9.6 L Hematocrit 31.4 L Medications Medication Current Medications IV Flush (NS 3 ml) 3 ml PER PROTOCOL IV ; Start 02/21/19 at 04:30 Ondansetron HCl (Zofran Inj) 4 mg Q6H PRN IV NAUSEA/VOMITING; Start 02/21/19 at 04:30 Morphine Sulfate (morphine) 2 mg Q4H PRN IV .SEVERE PAIN 7-10 Last administered on 02/24/19at 12:46; Admin Dose 2 MG; Start 02/21/19 at 04:30 Pantoprazole (Protonix Iv) 40 mg DAILY@06 IV Last administered on 02/21/19 09:11; Admin Dose 40 MG; Start 02/21/19 at 06:00 Albuterol/ Ipratropium (Duoneb) 3 ml Q2H RESP THERAPY PRN HHN SHORTNESS OF BREATH; Start 02/21/19 at 04:30 Lorazepam (Ativan) 1 mg Q6H PRN IV ANXIETY Last administered on 02/24/19at 11:59; Admin Dose 1 MG; Start 02/21/19 at 19:00 Potassium Chloride/Dextrose/ Sod Cl 1,000 ml @ 80 mls/hr [id number] IV Last administered on 02/23/19 16:24; Admin Dose 80 MLS/HR; Start 02/22/19 at 12:00 Quetiapine Fumarate (Seroquel) 50 mg AM PO Last administered on 02/24/19 08:46; Admin Dose 50 MG; Start 02/23/19 at 09:00 Quetiapine Fumarate (Seroquel) 100 mg HS PO Last administered on 02/23/19 21:22; Admin Dose 100 MG; Start 02/22/19 at 21:00 Escitalopram Oxalate (Lexapro) 10 mg DAILY PO Last administered on 02/24/19 08:45; Admin Dose 10 MG; Start 02/23/19 at 09:00 Gabapentin (Neurontin) 400 mg BID PO Last administered on 02/24/19 08:45; Admin Dose 400 MG; Start 02/22/19 at 21:00 ROBBIE LOPEZ NP February 24, 2019 14:38
--- NOTE | 2019-02-24 15:53 | CONS ---
Assessment/Plan Assessment/Plan Assessment/Plan (Daily) 38 yo man with colon cancer of the ascending colon. Surgical resection and staging will be needed. He also has a microcytic anemia consistent with iron deficiency, likely due to the GI bleeding previously documented. He was also hypokalemic when admitted but that is now corrected. Pathology for markers is not yet available nor is the surgical staging. However, even if he is found to be a candidate for adjuvant chemotherapy, it may be difficult to arrange due to his psychiatric disorder, his drug abuse issues and his homelessness. I will f/u but nothing would be done until after he recovers from the upcoming surgery in any event. Thank you for including us in this patient's care, Garret Saeed Consultation Date/Type/Reason Admit Date/Time February 21, 2019 at 03:38 Date of Consultation: February 24, 2019 Type of Consult Oncology Reason for Consultation colon cancer Requesting Provider: JOYCE PARKS NP Date/Time of Note DATE: 02/24/19 TIME: 15:42 Hx of Present Illness 38 yo man found yesterday on colonoscopy done by Dr. Sanchez to have a tumor of the ascending colon. It is a moderately differentiated adenocarcinoma consiste nt with a colonic primary tumor. He has had GI bleeding, abdominal pain and weight loss over the last several months. Previous admissions for the same issue were limited by having him sign out AMA before colonoscopy could be done. Presently, his main conversation is about getting more analgesics. Surgical consultation is pending. Other medical history is notable for psychiatric disorder (bipolar and schizophrenic) and drug abuse. He is also homeless. Past Medical History Medical History: other (See HPI) Home Meds Unable to Obtain Active Prescriptions or Reported Meds Medications Current Medications IV Flush (NS 3 ml) 3 ml PER PROTOCOL IV ; Start 02/21/19 at 04:30 Ondansetron HCl (Zofran Inj) 4 mg Q6H PRN IV NAUSEA/VOMITING; Start 02/21/19 at 04:30 Morphine Sulfate (morphine) 2 mg Q4H PRN IV .SEVERE PAIN 7-10 Last administered on 02/24/19at 12:46; Admin Dose 2 MG; Start 02/21/19 at 04:30 Pantoprazole (Protonix Iv) 40 mg DAILY@06 IV Last administered on 02/21/19at 09:11; Admin Dose 40 MG; Start 02/21/19 at 06:00 Albuterol/ Ipratropium (Duoneb) 3 ml Q2H RESP THERAPY PRN HHN SHORTNESS OF BREATH; Start 02/21/19 at 04:30 Lorazepam (Ativan) 1 mg Q6H PRN IV ANXIETY Last administered on 02/24/19at 11:59; Admin Dose 1 MG; Start 02/21/19 at 19:00 Potassium Chloride/Dextrose/ Sod Cl 1,000 ml @ 80 mls/hr [id number] IV Last administered on 02/23/19 16:24; Admin Dose 80 MLS/HR; Start 02/22/19 at 12:00 Quetiapine Fumarate (Seroquel) 50 mg AM PO Last administered on 02/24/19 08:46; Admin Dose 50 MG; Start 02/23/19 at 09:00 Quetiapine Fumarate (Seroquel) 100 mg HS PO Last administered on 02/23/19 21:22; Admin Dose 100 MG; Start 02/22/19 at 21:00 Escitalopram Oxalate (Lexapro) 10 mg DAILY PO Last administered on 02/24/19 08:45; Admin Dose 10 MG; Start 02/23/19 at 09:00 Gabapentin (Neurontin) 400 mg BID PO Last administered on 02/24/19 08:45; Admin Dose 400 MG; Start 02/22/19 at 21:00 Acetaminophen/ Hydrocodone Bitart ([place] (10/325)) 1 tab Q4H PRN PO MODERATE PAIN LEVEL 4-6 Last administered on 02/24/19 15:28; Admin Dose 1 TAB; Start 02/24/19 at 15:00 Allergies: Coded Allergies: No Known Allergy (Unverified , 12/21/18) Past Surgical History Past Surgical Hx: no surgical history, other (See HPI) Social History Alcohol Use: occasionally Smoking Status: Current some day smoker Drug Use: other (Methamphetamine and heroin IV and smoking) Exam/Review of Systems Exam Vitals Vital Signs Date Temp Pulse Resp B/P (MAP) Pulse Ox O2 O2 Flow FiO2 Time Delivery Rate 02/24/19 97.7 79 18 108/57 97 Room Air 11:44 (74) 02/23/19 8.0 15:44 Intake and Output 02/23/19 02/23/19 02/24/19 1515:00 23:00 07:00 IntakeIntake Total 1120 ml 990 ml BalanceBalance 1120 ml 990 ml Constitutional: alert, other (IV iron is presently infusing) Head: normocephalic Eyes: other (conjunctival pallor) ENMT: nl external ears & nose Neck: supple Respiratory: clear to auscultation Cardiovascular: regular rate and rhythm Gastrointestinal: soft, tender (mild tenderness but he has gotten morphine) Extremities: normal pulses Results Result Diagram: 02/24/19 1408 02/23/19 1030 Results 24hrs Laboratory Tests Test 02/23/19 17:34 02/24/19 14:08 Hemoglobin 9.6 L 9.3 L Hematocrit 31.4 L 29.9 L White Blood Count 7.4 Red Blood Count 3.73 L Mean Corpuscular Volume 80.2 L Mean Corpuscular Hemoglobin 24.9 L Mean Corpuscular Hemoglobin Concent 31.1 L Red Cell Distribution Width 17.5 H Platelet Count 482 H Mean Platelet Volume 9.0 Immature Granulocytes % 1.000 H Neutrophils % 66.9 Lymphocytes % 21.9 Monocytes % 7.5 Eosinophils % 2.2 Basophils % 0.5 Nucleated Red Blood Cells % 0.0 Immature Granulocytes # 0.070 H Neutrophils # 4.9 Lymphocytes # 1.6 Monocytes # 0.6 Eosinophils # 0.2 Basophils # 0.0 Nucleated Red Blood Cells # 0.0 Carcinoembryonic Antigen 2.1 Medications Medication Current Medications IV Flush (NS 3 ml) 3 ml PER PROTOCOL IV ; Start 02/21/19 at 04:30 Ondansetron HCl (Zofran Inj) 4 mg Q6H PRN IV NAUSEA/VOMITING; Start 02/21/19 at 04:30 Morphine Sulfate (morphine) 2 mg Q4H PRN IV .SEVERE PAIN 7-10 Last administered on 02/24/19at 12:46; Admin Dose 2 MG; Start 02/21/19 at 04:30 Pantoprazole (Protonix Iv) 40 mg DAILY@06 IV Last administered on 02/21/19at 09:11; Admin Dose 40 MG; Start 02/21/19 at 06:00 Albuterol/ Ipratropium (Duoneb) 3 ml Q2H RESP THERAPY PRN HHN SHORTNESS OF BREATH; Start 02/21/19 at 04:30 Lorazepam (Ativan) 1 mg Q6H PRN IV ANXIETY Last administered on 02/24/19 11:59; Admin Dose 1 MG; Start 02/21/19 at 19:00 Potassium Chloride/Dextrose/ Sod Cl 1,000 ml @ 80 mls/hr [id number] IV Last administered on 02/23/19 16:24; Admin Dose 80 MLS/HR; Start 02/22/19 at 12:00 Quetiapine Fumarate (Seroquel) 50 mg AM PO Last administered on 02/24/19 08:46; Admin Dose 50 MG; Start 02/23/19 at 09:00 Quetiapine Fumarate (Seroquel) 100 mg HS PO Last administered on 02/23/19 21:22; Admin Dose 100 MG; Start 02/22/19 at 21:00 Escitalopram Oxalate (Lexapro) 10 mg DAILY PO Last administered on 02/24/19 08:45; Admin Dose 10 MG; Start 02/23/19 at 09:00 Gabapentin (Neurontin) 400 mg BID PO Last administered on 02/24/19 08:45; Admin Dose 400 MG; Start 02/22/19 at 21:00 Acetaminophen/ Hydrocodone Bitart ([place] (10/325)) 1 tab Q4H PRN PO MODERATE PAIN LEVEL 4-6 Last administered on 02/24/19 15:28; Admin Dose 1 TAB; Start 02/24/19 at 15:00 GARRET SAEED MD February 24, 2019 15:53
[2019-02-24 19:58] VITALS: BP 119/57; PULSE 79; RESP 18
[2019-02-25 02:03] VITALS: BP 108/55; PULSE 75; RESP 18
[2019-02-25] MEDS: morphine 2 MG INJ IV PRN ×6 (02:15→23:09)
[2019-02-25] MEDS: LORAZEPAM 2 MG INJ IV PRN ×4 (02:15→23:55)
[2019-02-25] MEDS: D5W-0.45 NACL + KCL 20 MEQ 1,000 ML IV SCH ×2 (02:30→09:56)
[2019-02-25] MEDS: PANTOPRAZOLE 40 MG INJ IV SCH (05:40)
[2019-02-25] MEDS: HYDROCODONE/APAP (10/325) TAB PO PRN ×4 (05:40→21:51)
[2019-02-25 08:00] VITALS: BP 106/59; PULSE 75; RESP 18
[2019-02-25] MEDS: QUETIAPINE 25 MG TAB PO SCH ×2 (08:53→19:51)
[2019-02-25] MEDS: GABAPENTIN 400 MG CAP PO SCH ×2 (08:53→19:51)
[2019-02-25] MEDS: ESCITALOPRAM 10 MG TAB PO SCH (08:53)
--- NOTE | 2019-02-25 12:25 | PN ---
Date/Time of Note Date/Time of Note DATE: 02/25/19 TIME: 12:24 Assessment/Plan Lines/Catheters IV Catheter Type (from Nrs): Peripheral IV Assessment/Plan Chief Complaint/Hosp Course 1. Obstructing ascending colon mass: + bowel function: had lengthy conversation with pt regarding surgical options, as well as risks of not having surgery. Now agreeable for surgery. -surgical resection> will schedule -follow path -tumor markers -ok for liquid diet for now 2. Abdominal pain: likely 2/2 #1 -pain mgt - as above 3. Bloody diarrhea: -monitor hh -as above 4. Hypoalbuminemia: multifactorial -optimize nutrition -as above 5. Hypochromic microcytic anemia -as above -monitor and tx as needed Thank you. Patient seen and examined in collaboration with Dr. Genaro Bhatia. Subjective 24 Hr Interval Summary pathology noted. No fevers, chills, sob, congested cough, cp, palpitations, thakkar, dizziness, n/v/d/dysuria. Exam/Review of Systems Vital Signs Vitals Vital Signs Date Temp Pulse Resp B/P (MAP) Pulse Ox O2 O2 Flow FiO2 Time Delivery Rate 02/25/19 97.9 76 18 118/60 100 14:00 (79) 02/24/19 Room Air 11:44 02/23/19 8.0 15:44 Intake and Output 02/24/19 02/24/19 02/25/19 1515:00 23:00 07:00 IntakeIntake Total 1240 ml 1060 ml 360 ml BalanceBalance 1240 ml 1060 ml 360 ml Exam Free Text/Dictation Constitutional: alert, oriented, well developed Psych: anxiety Head: normocephalic, atraumatic Eyes: nl conjunctiva, EOMI, nl lids, nl sclera ENMT: nl external ears & nose, nl lips & teeth, nl nasal mucosa & septum, muc ignacia pink and moist Neck: supple, non-tender; No jvd Respiratory: normal air movement; No congested cough Cardiovascular: regular rate and rhythm, nl pulses Gastrointestinal: soft, tender (min RU/RL QUADS) Genitourinary - Male: nl penis, nl scrotum Musculoskeletal: nl extremities to inspection, nl gait and stance; No joint tenderness Extremities: normal pulses 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: nl mental status, nl speech, nl strength Skin: No rash or lesions Lymph: enlarged (Bilat groin) Results Result Diagram: 02/25/19 0656 02/25/19 0656 ROBBIE LOPEZ NP February 25, 2019 12:25
--- NOTE | 2019-02-25 12:40 | PN ---
Date/Time of Note Date/Time of Note DATE: 02/25/19 TIME: 12:37 Assessment/Plan VTE Prophylaxis Risk score (from Ns)>0 risk: 0 SCD applied (from Ns): Yes Pharmacological prophylaxis: NA/contraindicated Pharm contraindication: low risk/ambulating Lines/Catheters [facility] (from [facility]): Peripheral IV Assessment/Plan Hospital Course SUBJECTIVE: no acute events OBJECTIVE: Vital signs-see below PHYSICAL EXAM: Constitutional: Thin built, lying in bed comfortably. Psych: nl mood/affect, no complaints Head: atraumatic, normocephalic Eyes: nl conjunctiva, nl sclera ENMT: mucosa pink and moist, nl external ears & nose Neck: non-tender, supple Respiratory: clear to auscultation, normal air movement Cardiovascular: nl pulses, regular rate and rhythm Gastrointestinal: +TENDER all quadrants..no rebound.. soft, bowel sounds active in all 4 quadrants. Musculoskeletal/extremities: nl extremities to inspection, motor strength equal bilaterally, no focal deficit. Normal pulses,no cyanosis, no edema. 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: Alert oriented 3,nl speech, nl strength Skin: nl turgor ASSESSMENT/PLAN: 38-year-old homeless male with IVDU, meth abuse, tobacco abuse,SBO, bipolar disorders, noncompliance, admitted with abdominal pain/rectal bleed, found to have large colon mass. Adenocarcinoma of ascending colon -Appreciate surgical review of case-pt has not come up w/ a decision about resection. -onco on board Rectal bleed secondary to above -No further bleed. Stable H&H Acute on chronic anemia -Stable H&H, no need for transfusion. -On iron replacement. 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 -voluntary psych admission after dc Homelessness -SW to see pt DVT prophylaxis: SCDs PUD prophylaxis: PPI Discussion: Pending patient decision regarding surgical resection of colon mass... F/u surgery/oncology recs. Patient was seen in collaboration with Dr. Godoy. Result Diagram: 02/25/19 0656 02/25/19 0656 Results 24hrs Laboratory Tests Test 02/24/19 14:08 02/25/19 06:56 02/25/19 06:56 White Blood Count 7.4 6.7 Red Blood Count 3.73 L 3.57 L Hemoglobin 9.3 L 8.8 L Hematocrit 29.9 L 28.2 L Mean Corpuscular Volume 80.2 L 79.0 L Mean Corpuscular Hemoglobin 24.9 L 24.6 L Mean Corpuscular 31.1 L 31.2 L Hemoglobin Concent Red Cell Distribution Width 17.5 H 17.5 H Platelet Count 482 H 426 H Mean Platelet Volume 9.0 9.1 Immature Granulocytes % 1.000 H 0.900 H Neutrophils % 66.9 63.0 Lymphocytes % 21.9 24.4 Monocytes % 7.5 8.0 Eosinophils % 2.2 3.4 Basophils % 0.5 0.3 Nucleated Red Blood Cells % 0.0 0.0 Immature Granulocytes # 0.070 H 0.060 H Neutrophils # 4.9 4.2 Lymphocytes # 1.6 1.6 Monocytes # 0.6 0.5 Eosinophils # 0.2 0.2 Basophils # 0.0 0.0 Nucleated Red Blood Cells # 0.0 0.0 Carcinoembryonic Antigen 2.1 Sodium Level 141 Potassium Level 4.0 Chloride Level 111 H Carbon Dioxide Level 24 Anion Gap 6 Blood Urea Nitrogen 3 L Creatinine 0.62 Est Glomerular Filtrat Rate mL/min > 60 Glucose Level 93 Calcium Level 8.2 L Lab Scanned Report REFERENCE LAB Exam/Review of Systems Exam Vitals Vital Signs Date Temp Pulse Resp B/P (MAP) Pulse Ox O2 O2 Flow FiO2 Time Delivery Rate 02/25/19 98.6 75 18 106/59 99 08:00 (75) 02/24/19 Room Air 11:44 02/23/19 8.0 15:44 Intake and Output 02/24/19 02/24/19 02/25/19 1414:59 22:59 06:59 IntakeIntake Total 1240 ml 1060 ml 360 ml BalanceBalance 1240 ml 1060 ml 360 ml Results Results 24hrs Laboratory Tests Test 02/24/19 14:08 02/25/19 06:56 02/25/19 06:56 White Blood Count 7.4 6.7 Red Blood Count 3.73 L 3.57 L Hemoglobin 9.3 L 8.8 L Hematocrit 29.9 L 28.2 L Mean Corpuscular Volume 80.2 L 79.0 L Mean Corpuscular Hemoglobin 24.9 L 24.6 L Mean Corpuscular 31.1 L 31.2 L Hemoglobin Concent Red Cell Distribution Width 17.5 H 17.5 H Platelet Count 482 H 426 H Mean Platelet Volume 9.0 9.1 Immature Granulocytes % 1.000 H 0.900 H Neutrophils % 66.9 63.0 Lymphocytes % 21.9 24.4 Monocytes % 7.5 8.0 Eosinophils % 2.2 3.4 Basophils % 0.5 0.3 Nucleated Red Blood Cells % 0.0 0.0 Immature Granulocytes # 0.070 H 0.060 H Neutrophils # 4.9 4.2 Lymphocytes # 1.6 1.6 Monocytes # 0.6 0.5 Eosinophils # 0.2 0.2 Basophils # 0.0 0.0 Nucleated Red Blood Cells # 0.0 0.0 Carcinoembryonic Antigen 2.1 Sodium Level 141 Potassium Level 4.0 Chloride Level 111 H Carbon Dioxide Level 24 Anion Gap 6 Blood Urea Nitrogen 3 L Creatinine 0.62 Est Glomerular Filtrat Rate mL/min > 60 Glucose Level 93 Calcium Level 8.2 L Lab Scanned Report REFERENCE LAB Medications Medication Current Medications IV Flush (NS 3 ml) 3 ml PER PROTOCOL IV ; Start 02/21/19 at 04:30 Ondansetron HCl (Zofran Inj) 4 mg Q6H PRN IV NAUSEA/VOMITING; Start 02/21/19 at 04:30 Morphine Sulfate (morphine) 2 mg Q4H PRN IV .SEVERE PAIN 7-10 Last administered on 02/25/19at 11:37; Admin Dose 2 MG; Start 02/21/19 at 04:30 Pantoprazole (Protonix Iv) 40 mg DAILY@06 IV Last administered on 02/25/19 05:40; Admin Dose 40 MG; Start 02/21/19 at 06:00 Albuterol/ Ipratropium (Duoneb) 3 ml Q2H RESP THERAPY PRN HHN SHORTNESS OF BREATH; Start 02/21/19 at 04:30 Lorazepam (Ativan) 1 mg Q6H PRN IV ANXIETY Last administered on 02/25/19 08:54; Admin Dose 1 MG; Start 02/21/19 at 19:00 Quetiapine Fumarate (Seroquel) 50 mg AM PO Last administered on 02/25/19 08:53; Admin Dose 50 MG; Start 02/23/19 at 09:00 Quetiapine Fumarate (Seroquel) 100 mg HS PO Last administered on 02/24/19 20:12; Admin Dose 100 MG; Start 02/22/19 at 21:00 Escitalopram Oxalate (Lexapro) 10 mg DAILY PO Last administered on 02/25/19 08:53; Admin Dose 10 MG; Start 02/23/19 at 09:00 Gabapentin (Neurontin) 400 mg BID PO Last administered on 02/25/19 08:53; Admin Dose 400 MG; Start 02/22/19 at 21:00 Acetaminophen/ Hydrocodone Bitart ([place] ()) 1 tab Q4H PRN PO MODERATE PAIN LEVEL 4-6 Last administered on 02/25/19 09:59; Admin Dose 1 TAB; Start 02/24/19 at 15:00 JOYCE PARKS NP February 25, 2019 12:40
--- NOTE | 2019-02-25 13:53 | PN ---
Date/Time of Note Date/Time of Note DATE: 02/25/19 TIME: 13:42 Assessment/Plan VTE Prophylaxis Risk score (from Ns)>0 risk: 0 SCD applied (from Ns): Yes Pharmacological prophylaxis: NA/contraindicated Pharm contraindication: other Lines/Catheters [facility] (from [facility]): Peripheral IV Assessment/Plan Assessment/Plan Assessment: Bloody diarrhea Colonoscopy 02/23/2019 Large obstructing clearly malignant mass proximal ascending colon. Biopsies obtained. Localization tattoo applied 6 mm sessile polyp sigmoid colon. Post saline assisted polypectomy and localization tattoo. Prominent fold versus early polyp sigmoid colon, biopsied Moderate-sized internal hemorrhoids Pathology shows 2 hyperplastic polyps and adenocarcinoma and ascending colon Remote history of distal small bowel obstruction at the level of the terminal ileum likely due to an inflammatory stricture. There is inflammatory thickening of the wall of the distal ileum Substance abuse/meth abuse/Heroin Schizoaffective disorder/bipolar type Plan: Clear liquid diet- given colonoscopy findings of large obstructing mass Surgical/Onc consult Pain management Patient seen in collaboration with Dr. Sanchez Subjective: Course reviewed with nursing staff Patient interviewed and examined All labs, imaging and other results reviewed Pt is complaining of upper abdominal pain. Discussed results of pathology as being positive for adenocarcinoma. Patient would like to move forward with surgery. Patient is currently on clear liquid diet. Denies nausea or vomiting. Requesting more pain medications. Continue observation. PHYSICAL EXAMINATION: GENERAL: Alert & oriented x 3, in no acute distress SKIN: No lesions EYES: Pupils equal reactive to light and accommodation, no discharge. EARS/NOSE AND THROAT: Ears normal, nose normal. NECK: Supple, no masses. CHEST: Inspection within normal limits. CARDIOVASCULAR: Heart: Regular rate and rhythm. RESPIRATORY: Lungs clear to auscultation GASTROINTESTINAL AND LIVER: Abdomen: Soft, gen abd tenderness- worse to left side, non-distended, no hernias, no masses, no organomegaly, no ascites, no guarding, no rebound tenderness, normoactive bowel sounds. Rectal: Deferred. Result Diagram: 02/25/19 0656 02/25/19 0656 Results 24hrs Laboratory Tests Test 02/24/19 14:08 02/25/19 06:56 02/25/19 06:56 White Blood Count 7.4 6.7 Red Blood Count 3.73 L 3.57 L Hemoglobin 9.3 L 8.8 L Hematocrit 29.9 L 28.2 L Mean Corpuscular Volume 80.2 L 79.0 L Mean Corpuscular Hemoglobin 24.9 L 24.6 L Mean Corpuscular 31.1 L 31.2 L Hemoglobin Concent Red Cell Distribution Width 17.5 H 17.5 H Platelet Count 482 H 426 H Mean Platelet Volume 9.0 9.1 Immature Granulocytes % 1.000 H 0.900 H Neutrophils % 66.9 63.0 Lymphocytes % 21.9 24.4 Monocytes % 7.5 8.0 Eosinophils % 2.2 3.4 Basophils % 0.5 0.3 Nucleated Red Blood Cells % 0.0 0.0 Immature Granulocytes # 0.070 H 0.060 H Neutrophils # 4.9 4.2 Lymphocytes # 1.6 1.6 Monocytes # 0.6 0.5 Eosinophils # 0.2 0.2 Basophils # 0.0 0.0 Nucleated Red Blood Cells # 0.0 0.0 Carcinoembryonic Antigen 2.1 Sodium Level 141 Potassium Level 4.0 Chloride Level 111 H Carbon Dioxide Level 24 Anion Gap 6 Blood Urea Nitrogen 3 L Creatinine 0.62 Est Glomerular Filtrat Rate mL/min > 60 Glucose Level 93 Calcium Level 8.2 L Lab Scanned Report REFERENCE LAB CC: LATA SANCHEZ MD ; Exam/Review of Systems Exam Vitals Vital Signs Date Temp Pulse Resp B/P (MAP) Pulse Ox O2 O2 Flow FiO2 Time Delivery Rate 02/25/19 98.6 75 18 106/59 99 08:00 (75) 02/24/19 Room Air 11:44 02/23/19 8.0 15:44 Intake and Output 02/24/19 02/24/19 02/25/19 1515:00 23:00 07:00 IntakeIntake Total 1240 ml 1060 ml 360 ml BalanceBalance 1240 ml 1060 ml 360 ml Results Results 24hrs Laboratory Tests Test 02/24/19 14:08 02/25/19 06:56 02/25/19 06:56 White Blood Count 7.4 6.7 Red Blood Count 3.73 L 3.57 L Hemoglobin 9.3 L 8.8 L Hematocrit 29.9 L 28.2 L Mean Corpuscular Volume 80.2 L 79.0 L Mean Corpuscular Hemoglobin 24.9 L 24.6 L Mean Corpuscular 31.1 L 31.2 L Hemoglobin Concent Red Cell Distribution Width 17.5 H 17.5 H Platelet Count 482 H 426 H Mean Platelet Volume 9.0 9.1 Immature Granulocytes % 1.000 H 0.900 H Neutrophils % 66.9 63.0 Lymphocytes % 21.9 24.4 Monocytes % 7.5 8.0 Eosinophils % 2.2 3.4 Basophils % 0.5 0.3 Nucleated Red Blood Cells % 0.0 0.0 Immature Granulocytes # 0.070 H 0.060 H Neutrophils # 4.9 4.2 Lymphocytes # 1.6 1.6 Monocytes # 0.6 0.5 Eosinophils # 0.2 0.2 Basophils # 0.0 0.0 Nucleated Red Blood Cells # 0.0 0.0 Carcinoembryonic Antigen 2.1 Sodium Level 141 Potassium Level 4.0 Chloride Level 111 H Carbon Dioxide Level 24 Anion Gap 6 Blood Urea Nitrogen 3 L Creatinine 0.62 Est Glomerular Filtrat Rate mL/min > 60 Glucose Level 93 Calcium Level 8.2 L Lab Scanned Report REFERENCE LAB Medications Medication Current Medications IV Flush (NS 3 ml) 3 ml PER PROTOCOL IV ; Start 02/21/19 at 04:30 Ondansetron HCl (Zofran Inj) 4 mg Q6H PRN IV NAUSEA/VOMITING; Start 02/21/19 at 04:30 Morphine Sulfate (morphine) 2 mg Q4H PRN IV .SEVERE PAIN 7-10 Last administered on 02/25/19at 11:37; Admin Dose 2 MG; Start 02/21/19 at 04:30 Pantoprazole (Protonix Iv) 40 mg DAILY@06 IV Last administered on 02/25/19at 05:40; Admin Dose 40 MG; Start 02/21/19 at 06:00 Albuterol/ Ipratropium (Duoneb) 3 ml Q2H RESP THERAPY PRN HHN SHORTNESS OF BREATH; Start 02/21/19 at 04:30 Lorazepam (Ativan) 1 mg Q6H PRN IV ANXIETY Last administered on 02/25/19at 0 8:54; Admin Dose 1 MG; Start 02/21/19 at 19:00 Quetiapine Fumarate (Seroquel) 50 mg AM PO Last administered on 02/25/19at 08:53; Admin Dose 50 MG; Start 02/23/19 at 09:00 Quetiapine Fumarate (Seroquel) 100 mg HS PO Last administered on 02/24/19at 20:12; Admin Dose 100 MG; Start 02/22/19 at 21:00 Escitalopram Oxalate (Lexapro) 10 mg DAILY PO Last administered on 02/25/19at 08:53; Admin Dose 10 MG; Start 02/23/19 at 09:00 Gabapentin (Neurontin) 400 mg BID PO Last administered on 02/25/19at 08:53; Admin Dose 400 MG; Start 02/22/19 at 21:00 Acetaminophen/ Hydrocodone Bitart ([place] ()) 1 tab Q4H PRN PO MODERATE PAIN LEVEL 4-6 Last administered on 02/25/19at 09:59; Admin Dose 1 TAB; Start 02/24/19 at 15:00 MIC MEDINA NP February 25, 2019 13:52
[2019-02-25 14:00] VITALS: BP 118/60; PULSE 76; RESP 18
[2019-02-25 19:44] VITALS: BP 120/56; PULSE 86; RESP 18
[2019-02-25] MEDS ORDERED: SOD FERRIC GLUC COMPLX 125 MG in SOD CHLORIDE 0.9% 100 ML IVPB ONE (21:30)
[2019-02-25] MEDS ORDERED: FERROUS FUMARATE (SR) TAB PO SCH (21:30)
[2019-02-26 01:42] VITALS: BP 118/60; PULSE 80; RESP 18
[2019-02-26] MEDS: HYDROCODONE/APAP (10/325) TAB PO PRN ×4 (03:13→16:48)
[2019-02-26] MEDS: LORAZEPAM 2 MG INJ IV PRN ×3 (04:47→18:14)
[2019-02-26] MEDS: morphine 2 MG INJ IV PRN (04:47)
[2019-02-26] MEDS: PANTOPRAZOLE (EC) 40 MG TAB PO SCH (06:05)
[2019-02-26 07:27] VITALS: BP 119/57; PULSE 91; RESP 18
[2019-02-26] MEDS: ESCITALOPRAM 10 MG TAB PO SCH (08:40)
[2019-02-26] MEDS: QUETIAPINE 25 MG TAB PO SCH ×2 (08:41→20:35)
[2019-02-26] MEDS: GABAPENTIN 400 MG CAP PO SCH ×2 (08:41→20:35)
--- NOTE | 2019-02-26 09:46 | PN ---
DATE: 02/26/2019 SUBJECTIVE: The patient is experiencing some abdominal pain. States that the present medication of morphine sulfate q.4h. p.r.n. pain is not adequate. The patient has not had nausea or vomiting. No complaints of shortness of breath or cough. OBJECTIVE: GENERAL: The patient is a well-developed, well-nourished male in no acute distress. VITAL SIGNS: Temperature 97.9 orally, pulse 91, respirations 18, blood pressure is 119/57, pulse oxi metry 100% on room air. SKIN: Pale. No ecchymoses, no petechiae or rashes. HEENT: Normocephalic. No evidence of trauma. Pupils equal, round, react to light and accommodation . Sclerae normal. Oral mucosa is moist without lesions. Conjunctivae and oral mucosa are pale. NECK: Supple. No jugular venous distention or thyroid enlargement. CHEST: Clear to assess auscultation and percussion. No rhonchi, wheezes, rales or rubs. NODES: No palpable lymphadenopathy in any lymph node bearing area. ABDOMEN: Soft, without distention. There is some minimal tenderness in the right lower quadrant, no rebound tenderness. Bowel sounds are present. EXTREMITIES: No clubbing. No edema or cyanosis. No palpable cords or Homans sign. NEUROLOGIC: Normal. LABORATORY DATA: White count 7900 with absolute neutrophil count of 4200, hemoglobin 8.8, hematocrit 28.2, platelet count 426,000. Sodium 141, potassium 4 and BUN 3, creatinine 0.62. CEA 2.1. ASSESSMENT: 1. Carcinoma of the cecum. 2. Iron deficiency anemia secondary to #1. The patient has agreed to surgery and is anxious to have surgery to resect the cecal carcinoma. The patient is receiving parenteral iron and is scheduled to receive a total of 4 infusions of ferric sodium gluconate. This will provide him with a total of 500 mg of elemental iron. Based on the pat ient's weight and hemoglobin on admission, it is calculated the patient will require a total of 1950 mg of elemental iron to replete his iron stores. As noted, the patient states that pain relief is inadequate with the 2 mg of morphine q.4h. p.r.n. We will start the patient on hydromorphone 1.5 mg every 2 hours p.r.n. pain. We will also request a chest x-ray, as this may be required prior to surgery. We will also request a protime and PTT which have not been done during this hospitalization. Dictated By: ASHLEE JOHNSON MD SR/NTS Conf#: [id number] DID#: [id number] CC: BETH CONCEPCION MD;*EndCC*
[2019-02-26] MEDS: HYDROmorphONE 2 MG/ML SYG IV PRN ×4 (10:30→20:34)
--- NOTE | 2019-02-26 11:29 | PN ---
Date/Time of Note Date/Time of Note DATE: 02/26/19 TIME: 11:28 Assessment/Plan VTE Prophylaxis Risk score (from Ns)>0 risk: 2 SCD applied (from Ns): Yes Pharmacological prophylaxis: heparin Lines/Catheters IV C[facility]from [facility] Peripheral IV Assessment/Plan Problems: (1) Colon carcinoma Status: Acute Comment: Proceed with surgery when surgery has been set up in the operating room. I believe that there can order a bowel prep for tomorrow (2) Iron deficiency anemia Status: Chronic Comment: Giving parenteral iron to get him close. See hematology consult Qualifiers: Iron deficiency anemia type: chronic blood loss Qualified Codes: D50.0 - Iron deficiency anemia secondary to blood loss (chronic) (3) Schizoaffective disorder, chronic condition Status: Chronic Comment: Stable at this time (4) Methamphetamine abuse, episodic Status: Chronic Comment: Presently clean and sober (5) Homeless single person Status: Chronic Comment: Will need to be dealt with when the patient is successfully postop Result Diagram: 02/25/19 0656 02/25/19 0656 Results 24hrs Laboratory Tests Test 02/25/19 14:18 Stool Occult Blood NEGATIVE Subjective 24 Hr Interval Summary Free Text/Dictation Patient reports he is anxious to get the surgery over with. Constitutional: no complaints Respiratory: no complaints Cardiovascular: no complaints Gastrointestinal: pain, constipation Exam/Review of Systems Exam Vitals Vital Signs Date Temp Pulse Resp B/P (MAP) Pulse Ox O2 O2 Flow FiO2 Time Delivery Rate 02/26/19 97.9 91 18 119/57 100 Room Air 07:27 (77) 02/23/19 8.0 15:44 Intake and Output 02/25/19 02/25/19 02/26/19 1515:00 23:00 07:00 IntakeIntake Total 1800 ml 1040 ml 100 ml BalanceBalance 1800 ml 1040 ml 100 ml Constitutional: alert, oriented Neck: supple, non-tender Respiratory: clear to auscultation, normal air movement Cardiovascular: regular rate and rhythm, nl pulses Gastrointestinal: soft Results Results 24hrs Laboratory Tests Test 02/25/19 14:18 Stool Occult Blood NEGATIVE Medications Medication Current Medications IV Flush (NS 3 ml) 3 ml PER PROTOCOL IV ; Start 02/21/19 at 04:30 Ondansetron HCl (Zofran Inj) 4 mg Q6H PRN IV NAUSEA/VOMITING; Start 02/21/19 at 04:30 Albuterol/ Ipratropium (Duoneb) 3 ml Q2H RESP THERAPY PRN HHN SHORTNESS OF BREATH; Start 02/21/19 at 04:30 Lorazepam (Ativan) 1 mg Q6H PRN IV ANXIETY Last administered on 02/26/19 04:47; Admin Dose 1 MG; Start 02/21/19 at 19:00 Quetiapine Fumarate (Seroquel) 50 mg AM PO Last administered on 02/26/19 08:41; Admin Dose 50 MG; Start 02/23/19 at 09:00 Quetiapine Fumarate (Seroquel) 100 mg HS PO Last administered on 02/25/19 19:51; Admin Dose 100 MG; Start 02/22/19 at 21:00 Escitalopram Oxalate (Lexapro) 10 mg DAILY PO Last administered on 02/26/19 08:40; Admin Dose 10 MG; Start 02/23/19 at 09:00 Gabapentin (Neurontin) 400 mg BID PO Last administered on 02/26/19 08:41; Admin Dose 400 MG; Start 02/22/19 at 21:00 Acetaminophen/ Hydrocodone Bitart ([place] (10/325)) 1 tab Q4H PRN PO MODERATE PAIN LEVEL 4-6 Last administered on 02/26/19 08:40; Admin Dose 1 TAB; Start 02/24/19 at 15:00 Pantoprazole (Protonix Tab) 40 mg DAILY@06 PO Last administered on 02/26/19 06:05; Admin Dose 40 MG; Start 02/26/19 at 06:00 Ferric Sodium Gluconate Complex 125 mg/Sodium Chloride 100 ml @ 100 mls/hr DAILY@1300 IVPB ; Start 02/26/19 at 13:00; Stop 02/28/19 at 13:59 Hydromorphone HCl (Dilaudid) 1.5 mg Q2 PRN IV SEVERE PAIN LEVEL 7-10 Last administered on 02/26/19at 10:30; Admin Dose 1.5 MG; Start 02/26/19 at 09:30 URSZULA AHUJA MD February 26, 2019 11:29
[2019-02-26] MEDS: SOD FERRIC GLUC COMPLX 125 MG in SOD CHLORIDE 0.9% 100 ML IVPB SCH (12:49)
[2019-02-26 13:56] VITALS: BP 113/69; PULSE 103; RESP 18
--- NOTE | 2019-02-26 17:06 | PN ---
Date/Time of Note Date/Time of Note DATE: 02/26/19 TIME: 16:48 Assessment/Plan VTE Prophylaxis Risk score (from Ns)>0 risk: 2 SCD applied (from Ns): Yes SCD contraindicated: low risk/ambulating Pharmacological prophylaxis: NA/contraindicated Pharm contraindication: low risk/ambulating Lines/Catheters IV Catheter Type (from [facility]): Peripheral IV Assessment/Plan Assessment/Plan Assessment: Bloody diarrhea Colonoscopy 02/23/2019 Large obstructing clearly malignant mass proximal ascending colon. Biopsies obtained. Localization tattoo applied 6 mm sessile polyp sigmoid colon. Post saline assisted polypectomy and l ocalization tattoo. Prominent fold versus early polyp sigmoid colon, biopsied Moderate-sized internal hemorrhoids Pathology shows 2 hyperplastic polyps and adenocarcinoma and ascending colon Remote history of distal small bowel obstruction at the level of the terminal ileum likely due to an inflammatory stricture. There is inflammatory thickening of the wall of the distal ileum Substance abuse/meth abuse/Heroin Schizoaffective disorder/bipolar type Plan: Continue full liquid diet, though could advance to low fiber diet. Surgical/Oncology consult Reviewed with the patient once more the colonoscopy findings of ascending colon cancer and need for surgery. Further recommendations per surgical team. Will sign off, please call with any further questions. Patient seen in collaboration with Dr. Sanchez Subjective: Course reviewed with nursing staff Patient interviewed and examined All labs, imaging and other results reviewed Pt is complaining of upper abdominal pain. Discussed results of pathology as being positive for adenocarcinoma. Patient would like to move forward with surgery. He reports he would like to go home then come back and have surgery if it will not be done tomorrow. Patient is currently on a full liquid diet, tolerating well. Denies nausea or vomiting. Having bowel movements. Denies abdominal pain. PHYSICAL EXAMINATION: GENERAL: Alert & oriented x 3, in no acute distress SKIN: No lesions EYES: Pupils equal reactive to light and accommodation, no discharge. EARS/NOSE AND THROAT: Ears normal, nose normal. NECK: Supple, no masses. CHEST: Inspection within normal limits. CARDIOVASCULAR: Heart: Regular rate and rhythm. RESPIRATORY: Lungs clear to auscultation GASTROINTESTINAL AND LIVER: Abdomen: Soft, gen abd tenderness- worse to left side, non-distended, no hernias, no masses, no organomegaly, no ascites, no guarding, no rebound tenderness, normoactive bowel sounds. Rectal: Deferred. Result Diagram: 02/25/1956 02/25/1956 CC: LATA SANCHEZ MD ; Exam/Review of Systems Exam Vitals Vital Signs Date Temp Pulse Resp B/P (MAP) Pulse Ox O2 O2 Flow FiO2 Time Delivery Rate 02/26/19 98.0 103 18 113/69 100 Room Air 13:56 (84) 02/23/19 8.0 15:44 Intake and Output 02/25/19 02/25/19 02/26/19 1515:00 23:00 07:00 IntakeIntake Total 1800 ml 1040 ml 100 ml BalanceBalance 1800 ml 1040 ml 100 ml Medications Medication Current Medications IV Flush (NS 3 ml) 3 ml PER PROTOCOL IV ; Start 02/21/19 at 04:30 Ondansetron HCl (Zofran Inj) 4 mg Q6H PRN IV NAUSEA/VOMITING; Start 02/21/19 at 04:30 Albuterol/ Ipratropium (Duoneb) 3 ml Q2H RESP THERAPY PRN HHN SHORTNESS OF BREATH; Start 02/21/19 at 04:30 Lorazepam (Ativan) 1 mg Q6H PRN IV ANXIETY Last administered on 02/26/19at 11:37; Admin Dose 1 MG; Start 02/21/19 at 19:00 Quetiapine Fumarate (Seroquel) 50 mg AM PO Last administered on 02/26/19at 08:41; Admin Dose 50 MG; Start 02/23/19 at 09:00 Quetiapine Fumarate (Seroquel) 100 mg HS PO Last administered on 02/25/19at 19:51; Admin Dose 100 MG; Start 02/22/19 at 21:00 Escitalopram Oxalate (Lexapro) 10 mg DAILY PO Last administered on 02/26/19 08:40; Admin Dose 10 MG; Start 02/23/19 at 09:00 Gabapentin (Neurontin) 400 mg BID PO Last administered on 02/26/19 08:41; Admin Dose 400 MG; Start 02/22/19 at 21:00 Acetaminophen/ Hydrocodone Bitart ([place] (10/325)) 1 tab Q4H PRN PO MODERATE PAIN LEVEL 4-6 Last administered on 02/26/19at 12:47; Admin Dose 1 TAB; Start 02/24/19 at 15:00 Pantoprazole (Protonix Tab) 40 mg DAILY@06 PO Last administered on 02/26/19at 06:05; Admin Dose 40 MG; Start 02/26/19 at 06:00 Ferric Sodium Gluconate Complex 125 mg/Sodium Chloride 100 ml @ 100 mls/hr DAILY@1300 IVPB Last administered on 02/26/19at 12:49; Admin Dose 100 MLS/HR; Start 02/26/19 at 13:00; Stop 02/28/19 at 13:59 Hydromorphone HCl (Dilaudid) 1.5 mg Q2 PRN IV SEVERE PAIN LEVEL 7-10 Last administered on 02/26/19at 14:06; Admin Dose 1.5 MG; Start 02/26/19 at 09:30 KYLAH PHAM NP February 26, 2019 16:58
--- NOTE | 2019-02-26 17:23 | PN ---
Date/Time of Note Date/Time of Note DATE: 02/26/19 TIME: 17:20 Assessment/Plan Lines/Catheters IV Catheter Type (from Nrs): Peripheral IV Assessment/Plan Chief Complaint/Hosp Course 1. Partially obstructing ascending colon mass: + bowel function. Agreeable for surgery. -OR this coming week -oncology following 2. Abdominal pain: likely 2/2 #1 -pain mgt - as above 3. Bloody diarrhea: -monitor hh -as above 4. Hypoalbuminemia: multifactorial -optimize nutrition -as above 5. Hypochromic microcytic anemia -as above -monitor and tx as needed 6. Psychiatric hx with hxs of leaving AMA -medical/psych optimization Thank you Subjective 24 Hr Interval Summary Patient now in agreement for surgery. Having bowel function. Liquid diet. No fevers, chills, sob, congested cough, cp, palpitations, thakkar, dizziness, n/v/d/dysuria. Exam/Review of Systems Vital Signs Vitals Vital Signs Date Temp Pulse Resp B/P (MAP) Pulse Ox O2 O2 Flow FiO2 Time Delivery Rate 02/26/19 98.0 103 18 113/69 100 Room Air 13:56 (84) 02/23/19 8.0 15:44 Intake and Output 02/25/19 02/25/19 02/26/19 1515:00 23:00 07:00 IntakeIntake Total 1800 ml 1040 ml 100 ml BalanceBalance 1800 ml 1040 ml 100 ml Exam Free Text/Dictation Constitutional: alert, oriented, well developed Psych: anxiety Head: normocephalic, atraumatic Eyes: nl conjunctiva, EOMI, nl lids, nl sclera ENMT: nl external ears & nose, nl lips & teeth, nl nasal mucosa & septum, mucosa pink and moist Neck: supple, non-tender; No jvd Respiratory: normal air movement; No congested cough Cardiovascular: regular rate and rhythm, nl pulses Gastrointestinal: soft, tender (min RU/RL QUADS) Genitourinary - Male: nl penis, nl scrotum Musculoskeletal: nl extremities to inspection, nl gait and stance; No joint tenderness Extremities: normal pulses 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: nl mental status, nl speech, nl strength Skin: No rash or lesions Lymph: shotty enlarged (Bilat groin) Results Result Diagram: 02/25/1965502/25/19655 ANA JOSHUA MD February 26, 2019 17:23
[2019-02-26 19:57] VITALS: BP 120/64; PULSE 96; RESP 18
[2019-02-27] MEDS: LORAZEPAM 2 MG INJ IV PRN ×3 (00:37→17:33)
[2019-02-27] MEDS: HYDROmorphONE 2 MG/ML SYG IV PRN ×8 (01:24→21:49)
[2019-02-27 02:17] VITALS: BP 114/65; PULSE 89; RESP 18
[2019-02-27] MEDS: PANTOPRAZOLE (EC) 40 MG TAB PO SCH (05:31)
[2019-02-27 07:17] VITALS: BP 116/63; PULSE 83; RESP 16
[2019-02-27] MEDS: QUETIAPINE 25 MG TAB PO SCH ×2 (08:14→21:48)
[2019-02-27] MEDS: ESCITALOPRAM 10 MG TAB PO SCH (08:14)
[2019-02-27] MEDS: GABAPENTIN 400 MG CAP PO SCH ×2 (08:14→21:48)
--- NOTE | 2019-02-27 09:46 | PN ---
DATE: 02/27/2019 SUBJECTIVE: The patient states pain control has been improved by the addition of the Dilaudid. The patient has no other complaints today other than some anxiety about the upcoming surgery. OBJECTIVE: GENERAL: The patient is a well-developed, well-nourished male in no acute distress. VITAL SIGNS: Temperature 98.7, pulse 80 per minute and regular, respirations 16, blood pressure 116/ 63, pulse oximetry 98% on room air. SKIN: No ecchymoses, no petechiae or rashes. HEENT: Normocephalic. No evidence of trauma. The pupils are equal, round, react to light and accom modation. Sclerae nonicteric. Oral mucosa is moist without lesions. Tongue is well papillated. Th e conjunctiva and oral mucosa are pale. NECK: Supple. No jugular venous distention or thyroid enlargement. CHEST: Clear to auscultation and percussion. No rhonchi, wheezes, rales or rubs. NODES: No palpable lymphadenopathy in any lymph node bearing area. ABDOMEN: Soft, no masses or ascites. There is mild tenderness in the right lower quadrant, but no r ebound tenderness. Bowel sounds are active. EXTREMITIES: No clubbing, edema or cyanosis. NEUROLOGIC: Normal. Chest x-ray done on 02/26/2019 is normal. Protime is 11.5 seconds, INR of 0.83, PTT is 34.3 seconds. Today, white count 6400, hemoglobin 8.9, hematocrit 29 and platelet count 402,000. ASSESSMENT: 1. Carcinoma of the cecum. 2. Iron deficiency anemia secondary to #1. As noted patient is experiencing improved pain control. The patient is receiving hydromorphone every 2 hours. Patient will again receive 25 mg of ferric sodium gluconate today. Therefore, his total d ose thus far will have been 375 mg of elemental iron. Dictated By: ASHLEE JOHNSON MD SR/NTS Conf#: [id number] DID#: [id number] CC: BETH CONCEPCION MD;*EndCC*
--- NOTE | 2019-02-27 10:01 | PN ---
Date/Time of Note Date/Time of Note DATE: 02/27/19 TIME: 09:55 Assessment/Plan VTE Prophylaxis Risk score (from [facility] [place])>0 risk: 2 SCD applied (from [facility]): No SCD contraindicated: low risk/ambulating Pharmacological prophylaxis: heparin Pharm contraindication: low risk/ambulating Lines/Catheters IV Catheter Type (from [facility]): Saline Lock Urinary Cath still in place: No Assessment/Plan Problems: (1) Colon carcinoma Status: Acute Comment: In preparation for GI tract surgery. (2) Iron deficiency anemia Status: Chronic Comment: Receiving parenteral iron. Please see the detailed discussion from Dr. Marlow Qualifiers: Iron deficiency anemia type: chronic blood loss Qualified Codes: D50.0 - Iron deficiency anemia secondary to blood loss (chronic) (3) Schizoaffective disorder, chronic condition Status: Chronic Comment: Stable at this time. (4) Methamphetamine abuse, episodic Status: Chronic Comment: Presently clean and sober (5) Homeless single person Status: Chronic Comment: Noted. This will be an issue for postop care Result Diagram: 02/27/19 0520 02/25/19 0656 Results 24hrs Laboratory Tests Test 02/27/19 05:20 White Blood Count 6.4 Red Blood Count 3.59 L Hemoglobin 8.9 L Hematocrit 29.0 L Mean Corpuscular Volume 80.8 L Mean Corpuscular Hemoglobin 24.8 L Mean Corpuscular Hemoglobin Concent 30.7 L Red Cell Distribution Width 17.6 H Platelet Count 402 Mean Platelet Volume 9.4 Immature Granulocytes % 1.700 H Neutrophils % 65.6 Lymphocytes % 22.4 Monocytes % 6.7 Eosinophils % 3.3 Basophils % 0.3 Nucleated Red Blood Cells % 0.0 Immature Granulocytes # 0.110 H Neutrophils # 4.2 Lymphocytes # 1.4 Monocytes # 0.4 Eosinophils # 0.2 Basophils # 0.0 Nucleated Red Blood Cells # 0.0 Prothrombin Time 11.5 L Prothrombin Time Ratio 0.9 INR International Normalized Ratio 0.83 Activated Partial Thromboplast Time 34.3 Subjective 24 Hr Interval Summary Constitutional: no complaints Respiratory: no complaints Cardiovascular: no complaints Gastrointestinal: no complaints Genitourinary: no complaints Exam/Review of Systems Exam Vitals Vital Signs Date Temp Pulse Resp B/P (MAP) Pulse Ox O2 O2 Flow FiO2 Time Delivery Rate 02/27/19 98.7 83 16 116/63 98 Room Air 07:17 (80) 02/23/19 8.0 15:44 Intake and Output 02/26/19 02/26/19 02/27/19 1414:59 22:59 06:59 IntakeIntake Total 1700 ml 740 ml BalanceBalance 1700 ml 740 ml Constitutional: alert, oriented Neck: supple, non-tender Respiratory: clear to auscultation, normal air movement Cardiovascular: regular rate and rhythm, nl pulses Results Results 24hrs Laboratory Tests Test 02/27/19 05:20 White Blood Count 6.4 Red Blood Count 3.59 L Hemoglobin 8.9 L Hematocrit 29.0 L Mean Corpuscular Volume 80.8 L Mean Corpuscular Hemoglobin 24.8 L Mean Corpuscular Hemoglobin Concent 30.7 L Red Cell Distribution Width 17.6 H Platelet Count 402 Mean Platelet Volume 9.4 Immature Granulocytes % 1.700 H Neutrophils % 65.6 Lymphocytes % 22.4 Monocytes % 6.7 Eosinophils % 3.3 Basophils % 0.3 Nucleated Red Blood Cells % 0.0 Immature Granulocytes # 0.110 H Neutrophils # 4.2 Lymphocytes # 1.4 Monocytes # 0.4 Eosinophils # 0.2 Basophils # 0.0 Nucleated Red Blood Cells # 0.0 Prothrombin Time 11.5 L Prothrombin Time Ratio 0.9 INR International Normalized Ratio 0.83 Activated Partial Thromboplast Time 34.3 Medications Medication Current Medications IV Flush (NS 3 ml) 3 ml PER PROTOCOL IV ; Start 02/21/19 at 04:30 Ondansetron HCl (Zofran Inj) 4 mg Q6H PRN IV NAUSEA/VOMITING Last administered on 02/26/19at 20:33; Admin Dose 4 MG; Start 02/21/19 at 04:30 Albuterol/ Ipratropium (Duoneb) 3 ml Q2H RESP THERAPY PRN HHN SHORTNESS OF PERCY ATH; Start 02/21/19 at 04:30 Lorazepam (Ativan) 1 mg Q6H PRN IV ANXIETY Last administered on 02/27/19at 09:22; Admin Dose 1 MG; Start 02/21/19 at 19:00 Quetiapine Fumarate (Seroquel) 50 mg AM PO Last administered on 02/27/19at 08:14; Admin Dose 50 MG; Start 02/23/19 at 09:00 Quetiapine Fumarate (Seroquel) 100 mg HS PO Last administered on 02/26/19 20:35; Admin Dose 100 MG; Start 02/22/19 at 21:00 Escitalopram Oxalate (Lexapro) 10 mg DAILY PO Last administered on 02/27/19 08:14; Admin Dose 10 MG; Start 02/23/19 at 09:00 Gabapentin (Neurontin) 400 mg BID PO Last administered on 02/27/19 08:14; Admin Dose 400 MG; Start 02/22/19 at 21:00 Acetaminophen/ Hydrocodone Bitart ([place] (10325)) 1 tab Q4H PRN PO MODERATE PAIN LEVEL 4-6 Last administered on 02/26/19 16:48; Admin Dose 1 TAB; Start 02/24/19 at 15:00 Pantoprazole (Protonix Tab) 40 mg DAILY@06 PO Last administered on 02/27/19 05:31; Admin Dose 40 MG; Start 02/26/19 at 06:00 Ferric Sodium Gluconate Complex 125 mg/Sodium Chloride 100 ml @ 100 mls/hr DAILY@1300 IVPB Last administered on 02/26/19 12:49; Admin Dose 100 MLS/HR; Start 02/26/19 at 13:00; Stop 02/28/19 at 13:59 Hydromorphone HCl (Dilaudid) 1.5 mg Q2 PRN IV SEVERE PAIN LEVEL 7-10 Last administered on 02/27/19 08:13; Admin Dose 1.5 MG; Start 02/26/19 at 09:30 URSZULA AHUJA MD February 27, 2019 10:00
[2019-02-27] MEDS: HYDROCODONE/APAP (10/325) TAB PO PRN ×2 (10:13→18:49)
[2019-02-27] MEDS ORDERED: NA PHOSPHATE/BIPHOS 133 ML ENEMA PR ONE (10:30)
[2019-02-27] MEDS: SOD FERRIC GLUC COMPLX 125 MG in SOD CHLORIDE 0.9% 100 ML IVPB SCH (12:57)
[2019-02-27 13:55] VITALS: BP 110/50; PULSE 97
[2019-02-27 20:23] VITALS: BP 134/72; PULSE 98; RESP 18
--- NOTE | 2019-02-27 23:16 | PN ---
Date/Time of Note Date/Time of Note DATE: 02/27/19 TIME: 23:15 Assessment/Plan Lines/Catheters IV Catheter Type (from [facility]): Saline Lock Vazquez in Place (from [facility]): No Assessment/Plan Chief Complaint/Hosp Course 1. Partially obstructing ascending colon mass: + bowel function. Agreeable for surgery. -OR this coming week -oncology following 2. Abdominal pain: likely 2/2 #1 -pain mgt - as above 3. Bloody diarrhea: -monitor hh -as above 4. Hypoalbuminemia: multifactorial -optimize nutrition -as above 5. Hypochromic microcytic anemia -as above -monitor and tx as needed 6. Psychiatric hx with hxs of leaving AMA -medical/psych optimization Thank you Subjective 24 Hr Interval Summary Bowel function. Liquid diet. No fevers, chills, sob, congested cough, cp, palpitations, thakkar, dizziness, n/v/d/dysuria. Exam/Review of Systems Vital Signs Vitals Vital Signs Date Temp Pulse Resp B/P (MAP) Pulse Ox O2 O2 Flow FiO2 Time Delivery Rate 02/27/19 97.4 98 18 134/72 97 20:23 (92) 02/27/19 Room Air 13:55 02/23/19 8.0 15:44 Intake and Output 02/26/19 02/26/19 02/27/19 1515:00 23:00 07:00 IntakeIntake Total 1700 ml 740 ml BalanceBalance 1700 ml 740 ml Exam Free Text/Dictation Constitutional: alert, oriented, well developed Psych: anxiety Head: normocephalic, atraumatic Eyes: nl conjunctiva, EOMI, nl lids, nl sclera ENMT: nl external ears & nose, nl lips & teeth, nl nasal mucosa & septum, mucosa pink and moist Neck: supple, non-tender; No jvd Respiratory: normal air movement; No congested cough Cardiovascular: regular rate and rhythm, nl pulses Gastrointestinal: soft, tender (min RU/RL QUADS) Genitourinary - Male: nl penis, nl scrotum Musculoskeletal: nl extremities to inspection, nl gait and stance; No joint tenderness Extremities: normal pulses 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: nl mental status, nl speech, nl strength Skin: No rash or lesions Lymph: shotty enlarged (Bilat groin) Results Result Diagram: 02/27/19 0520 02/25/19 0656 ANA JOSHUA MD February 27, 2019 23:16
[2019-02-28 02:02] VITALS: BP 133/71; PULSE 100; RESP 18
[2019-02-28] MEDS: LORAZEPAM 2 MG INJ IV PRN ×2 (03:23→09:27)
[2019-02-28] MEDS: PANTOPRAZOLE (EC) 40 MG TAB PO SCH (05:19)
[2019-02-28] MEDS: HYDROmorphONE 2 MG/ML SYG IV PRN ×4 (05:19→11:24)
[2019-02-28] MEDS: HYDROCODONE/APAP (10/325) TAB PO PRN ×2 (06:17→10:23)
[2019-02-28 06:31] VITALS: BP 103/76; PULSE 89; RESP 17
[2019-02-28 08:00] VITALS: BP 118/68; PULSE 108; RESP 18
[2019-02-28] MEDS: QUETIAPINE 25 MG TAB PO SCH (09:28)
[2019-02-28] MEDS: GABAPENTIN 400 MG CAP PO SCH (09:28)
[2019-02-28] MEDS: ESCITALOPRAM 10 MG TAB PO SCH (09:28)
--- NOTE | 2019-02-28 14:19 | DS ---
Date/Time of Note Date/Time of Note DATE: 02/28/19 TIME: 14:17 Discharge Summary Admission/Discharge Info Admit Date/Time February 21, 2019 at 03:38 Discharge Date/Time February 28, 2019 at 13:10 (AGAINST MEDICAL ADVICE) Discharge Diagnosis Adenocarcinoma of ascending colon. Acute on chronic anemia Substance abuse/meth abuse Schizoaffective disorder/bipolar type Homelessness Patient Condition: Stable Consults ,sx ,onco Procedures Colonoscopy 02/23/2019 Large obstructing clearly malignant mass proximal ascending colon. Biopsies obtained. Localization tattoo applied 6 mm sessile polyp sigmoid colon. Post saline assisted polypectomy and localization tattoo. Prominent fold versus early polyp sigmoid colon, biopsied Moderate-sized internal hemorrhoids Pathology shows 2 hyperplastic polyps and adenocarcinoma and ascending colon Hospital Course 38-year-old homeless male with IVDU, meth abuse, tobacco abuse,SBO, bipolar disorders, noncompliance, admitted with abdominal pain/rectal bleed. Patient's hemoglobin remained stable. Patient underwent colonoscopy which showed large colon mass with pathology positive for adenocarcinoma. Patient was being followed by surgery and oncologist. Patient did not have any further rectal bleed, stool OB was negative. Hemoglobin remained stable. Labs and vital signs stable. He had regular bowel movements. He was able to tolerate diet and activities well. As the plan was surgical resection of this mass which will be scheduled later this week, patient was found upset with surgeon for delaying the surgery and did not want to stay in the hospital any further. He decided to leave AGAINST MEDICAL ADVICE. Please note that this patient had previously had gone AMA with previous admission and was found to be noncompliant. Despite our efforts, patient had decided to leave AGAINST MEDICAL ADVICE. Patient has normal mental status and full decisional capacity. Patient under stood her condition and the risk of leaving AMA, including but not limited to permanent disability, etc., and had an opportunity to ask questions about own medical condition. The patient has been informed that the paient may return for care anytime and has been referred to primary care provider for follow-up as soon as possible. Approximately 60 m spent on coordinating the discharge on this patient. Patient was seen in collaboration with Dr. Godoy. Home Meds Unable to Obtain Active Prescriptions or Reported Meds Primary Care Provider Not On Staff Doctor JOYCE PARKS NP February 28, 2019 14:19
== END 2019-02-28 13:10 | disposition left against medical advice (07) | DRG 375 ==
LOC: MS1 03:38 → 5EC 02-24 11:41
PROVIDERS: ADMIT Internal Medicine; ATTEND Internal Medicine
PROC: 0DBK8ZX Excision of Ascending Colon, Via Natural or Artificial Opening Endoscopic, Diagnostic (ICD-10-PCS; principal; 2019-02-23 16:00)
PROC: 0DBN8ZX Excision of Sigmoid Colon, Via Natural or Artificial Opening Endoscopic, Diagnostic (ICD-10-PCS; 2019-02-23 16:00)
DX: C18.2 Malignant neoplasm of ascending colon (principal); D62 Acute posthemorrhagic anemia; K92.1 Melena; K56.690 Other partial intestinal obstruction; F25.1 Schizoaffective disorder, depressive type; E87.6 Hypokalemia; K64.8 Other hemorrhoids; F17.200 Nicotine dependence, unspecified, uncomplicated; F15.10 Other stimulant abuse, uncomplicated; F11.10 Opioid abuse, uncomplicated; Z91.19 Patient's noncompliance with other medical treatment and regimen; D50.0 Iron deficiency anemia secondary to blood loss (chronic); Z59.0 Homelessness
CPT/HCPCS: 71046; 74177; 80048; 80053; 82270; 82378; 83735; 84100; 84132; 85014; 85018; 85025; 85610; 85730; 87075; 88305; C9113; J1100; J1170; J2001; J2060; J2270; J2405; J2916; J3480; J7042; Q9967

== ENCOUNTER 2019-03-01 22:42 | Inpatient (IN) | payer OTHER ==
[~2019-03-01] VITALS: Ht 185.4 cm; Wt 70.8 kg
[2019-03-02] MEDS ORDERED: ONDANSETRON 4 MG INJ IV STA (01:43)
[2019-03-02] MEDS ORDERED: SOD CHLORIDE 0.9% 500 ML IV STA (01:43)
[2019-03-02] MEDS ORDERED: HYDROmorphONE 1 MG/ML SYG IV STA (01:43)
[2019-03-02] MEDS ORDERED: HYDROmorphONE 0.5 MG/0.5 ML SYG IV PRN (03:00)
[2019-03-02] MEDS ORDERED: ACETAMINOPHEN 325 MG TAB PO PRN (03:00)
[2019-03-02] MEDS ORDERED: ONDANSETRON 4 MG INJ IV PRN (03:00)
[2019-03-02] MEDS ORDERED: NACL 0.9% 3 ML SYG IV SCH (03:00)
--- NOTE | 2019-03-02 03:12 | HP ---
Date/Time of Note Date/Time of Note DATE: 03/02/19 TIME: 03:06 Assessment/Plan VTE Prophylaxis SCD applied (from Nsg): Yes Pharmacological prophylaxis: NA/contraindicated Pharm contraindication: low risk/ambulating Lines/Catheters IV Catheter Type (from Nrsg): Saline Lock Assessment/Plan Hospital Course This is a 38-year-old male being admitted to the [facility] floor for: #1 adenocarcinoma of ascending colon: As confirmed by imaging studies and pathology. Patient was previously being seen by oncology and general surgery and plan was to proceed to the OR however patient left AMA. He is now agreeable to be cooperative and proceed with surgery. And he is agreeable to see Dr. Bhatia the surgeon again. At the current time we will keep the patient n.p.o. given his abdominal pain nausea vomiting. We will also order a KUB to further assess. He did recently have a bowel movement. Will consult heme-onc Dr. Marlow. #2 transaminitis: will check US of RUQ. previous hepatic serologies negative, bu t given ongoing IV drug use will check repeat hepatitis panel/serologies. #3 Hx of Rectal bleed: Denies any recent bleeding. Stable h/h, continue to monitor #4 acute on chronic anemia: Stable H&H, no need for transfusion. #5 substance abuse/meth abuse: PRN Ativan for symptoms of withdrawal, social problems specialist consult. Counseled for cessation #6 schizoaffective disorder/bipolar type: Previously seen by inpatient psych. Will continue recommendations of Seroquel, Lexapro, gabapentin. #7 homelessness: Social work consult. #8 DVT GI prophylaxis: SCDs, no GI prophylaxis indicated Further treatment strategy will be implemented as per the Result Diagram: 03/02/19 02103/02/195 Results 24hrs Laboratory Tests Test 03/02/19 02:15 White Blood Count 9.7 # Red Blood Count 3.64 L Hemoglobin 9.3 L Hematocrit 29.7 L Mean Corpuscular Volume 81.6 L Mean Corpuscular Hemoglobin 25.5 L Mean Corpuscular Hemoglobin Concent 31.3 L Red Cell Distribution Width 20.0 H Platelet Count 488 #H Mean Platelet Volume 9.6 Immature Granulocytes % 2.600 H Neutrophils % 67.1 Lymphocytes % 16.2 Monocytes % 9.1 Eosinophils % 4.3 Basophils % 0.7 Nucleated Red Blood Cells % 0.3 H Immature Granulocytes # 0.250 H Neutrophils # 6.5 Lymphocytes # 1.6 Monocytes # 0.9 Eosinophils # 0.4 Basophils # 0.1 Nucleated Red Blood Cells # 0.0 Sodium Level 138 Potassium Level 4.2 Chloride Level 100 Carbon Dioxide Level 30 Anion Gap 8 Blood Urea Nitrogen 16 Creatinine 0.69 Est Glomerular Filtrat Rate mL/min > 60 Glucose Level 130 Calcium Level 9.2 Total Bilirubin 0.3 Direct Bilirubin 0.00 Indirect Bilirubin 0.3 Aspartate Amino Transf (AST/SGOT) 125 H Alanine Aminotransferase (ALT/SGPT) 211 H Alkaline Phosphatase 155 H Total Protein 7.1 Albumin 4.2 Globulin 2.90 Albumin/Globulin Ratio 1.44 Lipase 22 L HPI/ROS Admit Date/Time Admit Date/Time Hx of Present Illness Chief complaint: Abdominal pain, nausea vomiting This is a 38-year-old male with a past medical history of IV drug use and a diagnosis of adenocarcinoma of the colon who presents to the emergency department with abdominal pain nausea vomiting since he left AMA from the hospital approximately 2 days ago. Patient is a history of leaving AMA. He reports that he left AMA because he wanted to have the surgery however because he apparently drank something that the surgery had to be postponed and that made him upset. I did explain to him the reasoning behind staying n.p.o. prior to procedure and now he understands. He reports that he had a bowel movement earlier today. He did last snorted crystal meth within the last 48 hours. He denies any hematochezia or hematemesis. Allergies: NKDA Medications: See MJ ROS Const: As per HPI Eyes : No pain discharge or redness or change in visual acuity ENT: No pain, sore throat, congestion, congestion, dysphagia or discharge Respiratory: No shortness of breath, cough, sputum, wheezing, or pleuritic pain Cardiovascular: No chest pain, palpitation, PND, or edema GI : As per HPI Genitourinary: No dysuria, hematuria, flank pain , discharge or CVA tenderness Musculoskeletal: No joint pain, back pain, neck pain, restricted range of motion in neck or joints Skin: No rash, bruising or hives Neuro: No headache, dizziness, syncope, seizure, focal weakness Endocrine: No polyuria, polydipsia, temperature intolerance Psych: No hallucination, depression, anxiety or suicidal ideation PMH/Family/Social Past Medical History schizoaffective disorder/bipolar, Adenocarcinoma of the colon, chronic anemia Medications Current Medications IV Flush (NS 3 ml) 3 ml PER PROTOCOL IV ; Start 03/02/19 at 03:00 Ondansetron HCl (Zofran Inj) 4 mg Q6H PRN IV NAUSEA/VOMITING; Start 03/02/19 at 03:00 Acetaminophen (Tylenol Tab) 650 mg Q6H PRN PO .PAIN 1-3 OR TEMP; Start 03/02/19 at 03:00 Hydromorphone HCl (Dilaudid) 0.5 mg Q4H PRN IV .SEVERE PAIN 7-10; Start 03/02/19 at 03:00 Sodium Chloride 1,000 ml @ 80 mls/hr [id number] IV ; Start 03/02/19 at 03:00 Coded Allergies: No Known Allergy (Unverified , 03/02/19) Past Surgical History Colonoscopy 02/23/2019 Large obstructing clearly malignant mass proximal ascending colon. Biopsies obtained. Localization tattoo applied 6 mm sessile polyp sigmoid colon. Post saline assisted polypectomy and localization tattoo. Prominent fold versus early polyp sigmoid colon, biopsied Moderate-sized internal hemorrhoids Pathology shows 2 hyperplastic polyps and adenocarcinoma and ascending colon Past Surgical Hx: other Family History Significant Family History: no pertinent family hx Social History Smoking Status: Current every day smoker Drug Use: other (methamphetamine ) Exam/Review of Systems Vital Signs Vitals Vital Signs Date Temp Pulse Resp B/P (MAP) Pulse Ox O2 O2 Flow FiO2 Time Delivery Rate 03/02/19 101 16 119/66 100 Room Air 02:10 (83) 03/01/19 98.4 22:58 Exam Exam General: Patient is currently lying in bed he appears to be in mild abdominal distress, he is a disheveled appearing, he did bring his suitcase with him he is homeless HEENT: Atraumatic, normocephalic. The pupils are equal, round and reactive. Extraocular motor are intact Neck: Supple with full range of motion. No rigidity or meningismus Chest: Nontender Lungs: Clear to auscultation bilaterally no crackles rales or wheezing Heart: Normal S1-S2, Regular rhythm and rate. No murmur, S3, or S4 Abdomen: Soft , generalized tenderness palpation, nondistended , bowel sounds are present. No guarding no rebound tenderness , No masses or organomegaly. No costovertebral temporal angle mass Extremities: Normal to inspection, no edema no cyanosis Neurologic: Normal mental status, speech normal, cranial nerves II through XII are intact, motor and sensory are intact, no focal weakness Psych: Slightly anxious MARIA GUADALUPE MA March 02, 2019 03:12
[2019-03-02] MEDS: SOD CHLORIDE 0.9% 1,000 ML IV SCH ×2 (03:35→15:30)
[2019-03-02] MEDS: LORAZEPAM 2 MG INJ IV PRN ×3 (04:38→22:07)
[2019-03-02] MEDS: HYDROmorphONE 1 MG/ML SYG IV PRN ×4 (04:39→17:53)
[2019-03-02] MEDS ORDERED: CITA40TA6 PO (05:40)
[2019-03-02] MEDS ORDERED: QUET50TA22 PO (05:40)
[2019-03-02] MEDS ORDERED: GABA400C14 PO (05:40)
[2019-03-02] MEDS ORDERED: DOCU-216 PO (05:40)
[2019-03-02 08:00] VITALS: BP 109/57; PULSE 74; RESP 18
[2019-03-02] MEDS: QUETIAPINE 25 MG TAB PO SCH (09:00)
[2019-03-02] MEDS: ESCITALOPRAM 10 MG TAB PO SCH (09:00)
[2019-03-02] MEDS: GABAPENTIN 400 MG CAP PO SCH ×2 (09:00→20:35)
[2019-03-02 10:00] VITALS: Ht 185.4 cm; Wt 70.8 kg
--- NOTE | 2019-03-02 15:09 | PN ---
Date/Time of Note Date/Time of Note DATE: 03/02/19 TIME: 15:01 Assessment/Plan VTE Prophylaxis SCD applied (from Nsg): Yes Pharmacological prophylaxis: other Pharm contraindication: low risk/ambulating Lines/Catheters IV Catheter Type (from Nrsg): Saline Lock Assessment/Plan Assessment/Plan 1. Ascending colon adenocarcinoma, follow up with surgery and oncology 2. Transaminitis, unremarkable US, follow up with LFTs 3. Microcytic anemia, colon cancer related, follow up with H/H 4. Substance abuse/meth abuse: PRN Ativan for symptoms of withdrawal, medical social worker consult. Counseled for cessation 5. Schizoaffective disorder/bipolar type: Previously seen by inpatient psych. Will continue recommendations of Seroquel, Lexapro, gabapentin. 6. Homelessness: Social work consult. 7. DVT GI prophylaxis: SCDs Result Diagram: 03/02/195 03/02/19 0215 Results 24hrs Laboratory Tests Test 03/02/19 02:14 03/02/19 02:15 Ethyl Alcohol Level < 10.0 H White Blood Count 9.7 # Red Blood Count 3.64 L Hemoglobin 9.3 L Hematocrit 29.7 L Mean Corpuscular Volume 81.6 L Mean Corpuscular Hemoglobin 25.5 L Mean Corpuscular Hemoglobin Concent 31.3 L Red Cell Distribution Width 20.0 H Platelet Count 488 #H Mean Platelet Volume 9.6 Immature Granulocytes % 2.600 H Neutrophils % 67.1 Lymphocytes % 16.2 Monocytes % 9.1 Eosinophils % 4.3 Basophils % 0.7 Nucleated Red Blood Cells % 0.3 H Immature Granulocytes # 0.250 H Neutrophils # 6.5 Lymphocytes # 1.6 Monocytes # 0.9 Eosinophils # 0.4 Basophils # 0.1 Nucleated Red Blood Cells # 0.0 Sodium Level 138 Potassium Level 4.2 Chloride Level 100 Carbon Dioxide Level 30 Anion Gap 8 Blood Urea Nitrogen 16 Creatinine 0.69 Est Glomerular Filtrat Rate mL/min > 60 Glucose Level 130 Calcium Level 9.2 Total Bilirubin 0.3 Direct Bilirubin 0.00 Indirect Bilirubin 0.3 Aspartate Amino Transf (AST/SGOT) 125 H Alanine Aminotransferase (ALT/SGPT) 211 H Alkaline Phosphatase 155 H Total Protein 7.1 Albumin 4.2 Globulin 2.90 Albumin/Globulin Ratio 1.44 Lipase 22 L Hepatitis A Antibody Total POSITIVE H Hepatitis B Surface Antigen NEGATIVE Hepatitis B Surface Antibody NEGATIVE Hepatitis B Core Total Antibody NEGATIVE Hepatitis C Antibody NEGATIVE Subjective 24 Hr Interval Summary Free Text/Dictation abdominal pain with some nausea Exam/Review of Systems Exam Vitals Vital Signs Date Temp Pulse Resp B/P (MAP) Pulse Ox O2 O2 Flow FiO2 Time Delivery Rate 03/02/19 97.1 81 18 135/98 100 Room Air 08:00 (110) Constitutional: alert, oriented, well developed Head: normocephalic, atraumatic Eyes: nl conjunctiva, EOMI, nl lids, PERRL ENMT: nl external ears & nose, nl lips & teeth, nl nasal mucosa & septum Neck: supple, non-tender Respiratory: clear to auscultation, normal air movement; No congested cough, No crackles/rales, No diminished breath sounds, No intercostal retraction, No labored breathing, No respirations, No tactile fremitus, No wheezing, No other Cardiovascular: regular rate and rhythm, nl pulses; No bruits, No diastolic murmur, No edema, No gallop, No irregular rhythm, No jugular venous distention (JVD), No murmurs/extra sounds, No rub, No systolic murmur, No S3, No S4, No other Gastrointestinal: soft, nl liver, spleen, tender Musculoskeletal: nl extremities to inspection Extremities: normal pulses; No calf tenderness, No cyanosis, No clubbing, No edema, No pitting pedal edema, No palpable cord, No tenderness, No other 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: 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 intact, nl mental status, nl speech, nl strength Skin: nl turgor Results Results 24hrs Laboratory Tests Test 03/02/19 02:14 03/02/19 02:15 Ethyl Alcohol Level < 10.0 H White Blood Count 9.7 # Red Blood Count 3.64 L Hemoglobin 9.3 L Hematocrit 29.7 L Mean Corpuscular Volume 81.6 L Mean Corpuscular Hemoglobin 25.5 L Mean Corpuscular Hemoglobin Concent 31.3 L Red Cell Distribution Width 20.0 H Platelet Count 488 #H Mean Platelet Volume 9.6 Immature Granulocytes % 2.600 H Neutrophils % 67.1 Lymphocytes % 16.2 Monocytes % 9.1 Eosinophils % 4.3 Basophils % 0.7 Nucleated Red Blood Cells % 0.3 H Immature Granulocytes # 0.250 H Neutrophils # 6.5 Lymphocytes # 1.6 Monocytes # 0.9 Eosinophils # 0.4 Basophils # 0.1 Nucleated Red Blood Cells # 0.0 Sodium Level 138 Potassium Level 4.2 Chloride Level 100 Carbon Dioxide Level 30 Anion Gap 8 Blood Urea Nitrogen 16 Creatinine 0.69 Est Glomerular Filtrat Rate mL/min > 60 Glucose Level 130 Calcium Level 9.2 Total Bilirubin 0.3 Direct Bilirubin 0.00 Indirect Bilirubin 0.3 Aspartate Amino Transf (AST/SGOT) 125 H Alanine Aminotransferase (ALT/SGPT) 211 H Alkaline Phosphatase 155 H Total Protein 7.1 Albumin 4.2 Globulin 2.90 Albumin/Globulin Ratio 1.44 Lipase 22 L Hepatitis A Antibody Total POSITIVE H Hepatitis B Surface Antigen NEGATIVE Hepatitis B Surface Antibody NEGATIVE Hepatitis B Core Total Antibody NEGATIVE Hepatitis C Antibody NEGATIVE Medications Medication Current Medications IV Flush (NS 3 ml) 3 ml PER PROTOCOL IV ; Start 03/02/19 at 03:00 Ondansetron HCl (Zofran Inj) 4 mg Q6H PRN IV NAUSEA/VOMITING Last administered on 03/02/19at 04:38; Admin Dose 4 MG; Start 03/02/19 at 03:00 Acetaminophen (Tylenol Tab) 650 mg Q6H PRN PO .PAIN 1-3 OR TEMP; Start 03/02/19 at 03:00 Sodium Chloride 1,000 ml @ 80 mls/hr [id number] IV Last administered on 03/02/19at 03:35; Admin Dose 80 MLS/HR; Start 03/02/19 at 03:00 Lorazepam (Ativan) 1 mg Q8 PRN IV ANXIETY Last administered on 03/02/19at 12:46; Admin Dose 1 MG; Start 03/02/19 at 04:30 Quetiapine Fumarate (Seroquel) 100 mg QHS PO ; Start 03/02/19 at 21:00 Quetiapine Fumarate (Seroquel) 50 mg DAILY PO ; Start 03/02/19 at 09:00 Escitalopram Oxalate (Lexapro) 10 mg DAILY PO ; Start 03/02/19 at 09:00 Gabapentin (Neurontin) 400 mg BID PO ; Start 03/02/19 at 09:00 Ferric Sodium Gluconate Complex 125 mg/Sodium Chloride 110 ml @ 110 mls/hr DAILY@1300 IVPB ; Start 03/02/19 at 14:30; Stop 03/06/19 at 13:59 Hydromorphone HCl (Dilaudid) 1 mg Q3H PRN IV .SEVERE PAIN 7-10 Last administered on 03/02/19at 14:00; Admin Dose 1 MG; Start 03/02/19 at 14:00 JACQUE JORDAN MD March 02, 2019 15:09
[2019-03-02] MEDS: SOD FERRIC GLUC COMPLX 125 MG in SOD CHLORIDE 0.9% 100 ML IVPB SCH (16:26)
--- NOTE | 2019-03-02 19:17 | CONS ---
DATE OF ADMISSION: 03/02/2019 DATE OF CONSULTATION: 03/02/2019 TYPE OF CONSULTATION: Medical oncology. PHYSICIAN REQUESTING CONSULTATION: Napoleon Ma MD and Katie Arce MD REASON FOR CONSULTATION: Colon carcinoma. Dear Doctors Rivera and Dr. Arce: Thank you very much for asking me to see this very pleasant gentleman in oncologic consultation. As you know, we are familiar with Mr. Child, who was seen during his last admission of 02/21/2019 thro [facility] 02/28/2019. At that time, the patient was admitted with complaints of abdominal pain and GI bleeding. Ultimately , the patient did undergo a colonoscopy which revealed the lesion in the ascending colon. Biopsy of this lesion was interpreted as being consistent with moderately differentiated adenocarcinoma. Genom ic studies are pending at this time for KRAS, BRAF, mismatch repair and microsatellite instability. The patient was found at that time to have CEA of 2.1. Also, the patient on admission had a hemoglob in of 8.3 and hematocrit of 26.3. The patient was felt to be iron deficient and was treated with inf usions of ferric chloride. The patient received a total of 5 infusions totalling 625 mg of elemental iron. It had been calculated that the patient would require 1950 mg of elemental iron in order to r eplete his iron stores. Imaging studies done during that admission include a CT scan of the abdomen and pelvis which did show mild circumferential wall thickening of the cecum. There was no evidence of bowel obstruction at th at time. There was no other intraabdominal abnormality. No mesenteric or retroperitoneal lymphadeno jill. A chest x-ray at that time showed no acute disease. It should be noted that the patient previously had colonoscopy approximately 2 months earlier. This, however, was not successful as the preparation was poor. The patient unfortunately signed out of the hospital AMA on 02/28/2019. He was upset because a defin ite surgical time had not been arranged. The patient's past history includes possible psychiatric history with bipolar disorder and schizophre travis. The patient unfortunately was homeless and remains homeless at this time. The patient, as mentioned, also has a hypochromic microcytic anemia most consistent with iron deficie ncy anemia. The patient is now readmitted to [facility] and continues to complain of abdominal pain. He has not had nausea or vomiting. He has had no hematemesis, but there has been some melena. PAST MEDICAL HISTORY: As noted includes diagnosis of poorly differentiated adenocarcinoma of the col on. The patient also has the psychiatric history as noted above. There is no known history of hyper tension, heart disease, diabetes, renal or hepatic disease. MEDICATIONS: Unclear what medications the patient was taken at the time of this admission. On previ ous admission, the patient had been receivin. Hydromorphone intravenously. 2. Seroquel. 3. Lexapro. 4. Lorazepam. ALLERGIES: HE HAS NO KNOWN ALLERGIES. At this time on admission, the patient's white count is 9700 with an absolute neutrophil count of 650 0, hemoglobin 9.3, hematocrit 29.7, MCV 81.6, MCH 25.5, MCHC 31.3 and platelet count 488,000. Compre hensive metabolic panel reveals AST of 125, ALT 211, alkaline phosphatase 155, total bilirubin is 0.3 , indirect is 0. Creatinine is 0.69, BUN 16. Hepatitis serologies have been obtained. The patient does have hepatitis A antibodies, but hepatitis B surface antigen and antibody are negative as well as core antibody and hepatitis C. PHYSICAL EXAMINATION: GENERAL: At this time reveals a well-developed, well-nourished male who is in no acute distress. VITAL SIGNS: Temperature 97.1 orally, pulse 81 per minute and regular, respirations 18, blood pressu re is 135/98 and pulse oximetry is 100% on room air. SKIN: Pale. No ecchymosis, no petechiae or rashes. HEENT: Normocephalic. No evidence of trauma. Pupils are equal, round, react to light and accommoda tion. Sclerae are nonicteric. Oral mucosa is moist without lesions. Tongue is well papillated. Th ere is no gingival hyperplasia, no hypertrophy of Waldeyer's ring, no mucosal telangiectasias. The o ral mucosa and conjunctivae are pale. NECK: Supple. No jugular venous distention or thyroid enlargement. No carotid bruits. CHEST: Clear to auscultation and percussion. No rhonchi, wheezes, rales or rubs. There is no pain on percussion of the spine, sternum, clavicles or ribs. HEART: Regular sinus rhythm. No S3, S4 or murmurs. No rubs. NODES: No palpable lymphadenopathy in lymph node bearing area. ABDOMEN: Flat and soft. There is no organomegaly or masses. There is tenderness on palpation of th e right lower and mid abdomen, but no rebound. Bowel sounds are active. EXTREMITIES: Good range of motion. No clubbing, no edema or cyanosis. No palpable cords or Homans sign. NEUROLOGIC: Normal. This patient does have a biopsy-proven carcinoma of the ascending colon. Clinical staging thus far d oes not show any evidence of metastatic disease. The patient is to be scheduled for colon resection. He had been scheduled in the past but signed out against medical advice when there was some delay in surgery. The patient does have iron deficiency anemia. As noted, he has received a total of 625 mg of element al iron during the previous admission. His requirement for iron has been calculated to be 1950 mg; t herefore, we will order daily infusions of ferric chloride again. The patient will get 125 mg daily for 5 days. Pain control previously was an issue. If this patient is not given adequate pain relief, I am concer n that he will again sign out AMA. The patient does have a history of drug abuse in the past and the refore may require higher doses than anticipated. We will order a hydromorphone again 1.5 mg every 2 hours p.r.n. pain. As noted, the patient's CEA on last admission was only 2.1. Therefore, this would not be a useful ma rker following surgery. Need for adjuvant chemotherapy will of course depend upon findings at the time of surgery. The patie nt will be a poor candidate for therapy given his social situation. Dictated By: ASHLEE JOHNSON MD SR/NTS Conf#: [id number] DID#: [id number] CC: NAPOLEON MA MD;*EndCC*
[2019-03-02 19:24] VITALS: BP 107/67; PULSE 86; RESP 18; RESP 86
[2019-03-02] MEDS: HYDROmorphONE 2 MG/ML SYG IV PRN (20:36)
[2019-03-02] MEDS ORDERED: QUETIAPINE 100 MG TAB PO SCH (21:00)
[2019-03-03 02:01] VITALS: BP 98/51; PULSE 67; RESP 18
[2019-03-03] MEDS: SOD CHLORIDE 0.9% 1,000 ML IV SCH (05:36)
[2019-03-03 08:00] VITALS: BP 101/54; PULSE 80; RESP 18
[2019-03-03] MEDS: HYDROmorphONE 2 MG/ML SYG IV PRN ×4 (08:03→15:31)
[2019-03-03] MEDS: ESCITALOPRAM 10 MG TAB PO SCH (08:07)
[2019-03-03] MEDS: QUETIAPINE 25 MG TAB PO SCH (08:08)
[2019-03-03] MEDS: GABAPENTIN 400 MG CAP PO SCH (08:08)
[2019-03-03] MEDS: LORAZEPAM 2 MG INJ IV PRN (09:20)
--- NOTE | 2019-03-03 12:05 | PN ---
Date/Time of Note Date/Time of Note DATE: 03/03/19 TIME: 11:58 Assessment/Plan VTE Prophylaxis Risk score (from Ns)>0 risk: 2 SCD applied (from [facility]): Yes Pharmacological prophylaxis: other Pharm contraindication: low risk/ambulating Lines/Catheters [facility] Assessment/Plan Assessment/Plan 1. Ascending colon adenocarcinoma, follow up with surgery and oncology 2. Transaminitis, unremarkable US, improving, follow up with LFTs 3. Microcytic anemia, colon cancer related, follow up with H/H 4. Substance abuse/meth abuse: PRN Ativan for symptoms of withdrawal, psychotherapist social worker consult. Counseled for cessation 5. Schizoaffective disorder/bipolar type: Previously seen by inpatient psych. Will continue recommendations of Seroquel, Lexapro, gabapentin. 6. Homelessness: Social work consult. 7. DVT GI prophylaxis: SCDs 8. I talked with Dr. Bhatia, Dr. Ashford, and case hardener yesterday. No available surgeon yet. I talked with the case hardener today who talked to PSYCHOLOGICAL STRESS EVALUATOR yesterday and will talked to PSYCHOLOGICAL STRESS EVALUATOR today about this issue. Result Diagram: 03/03/19 0541 03/03/19 0541 Results 24hrs Laboratory Tests Test 03/03/19 05:41 White Blood Count 6.2 # Red Blood Count 3.29 L Hemoglobin 8.3 L Hematocrit 26.9 L Mean Corpuscular Volume 81.8 L Mean Corpuscular Hemoglobin 25.2 L Mean Corpuscular Hemoglobin Concent 30.9 L Red Cell Distribution Width 19.9 H Platelet Count 395 Mean Platelet Volume 9.8 Immature Granulocytes % 1.100 H Neutrophils % 61.0 Lymphocytes % 25.1 Monocytes % 8.4 Eosinophils % 4.1 Basophils % 0.3 Nucleated Red Blood Cells % 0.0 Immature Granulocytes # 0.070 H Neutrophils # 3.8 Lymphocytes # 1.6 Monocytes # 0.5 Eosinophils # 0.3 Basophils # 0.0 Nucleated Red Blood Cells # 0.0 Prothrombin Time 11.9 Prothrombin Time Ratio 0.9 INR International Normalized Ratio 0.87 Activated Partial Thromboplast Time 33.2 Sodium Level 141 Potassium Level 4.4 Chloride Level 111 H Carbon Dioxide Level 25 Anion Gap 5 Blood Urea Nitrogen 8 Creatinine 0.59 L Est Glomerular Filtrat Rate mL/min > 60 Glucose Level 93 Calcium Level 8.9 Total Bilirubin 0.3 Direct Bilirubin 0.00 Indirect Bilirubin 0.3 Aspartate Amino Transf (AST/SGOT) 58 #H Alanine Aminotransferase (ALT/SGPT) 138 H Alkaline Phosphatase 95 Total Protein 5.2 #L Albumin 2.9 #L Globulin 2.30 Albumin/Globulin Ratio 1.26 Hepatitis B Surface Antigen NEGATIVE Hepatitis B Core Total Antibody NEGATIVE Hepatitis C Antibody NEGATIVE Subjective 24 Hr Interval Summary Free Text/Dictation tolkerates liquid diet, no nausea or vomiting Exam/Review of Systems Exam Vitals Vital Signs Date Temp Pulse Resp B/P (MAP) Pulse Ox O2 O2 Flow FiO2 Time Delivery Rate 03/03/19 98.0 80 18 101/54 98 08:00 (70) 03/02/19 Room Air 08:00 Intake and Output 03/02/19 03/02/19 03/03/19 1515:00 23:00 07:00 IntakeIntake Total 0 ml 660 ml 450 ml BalanceBalance 0 ml 660 ml 450 ml Constitutional: alert, oriented, well developed Head: normocephalic, atraumatic Eyes: nl conjunctiva, EOMI, nl lids, PERRL ENMT: nl external ears & nose, nl lips & teeth, nl nasal mucosa & septum Neck: supple, non-tender Respiratory: clear to auscultation, normal air movement; No congested cough, No crackles/rales, No diminished breath sounds, No intercostal retraction, No labored breathing, No respirations, No tactile fremitus, No wheezing, No other Cardiovascular: regular rate and rhythm, nl pulses; No bruits, No diastolic murmur, No edema, No gallop, No irregular rhythm, No jugular venous distention (JVD), No murmurs/extra sounds, No rub, No systolic murmur, No S3, No S4, No other Gastrointestinal: soft, nl liver, spleen, non-tender Musculoskeletal: nl extremities to inspection Extremities: normal pulses; No calf tenderness, No cyanosis, No clubbing, No edema, No pitting pedal edema, No palpable cord, No tenderness, No other 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: SUPERINTENDENT JOB II-XII intact, nl mental status, nl speech, nl strength Skin: nl turgor Results Results 24hrs Laboratory Tests Test 03/03/19 05:41 White Blood Count 6.2 # Red Blood Count 3.29 L Hemoglobin 8.3 L Hematocrit 26.9 L Mean Corpuscular Volume 81.8 L Mean Corpuscular Hemoglobin 25.2 L Mean Corpuscular Hemoglobin Concent 30.9 L Red Cell Distribution Width 19.9 H Platelet Count 395 Mean Platelet Volume 9.8 Immature Granulocytes % 1.100 H Neutrophils % 61.0 Lymphocytes % 25.1 Monocytes % 8.4 Eosinophils % 4.1 Basophils % 0.3 Nucleated Red Blood Cells % 0.0 Immature Granulocytes # 0.070 H Neutrophils # 3.8 Lymphocytes # 1.6 Monocytes # 0.5 Eosinophils # 0.3 Basophils # 0.0 Nucleated Red Blood Cells # 0.0 Prothrombin Time 11.9 Prothrombin Time Ratio 0.9 INR International Normalized Ratio 0.87 Activated Partial Thromboplast Time 33.2 Sodium Level 141 Potassium Level 4.4 Chloride Level 111 H Carbon Dioxide Level 25 Anion Gap 5 Blood Urea Nitrogen 8 Creatinine 0.59 L Est Glomerular Filtrat Rate mL/min > 60 Glucose Level 93 Calcium Level 8.9 Total Bilirubin 0.3 Direct Bilirubin 0.00 Indirect Bilirubin 0.3 Aspartate Amino Transf (AST/SGOT) 58 #H Alanine Aminotransferase (ALT/SGPT) 138 H Alkaline Phosphatase 95 Total Protein 5.2 #L Albumin 2.9 #L Globulin 2.30 Albumin/Globulin Ratio 1.26 Hepatitis B Surface Antigen NEGATIVE Hepatitis B Core Total Antibody NEGATIVE Hepatitis C Antibody NEGATIVE Medications Medication Current Medications IV Flush (NS 3 ml) 3 ml PER PROTOCOL IV ; Start 03/02/19 at 03:00 Ondansetron HCl (Zofran Inj) 4 mg Q6H PRN IV NAUSEA/VOMITING Last administered on 03/02/19at 04:38; Admin Dose 4 MG; Start 03/02/19 at 03:00 Acetaminophen (Tylenol Tab) 650 mg Q6H PRN PO .PAIN 1-3 OR TEMP; Start 03/02/19 at 03:00 Sodium Chloride 1,000 ml @ 80 mls/hr [id number] IV Last administered on 03/03/19at 05:36; Admin Dose 80 MLS/HR; Start 03/02/19 at 03:00 Lorazepam (Ativan) 1 mg Q8 PRN IV ANXIETY Last administered on 03/03/19at 09:20; Admin Dose 1 MG; Start 03/02/19 at 04:30 Quetiapine Fumarate (Seroquel) 100 mg QHS PO Last administered on 03/02/19 20:35; Admin Dose 100 MG; Start 03/02/19 at 21:00 Quetiapine Fumarate (Seroquel) 50 mg DAILY PO Last administered on 03/03/19 08:08; Admin Dose 50 MG; Start 03/02/19 at 09:00 Escitalopram Oxalate (Lexapro) 10 mg DAILY PO Last administered on 03/03/19 08:07; Admin Dose 10 MG; Start 03/02/19 at 09:00 Gabapentin (Neurontin) 400 mg BID PO Last administered on 03/03/19 08:08; Admin Dose 400 MG; Start 03/02/19 at 09:00 Ferric Sodium Gluconate Complex 125 mg/Sodium Chloride 110 ml @ 110 mls/hr DAILY@1300 IVPB Last administered on 03/02/19 16:26; Admin Dose 110 MLS/HR; Start 03/02/19 at 14:30; Stop 03/06/19 at 13:59 Hydromorphone HCl (Dilaudid) 1.5 mg Q2H PRN IV .SEVERE PAIN 7-10 Last administered on 03/03/19 10:34; Admin Dose 1.5 MG; Start 03/02/19 at 19:00 JACQUE JORDAN MD March 03, 2019 12:05
[2019-03-03] MEDS: SOD FERRIC GLUC COMPLX 125 MG in SOD CHLORIDE 0.9% 100 ML IVPB SCH (12:07)
[2019-03-03 14:00] VITALS: BP 110/60; PULSE 84; RESP 16
[2019-03-04] MEDS ORDERED: DOCU-144 PO (04:09)
[2019-03-04] MEDS ORDERED: POLY17PO6 PO (04:09)
== END 2019-03-03 17:30 | disposition left against medical advice (07) | DRG 376 ==
LOC: E/R 22:42 → 5EC 03-02 02:43
PROVIDERS: ADMIT Family Medicine; ATTEND Family Medicine
DX: C18.2 Malignant neoplasm of ascending colon (principal); F15.10 Other stimulant abuse, uncomplicated; F25.0 Schizoaffective disorder, bipolar type; Z59.0 Homelessness; R74.0 Nonspecific elevation of levels of transaminase and lactic acid dehydrogenase [LDH]; Z87.19 Personal history of other diseases of the digestive system; D50.9 Iron deficiency anemia, unspecified; D63.0 Anemia in neoplastic disease
CPT/HCPCS: 74018; 76705; 80053; 80307; 83690; 85025; 85610; 85730; 86692; 86704; 86706; 86708; 86709; 86803; 87340; J1170; J2060; J2405; J2916; J7030; J7040

== ENCOUNTER 2019-03-03 18:29 | Emergency (ER) | payer OTHER ==
[~2019-03-03] VITALS: Wt 76.7 kg
[~2019-03-03 18:29] MED LIST changes: -CLON-412 PO; +DOCU-216 PO; -FER325 PO; -PANT40TA3 PO; -QUET100T32 PO; +QUET50TA22 PO
[2019-03-03 20:50] VITALS: BP 127/62; PULSE 88; RESP 18
--- NOTE | 2019-03-03 22:56 | ERD ---
ER Documentation Chief Complaint Chief Complaint RECTAL PAIN; HX COLON CA. HPI Patient is a 38-year-old male with a history of colon cancer who presents for colon cancer. The patient said that he was admitted to the hospital recently and left AGAINST MEDICAL ADVICE today because he was "hungry and wanted to get something to eat". The patient was told that he needed to be n.p.o. because he was potentially going to get surgery. The patient now wants to be readmitted. Upon review of old medical records this is the patient's 13th visit to the ER since 2018. Upon review the emergency department information exchange system the patient has seen 9 separate emergency departments for a total of 28 visits over the past 1 year. ROS All systems reviewed and are negative except as per history of present illness. Medications Home Meds Reported Medications Quetiapine Fumarate* (Quetiapine Fumarate*) 50 Mg Tablet, 50 MG PO TID for 30 Days, #90 TAKE 1 TABLET BY MOUTH THREE TIMES A DAY 03/02/19 Citalopram Hydrobromide* (Citalopram Hydrobromide*) 40 Mg Tablet, 40 MG PO DAILY for 30 Days 03/02/19 Gabapentin* (Gabapentin*) 400 Mg Capsule, 400 MG PO BID for 30 Days 03/02/19 Docusate Sodium (Dok) 100 Mg Capsule, 100 MG PO BID 03/02/19 Allergies Allergies: Coded Allergies: No Known Allergy (Unverified , 03/02/19) PMhx/Soc History of Surgery: No Anesthesia Reaction: No Hx 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 Disorder: Yes (BIPOLAR) Hx Respiratory Disorders: No Hx Cardiac Disorders: No Hx Psychiatric Problems: Yes (BIPOLAR) Hx Miscellaneous Medical Probl: Yes (Colorectal CA) Hx Alcohol Use: Yes (1 CAN BEER/DAY) Hx Substance Use: Yes Hx Tobacco Use: Yes Smoking Status: Current every day smoker FmHx Family History: No diabetes Physical Exam Vitals Vital Signs Date Temp Pulse Resp B/P (MAP) Pulse Ox O2 O2 Flow FiO2 Time Delivery Rate 03/03/19 98.4 88 18 127/62 100 Room Air 20:50 (83) 03/03/19 98.4 98 18 127/62 100 18:58 (83) Physical Exam Const: No acute distress Head: Atraumatic Eyes: Normal Conjunctiva ENT: Normal External Ears, Nose and Mouth. Neck: Full range of motion. No meningismus. Resp: Clear to auscultation bilaterally Cardio: Regular rate and rhythm, no murmurs Abd: Soft, non tender, non distended. Normal bowel sounds Skin: No petechiae or rashes Back: No midline or flank tenderness Ext: No cyanosis, or edema Neur: Awake and alert Psych: Normal Mood and Affect Procedures/MDM Patient is a 38-year-old male presents for colon cancer treatment. The patient has already left AGAINST MEDICAL ADVICE today and was not following the plan upstairs. I told him that we will not be able to readmit him at this time as there is no plan for surgery at this time and the admitting team will not want to readmit him since he is Reji left AGAINST MEDICAL ADVICE today. I did recommend follow-up with the critical access hospital so that he can obtain a surgeon to potentially operate on his colon cancer. He can return for any worsening symptoms. He should have outpatient surgery scheduled as I do not believe he requires inpatient admission for this at this time. Departure Diagnosis: Primary Impression: Abdominal pain Abdominal location: generalized Qualified Codes: R10.84 - Generalized abdominal pain Additional Impression: Colon carcinoma Condition: Fair Patient Instructions: Abdominal Pain, What Is Colon and Rectal Cancer (Colorectal Cancer)? Referrals: [facility] YOU HAVE RECEIVED A MEDICAL SCREENING EXAM AND THE RESULTS INDICATE THAT YOU DO NOT HAVE A CONDITION THAT REQUIRES URGENT TREATMENT IN THE EMERGENCY DEPARTMENT. FURTHER EVALUATION AND TREATMENT OF YOUR CONDITION CAN WAIT UNTIL YOU ARE SEEN IN YOUR DOCTORS OFFICE WITHIN THE NEXT 1-2 DAYS. IT IS YOUR RESPONSIBILITY TO MAKE AN APPOINTMENT FOR FOLOW-UP CARE. IF YOU HAVE A PRIMARY DOCTOR --you should call your primary doctor and schedule and appointment IF YOU DO NOT HAVE A PRIMARY DOCTOR YOU CAN CALL OUR PHYSICIAN REFERRAL HOTLINE AT . IF YOU CAN NOT AFFORD TO SEE A PHYSICIAN YOU CAN CHOSE FROM THE FOLLOWING [facility] INSTITUTIONS: [facility] [address] [place] [address] [facility] [address] [place] [address] [facility] [address] [place] [address] Additional Instructions: County: Go to any of the following community hospital in the next 1-2 days. [facility] [address] [place] [address] [facility] [address] [place] [address] [address] AZAEL OSEGUERA MD March 03, 2019 22:56
[2019-03-04] MEDS ORDERED: POLY17PO6 PO (04:09)
[2019-03-04] MEDS ORDERED: DOCU-144 PO (04:09)
== END 2019-03-03 22:36 | disposition home or self-care (01) ==
LOC: E/R 18:29
DX: R10.84 Generalized abdominal pain (principal); F17.210 Nicotine dependence, cigarettes, uncomplicated; Z85.038 Personal history of other malignant neoplasm of large intestine
CPT/HCPCS: 99282

== ENCOUNTER 2019-03-04 00:01 | Emergency (ER) | payer OTHER ==
[~2019-03-04] VITALS: Ht 185.4 cm; Wt 77.3 kg
[2019-03-04 00:11] VITALS: BP 137/66; PULSE 96; RESP 20; Ht 185.4 cm; Wt 77.3 kg
--- NOTE | 2019-03-04 04:08 | ERD ---
ER Documentation Chief Complaint Chief Complaint hx of colon cancer, abdominal pain 06/28 HPI This is a 38-year-old male with a history of recently diagnosed colon cancer, bipolar disorder, who presents for evaluation of abdominal pain. Patient was seen earlier in the ED today, he was recently admitted, and discharged AGAINST MEDICAL ADVICE. He represented earlier today, where the plan of care was discussed, and at this point there was no longer plan for surgery, which was the reason that he was to be admitted, he was otherwise medically stable, and at this point he would not be admitted, given no plan for surgery. Patient presents today with abdominal pain, and requests food. ROS All systems reviewed and are negative except as per history of present illness. Medications Home Meds Reported Medications Quetiapine Fumarate* (Quetiapine Fumarate*) 50 Mg Tablet, 50 MG PO TID for 30 Days, #90 TAKE 1 TABLET BY MOUTH THREE TIMES A DAY 03/02/19 Citalopram Hydrobromide* (Citalopram Hydrobromide*) 40 Mg Tablet, 40 MG PO DAILY for 30 Days 03/02/19 Gabapentin* (Gabapentin*) 400 Mg Capsule, 400 MG PO BID for 30 Days 03/02/19 Docusate Sodium (Dok) 100 Mg Capsule, 100 MG PO BID 03/02/19 Allergies Allergies: Coded Allergies: No Known Allergy (Unverified , 03/04/19) PMhx/Soc History of Surgery: No Anesthesia Reaction: No Hx 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 Disorder: No Hx Respiratory Disorders: No Hx Cardiac Disorders: No Hx Psychiatric Problems: Yes (BIPOLAR) Hx Miscellaneous Medical Probl: Yes (Colorectal CA) Hx Alcohol Use: Yes (1 CAN BEER/DAY) Hx Substance Use: Yes Hx Tobacco Use: Yes Smoking Status: Current some day smoker Physical Exam Vitals Vital Signs Date Temp Pulse Resp B/P (MAP) Pulse Ox O2 O2 Flow FiO2 Time Delivery Rate 03/04/19 97.8 96 20 137/66 100 00:11 (89) Physical Exam Const: Disheveled appearing, nontoxic Head: Atraumatic Eyes: Normal Conjunctiva ENT: Normal External Ears, Nose and Mouth. Neck: Full range of motion. No meningismus. Resp: Clear to auscultation bilaterally Cardio: Regular rate and rhythm, no murmurs Abd: Soft, non tender, non distended, no rebound or guarding. Normal bowel sounds Skin: No petechiae or rashes Back: No midline or flank tenderness Ext: No cyanosis, or edema Neur: Awake and alert Psych: Normal Mood and Affect Procedures/MDM This 38-year-old male who presents for evaluation of recurrent abdominal pain. On exam patient is afebrile and nontoxic, and has no peritoneal signs. On serial evaluations, the patient had no worsening symptoms, we discussed plan of care with him, and once again provided [facility] resources, also given a prescription for a bowel regimen, at discharge patient was in no distress. Departure Diagnosis: Primary Impression: Abdominal pain Abdominal location: unspecified location Qualified Codes: R10.9 - Unspecified abdominal pain Additional Impression: Methamphetamine abuse, episodic Condition: Stable KATHRIN COPE MD March 04, 2019 04:08
[2019-03-04] MEDS ORDERED: DOCU-144 PO (04:09)
[2019-03-04] MEDS ORDERED: POLY17PO6 PO (04:09)
== END 2019-03-04 06:00 | disposition home or self-care (01) ==
LOC: E/R 00:01
DX: R10.9 Unspecified abdominal pain (principal); F17.210 Nicotine dependence, cigarettes, uncomplicated; F15.10 Other stimulant abuse, uncomplicated; Z85.038 Personal history of other malignant neoplasm of large intestine
CPT/HCPCS: 74018; Z7502

== ENCOUNTER 2019-03-05 16:54 | Emergency (ER) | payer OTHER ==
[~2019-03-05] VITALS: Wt 66.0 kg
[~2019-03-05 16:54] MED LIST changes: +DOCU-144 PO; +POLY17PO6 PO
--- NOTE | 2019-03-05 21:07 | ERD ---
ER Documentation Chief Complaint Chief Complaint FEELING SUICIDAL FOR THE PAST FEW DAYS. RECENT STOMACH CA, NO ETOH OR METH HPI 38 year old male with hx of bipolar and polysubstance abuse presenting with complaints of suicidal ideations. HE was recently diagnosed with possible colon cancer. He is very distraught over this. He had the desire to jump in front of a bus today. No other complaints at this time. ROS All systems reviewed and are negative except as per history of present illness. Medications Home Meds Active Scripts Docusate Sodium* (Colace*) 100 Mg Capsule, 100 MG PO TID, #30 CAP Prov:KATHRIN COPE MD 03/04/19 Polyethylene Glycol* (Miralax*) 17 Gm Powd.pack, 17 GM PO DAILY, #7 Prov:KATHRIN COPE MD 03/04/19 Reported Medications Quetiapine Fumarate* (Quetiapine Fumarate*) 50 Mg Tablet, 50 MG PO TID for 30 Days, #90 TAKE 1 TABLET BY MOUTH THREE TIMES A DAY 03/02/19 Citalopram Hydrobromide* (Citalopram Hydrobromide*) 40 Mg Tablet, 40 MG PO DAILY for 30 Days 03/02/19 Gabapentin* (Gabapentin*) 400 Mg Capsule, 400 MG PO BID for 30 Days 03/02/19 Docusate Sodium (Dok) 100 Mg Capsule, 100 MG PO BID 03/02/19 Allergies Allergies: Coded Allergies: No Known Allergy (Unverified , 03/04/19) PMhx/Soc History of Surgery: No Anesthesia Reaction: No Hx 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 Disorder: No Hx Respiratory Disorders: No Hx Cardiac Disorders: No Hx Psychiatric Problems: Yes (BIPOLAR) Hx Miscellaneous Medical Probl: Yes (Colorectal CA) Hx Alcohol Use: Yes (1 CAN BEER/DAY) Hx Substance Use: Yes Hx Tobacco Use: Yes Smoking Status: Current some day smoker FmHx Family History: No diabetes Physical Exam Vitals Vital Signs Date Temp Pulse Resp B/P (MAP) Pulse Ox O2 O2 Flow FiO2 Time Delivery Rate 03/05/19 98.5 80 18 114/71 99 17:43 (85) 03/05/19 98.5 100 18 138/78 99 16:57 (98) Physical Exam Const: No acute distress Head: Atraumatic Eyes: Normal Conjunctiva ENT: Normal External Ears, Nose and Mouth. Neck: Full range of motion. No meningismus. Resp: Clear to auscultation bilaterally Cardio: Regular rate and rhythm, no murmurs Abd: Soft, non tender, non distended. Normal bowel sounds Skin: No petechiae or rashes Ext: No cyanosis, or edema Neur: Awake and alert Psych: Depressed, Normal Affect. + SI. no hallucinations Result Diagram: 03/05/19 1720 03/05/19 1720 Results 24 hrs Laboratory Tests Test 03/05/19 17:15 03/05/19 17:20 Urine Color STRAW Urine Clarity CLEAR Urine pH 7.0 Urine Specific [place] 1.014 Urine Ketones NEGATIVE mg/dL Urine Nitrite NEGATIVE mg/dL Urine Bilirubin NEGATIVE mg/dL Urine Urobilinogen NEGATIVE mg/dL Urine Leukocyte Esterase NEGATIVE Kalina/ul Urine Microscopic RBC 1 /HPF Urine Microscopic WBC 0 /HPF Urine Hemoglobin 1+ mg/dL Urine Glucose NEGATIVE mg/dL Urine Total Protein NEGATIVE mg/dl Urine Opiates Screen Positive Urine Barbiturates Negative Urine Amphetamines Screen POSITIVE Urine Benzodiazepines Screen Negative Urine Cocaine Screen Negative Urine Cannabinoids Negative White Blood Count 7.9 10^3/ul Red Blood Count 3.77 10^6/ul Hemoglobin 9.5 g/dl Hematocrit 31.0 % Mean Corpuscular Volume 82.2 fl Mean Corpuscular Hemoglobin 25.2 pg Mean Corpuscular Hemoglobin Concent 30.6 g/dl Red Cell Distribution Width 20.8 % Platelet Count 578 10^3/UL Mean Platelet Volume 9.6 fl Immature Granulocytes % 0.600 % Neutrophils % 75.3 % Lymphocytes % 14.9 % Monocytes % 7.6 % Eosinophils % 1.1 % Basophils % 0.5 % Nucleated Red Blood Cells % 0.0 /100WBC Immature Granulocytes # 0.050 10^3/ul Neutrophils # 5.9 10^3/ul Lymphocytes # 1.2 10^3/ul Monocytes # 0.6 10^3/ul Eosinophils # 0.1 10^3/ul Basophils # 0.0 10^3/ul Nucleated Red Blood Cells # 0.0 10^3/ul Sodium Level 142 mmol/L Potassium Level 3.8 mmol/L Chloride Level 106 mmol/L Carbon Dioxide Level 24 mmol/L Anion Gap 12 Blood Urea Nitrogen 7 mg/dl Creatinine 0.65 mg/dl Est Glomerular Filtrat Rate mL/min > 60 mL/min Glucose Level 86 mg/dl Calcium Level 9.2 mg/dl Total Bilirubin 0.4 mg/dl Direct Bilirubin 0.00 mg/dl Indirect Bilirubin 0.4 mg/dl Aspartate Amino Transf (AST/SGOT) 25 IU/L Alanine Aminotransferase (ALT/SGPT) 82 IU/L Alkaline Phosphatase 109 IU/L Total Protein 7.5 g/dl Albumin 4.3 g/dl Globulin 3.20 g/dl Albumin/Globulin Ratio 1.34 Salicylates Level < 1.0 mg/dl Acetaminophen Level < 10.0 ug/ml Ethyl Alcohol Level < 10.0 mg/dl Procedures/MDM Labs Reviewed by me: CBC: chronic anemia, thrombocytosis CMP: no evidence of liver disease, renal failure, electrolyte abnormality, acidosis, alkalosis, hypo or hyperglycemia Etoh negative Salicylate level wnl, no e/o toxicity Acetaminophen level normal, no evidence of toxicity UDS: pending MDM Patient presents with SI. Vitals are unremarkable. Workup showed chronic abnormalities, nothing acute. From my standpoint he is medically clear for psych evaluation and placement if necessary. Awaiting telepsych eval upon signout to Dr. Garcia. Departure Diagnosis: Primary Impression: Suicidal ideation Additional Impressions: Methamphetamine abuse, episodic Iron deficiency anemia Iron deficiency anemia type: unspecified iron deficiency Qualified Codes: D50.9 - Iron deficiency anemia, unspecified Condition: WILMER Rojo MD March 05, 2019 21:07
[2019-03-05] MEDS ORDERED: LORAZEPAM 1 MG TAB PO ONE ×2 (22:00→23:30)
[2019-03-06] MEDS ORDERED: HYDROCODONE/APAP (10/325) TAB PO ONE (02:00)
[2019-03-06] MEDS ORDERED: ACETAMINOPHEN 500 MG TAB PO STA ×2 (11:55→23:46)
--- NOTE | 2019-03-06 13:03 | EN ---
Date/Time of Note Date/Time of Note DATE: 03/06/19 TIME: 12:36 ER Progress Note Observation Note: Time: 4 hours Family Hx: No Hypertension Evaluation: Patient is still pending PMRT evaluation. He did state he had a lower abdominal pain and exam is a benign. Patient was given Tylenol. ALEENA ZEPEDA DO March 06, 2019 13:03
[2019-03-06] MEDS ORDERED: LORAZEPAM 1 MG TAB PO ONE (16:00)
[2019-03-06] MEDS ORDERED: DICYCLOMINE 20 MG INJ IM ONE (19:30)
[2019-03-07] MEDS ORDERED: LORAZEPAM 1 MG TAB PO ONE
[2019-03-07 12:21] VITALS: BP 117/68; PULSE 92; RESP 16
--- NOTE | 2019-03-07 12:42 | PSY ---
Date/Time of Note Date/Time of Note DATE: 03/05/19 TIME: 20:38 Psychiatric Subjective Eval Consent Pt consented to telemedicine: Yes Subjective Evaluation Patient location: emergency Chief Complaint: FEELING SUICIDAL FOR THE PAST FEW DAYS. RECENT STOMACH CA, NO ETOH OR METH Reason for consult: suicidality History of present illness patient presented to the emergency room stating he was suicidal. he earlier was standing at a bus stop and said that he was thinking about walking into traffic. he was recently diagnosed with cancer. he has been depressed. he has a long history of depression, he says. he is homeless. he does not have much support. he does not feel safe going home. the patient's affect is not quite congruent with his reported mood. there is a possibility of a secondary gain. no psychosis or jyoti, no aggression. Past psychiatric history the patient says he has been in a psychiatric hospital before, he has a histor y of depression, he states that he previously attempted suicide by overdose, not taking any medications now Medical history Problems Medical Problems: (1) Abdominal pain Status: Acute (2) Abdominal pain Status: Acute (3) Abdominal pain Status: Acute (4) Abdominal pain Status: Acute (5) Abdominal pain Status: Acute (6) Acute bronchitis Status: Acute (7) Anemia Status: Acute (8) Anemia Status: Acute (9) Bronchitis Status: Acute (10) Colitis Status: Acute (11) Colon carcinoma Status: Acute (12) Colonic mass Status: Acute (13) Dehydration Status: Acute (14) Diarrhea Status: Acute (15) Fracture, scapula closed Status: Acute (16) Iron deficiency anemia Status: Chronic (17) Methamphetamine abuse Status: Acute (18) Methamphetamine abuse, episodic Status: Chronic (19) Multiple complaints Status: Acute (20) Olfactory hallucination Status: Acute (21) Paranoid behavior Status: Acute (22) Partial small bowel obstruction Status: Acute (23) Psychological disorder Status: Acute (24) Psychosis Status: Acute (25) Schizoaffective disorder, chronic condition Status: Chronic (26) Shoulder pain Status: Acute (27) Small bowel obstruction Status: Acute (28) Substance abuse Status: Acute (29) Suicidal ideation Status: Acute (30) Suicidal ideation Status: Acute (31) Suicidal ideation Status: Acute (32) Suicidal ideation Status: Acute (33) Tachycardia Status: Acute (34) Thrombocytosis Status: Acute Allergies: Coded Allergies: No Known Allergy (Unverified , 03/06/19) Substance Abuse Substance abuse history: Yes Prior substance abuse treatmen: Yes Social History Marital status: single Level of education: high school DPA/Conservatorship: No Occupation/Shelter: unemployed Psychiatric Objective Eval Mental Status Examination: Appearance: Poor Hygiene Eye Contact: Good Psychomotor Activity: Normal Behavior: Cooperative Speech: Clear AFFECT: Appropriate Mood: Appropriate/Full Though Process: Linear Thought Content: Normal Suicidal: Yes Homicidal: No On 72 hour hold: Yes Orientation: x4 Cognition: Alert Insight: Intact Judgement: Intact Attention Span: Intact Laboratory Results Laboratory Tests Test 03/05/19 17:15 03/05/19 17:20 Urine Color STRAW Urine Clarity CLEAR Urine pH 7.0 Urine Specific [place] 1.014 Urine Ketones NEGATIVE mg/dL Urine Nitrite NEGATIVE mg/dL Urine Bilirubin NEGATIVE mg/dL Urine Urobilinogen NEGATIVE mg/dL Urine Leukocyte Esterase NEGATIVE Kalina/ul Urine Microscopic RBC 1 /HPF Urine Microscopic WBC 0 /HPF Urine Hemoglobin 1+ mg/dL Urine Glucose NEGATIVE mg/dL Urine Total Protein NEGATIVE mg/dl Urine Opiates Screen Positive Urine Barbiturates Negative Urine Amphetamines Screen POSITIVE Urine Benzodiazepines Screen Negative Urine Cocaine Screen Negative Urine Cannabinoids Negative White Blood Count 7.9 10^3/ul Red Blood Count 3.77 10^6/ul Hemoglobin 9.5 g/dl Hematocrit 31.0 % Mean Corpuscular Volume 82.2 fl Mean Corpuscular Hemoglobin 25.2 pg Mean Corpuscular Hemoglobin Concent 30.6 g/dl Red Cell Distribution Width 20.8 % Platelet Count 578 10^3/UL Mean Platelet Volume 9.6 fl Immature Granulocytes % 0.600 % Neutrophils % 75.3 % Lymphocytes % 14.9 % Monocytes % 7.6 % Eosinophils % 1.1 % Basophils % 0.5 % Nucleated Red Blood Cells % 0.0 /100WBC Immature Granulocytes # 0.050 10^3/ul Neutrophils # 5.9 10^3/ul Lymphocytes # 1.2 10^3/ul Monocytes # 0.6 10^3/ul Eosinophils # 0.1 10^3/ul Basophils # 0.0 10^3/ul Nucleated Red Blood Cells # 0.0 10^3/ul Sodium Level 142 mmol/L Potassium Level 3.8 mmol/L Chloride Level 106 mmol/L Carbon Dioxide Level 24 mmol/L Anion Gap 12 Blood Urea Nitrogen 7 mg/dl Creatinine 0.65 mg/dl Est Glomerular Filtrat Rate mL/min > 60 mL/min Glucose Level 86 mg/dl Calcium Level 9.2 mg/dl Total Bilirubin 0.4 mg/dl Direct Bilirubin 0.00 mg/dl Indirect Bilirubin 0.4 mg/dl Aspartate Amino Transf (AST/SGOT) 25 IU/L Alanine Aminotransferase (ALT/SGPT) 82 IU/L Alkaline Phosphatase 109 IU/L Total Protein 7.5 g/dl Albumin 4.3 g/dl Globulin 3.20 g/dl Albumin/Globulin Ratio 1.34 Salicylates Level < 1.0 mg/dl Acetaminophen Level < 10.0 ug/ml Ethyl Alcohol Level < 10.0 mg/dl Assessment and Plan Assessment/Diagnosis Diagnosis depression. stimulant abuse. Recommendation/Plan Medication Management at this time, the patient reported suicidal thoughts and the plan. he should be admitted to an inpatient psychiatric unit. the patient stays in the emergency room, he should be reevaluated. no medications at this time. Multiple antipsychotics: No Discharge Disposition: Psychiatric inpatient Legal Status: Continue involuntary hold KENNEDY CHAKRABORTY March 07, 2019 12:42
== END 2019-03-07 12:22 ==
LOC: E/R 16:54
DX: R45.851 Suicidal ideations (principal); F17.210 Nicotine dependence, cigarettes, uncomplicated; R40.2142 Coma scale, eyes open, spontaneous, at arrival to emergency department; R40.2362 Coma scale, best motor response, obeys commands, at arrival to emergency department; R40.2252 Coma scale, best verbal response, oriented, at arrival to emergency department; D50.9 Iron deficiency anemia, unspecified; F15.10 Other stimulant abuse, uncomplicated; Z85.038 Personal history of other malignant neoplasm of large intestine
CPT/HCPCS: 36415; 80053; 80307; 81001; 85025; 96372; J0500; Z7502; Z7610

== ENCOUNTER 2019-03-26 20:44 | Emergency (ER) | payer OTHER ==
[~2019-03-26] VITALS: Ht 185.4 cm; Wt 71.5 kg
[~2019-03-26 20:44] MED LIST changes: -DOCU-216 PO
[2019-03-26 20:53] VITALS: BP 156/91; PULSE 100; RESP 18; Ht 185.4 cm; Wt 71.5 kg
--- NOTE | 2019-03-26 22:24 | ERD ---
ER Documentation Chief Complaint Chief Complaint AUDITORY HALLUCINATIONS, DENIES SI/HI HPI This is a 38-year-old male with a history of psychiatric disorder who presents to the emergency room for evaluation of auditory hallucinations. The patient states that he is supposed be taking Lexapro 10 mg, gabapentin 400 mg, Seroquel 100 mg daily. He states that he does not have these medications anymore and has not had them in the past 3 days. The patient denies any suicidal ideation, came to the ER for refill of his medications. ROS All systems reviewed and are negative except as per history of present illness. Medications Home Meds Active Scripts Docusate Sodium* (Colace*) 100 Mg Capsule, 100 MG PO TID, #30 CAP Prov:KATHRIN COPE MD 03/04/19 Polyethylene Glycol* (Miralax*) 17 Gm Powd.pack, 17 GM PO DAILY, #7 Prov:KATHRIN COEP MD 03/04/19 Reported Medications Quetiapine Fumarate* (Quetiapine Fumarate*) 50 Mg Tablet, 50 MG PO TID for 30 Days, #90 TAKE 1 TABLET BY MOUTH THREE TIMES A DAY 03/02/19 Citalopram Hydrobromide* (Citalopram Hydrobromide*) 40 Mg Tablet, 40 MG PO DAILY for 30 Days 03/02/19 Gabapentin* (Gabapentin*) 400 Mg Capsule, 400 MG PO BID for 30 Days 03/02/19 Allergies Allergies: Coded Allergies: No Known Allergy (Unverified , 03/06/19) PMhx/Soc History of Surgery: No Anesthesia Reaction: No Hx 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 Disorder: No Hx Respiratory Disorders: No Hx Cardiac Disorders: No Hx Psychiatric Problems: Yes (BIPOLAR, schizophrenia) Hx Miscellaneous Medical Probl: Yes (Colorectal CA) Hx Alcohol Use: Yes (1 CAN BEER/DAY) Hx Substance Use: Yes Hx Tobacco Use: Yes Smoking Status: Current every day smoker Physical Exam Vitals Vital Signs Date Temp Pulse Resp B/P (MAP) Pulse Ox O2 O2 Flow FiO2 Time Delivery Rate 03/26/19 98.0 100 18 156/91 100 20:53 (112) Physical Exam Const: No acute distress Head: Atraumatic Eyes: Normal Conjunctiva ENT: Normal External Ears, Nose and Mouth. Neck: Full range of motion. No meningismus. Resp: Clear to auscultation bilaterally Cardio: Regular rate and rhythm, no murmurs Abd: Soft, non tender, non distended. Normal bowel sounds Skin: No petechiae or rashes Back: No midline or flank tenderness Ext: No cyanosis, or edema Neur: Awake and alert Psych: Normal Mood and Affect Procedures/MDM This 38-year-old male presents to the ER for evaluation of auditory hallucinat ions. On my exam the patient is alert and oriented to person place and time, he is intercourse is appropriately, denies any homicidal ideation denies any suicidal ideation. The patient states that he was recently hospitalized however he does not have his medications. He takes Lexapro 10 mg daily, gabapentin 400 mg 3 times daily, Seroquel 100 mg daily. The patient states he would like a prescription for his medication. I advised him I will be happy to write him a prescription. He was offered resources and was offered a psychiatric evaluation however he states that he will be fine if he takes his medications. He states that he will return to the ER if he is having any worsening issues. I advised him he can return to any form and he verbalized understanding. Departure Diagnosis: Primary Impression: Hallucinations Condition: ALEENA Hirsch DO Mar 26, 2019 22:24
[2019-03-26] MEDS ORDERED: QUET100T PO (22:27)
[2019-03-26] MEDS ORDERED: ESCI10TA PO (22:27)
[2019-03-26] MEDS ORDERED: GABA400C14 PO (22:27)
[2019-03-26] MEDS ORDERED: QUETIAPINE 100 MG TAB PO ONE (22:30)
[2019-03-26] MEDS ORDERED: ESCITALOPRAM 10 MG TAB PO ONE (22:30)
== END 2019-03-26 23:21 | disposition home or self-care (01) ==
LOC: E/R 20:44
DX: R44.0 Auditory hallucinations (principal); F17.210 Nicotine dependence, cigarettes, uncomplicated; Z85.038 Personal history of other malignant neoplasm of large intestine
CPT/HCPCS: Z7502; Z7610; 99283

== ENCOUNTER 2019-03-29 06:01 | Emergency (ER) | payer OTHER ==
[~2019-03-29] VITALS: Ht 185.4 cm; Wt 69.2 kg
[~2019-03-29 06:01] MED LIST changes: +ESCI10TA PO; +QUET100T PO
[2019-03-29 06:11] VITALS: BP 129/83; PULSE 85; RESP 18; Ht 185.4 cm; Wt 69.2 kg
[2019-03-29] MEDS ORDERED: ONDANSETRON (ODT) 4 MG TAB ODT STA (06:45)
[2019-03-29] MEDS ORDERED: IBUP-1542 PO (06:46)
[2019-03-29] MEDS ORDERED: ONDA4TAB14 PO (06:46)
[2019-03-29] MEDS ORDERED: HYDROCODONE/APAP (10/325) TAB PO ONE (07:00)
--- NOTE | 2019-03-29 07:14 | ERD ---
ER Documentation Chief Complaint Chief Complaint left abdominal pain on and off x 6 months HPI Patient is a 38-year-old male with a history of anemia and colon cancer who presents with abdominal pain. The patient says that he has not been able to eat or drink over the past few days because of the symptoms. He also is complaining of mouth sores that have been going on for the past few days as well. He has had no treatment as of yet. Upon review of old medical record the patient has multiple visits to the ER for similar complaints. Review of the emergency department information exchange system shows visits to 8 separate emergency departments for a total of 29 visits over the past 1 year. He said that he has appointment scheduled with Dr. Cuba from GI in 2 days on . ROS All systems reviewed and are negative except as per history of present illness. Medications Home Meds Active Scripts Ondansetron (Ondansetron Odt) 4 Mg Tab.rapdis, 4 MG PO Q6H PRN for NAUSEA AND/OR VOMITING, #10 TAB Prov:AZAEL OSEGUERA MD 03/29/19 Ibuprofen* (Motrin*) 600 Mg Tab, 600 MG PO Q6H PRN for PAIN AND OR ELEVATED TEMP, #30 TAB Prov:AZAEL OSEGUERA MD 03/29/19 Gabapentin* (Gabapentin*) 400 Mg Capsule, 400 MG PO TID, #21 CAP Prov:ALEENA ZEPEDA DO 03/26/19 Escitalopram Oxalate* (Lexapro*) 10 Mg Tablet, 10 MG PO DAILY, #30 TAB Prov:ALEENA ZEPEDA DO 03/26/19 Quetiapine Fumarate* (Seroquel*) 100 Mg Tablet, 100 MG PO DAILY, #30 TAB Prov:ALEENA ZEPEDA DO 03/26/19 Docusate Sodium* (Colace*) 100 Mg Capsule, 100 MG PO TID, #30 CAP Prov:KATHRIN COPE MD 03/04/19 Polyethylene Glycol* (Miralax*) 17 Gm Powd.pack, 17 GM PO DAILY, #7 Prov:KATHRIN COPE MD 03/04/19 Reported Medications Quetiapine Fumarate* (Quetiapine Fumarate*) 50 Mg Tablet, 50 MG PO TID for 30 Days, #90 TAKE 1 TABLET BY MOUTH THREE TIMES A DAY 03/02/19 Citalopram Hydrobromide* (Citalopram Hydrobromide*) 40 Mg Tablet, 40 MG PO DAILY for 30 Days 03/02/19 Gabapentin* (Gabapentin*) 400 Mg Capsule, 400 MG PO BID for 30 Days 03/02/19 Allergies Allergies: Coded Allergies: No Known Allergy (Unverified , 03/29/19) PMhx/Soc History of Surgery: No Anesthesia Reaction: No Hx 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 Disorder: No Hx Respiratory Disorders: No Hx Cardiac Disorders: No Hx Psychiatric Problems: Yes (BIPOLAR, schizophrenia) Hx Miscellaneous Medical Probl: Yes (Colorectal CA) Hx Alcohol Use: Yes (1 CAN BEER/DAY) Hx Substance Use: Yes Hx Tobacco Use: Yes Smoking Status: Current every day smoker FmHx Family History: No diabetes Physical Exam Vitals Vital Signs Date Temp Pulse Resp B/P (MAP) Pulse Ox O2 O2 Flow FiO2 Time Delivery Rate 03/29/19 98.2 85 18 129/83 100 06:11 (98) Physical Exam Const: No acute distress Head: Atraumatic Eyes: Normal Conjunctiva ENT: Aphthous ulcers to the tongue Neck: Full range of motion. No meningismus. Resp: Clear to auscultation bilaterally Cardio: Regular rate and rhythm, no murmurs Abd: Soft, left lower quadrant tenderness to palpation without rebound or guarding, no distention Skin: No petechiae or rashes Back: No midline or flank tenderness Ext: No cyanosis, or edema Neur: Awake and alert Psych: Normal Mood and Affect Results 24 hrs Current Medications Medications Dose Sig/Jamaal Start Time Status Last (Trade) Ordered Route PRN Stop Time Admin Dose Reason Admin 1 tab ONCE ONCE 03/29/19 DC 03/29/19 Acetaminophen PO 07:00 07:03 / 03/29/19 07:01 Hydrocodone Bitart ([place] (10/325)) Ondansetron 4 mg ONCE STAT 03/29/19 DC 03/29/19 HCl (Zofran ODT 06:45 07:03 Odt) 03/29/19 06:46 Procedures/MDM Smoking Cessation Therapy: Pt. was lectured for greater than 3 minutes on the health risks of continued smoking and the benefits of cessation. Patient is a 38-year-old male who presents with acute on chronic pain. He has a history of colon cancer and is being seen by gastroenterology on . He has mouth sores as well. I gave him a dose of [place] and Zofran and discharged him. He became angry and aggressive and verbally abusive to our nurse. He was removed by security. I do not believe he requires admission to the hospital at this time for his issue. He has been instructed to follow-up as an outpatient and needs to have this managed by GI and possibly general surgery. I do believe there is an element of pain seeking behavior as well and I will not give him prescriptions for narcotic medicines. He did not get IV or IM medications per our pain policy. He has been referred to the chronic pain committee for development of a care plan. Departure Diagnosis: Primary Impression: Colon cancer Colon location: unspecified part of colon Qualified Codes: C18.9 - Malignant neoplasm of colon, unspecified Additional Impression: Abdominal pain Abdominal location: left lower quadrant Qualified Codes: R10.32 - Left lower quadrant pain Condition: Fair Patient Instructions: Abdominal Pain Referrals: MORGAN CUBA MD Additional Instructions: Keep the appt with Dr. Cuba scheduled for . AZAEL OSEGUERA MD Mar 29, 2019 07:14
[2019-03-29] MEDS ORDERED: CARB15SO5 MM (13:31)
== END 2019-03-29 07:11 | disposition home or self-care (01) ==
LOC: FTE 06:01
DX: C18.9 Malignant neoplasm of colon, unspecified (principal); F17.210 Nicotine dependence, cigarettes, uncomplicated
CPT/HCPCS: Z7502; Z7610; 99283

== ENCOUNTER 2019-03-29 13:03 | Emergency (ER) | payer OTHER ==
[~2019-03-29] VITALS: Ht 177.8 cm; Wt 68.0 kg
[~2019-03-29 13:03] MED LIST changes: +IBUP-1542 PO; +ONDA4TAB14 PO
[2019-03-29 13:09] VITALS: BP 115/90; PULSE 92; RESP 18; Ht 177.8 cm; Wt 68.0 kg
[2019-03-29] MEDS ORDERED: CARB15SO5 MM (13:31)
--- NOTE | 2019-03-29 14:20 | ERD ---
ER Documentation Chief Complaint Chief Complaint MOUTH SORES, SEEN HERE [facility] [place] 38-year-old male presenting with sores to his mouth. Patient was seen earlier today but has states that his mouth sores develop since leaving. They are causing him pain. He denies any use of medications for the irritation. Patient has an appointment with his primary doctor in 2 days. He has a history of colon cancer. NKDA. Social history denies ROS All systems reviewed and are negative except as per history of present illness. Medications Home Meds Active Scripts Carbamide Peroxide (Gly-Oxide) 15 Ml Solution, 15 ML MM DAILY, #1 Prov:CAYLA DOMÍNGUEZ PA-C 03/29/19 Ondansetron (Ondansetron Odt) 4 Mg Tab.rapdis, 4 MG PO Q6H PRN for NAUSEA AND/OR VOMITING, #10 TAB Prov:AZAEL OSEGUERA MD 03/29/19 Ibuprofen* (Motrin*) 600 Mg Tab, 600 MG PO Q6H PRN for PAIN AND OR ELEVATED TEMP, #30 TAB Prov:AZAEL OSEGUERA MD 03/29/19 Gabapentin* (Gabapentin*) 400 Mg Capsule, 400 MG PO TID, #21 CAP Prov:ALEENA ZEPEDA DO 03/26/19 Escitalopram Oxalate* (Lexapro*) 10 Mg Tablet, 10 MG PO DAILY, #30 TAB Prov:ALEENA ZEPEDA DO 03/26/19 Quetiapine Fumarate* (Seroquel*) 100 Mg Tablet, 100 MG PO DAILY, #30 TAB Prov:ALEENA ZEPEDA DO 03/26/19 Docusate Sodium* (Colace*) 100 Mg Capsule, 100 MG PO TID, #30 CAP Prov:KATHRIN COPE MD 03/04/19 Polyethylene Glycol* (Miralax*) 17 Gm Powd.pack, 17 GM PO DAILY, #7 Prov:KATHRIN COPE MD 03/04/19 Reported Medications Quetiapine Fumarate* (Quetiapine Fumarate*) 50 Mg Tablet, 50 MG PO TID for 30 Days, #90 TAKE 1 TABLET BY MOUTH THREE TIMES A DAY 03/02/19 Citalopram Hydrobromide* (Citalopram Hydrobromide*) 40 Mg Tablet, 40 MG PO DAILY for 30 Days 03/02/19 Gabapentin* (Gabapentin*) 400 Mg Capsule, 400 MG PO BID for 30 Days 03/02/19 Allergies Allergies: Coded Allergies: No Known Allergy (Unverified , 03/29/19) PMhx/Soc Medical and Surgical Hx: pt denies Surgical Hx History of Surgery: No Anesthesia Reaction: No Hx 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 Disorder: No Hx Respiratory Disorders: No Hx Cardiac Disorders: No Hx Psychiatric Problems: Yes (BIPOLAR, schizophrenia) Hx Miscellaneous Medical Probl: Yes (Colorectal CA) Hx Alcohol Use: Yes (1 CAN BEER/DAY) Hx Substance Use: Yes Hx Tobacco Use: Yes Smoking Status: Never smoker FmHx Family History: No diabetes, No coronary disease, No other Physical Exam Vitals Vital Signs Date Temp Pulse Resp B/P (MAP) Pulse Ox O2 O2 Flow FiO2 Time Delivery Rate 03/29/19 99.2 92 18 115/90 99 13:09 (98) Physical Exam GENERAL: The patient is well-appearing, well-nourished, in no acute distress HEENT: Atraumatic. Conjunctivae are pink. Pupils equal, round, and reactive to light. There is no scleral icterus. Tympanic membranes clear bilaterally. Oropharynx shows signs of open sores.. No nystagmus or photophobia. NECK: C-spine is soft and supple. There is no meningismus. There is no cervical lymphadenopathy. CHEST: Clear to auscultation bilaterally. There are no rales, wheezes or rhonchi. HEART: Regular rate and rhythm. No murmurs, clicks, rubs or gallops. Procedures/MDM MDM: 38-year-old male presenting with pain full sores to his mouth. I have low suspicion for infectious process. Patient likely has findings consistent with viral etiology. Patient is discharged with strict ER precautions and told to follow-up with primary care within 1 to 2 days for close evaluation. Patient is told if symptoms change or worsen to return immediately to the ER. All questions answered at discharge Departure Diagnosis: Primary Impression: Sore in mouth Condition: Stable Patient Instructions: Stomatitis (Child) Referrals: COMMUNITY CLINICS YOU HAVE RECEIVED A MEDICAL SCREENING EXAM AND THE RESULTS INDICATE THAT YOU DO NOT HAVE A CONDITION THAT REQUIRES URGENT TREATMENT IN THE EMERGENCY DEPARTMENT. FURTHER EVALUATION AND TREATMENT OF YOUR CONDITION CAN WAIT UNTIL YOU ARE SEEN IN YOUR DOCTORS OFFICE WITHIN THE NEXT 1-2 DAYS. IT IS YOUR RESPONSIBILITY TO MAKE AN APPOINTMENT FOR FOLOW-UP CARE. IF YOU HAVE A PRIMARY DOCTOR --you should call your primary doctor and schedule an appointment IF YOU DO NOT HAVE A PRIMARY DOCTOR YOU CAN CALL OUR PHYSICIAN REFERRAL HOTLINE AT IF YOU CAN NOT AFFORD TO SEE A PHYSICIAN YOU CAN CHOSE FROM THE FOLLOWING [facility] [address] [facility] [address] [facility] [facility] [address] [facility] [address] [facility] [address] [facility] [facility] [address] Additional Instructions: FOLLOW UP WITH YOUR PRIMARY CARE PHYSICIAN TOMORROW.Return to this facility if you are not improving as expected. CAYLA DOMÍNGUEZ PA-C Mar 29, 2019 14:20
== END 2019-03-29 13:46 | disposition home or self-care (01) ==
LOC: FTE 13:03
DX: K13.79 Other lesions of oral mucosa (principal); Z85.048 Personal history of other malignant neoplasm of rectum, rectosigmoid junction, and anus; Z87.891 Personal history of nicotine dependence
CPT/HCPCS: 99283

== ENCOUNTER 2019-06-05 18:58 | Emergency (ER) | payer OTHER ==
[~2019-06-05] VITALS: Ht 185.4 cm; Wt 74.0 kg
[~2019-06-05 18:58] MED LIST changes: +CARB15SO5 MM
[2019-06-05 19:06] VITALS: Ht 185.4 cm; Wt 74.0 kg
[2019-06-06 18:50] VITALS: BP 125/69; PULSE 78; RESP 18
== END 2019-06-06 19:22 ==
LOC: E/R 18:58
DX: R45.851 Suicidal ideations (principal); F17.210 Nicotine dependence, cigarettes, uncomplicated; Z85.038 Personal history of other malignant neoplasm of large intestine
CPT/HCPCS: 80053; 80307; 85025; Z7502; Z7610; 99285